=== PATIENT | female | born 1945 | race Two or more races ===

== ENCOUNTER 2024-12-02 09:50 | Emergency (ER) | payer MEDICARE, SELFPAY ==
--- NOTE | ~2024-12-02 | XR_ITS ---
EXAMINATION: XR HAND/WRIST, LEFT CLINICAL INFORMATION: pain. No further clinical information provided. COMPARISON: None available. TECHNIQUE: PA, lateral, oblique, and scaphoid views of the left hand and wrist. FINDINGS: Normal bone mineralization. No fracture, dislocation, or suspicious focal bony abnormality. There has been fusion of the first MCP joint with a lateral plate and screw construct, which appears intact without hardware abnormality or loosening. 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 Moderate narrowing of the second and mild narrowing of the third MCP joints. The DIP joints demonstrate significant arthritic changes with central erosions and productive bony changes, findings suspicious for primary erosive osteoarthritis. This also involves the interphalangeal joint of the thumb. There is soft tissue swelling about the wrist and proximal forearm. XR/XR hand wrist LT IMPRESSION: 1. No acute fracture or dislocation. Arthrodesis of the first MCP joint with plate and screw fixation, without complication. 2. Chondrocalcinosis within the wrist, suggestive of CPPD. 3. Arthritic changes as detailed, likely representing a mix of degenerative and inflammatory arthropathy. 4. Soft tissue swelling about the proximal forearm and wrist. Electronically signed by: Jarvis Slater MD 12/02/2024 10:45 AM [facility]
[2024-12-02 09:52] VITALS: BP 189/59; PULSE 68; RESP 18; TEMP 36.1; O2SAT 94; BMI 34.7
--- NOTE | 2024-12-02 12:16 | ED.EXTPRO ---
HPI - Extremity Problem General Chief complaint: Extremity Injury, Upper Stated complaint: Pain L arm/hand Time Seen by Provider: 12/02/24 12:02 Source: patient Mode of arrival: ambulatory Limitations: no limitations History of Present Illness ED Provider: Dr. Azra Espino HPI Narrative: Patient comes to the emergency room complaining of left wrist pain and in the dorsum of the hand and fingers. Patient states it has been going on for about 3-4 days. Patient denies any trauma. Patient denies any upper arm pain Related Data Previous Rx's ?Medication ?Instructions ?Recorded naproxen 375 mg tablet 375 mg PO BID PRN pain #14 tabs 12/02/24 Allergies Allergy/AdvReac Type Severity Reaction Status Date / Time No Known Allergies Allergy Verified 12/02/24 09:56 Review of Systems Review of Systems: Constitutional : No Weight loss, No Fever, No Chills, No Night Sweats, No Fatigue, No Malaise ENT/Mouth : No Hearing loss, No Ear Pain, No Nasal Congestion, No Sinus Pain, No Hoarseness, No sore throat, No Rhinorrhea, No Swallowing Difficulty Eyes: No Eye Pain, No Swelling, No Redness, No Foreign Body, No Discharge, No Vision Changes Cardiovascular : No Chest Pain, No SOB, No Dyspnea on Exertion, No Orthopnea, No Edema, No Palpitations Respiratory : No Cough, No Sputum, No Wheezing, No Smoke Exposure, No Dyspnea Gastrointestinal : No Nausea, No Vomiting, No Diarrhea, No Constipation, No abdominal Pain, No Hematochezia, No Melena Genitourinary : no irregular bleeding, No Dysuria, No Urinary Frequency, No Hematuria, No Urinary Incontinence, No Urgency, No Flank Pain, No Urinary Flow Changes, No Hesitancy Musculoskeletal : Complaining of pain and mild swelling in the dorsum of the left hand in wrist, No Myalgias, No Joint Swelling Skin : No Skin Lesions, No rash Neuro : No Weakness, No Numbness, No Paresthesias, No Loss of Consciousness, No Dizziness, No Headache Psych : No Anxiety/Panic, No Depression, No SI/HI/AH/VH, No Social Issues, Heme/Lymph: No Bruising, No Bleeding,No Lymphadenopathy Endocrine : No Polyuria, No Polydipsia, No Temperature Intolerance Physical Exam Vital Signs: Vital Signs: Last Vital Signs Temp 97 F 12/02/24 09:52 Pulse 68 12/02/24 09:52 Resp 18 12/02/24 09:52 BP 189/59 H 12/02/24 09:52 Pulse Ox 94 12/02/24 09:52 O2 Del Method Room Air 12/02/24 09:52 BMI result Body Mass Index 34.7 Const: Other: Appearance: Alert. Oriented X3. No acute distress. Eyes: Pupils equal, round and reactive to light. ENT: Pharynx normal. Neck: Normal inspection. Neck supple. No lymph nodes noted. No crepitus CVS: Normal heart rate and rhythm. Pulses normal. Normal S1 and S2 Respiratory: No respiratory distress. Breath sounds normal. No Wheezing. No rales Abdomen: Soft and nontender. No rigidity. No distention. Skin: Skin warm and dry. Normal skin color. Normal skin turgor. Extremities: No lower extremity edema. No Lacerations. No Rash. Patient's left hand is slightly swollen on the dorsum, patient able to flex and extend all fingers. Patient known to have Heberden's and Jessika nodes in most fingers bilaterally. Neuro: Oriented X 3. No motor deficit. No sensory deficit. Moving all extremities. No slurred speech. CN 2 through 12 grossly intact Psych: calm, cooperative, normal affect Medical Decision Making Medical Decision Making MDM Narrative: X-ray does not show any acute abnormality, chronic arthritic changes. Based on patient's physical exam and x-rays, patient likely having an arthritis flare. To patient's knowledge, patient has been diagnosed with arthritis but has not been seen by rheumatology. Patient is currently not taking any DMARDs. Gout or septic joint is not suspected Patient is currently visiting from [place]. Patient instructed to follow-up with PCP and possibly get a referral for Rheumatology. Patient was given naproxen in the ED. Discussed with the patient to have close follow-up with the primary care physician. 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 However, she had blood work done 2 weeks ago and she was told that her renal function was normal. Differential Diagnosis Differential Diagnoses: The differential diagnosis associated with the presentation includes (Arthritis, osteoarthritis, gout) Independent Interpretation I performed an independent interpretation of an: Plain X-Ray Radiology Impression Discussion of test interpretation with radiology: I have reviewed the radiologist's reading. Radiologist Impression: Normal bone mineralization. No fracture, dislocation, or suspicious focal bony abnormality. There has been fusion of the first MCP joint with a lateral plate and screw construct, which appears intact without hardware abnormality or loosening. 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 Moderate narrowing of the second and mild narrowing of the third MCP joints. The DIP joints demonstrate significant arthritic changes with central erosions and productive bony changes, findings suspicious for primary erosive osteoarthritis. This also involves the interphalangeal joint of the thumb. There is soft tissue swelling about the wrist and proximal forearm. XR/XR hand wrist LT IMPRESSION: 1. No acute fracture or dislocation. Arthrodesis of the first MCP joint with plate and screw fixation, without complication. 2. Chondrocalcinosis within the wrist, suggestive of CPPD. 3. Arthritic changes as detailed, likely representing a mix of degenerative and inflammatory arthropathy. 4. Soft tissue swelling about the proximal forearm and wrist. Discharge Plan Discharge Clinical Impression: Flare of rheumatoid arthritis Patient Disposition: Home, Self-Care Instructions: Arthritis (ED) Additional Instructions: Please follow-up with your primary care physician tomorrow. When you get back home in [place], please discuss with your primary physician a possible referral to Rheumatology. If you have any worsening or new symptoms, please return to the emergency room or call 911 Prescriptions: New naproxen 375 mg tablet 375 mg PO BID PRN (Reason: pain) Qty: 14 0RF Print Language: Kittitian
[2024-12-02] MEDS: NaPROXEN 500 MG TABLET PO (12:45)
[2024-12-02 12:47] VITALS: BP 144/54; PULSE 60; RESP 18; TEMP 36.6; O2SAT 92
[2024-12-02 12:59] VITALS: BP 144/54; PULSE 60; RESP 18; TEMP 36.6; O2SAT 92
--- OUTSIDE RECORDS SUMMARY | 2024-12-02 13:13 | XMS_ITS | Patient Health Record ---
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 Name Role Phone JAMES ALVES Unavailable [phone] Jericho Banks MD, Emilia Unavailable Unavailable Allergies Allergen (clinical drug ingredient) Drug/Non Drug Allergy documented on EMR Reaction Allergy Type Onset Date Status Pollen pollen (uncoded) Unknown Allergy Act melody Reason For Referral No Information Medications Medication SIG (Take, Route, Frequency, Duration) Notes Start Date End Date Status Losartan Potassium-HCTZ 100- 25 MG 1 tablet Orally Once a day for 30 day(s) Active Levothyroxine Sodium 125 MCG 1 tablet on an empty stomach in the morning Orally Once a day for 30 day(s) Active Omeprazole 40 MG 1 capsule Orally Onc e a day for 30 day(s) Active Atorvastatin Calcium 40 MG 1 tablet Oral ly Once a day for 30 day(s) Active traMADol HCl 50 MG 1 tablet as needed Orally three times a day Active amLODIPine Besylate 10 MG 1 tablet Orall y Once a day for 30 day(s) Active Hydroxychloroquine Sulfate 2 00 MG as directed Orally Active Dicyclomine HCl 20 MG 1 tablet Orally Th ree times a day for 30 day(s) Active traZODone HCl 150 MG 1 tablet at bedtime Orally Once a day for 30 day(s) Active Sucralfate 1 GM 1 tablet on an empty stomach Orally Twice a day for 30 day(s) Active Gabapentin 300 MG 1 capsule Orally twi ce a day Active Premarin 0.625 MG/GM as directed Vaginal Active Baclofen 5 MG as directed Orally Active Immunizations Vaccine Route Administration Date Status Comme nts Influenza, seasonal, injecta ble, preservative free, 3 yrs and above Unknown 11/05/2018 Administered Social History Tobacco Use: Social History Observation Description Date Details (start date - stop date) Never Smoker NA - NA Tobacco Use/Smoking Question Answer Notes Are you a nonsmoker Alcohol Screen (Audit-C) Question Answer Notes Did you have a drink containing alcohol in the p ast year? No Points 0 Interpretation Negative Problems Problem Type SNOMED Code ICD Code Onset Dates Problem Status W/U Status Risk Notes Problem Carpal tunnel syndrome of right wrist (887131666546715) Carpal tunnel syndrome of right wrist (G56.01) Active confirmed Problem [id number] Carpal tunnel syndrome on both sides (G56.03) Active confirmed Problem Lesion of ulnar nerv e (055683168) Cubital tunnel syndrome on left (G56.22) Active confirmed Plan Of Treatment No Information Insurance Providers Payer Name Payer Address Payer Phone Subscriber Number Group Number Insured Name Patient Relationship to Insured Coverage Start Date Coverage End Date [facility] [address] [place], [place] [id number] Nusrat Mcdonough Self - patient is the insured Medical (General) History Medical History History ICD Code High Blood Pressure Arthritis Anemia Thyroid Trouble Surgical History Surgery Date(Month/Year) Bilateral Knee Replacement Eye Surgery Left Shoulder Hemorrhoids
--- OUTSIDE RECORDS SUMMARY | 2024-12-02 13:13 | XMS_ITS | Data Portability ---
Author Organization [place] [facility] Address [address] [place] [address] Assessment Encounter Date Assessment Date Assessment LastModified by Organization Details LastModified Time 01/22/2017 01/22/2017 Patient has bilat l3...s1 facet tenderness also bilat si tenderness had Pt with increased pain has claudication order MRI LS caudal yogi hmerheb Not available 01/22/2017 09:59:14 02/14/2017 02/14/2017 patient has tenderness over bilat facet lumbar increased with tilt and rotation had caudal yogi with 50% relief of her pain recommend facet inj l3...s1 bilat hmerheb Not available 02/14/2017 09:59:13 Plan of Treatment Reminders Order Date Submit Date Provider Last Modified By Organization Details Last Modified Time Details Appointments None recorded. Lab None recorded. Referral None recorded. Procedures epidural steroid injection, lumbar-cau akhil (PROC) 2016 017 MICHELLE Not available 7 05:01:13 facet joint injection, lumbar (PROC) 2016 017 MICHELLE Not available 7 05:01:13 facet joint injection, lumbar (PROC) 2016 017 [email or web address] Not available 7 13:33:35 Surgeries None recorded. Imaging None recorded. Medication Orders None recorded. Patient TargetsNo targets recorded. Patient Instructions Encounter Date Encounter Id Patient Instructions Last Modified By Organization Details Last Modified Time 02/05/2017 [id number] Patient had shor t term improvement with initial injection, will order proceed with facet injections to see if patient has additional improvement. Will follow up post procedure to assess response to treatment. [email or web address] Not available 02/05/2017 10:45:16 02/14/2017 [id number] sacroiliac pain: exercises MICHELLE Not available 02/16/2017 14:52:49 Reason for Referral None Reported. Results Created Date Observation Date Name Description Value Unit Range Abnormal Flag Note LastModifiedBy Organization Detail LastModifiedTime 01/30/20 17 01/27/2017 MRI, lumba r spine , w/o contr ast No observ ation record ed. [address] [facility] [address] [facility] [address], [place], [address], 01/29/2017 09:45:09 Result Notes None recorded. Procedures Surgical History Date Name Laterality Status Provider Name and Address Organization Details Recorded Time 7 Lumbar Facet Joint Injection Under Fluoroscopy completed Sofia Raman MD [address] [facility],[address], [place], [address], [facility] 03/07/2017 15:28:22 7 Back/Neck/Spine Surgery completed Kerrie Chang [place] - [facility] 03/02/2017 08:15:42 7 HM Caudal ESIN completed Sofia Raman MD [address] [facility],[address], [place], [address], [facility] - [facility] 01/25/2017 11:42:59 7 Back/Neck/Spine Surgery completed Nighat Nj [place] - [facility] 01/23/2017 08:05:02 Imaging Results Imaging Date Name Status LastModified by Organiz ation Details LastModified Time 01/27/2017 MRI, lumbar spine, w/o contrast completed [address] [facility] [address] [facility] [address], [place], [address], 01/29/2017 09:45:09 Procedure Notes None recorded. Medical Equipment None Reported. Allergies No known drug allergies Medications Name Sig Start Date Stop Date Status Note LastModified by Organization Details LastModified Time levocetirizi ne dihydrochlor rachael 5 mg tabs active Not Available Not Available Not Available hydroco/apap tab 5-325mg active Not Available Not Available Not Available latanoprost 0.005 % eye drops INSTILL 1 DROP INTO AFFECTED EYE(S) BY OPHTHALMIC ROUTE ONCE DAILY INTHE EVENING active Not Available Not Available No t Available atorvastatin 40 mg tablet Take 1 tablet every day by oral route. active Not Available Not Available No t Available citalopram 40 mg tablet Take 1 tablet every day by oral route. active Not Available Not Available No t Available hydrocodone 5 mg-acetamino phen 325 mg tablet Take 1 tablet every 6 hours by oral route as needed for 30 days. 2016 active Not Available Not Available Not Avai lable omeprazole 40 mg capsule,corrina yed release Take 1 capsule every day by oral route. active Not Available Not Available No t Available dicyclomine 20 mg tablet Take 1 tablet 4 times a day by oral route. active Not Available Not Available No t Available amlodipine 10 mg tablet Take 1 tablet every day by oral route. active Not Available Not Available No t Available gabapentin 300 mg capsule Take 1 capsule 3 times a day by oral route. active Not Available Not Available No t Available levothyroxin e active Not Available Not Available Not Available ProAir HFA 90 mcg/actuatio n aerosol inhaler Inhale 2 puffs every 4 hours by inhalation route. active Not Available Not Available No t Available tramadol ER 150 mg capsule 24h,extended release(25-7 5) Take 1 capsule every day by oral route. active Not Available Not Available No t Available Vitals Date Recorded Body height Body weight Body mass index (BMI) Heart rate Systolic blood pressure Diastolic blood pressure Provider Name and Address Organization Details Last Updated DateTime 7 180.34 cm 27499.3 g 23.8 kg/m2 59 /min 108 mm[Hg] 62 mm[Hg] Sofia Raman MD [address] [facility], [address] , [place] [facility] 7 09:46:20 Date Recorded Body height Body weight Body mass index (BMI) Oxygen saturation Oxygen saturation in Arterial blood by Pulse oximetry Heart rate Body temperature Systolic blood pressure Diastolic blood pressure Provider Name and Address Organization Details Last Updated DateTime 7 180.34 cm 05509.3 g 23.8 kg/m2 98 % 98 % 61 /min 98.1 [degF] 152 mm[Hg] 65 mm[Hg] Nighat Nj [place] - [facility] 08:04:09 Date Recorded Body height Body weight Body mass index (BMI) Systolic blood pressure Diastolic blood pressure Provider Name and Address Organization Details Last Updated DateTime 02/05/2017 180.34 cm 20369.3 g 23.8 kg/m2 153 mm[Hg] 48 mm[Hg] Tash Smith PA-C [address] [facility],[address], [place], [address] [place] [id number] [facility] 7 10:20:14 Date Recorded Body height Heart rate Body weight Body mass index (BMI) Systolic blood pressure Diastolic blood pressure Provider Name and Address Organization Details Last Updated DateTime 180.34 cm 65 /min 15579.3 g 23.8 kg/m2 126 mm[Hg] 56 mm[Hg] Sofia Raman MD [facility] [facility], [place], [address] [place] [address] [facility] 09:52:17 Date Recorded Body height Body weight Body mass index (BMI) Oxygen saturation Oxygen saturation in Arterial blood by Pulse oximetry Heart rate Body temperature Respiratory rate Systolic blood pressure Diastolic blood pressure Provider Name and Address Organization Details Last Updated DateTime 180.34 cm 21987.3 g 23.8 kg/m2 96 % 96 % 51 /min 97.7 [degF] 17 /min 153 mm[Hg] 57 mm[Hg] Kerrie Chang [facility] 08:13:46 Social History None recorded. Functional Status None recorded. Mental Status None recorded. Family History Relationship Description Onset Age of this Age Resolved Age Notes LastModified by Organization Details LastModified Time Daughter Anxiety disorder [email or web address] Not available 2016 09:10:04 Daughter History of depression [email or web address] Not available 01/26 09:10:18 Sister Anxiety disorder [email or web address] Not available 2016 09:10:04 Sister History of depression [email or web address] Not available 01/26 09:10:18 Medical History Condition Response Coronary Artery Disease N Gout N Blood Transfusion N Emphysema N Head Trauma/Injury N COPD N Depression Y Oxygen Use N Headaches/Migraines N Do you have a pacemaker? N Anxiety Disorder Y Do you have Sleep Apnea? Y Blood Clot(s) or DVT(s) N Acid Reflux (GERD) N Have you ever had a cardiac catherizatio n? N Cancer N Stroke N Crohn's Disease N Have you ever had open heart surgery? N Alcohol Overuse/Alcohol Abuse N Back Injury N Rheumatoid Arthritis Y Arrhythmia N Hypertension/High Blood Pressure N Fibromyalgia N Autoimmune disorders N Have you ever had a echocardiogram? N Heart Disease/Heart Problems N Thyroid Problems Y Brain Tumors N ADD/ADHD N Neck Pain N Anemia N Back Pain N Brain Injury N Do you use a C-pap machine? N Heart Attack (ND) N Have you ever had a stress test? N Difficulty swallowing N Bleeding Disorder N Seizures/Epilepsy N Cerebral Palsy N AIDS/HIV N Congestive Heart Failure (CHF) N Do you have cardiac stents? N Dementia N Asthma N Amputation N Lupus N Diabetes Type II N Peripheral Vascular Disease N Hepatitis N Diabetes Type I N Aneurysm N Pulmonary Embolism N Gynecological HistoryNo gynecological history recorded. Obstetrics History GPAL:G 0 P 0 0 0 0 Past Encounters Encounter ID Performer Location Encounter Start Date Encounter Closed Date Diagnosis/Indication Diagnosis SNOMED-CT Code Diagnosis ICD10 Code Diagnosis Note [id number] Sofia Raman MD [address] 1 01/22/2017 09:07:21 01/22/2017 17:33:29 Arthropathy of lumbar facet joint 539454391 M46.96 Spinal jose miguel nosis of lumbar region 78992417 M48.06 [id number] Sofia Raman MD [facility] Procedure Room [address] [place] [address] [address] [place] [address] 01/23/2017 08:03:30 01/23/2017 14:09:38 [id number] Tash Smith PA-C [address] [address] 02/05/2017 10:00:27 02/05/2017 13:02:36 Low back pain 267177476 M54.5 Sacroiliac joint pain 20 5264948 M53.3 [id number] Sofia Raman MD [place] [address] [facility] [place] [address] 02/14/2017 09:17:45 02/14/2017 11:30:36 Arthropathy of lumbar facet joint 247754018 M46.96 Inflammati on of sacroiliac joint 12183326 M46.1 [id number] Sofia Raman MD [facility] Procedure Room [address] [facility] [address] [facility] [address] [place] [address] 03/02/2017 07:56:00 03/04/2017 18:02:14 Health Concerns Section Related Observation LastModified by Organization Detai ls LastModified Time None Recorded Concern Status LastModified by Organization Details LastModified Time None Recorded Advance Directives Directive None Recorded Payers Encounter Date Sequence Insurance Name Policy Number Policy Mayorga Covered Member ID Mayorga Member ID Guarantor Name 01/22/2017 1 [place] [id number] A Nusrat L Zepeda [id number] Nusrat L Zepeda 01/22/2017 1 [facility] (MEDICAID REPLACEMENT - HMO) [id number] Nusrat L Zepeda [id number] Nusrat L Zepeda 01/23/2017 1 [place] [id number] A Nusrat L Zepeda [id number] Nusrat L Zepeda 01/23/2017 1 [facility] (MEDICAID REPLACEMENT - HMO) [id number] Nusrat L Zepeda [id number] Nusrat L Zepeda 02/05/2017 1 [place] [id number] A Nusrat L Zepeda [id number] Nusrat L Zepeda 02/05/2017 1 [facility] (MEDICAID REPLACEMENT - HMO) [id number] Nusrat L Zepeda [id number] Nusrat L Zepeda 02/14/2017 1 [facility] [id number] Nusrat L Zepeda [id number] Nusrat L Zepeda 03/02/2017 1 [facility] (MEDICARE REPLACEMENT/AD VANTAGE - PPO) [id number] Nusrat L Zepeda [id number] Nusrat L Zepeda Notes Date Note Type Note Provider Name and Address Organization Details Recorded Time 01/22/2017 text/html Pain Management L-spineReported bypatient.Location: pain is not radiating Quality:burning Severity:current pain level 6/10; worst pain 8/10;worsening Duration:constant Onset/Timing:chroni c Context:cannot identify Alleviating Factors:medication Aggravating Factors:extension; flexion; carrying; twisting; lifting; getting out of bed; going from sit to stand; sitting; standing; walking; lying down Associated Symptoms:no bladder compromise; no bowel compromise;weakness Radiation:none Work Related:no MVAno ADL (Activities of Daily Living):walking; sweeping; mopping; improve with medication Pain Relief With Current Medications:25%; 12 hrs. Prior Imaging:MRI Previous Surgerynone Previous Injections:YOGI; helped a little; helped temporarily Previous PT:none Previous home health care respiratory therapist:did not help Sofia Raman MD [address] [place] [address],[address], [place], [address], [facility] 01/22/2017 10:04:48 02/05/2017 text/html L-spine OrthoReported bypatient.Location: bilateral Quality:aching; dull; constant Severity:moderate; pain level 5/10 Duration:continuous since onset Timing:cannot identify Context:cannot identify Alleviating Factors:narcotics Aggravating Factors:sitting; standing; walking; bending/squatting; exercise Associated Symptoms:no weakness; no numbness; no tingling; no radiation down leg Previous Surgery:none Prior Imaging:no recent studies Previous Injections:helped significantly Previous PT:none Patient presents for injection follow up. Tash Smith PA-C [address] [place] [address],[address], [place], [address], [facility] 02/05/2017 10:46:44 02/14/2017 text/html Pain Management L-spineReported bypatient.Location: pain is not radiating Quality:burning Severity:current pain level 6/10; worst pain 8/10; same Duration:constant Onset/Timing:chroni c Context:cannot identify Alleviating Factors:medication Aggravating Factors:extension; flexion; carrying; twisting; lifting; getting out of bed; going from sit to stand; sitting; standing; walking; lying down Associated Symptoms:no bladder compromise; no bowel compromise;weakness Radiation:none Work Related:no MVAno ADL (Activities of Daily Living):walking; sweeping; mopping; improve with medication Pain Relief With Current Medications:25%; 12 hrs. Prior Imaging:MRI Previous Surgerynone Previous Injections:YOGI; helped a little; helped temporarily Previous PT:none Previous home health care respiratory therapist:did not help Sofia Raman MD [address] [facility],[address], [place], [address], [facility] 02/14/2017 10:03:31 OBGyn Episode No OBEpisode recorded.
--- OUTSIDE RECORDS SUMMARY | 2024-12-02 13:14 | XMS_ITS | Encounter Summary ---
Author Organization [facility] Address [address] [place] [address] Care Team Providers Care Comic Writer Name Role Phone Unavailable Primary Care Provider Unavailabl e Prior Encounters Date Type Department Care Team Description 05/02/2024 9:15 AM CDT Office Visit [facility] [address] [place] [phone] Dwayne Villavicencio, DDS 03/18/2024 1:00 PM CDT Office Visit [facility] [address] [place] [phone] Dwayne Villavicencio DDS 03/11/2024 11:00 AM CDT Office Visit [facility] [address] [place] [phone] Luis Alberto Harvey, [facility] 03/11/2024 9:30 AM CDT Office Visit [facility] [address] [place] [phone] Kenna Ybarra, [facility] 02/28/2024 2:00 PM CDT Office Visit [facility] [address] [place] [phone] Dwayne Villavicencio DDS 02/06/2024 9:30 AM CDT Office Visit [facility] [address] [place] [phone] Dwayne Villavicencio DDS 01/15/2024 8:30 AM CDT Office Visit [facility] [address] [place] [phone] Dwayne Villavicencio, DDS 01/01/2024 8:30 AM SCREEN MACHINE OPERATOR Office Visit [facility] [address] [place] [phone] Dwayne Villavicencio, DDS 12/19/2023 8:30 AM SCREEN MACHINE OPERATOR Office Visit [facility] [address] [place] [phone] Dwayne Villavicencio, DDS 11/29/2023 8:30 AM SCREEN MACHINE OPERATOR Office Visit [facility] [address] [place] [phone] Dwayne Villavicencio, DDS 11/01/2023 11:00 AM SCREEN MACHINE OPERATOR Office Visit [facility] [address] [place] [phone] Dwayne Villavicencio, DDS 11/01/2023 10:30 AM SCREEN MACHINE OPERATOR Office Visit [facility] [address] [place] [phone] Kenna Ybarra, [facility] 10/04/2023 9:30 AM SCREEN MACHINE OPERATOR Office Visit [facility] [address] [place] [phone] Dwayne Villavicencio, DDS 07/13/2023 9:00 AM CDT Office Visit [facility] [address] [place] [phone] Kenna Ybarra [facility] 07/12/2023 Travel 07/12/2023 2:00 PM CDT Consult [facility] [address] [place] [phone] Shashank Lowe DDS [place] 06/06/2023 Travel 06/06/2023 10:00 AM CDT Office Visit [facility] [address] [place] [address] [address] [place] [phone] Dwayne Villavicencio DDS Last Filed Vital Signs Vital Sign Reading Time Taken Comments Blood Pressure 160/69 03/11/2024 9:29 AM CDT Pulse 62 03/11/2024 9:29 AM CDT Temperature - - Respiratory Rate - - Oxygen Saturation - - Inhaled Oxygen Concentration - - Weight - - Height - - Body Mass Index - - Plan of Treatment Not on file Procedures Procedure Name Priority Date/Time Associated Diagnosis Comments RE-EVALUATION ? POST-OPERATIVE OFFICE VISIT Routine 05/02/2024 9:15 AM CDT ADJUST COMPLETE DENTURE - MANDIBULAR Routine 03/18/2024 1:00 PM CDT ADJUST PARTIAL DENTURE - MAXILLARY Routine 03/11/2024 11:00 AM CDT ADJUST COMPLETE DENTURE - MANDIBULAR Routine 03/11/2024 11:00 AM CDT ORAL HYGIENE INSTRUCTIONS Routine 2023 9:30 AM CDT PERIO MAINTENANCE Routine 03/11/2024 9:3 0 AM CDT DELIVER DENTURE Routine 02/28/2024 2:00 PM CDT DELIVER DENTURE Routine 02/28/2024 2:00 PM CDT WAX BITE RELATION Routine 02/06/2024 9:3 0 AM CDT WAX BITE RELATION Routine 01/15/2024 8:3 0 AM CDT RE-EVALUATION ? POST-OPERATIVE OFFICE VISIT Routine 01/01/2024 8:30 AM SCREEN MACHINE OPERATOR 27 SEMI-PRECISION ATTACHMENT- PLACEMENT Routine 12/19/2023 8:30 AM SCREEN MACHINE OPERATOR 26 SEMI-PRECISION ATTACHMENT- PLACEMENT Routine 12/19/2023 8:30 AM SCREEN MACHINE OPERATOR 24 SEMI-PRECISION ATTACHMENT- PLACEMENT Routine 12/19/2023 8:30 AM SCREEN MACHINE OPERATOR 25 SEMI-PRECISION ATTACHMENT- PLACEMENT Routine 12/19/2023 8:30 AM SCREEN MACHINE OPERATOR 23 SEMI-PRECISION ATTACHMENT- PLACEMENT Routine 12/19/2023 8:30 AM SCREEN MACHINE OPERATOR 22 SEMI-PRECISION ATTACHMENT- PLACEMENT Routine 12/19/2023 8:30 AM SCREEN MACHINE OPERATOR 25 SEMI-PRECISION ABUTMENT- PLACEMENT Routine 12/19/2023 8:30 AM SCREEN MACHINE OPERATOR 26 SEMI-PRECISION ABUTMENT- PLACEMENT Routine 12/19/2023 8:30 AM SCREEN MACHINE OPERATOR 27 SEMI-PRECISION ABUTMENT- PLACEMENT Routine 12/19/2023 8:30 AM SCREEN MACHINE OPERATOR 24 SEMI-PRECISION ABUTMENT- PLACEMENT Routine 12/19/2023 8:30 AM SCREEN MACHINE OPERATOR 23 SEMI-PRECISION ABUTMENT- PLACEMENT Routine 12/19/2023 8:30 AM SCREEN MACHINE OPERATOR Max FULL UPPER DENTURE Routine 8:30 AM SCREEN MACHINE OPERATOR Kvng IMPLANT /ABUTMENT SUPPORTED REMOVABLE DENTURE FOR EDENTULOUS ARCH ? MANDIBULAR Routine 12/19/2023 8:30 AM SCREEN MACHINE OPERATOR 22 SEMI-PRECISION ABUTMENT- PLACEMENT Routine 12/19/2023 8:30 AM SCREEN MACHINE OPERATOR RE-EVALUATION ? POST-OPERATIVE OFFICE VISIT Routine 11/29/2023 8:30 AM SCREEN MACHINE OPERATOR RE-EVALUATION ? POST-OPERATIVE OFFICE VISIT Routine 11/01/2023 11:00 AM SCREEN MACHINE OPERATOR ORAL HYGIENE INSTRUCTIONS Routine 2022 10:30 AM SCREEN MACHINE OPERATOR PERIO MAINTENANCE Routine 11/01/2023 10: 30 AM SCREEN MACHINE OPERATOR RE-EVALUATION ? POST-OPERATIVE OFFICE VISIT Routine 10/04/2023 9:30 AM SCREEN MACHINE OPERATOR ORAL HYGIENE INSTRUCTIONS Routine 2022 9:00 AM CDT PERIO MAINTENANCE Routine 07/13/2023 9:0 0 AM CDT PERIO CONSULT Routine 07/12/2023 2:00 PM CDT KNITTING TEACHER CBCT Routine 06/06/2023 10:00 AM CDT NEW PATIENT SPECIAL EXAM - ADULT Routine 06/06/2023 10:00 AM CDT Kvng COMPLETE DENTURE Routine 06/06/2023 12:00 AM CDT Max COMPLETE DENTURE Routine 06/06/2023 12:00 AM CDT 22 DENTAL IMPLANT Routine 06/06/2023 12: 00 AM CDT 23 DENTAL IMPLANT Routine 06/06/2023 12: 00 AM CDT 24 DENTAL IMPLANT Routine 06/06/2023 12: 00 AM CDT 25 DENTAL IMPLANT Routine 06/06/2023 12: 00 AM CDT 26 DENTAL IMPLANT Routine 06/06/2023 12: 00 AM CDT 27 DENTAL IMPLANT Routine 06/06/2023 12: 00 AM CDT Visit Diagnoses Not on file Insurance [id number] [place], [place] [id number] [place] [address] DUAL COMPLETE PPO
--- OUTSIDE RECORDS SUMMARY | 2024-12-02 13:14 | XMS_ITS | Clinical Summary ---
Author Organization [facility] Address [address] [place] [address] [place] [address] Care Team Providers Care Structural Steel Equipment Erector Name Role Phone Cassandra Cabrera PA-C Primary Care Provider Allergies No known active allergies Medications Medication Sig Dispensed Refills Start Date End Date Status ALPRAZolam 0.5 mg tablet (XANAX) TAKE 1 TABLET BY MOUTH IN THE EVENING NEEDED 06/21/2022 Active atorvastatin 40 mg tablet (LIPITOR) Take 1 tablet (40 mg total) by mouth daily. 06/02/2022 Active diclofenac 1 % topical gel APPLY 2 GM FOUR TIMES DAILY TO AFFECTED AREA 05/07/2022 Active diclofenac sodium 50 mg tablet,delayed release (VOLTAREN) TAKE 1 TABLET BY MOUTH TWICE DAILY AFTER A MEAL 04/22/2022 Active fluticasone propionate 50 mcg/actuation nasal spray,suspension (FLONASE) Administer 2 sprays into each nostril daily. shake before use 05/01/2022 Active HYDROcodone 5 mg-acetaminophen 325 mg tablet (NORCO) Take 1 tablet by mouth 3 times a day as needed. 06/24/2022 Active levothyroxine 112 mcg tablet (SYNTHROID, LEVOTHROID) TAKE 1 TABLET BY MOUTH EVERY DAY BEFORE A MEAL 06/21/2022 Active liothyronine 5 mcg tablet (CYTOMEL) Take 1 tablet (5 mcg total) by mouth daily. 06/02/2022 Active losartan 100 mg-hydrochlorothi azide 12.5 mg tablet (HYZAAR) Take 1 tablet by mouth daily. 04/21/2022 Active metoprolol succinate ER 25 mg tablet,extended release 24 hr (TOPROL XL) Take 1 tablet (25 mg total) by mouth daily. 04/14/2022 Active naloxone 4 mg/actuation nasal spray (NARCAN) CALL 911. SPR CONTENTS OF ONE SPRAYER (0.1ML) INTO ONE NOSTRIL. REPEAT IN 2-3 MIN IF SYMPTOMS OF OPIOID EMERGENCY PERSIST, ALTERNATE NOSTRILS 06/12/2022 Active omeprazole 40 mg capsule,delayed release (PriLOSEC) Take 1 capsule (40 mg total) by mouth daily. 04/14/2022 Active traMADoL ER 100 mg tablet,extended release 24 hr (ULTRAM-ER) 06/24/2022 Active traZODone 150 mg tablet (DESYREL) Take 1 tablet (150 mg total) by mouth at bedtime. 04/14/2022 Active 24 Hour Nasal Allergy 55 mcg spray aerosol Administer 2 sprays (110 mcg total) into each nostril daily. 07/21/2022 Active dicyclomine 20 mg tablet (BENTYL) TAKE 1 TO 2 TABLETS BY MOUTH 15 TO 30 MINUTES PRIOR TO MAIN MEAL NEEDED 07/11/2022 Active diazePAM 5 mg tablet (VALIUM) TAKE 1 TO 2 TABLETS BY MOUTH 45 MINUTES BEFORE PROCEDURE FOR 1 DAY NEEDED 08/18/2022 Active albuterol sulfate HFA 90 mcg/actuation aerosol inhaler Inhale 1 puff 2 times a day. 07/18/2023 Active gabapentin 400 mg capsule (NEURONTIN) Take 1 capsule (400 mg total) by mouth every 6 hours and as desired. 08/31/2023 Active pantoprazole 40 mg tablet,delayed release (PROTONIX) Take 1 tablet (40 mg total) by mouth daily. 06/04/2023 Active oxyBUTYnin chloride 5 mg tablet (DITROPAN) TAKE 1 TABLET(5 MG) BY MOUTH TWICE DAILY 180 tablet 3 08/04/2024 Active Additional Information Patient not taking.Reported on 09/15/2024 halobetasol propionate 0.05 % topical ointment (ULTRAVATE) Apply to affected area qhs twice a week 60 g 11 09/15/2024 09/16/2025 Active estradioL 0.01% (0.1 mg/gram) vaginal cream (ESTRACE) INSERT 0.5GM VAGINALLY EVERY NIGHT AT BEDTIME FOR 3 WEEKS, THEN DECREASE TO TWICE A WEEK 42.5 g 6 09/15/2024 Active Active Problems Problem Noted Date Diagnosed Date Lichen sclerosus et atrophicus of the vulva 09/05 Hypothyroidism 09/12/2023 09/12/2023 Hypertension 09/12/2023 09/12/2023 Hyperlipidemia 09/12/2023 09/12/2023 Gastroesophageal reflux disease 09/12/2023 09/12/2023 Asthma 09/12/2023 09/12/2023 Encounters Date Type Department Care Team Description 09/15/2024 9:50 AM SANITARY ENGINEER Office Visit [facility] [place] [address] [place] [address] Kathi Tijerina MD Encounter for gynecological examination without abnormal finding (Primary Dx); Breast cancer screening by mammogram; Osteoporosis screening; Lichen sclerosus et atrophicus of the vulva 09/15/2024 Travel from Last 3 Months Immunizations Name Administration Dates Next Due Influenza Split Preservative Free ID 08/11/2024 Influenza Vaccine Quadrivalent High Dose PF 06/2022 Influenza vaccine 65y+ quadr ivalent adjuvanted 08/23/2023 Influenza vaccine high dose 65yo & up 06/14/2021 SARS-COV-2 (COVID-19) RED CA P +BLUE LABEL Mononvalent VACCINE, MODERNA 12+YO 08/25/2021,02/14/2021,01/14/2021 Social History Tobacco Use Types Packs/Day Years Used Date Smoking Tobacco: Former Cigarettes 0.5 35.9 0 1958 - 02/22/1994 Smokeless Tobacco: Former Tobacco Cessation:Counseling Given: Not Answered Comments:I quick in 1993 Alcohol Use Standard Drinks/Week Comments Not Currently 0 (1 standard drink = 0.6 oz pur e alcohol) None PHQ-2 Answer Date Recorded PHQ-9 Score 0 09/12/2023 [facility] Historical Interpersonal Safety Answer Date Recorded Does anyone neglect, hurt, or threaten the patie nt? No 09/15/2024 Sex and Gender Information Value Date Recorded Sex Assigned at Not on file Gender Identity Female 09/11/2023 12:47 PM SANITARY ENGINEER Sexual Orientation Not on file Last Filed Vital Signs Vital Sign Reading Time Taken Comments Blood Pressure 176/56 09/15/2024 10:27 AM SANITARY ENGINEER Pulse 60 09/15/2024 9:37 AM SANITARY ENGINEER Temperature - - Respiratory Rate - - Oxygen Saturation 7% 09/15/2024 9:37 AM SANITARY ENGINEER Inhaled Oxygen Concentration - - Weight 80.2 kg (176 lb 14.4 oz) 09/15/2024 9:37 AM SANITARY ENGINEER Height 152.4 cm (5') 09/15/2024 9:37 AM SANITARY ENGINEER Body Mass Index 34.55 09/15/2024 9:37 AM SANITARY ENGINEER Plan of Treatment Upcoming Encounters Date Type Department Care Team (Late st Contact Info) Description 02/03/2025 10:45 AM CDT Office Visit [facility] [address] [facility] [address] [place] [id number] Alexis Schuster MD [address] [facility] [address] [place], [place] [id number] 09/21/2025 10:00 AM SANITARY ENGINEER Office Visit [facility] [place] [address] [place], [place] [address]A [place], [place] [phone] Kathi Tijerina MD [address] [facility] [address] [place] [address] Health Maintenance Due Date Last Done Comments Adult Diabetic Eye Exam 1944 Adult Diabetic Foot Exam 1944 Creatinine Level 1944 Estimated Glomerular Filtration Rate (eGFR) 1944 Hemoglobin A1C Test Frequency 1944 Lipid Panel 1944 Potassium Level 1944 eGFR/Creatinine Level 1944 Hematocrit Level 1945 Urine Microalbumin 1954 Obesity Intervention 1962 Pneumococcal Vaccine: 50+ Years (New 2023 Guideline) (1 of 2 - PCV) 1963 DTaP,Tdap,and Td Vaccines (1 - Tdap) 1969 CT Colonography 1989 Cologuard (FIT-DNA) 1989 FIT 1989 Sigmoidoscopy 1989 Zoster Vaccine (1 of 2) 1994 Osteoporosis Screening 2009 COVID-19 Vaccine ( season) 2024 08/23/2023, 07/14/2022, 08/25/2021, Additional history exists Annual Preventive Visit 09/12/2024 09/12/2023 Colonoscopy 12/06/2030 12/06/2020 (Shelby ent Reported) Colorectal Cancer Screening 12/06/2030 RSV Vaccines Completed 07/08/2024 Influenza Vaccine Completed 08/11/2024, , 08/23/2023, Additional history exists HIB Vaccines Aged Out No longer eligi ble based on patient's age to complete this topic Hepatitis B Vaccines Aged Out No long er eligible based on patient's age to complete this topic Meningococcal ACWY Vaccine Aged Out N o longer eligible based on patient's age to complete this topic Care Teams Structural Steel Equipment Erector Relationship Specialty Start Date End Date Cassandra Cabrera PA-C [address] [place] [id number] PCP - General Physician Cytogenetic Technician 05/26/22
--- OUTSIDE RECORDS SUMMARY | 2024-12-02 13:14 | XMS_ITS | Data Portability ---
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 Cardiac telemetry, 02/22, no tachyarrhythmia noted over 2 weeks of monitoring but she does have episodes of junctional rhythm with heart rate in the 30s. Clearly she does have conduction system disease with evidence of bifascicular block and resting bradycardia. Lowest heart rate was 33 bpm. She is now status post dual-chamber pacemaker placement with residual episodes of shortness of breath and dizziness. Echocardiogram 07/24, technically difficult study but ejection fraction appears to be preserved. Dobutamine stress echocardiogram, 02/22, images reviewed, no evidence of ischemia or scar. She is appropriately on high intensity statin therapy that should be continued. Device interrogation 11/25, episodes of PMT as well as PVCs in bigeminal pattern for which she was started on metoprolol recently. She will maintain follow-up with electrophysiology for the same I have asked the patient to return in follow up in [address] Hernandez for allowing me to participate in the care of this pleasant patient. If I can be of any further assistance, please feel free to call me at [phone]. Josefina Auguste MD, FACC, RPVI [facility] elisha Not available 11/29/2020 08:43:43 04/15/2021 04/15/2021 Instructions, orders, and treatment plan, were discussed and reviewed with the patient during the visit. Follow up appointment arranged 12 minutes visit time. Over 50% of this time was spent in direct patient telephonic communication counseling and coordinating care. Colton 76 year-old white female here for follow-up. needs to increase water and fiber. she will try probiotic again Still complaining of bloating. She has previously felt better with trial of antibiotics however the relief is not long lasting. now again with diarrhea, urgency, bloating, we will re-try rifaximin also almost due for colonoscopy, she is concerned due to bowel changes, we will schedule EGD at the same time due to constant epigastric discomfort and h/o gastritis explained symptoms are in some part functional and endoscopy may not completely answer questions however we will assess for gastritis/microscop ic colitis [facility] Not available 04/15/2021 16:21:44 07/04/2021 07/04/2021 Instructions, orders, and treatment plan, were discussed and reviewed with the patient during the visit. Follow up appointment arranged 11 minutes visit time. Over 50% of this time was spent in direct patient telephonic communication counseling and coordinating care. Colton 76 year-old white female here for follow-up. needs to increase water and fiber. she will try probiotic again Still complaining of bloating. She has previously felt better with trial of antibiotics however the relief is not long lasting. she will call prn, she is moving to [place] adeiafloresita Not available 07/09/2021 16:09:05 Plan of Treatment Reminders Order Date Submit Date Provider Last Modified By Organization Details Last Modified Time Details Appointments None recorded. Lab None recorded. Referral None recorded. Procedures colonoscop y procedure (PROC) 2020 021 dave [facility] ([facility]) *Scheduling, [address] [place], [address], 16:26:06 upper endoscopy procedure (EGD) (PROC) 2020 021 dave [facility] ([facility]) *Scheduling, [address], [place], [address], 16:25:09 Surgeries None recorded. Imaging electrocar diogram 2020 021 MICHELLE [facility], [address], [place], [address], 09:42:59 electrocar diogram 2020 021 thengerer [facility], [address], [place], [address], 10:55:18 Medication Orders Xifaxan 550 mg tablet 2020 021 aenos2 [id number], [address], [place], [place], [id number], 09:46:59 Miralax 17 gram/dose oral powder 2020 021 [facility] #[id number], [address], [place], [place], [phone], 16:16:52 Patient TargetsNo targets recorded. Patient Instructions Encounter Date Encounter Id Patient Instructions Last Modified By Organization Details Last Modified Time 11/29/2020 [id number] eating healthy foods: care instructions [email or web address] Not available 11/29/2020 08:43:58 12/09/2020 [id number] general patient instructions Not available 12/09/2020 09:34:04 A healthy heart: care instructions Not available 12/09/2020 09:34:04 08/19/2021 [id number] general patient instructions Not available 08/19/2021 10:03:26 A healthy heart: care instructions Not available 08/19/2021 10:03:26 Reason for Referral None Reported. Results Created Date Observation Date Name Description Value Unit Range Abnormal Flag Note LastModifiedBy Organization Detail LastModifiedTime 12/09/19 21 12/09/2020 elect rocar diogr am Rate & Rhythm Not Available [facility] [address], [place], [address], 12/09/2020 09:20:24 12/09/19 21 12/09/2020 elect rocar diogr am QRS Not Available [facility] [address], [place], [address], 12/09/2020 09:20:24 12/09/19 21 12/09/2020 elect rocar diogr am [place] Interval Not Available [facility] [address], [place], [address], 12/09/2020 09:20:24 12/09/19 21 12/09/2020 elect rocar diogr am QRS Duration Not Available [facility] [address], [place], [address], 12/09/2020 09:20:24 12/09/19 21 12/09/2020 elect rocar diogr am QT Interval Not Available [facility] [address] [place], [address], 12/09/2020 09:20:24 06/15/20 21 06/16/2021 MRSA SCREE N MRSA screen Methi cilli n resis tant Staph aureu s, conta ct isola tion indic ated. Criti kyrie value segundo d to and read back by KARSTEN Ivan MA at: 06/16 at 1432 By Louisa Obregon Not Available [facility] ? Lab [address], [place], [address] 06/16/2021 14:35:52 06/15/20 21 06/15/2021 [facility] results Submi shaw MD: Estela gil MD Final Diagn osis A. Duode nal biops y: -Frag ments of duode nal-t ype mucos a with submu cosal fat sugge stive of a submu cosal lipom a and no other signi fican t histo patho logic jonathan es seen B. Gastr ic biops y: -Frag ments of gastr ic-ty pe mucos a with minim al chron ic infla mmati on -H. pylor i IHC is negat melody -No activ e infla mmati on, intes tinal metap lasia , dyspl carmen or malig cristian seen C. Dista l esoph michelle biops y: -Frag ments of squam ous mucos a with spong iosis and intra epith elial lymph ocyte s sugge stive of possi ble reflu x -No intes tinal metap lasia seen on speci al Alcia n blue stain -No infec tious etiol ogy, eosin ophil s, dyspl carmen or malig cristian seen D. Cecal polyp : -Tubu lar adeno ma E. Right colon biops y: -Frag ments of colon ic-ty pe mucos a with very focal submu cosal fat sugge stive of a submu cosal lipom a, focal insuf flati on artif act and no other signi fican t histo patho logic jonathan es seen F. Ascen ding colon polyp s: -Frag ments of tubul ar adeno ma G. Trans verse colon polyp s: -Frag ments of tubul ar adeno ma H. Left sided colon biops y: -Frag ments of colon ic-ty pe mucos a with no signi fican t histo patho logic jonathan es seen I have perso yazmin perfo rmed a micro scopi c exami natio n of tissu e liste d in the speci men(s ) recei arabella secti on at [facility], [address] [facility], [place] [address] Aubrey delaney Laxmi d Out By Lexi Head MD Clini kyrie Histo ry Gastr itis. Histo ry of polyp s. Speci men(s ) Recei arabella A: Duode nal biops y B: Gastr ic biops y C: Dista l esoph michelle biops y D: Cecal polyp E: Right colon biops y F: Ascen ding colon polyp s G: Trans verse colon polyp s H: Left sided colon biops y Gross Descr iptio n A. Speci men A is recei arabella in forma carlo and label ed Angie n [facility] nad, duode nal biops y . the speci men consi sts of multi ple tanpi nk, irreg ular fragm ents of soft tissu e rangi ng from 0.1-0 .3 cm in great est dimen luisana. The speci men is there are biops y bag entir aquilino in casse tte A. B. Speci men B is recei arabella in forma carlo and label ed [facility], gastr ic biops y . The speci men consi sts of multi ple tanpi nk, irreg ular fragm ents of soft tissu e rangi ng from 2.1 up to 0.4 cm in great est dimen luisana. The speci men is filte red throu gh a biops y bag and submi tted entir aquilino in casse tte B. C. Speci men C is recei arabella in forma carlo label ed [facility], dista l esoph michelle biops y . The speci men consi sts of 2 tanpi nk, irreg ular fragm ents of soft tissu e rangi ng from 0.4 up to 0.5 cm in great est dimen luisana. The speci men is filte red throu gh a biops y bag and submi tted entir aquilino in casse tte C. D. Speci men D is recei arabella in forma carlo and label ed [facility], cecal polyp . The speci men consi sts of a 0.4 x 0.3 x 0.2 cm tanpi nk, irreg ular fragm ent of soft tissu e which is filte red throu gh a biops y bag and submi tted entir aquilino in casse tte D. E. Speci men E is recei arabella in forma carlo and label ed [facility], right colon biops y . The speci men consi sts of a 0.3 x 0.3 x 0.2 cm tanpi nk, irreg ular fragm ent of soft tissu e which is filte red throu gh a biops y bag and submi tted entir aquilino in casse tte E. F. Speci men F is recei arabella in forma carlo and label ed [facility], ascen ding colon polyp . The speci men consi sts of 2 tanni sh pink, irreg ular fragm ents of soft tissu e each avera ging 0.3 cm in great est dimen luisana. The speci men is filte red throu gh a biops y bag and submi tted entir aquilino in casse tte F. G. Speci men G is recei arabella in forma carlo and label ed [facility], trans verse colon polyp . The speci men consi sts of multi ple tanpi nk, irreg ular fragm ents of soft tissu e rangi ng from 0.1 cm up to 0.3 cm admix ed with fecal debri s. The speci men is filte red throu gh biops y bag and submi tted entir aquilino in casse tte G. H. Speci men H is recei arabella in forma carlo label ed [facility], left- sided colon biops y . The speci men consi sts of a 0.7 x 0.4 x 0.3 cm tanpi nk, irreg ular fragm ent of soft tissu e which is filte red throu gh a biops y bag and submi tted entir aquilino in casse tte H. Gross exami natio n compl ete on 2020 at 11:31 am. Revie wed by Dr. Head 06/17 at 8:30a m. adelaida/10/24 21 Isaiah Salcedo Not Available [facility] ? Lab [address] [facility] [address], [place], [address] 06/17/2021 14:57:22 11/09/19 21 11/09/2020 remot e devic e inter rogat ion (PROC ) No observ ation record ed. Not Available 2020 16:35:28 11/15/19 21 11/15/2020 remot e devic e inter rogat ion (PROC ) No observ ation record ed. [email or web address] Not Available 11:36:17 12/09/19 21 12/09/2020 pacem frandy progr ammin g, dual lead (PROC ) No observ ation record ed. [email or web address] Not Available 02/2021 09:07:12 12/09/19 21 12/09/2020 elect rocar diogr am No observ ation record ed. thengerer Not Available 2020 09:50:35 12/22/19 21 12/09/2020 pacem frandy progr ammin g, dual lead (PROC ) No observ ation record ed. [email or web address] Not Available 13:48:32 03/30/20 21 03/30/2021 remot e devic e inter rogat ion (PROC ) No observ ation record ed. Not Available 2020 10:37:59 07/01/20 21 06/29/2021 remot e devic e inter rogat ion (PROC ) No observ ation record ed. Not Available 2020 07:45:52 08/19/20 21 08/19/2021 elect rocar diogr am No observ ation record ed. [facility] [address] [place] [address], [address], 08/19/2021 10:57:24 08/19/20 21 08/19/2021 pacem frandy progr ammin g, dual lead (PROC ) No observ ation record ed. [email or web address] Not Available 2020 10:52:54 Result Notes None recorded. Problems Name Problem SNOMED Code Status Onset Date Resolution Date Notes Provider Name and Address Organization Details Recorded Time Cough 62086164 Active 2017 Vivi Parekh MD [address] [facility], [place], [address] , [facility] 8 13:34:41 Bifascic ular block on electroc ardiogra m 540356898 Active 2016 Dorys Emerson CMA null, [place] - [facility] 7 08:30:19 Body mass index 30+ - obesity 892752027 Active 2016 Dorys Emerson CMA null, [place] - [facility] 7 08:30:19 Osteoart hrosis involvin g multiple sites but not designat ed as generali zed 70187534 Active 2016 Dorys Emerson CMA null, [place] - [facility] 7 08:30:19 Primary fibromya lgia syndrome 51374543 Active 2016 Dorys Emerson CMA null, [place] - [facility] 7 08:30:19 Hypothyr oidism 63533952 Active 2016 Dorys Emerson CMA null, [place] - [facility] 7 08:30:20 Recurren t sinusiti s 422294867 Active 2017 NABILA PRATHER, DO [address] [place], [address] , [place] - [facility] 8 08:19:23 Burping 807010602 Active 2018 ELICIA Lu, PA - [facility] 9 09:28:07 Abdomina l bloating 251305636 Active 2016 Last document ed by VIVI PAREKH, Family [facility] 01-30-20 17 Dorys Emerson CMA null, [place] - [facility] 7 08:30:19 Acute sinusiti s 24493762 Active 11-27-19 17 visit resolved Last document ed by VIVI PAREKH [facility] 11-27-19 17 Dorys Emerson CMA null, [place] - [facility] 7 08:30:20 Backache 228308196 Active 2016 Last document ed by VIVI PAREKH, [facility] 01-13-20 17 Dorys Emerson CMA null, [place] - [facility] 7 08:30:19 Prolapse d lumbar interver tebral disc 293556852 Active 201601-09-20 17 visit continue hydrocod one prnLast document ed by VIVI [facility] 01-09-20 17 Dorys Emerson CMA null, [facility] 7 08:30:19 Fibromya lgia 316898548 Active Last document ed by VIVI [facility] 01-09-20 17 Dorys Emerson CMA null, [facility] - [facility] 7 08:30:20 Mixed hyperlip idemia 863249082 Active Last document ed by VIVI [facility] 01-09-20 17 Dorys Emerson CMA null, [facility] - [facility] 7 08:30:20 Anemia 413582643 Active 10-16-20 16 visit iron indices wnl, increase iron suppleme nt to tid,Last document ed by [facility] 10-16-20 1 Dorys Emerson CMA null, [facility] - [facility] 7 08:30:20 Knee pain Active 02-10-20 17 visit oa, vicodin bid prn, will see ortho next weekLast document ed by VIVI [facility] 02-10-20 17 Dorys Emerson CMA null, [facility] 7 08:30:19 Atrophic vaginiti s 28270652 Active 201602-10-20 17 visit get prev recordsL ast document ed by VIVI [facility] 02-10-20 17 Dorys Emerson CMA null, [facility] 7 08:30:19 Essentia l hyperten luisana 52110370 Active 02-10-20 17 visit controll ed, continue current medsLast document ed by VIVI [facility] 02-10-20 17 Dorys Emerson CMA null, [facility] 7 08:30:19 Allergic rhinitis 10180250 Active Last document ed by VIVI [facility] 02-10-20 17 Dorys Emerson CMA null, [facility] - [facility] 7 08:30:19 Diarrhea 96526818 Active Last document ed by VIVI [facility] 11-27-19 17 Dorys Emerson CMA null, [facility] 7 08:30:20 Urinary tract infectio us disease 93550940 Active 201601-09-20 17 visit send urine cxLast document ed by [facility] 01-09-20 17 ELICIA Lucas, [facility] 7 08:30:19 Chronic kidney disease 769534294 Active 01-30-20 17 visit labs reviewed , creatini ne level higher than previous labsLast document ed by [facility] 01-30-20 17 ELICIA Lucas, [facility] - [facility] 7 08:30:20 Pre-surg mirella evaluati on Active 2016 ELICIA Lucas, [facility] 7 08:30:19 Chronic kidney disease stage 3 866629650 Active 2016 ELICIA Lucas, [facility] 7 08:30:19 Anemia of chronic disease 340570582 Active 2016 Dorys Emerson CMA null, [facility] 7 08:30:19 Chronic sinusiti s 67543469 Active 2019 María OLSEN null, [facility] 0 11:51:20 Bradycar [place] 45888268 Active Ronda Marroquin null, [facility] - [facility] 0 08:08:49 Pain in elbow 55376878 Active 2016 Dorys Emerson CMA null, [facility] 7 08:30:19 Gastroes ophageal reflux disease 728560447 Active 2016 Dorys Emerson CMA null, [facility] - [facility] 7 08:30:19 History of bradycar [place] 10656133113 9106 Active 2019 Betty Paz null, [facility] 0 09:30:59 Cardiac pacemake r in situ 419091682 Active 2019 [employer] dual chamber pacemake r implante d by Dr. Ramos at [facility]. MRI safe Cynthiann Cascilla-John callahan null, [facility] - [facility] 0 12:25:22 Insomnia 118500605 Active 2016 Dorys Emerson CMA null, [place] - [facility] - [facility] 7 08:30:19 Osteoart hritis 046153852 Active 2016 Dorys Emerson CMA null, [facility] - [facility] 7 08:30:19 Depressi ve disorder 88002947 Active 2016 Dorys Emerson CMA null, [facility] 7 08:30:19 Sleep apnea 55067723 Active 2016 Dorys Emerson CMA null, [facility] - [facility] 7 08:30:19 Colonosc opy declined 86919218473 9100 Completed 201608/01/2017 Vivi Parekh MD [address] [place] [address], [address] , [facility] 7 16:37:37 Screenin g for malignan t neoplasm of colon Active 2016 Dorys Emerson CMA null, [facility] 7 08:30:19 Loss of hair 084086591 Active 2016 Vivi Parekh MD [address] [place] [address], , [facility] 7 09:02:51 Anxiety 19614912 Active 2016 Vivi Parekh MD [address] [place] [address], , [facility] 7 10:26:42 Impaired fasting glycemia 412964478 Active 2016 Vivi Parekh MD [address] [place] [address], , [facility] 7 09:33:59 Screenin g mammogra phy Active 2017 Vivi Parekh MD [address] [place] [address], , [facility] [employer] [facility] 8 10:06:03 Increase d body mass index 68930712 Active 2017 Vivi Parekh MD [address] [place] [address], , [facility] 8 08:43:14 Vaginiti s 29083350 Active 2017 Vivi Parekh MD [address] [place], [address] , [facility] 8 08:23:42 Diabetes mellitus 10703281 Active 2017 Vivi Parekh MD [address] [place], [address] , [facility] 8 08:25:18 Problem Notes None recorded. Procedures Surgical History Date Name Laterality Status Provider Name and Address Organization Details Recorded Time 09/01/20 cardiac pacemaker procedure completed Nancy Ortega [facility] 09/06/2020 12:25:46 08/24/20 20 Exercise Stress Test BCG completed Josefina Auguste MD [address] [place], [address], [facility] 08/27/2020 10:18:53 12/23/19 20 [facility] 08:19:29 04/19/20 17 Cataract Surgery completed Marissa Rodgers [facility] 04/24/2017 10:54:11 11/05/19 12 Orthopaedic Surgery completed Ximena Ortiz [facility] 04/13/2017 08:10:56 11/05/18 88 Gall Bladder Surgery completed Ximena Ortiz [facility] 04/13/2017 08:11:11 11/05/18 75 Thyroid Surgery completed MANDIE Diamond [facility] 07/04/2017 10:24:53 11/05/18 69 Vascular Surgery completed MANDIE Diamond [facility] 07/04/2017 10:25:13 Imaging Results Imaging Date Name Status LastModified by Organization Details LastModified Time 11/09/2020 remote device interrogation (PROC) completed Information not available 11/09/2020 16:35:28 11/15/2020 remote device interrogation (PROC) completed [email or web address] Information not available 12/30/2020 11:36:17 12/09/2020 pacemaker programming, dual lead (PROC) completed Information not available 12/09/2020 09:07:12 12/09/2020 electrocardiogram completed thengerer Informa tion not available 12/10/2020 09:50:35 12/09/2020 pacemaker programming, dual lead (PROC) completed Information not available 12/22/2020 13:48:32 03/30/2021 remote device interrogation (PROC) completed Information not available 04/08/2021 10:37:59 06/29/2021 remote device interrogation (PROC) completed Information not available 07/05/2021 07:45:52 08/19/2021 electrocardiogram completed thengerer [facility] [address] [place] [address], [address], 08/19/2021 10:57:24 08/19/2021 pacemaker programming, dual lead (PROC) completed [email or web address] Information not available 08/19/2021 10:52:54 Procedure Notes None recorded. Medical Equipment None Reported. Allergies Allergen ID Allergen Name Allergen Category Reaction Reaction Severity Criticality Documentation Date Start Date Code Code System Note Provider Name and Address Organization Details Recorded Time 34450 Dilaudid medicatio n anaphylax is severe Not available 05/28/2017 83069 3 RxNorm Vivi Parekh MD [address] [place] [address], [address] [place] [address] 7 09:25:53 Medications Name Sig Start Date Stop Date Status Note LastModified by Organization Details LastModified Time levocetir izine dihydroch loride 5 mg tabs TK 1 T PO QD 04/13 completed Not Available Not Available Not Available amoxicill in 500 mg caps 02/25 completed Not Available Not Available Not Available cefdinir 300 mg caps 01/28 completed Not Available Not Available Not Available onetouch mis lancets 04/29 completed Not Available Not Available Not Available oxycod/ap ap tab 7.5-325 11/26 completed Not Available Not Available Not Available atorvasta tin calcium 40 mg tabs 07/30 completed Not Available Not Available Not Available meloxicam 15 mg tabs 04/29 completed Not Available Not Available Not Available levothyro xine sodium 112 mcg tabs 04/29 completed Not Available Not Available Not Available tobra/dex zuleika messi 0.3-0.1% 04/29 completed Not Available Not Available Not Available peg-3350/ kcl kam /sodium 05/06 completed Not Available Not Available Not Available accu-chek [address] 01/28 completed Not Available Not Available Not Available omeprazol e 40 mg cpdr TK 1 C PO ONCE DAILY BEFORE A MEAL 01/28 completed Not Available Not Available Not Available citalopra m hydrobrom rachael 40 mg tabs 1 tab daily 04/29 completed Not Available Not Available Not Available trazodone hydrochlo ride 100 mg tabs 07/30 completed Not Available Not Available Not Available alprazola m 0.5 mg tabs 01/28 completed Not Available Not Available Not Available prednisol one acetate 1 % susp 12/09 completed Not Available Not Available Not Available levothyro xine sodium 125 mcg tabs 07/30 completed Not Available Not Available Not Available onetouch kit ultra 2 11/26 completed Not Available Not Available Not Available prevnar 13 inj 11/26 completed Not Available Not Available Not Available amox/k clav tab 875-125 04/29 completed Not Available Not Available Not Available Prescript ion - Change 11/26 completed Lancets Not Available Not Available Not Available amlodipin e besylate 10 mg tabs 01/28 completed Not Available Not Available Not Available hydroco/a pap tab 5-325mg Take 1 tab pO BID PRN 07/30 completed Not Available Not Available Not Available accu-chek kit lesley pl 01/25 completed Not Available Not Available Not Available onetouch josé ultra bl 04/29 completed Not Available Not Available Not Available cephalexi n 500 mg caps 07/30 completed Not Available Not Available Not Available prednison e 20 mg tabs 04/29 completed Not Available Not Available Not Available Prescript ion - Prior Authoriza tion Request 04/29 completed Not Available Not Available Not Available trazodone hcl 100 mg tabs 05/06 completed Not Available Not Available Not Available spironola ctone 25 mg tabs 04/29 completed Not Available Not Available Not Available fluzone hd inj pf 17-18 11/26 completed Not Available Not Available Not Available diclofena c sodium 0.1 % soln 04/29 completed Not Available Not Available Not Available fluocinon rachael 0.05 % soln 11/26 completed Not Available Not Available Not Available dicyclomi ne hcl 20 mg tabs 01/28 completed Not Available Not Available Not Available proair hfa 108 mcg/act aers 01/28 completed Not Available Not Available Not Available latanopro st 0.005 % soln Instill 1 drop every day by ophthalm ic route at bedtime. 10/15 completed Not Available Not Available Not Available gabapenti n 300 mg caps 07/30 completed Not Available Not Available Not Available premarin 0.625 mg/gm crea 01/25 completed Not Available Not Available Not Available clobetaso l propionat e 0.05 % oint 01/28 completed Not Available Not Available Not Available ketorolac trometham ine 0.5 % soln 04/29 completed Not Available Not Available Not Available tramadol hcl 50 mg tabs Take two tablets daily 01/28 completed Not Available Not Available Not Available trazodone hcl 50 mg tabs 04/29 completed Not Available Not Available Not Available xiidra 5 % soln 01/26 completed Not Available Not Available Not Available valsart/h ctz tab 320-25mg 07/30 completed Not Available Not Available Not Available fluticaso ne propionat e 50 mcg/act susp 01/28 completed Not Available Not Available Not Available losartan/ hct tab 100-25 01/28 completed Not Available Not Available Not Available telmisart an 40 mg-hydroc hlorothia zide 12.5 mg tablet TAKE 1 TABLET BY MOUTH DAILY active Not Available Not Available No t Available cyclobenz aprine 10 mg tablet 01/26 completed Not Available Not Available Not Available amoxicill in 500 mg capsule 01/28 completed Not Available Not Available Not Available furosemid e 40 mg tablet TAKE 1 TABLET BY MOUTH EVERY DAY 08/19 completed Not Available Not Available Not Available Miralax 17 gram/dose oral powder take as directed prior to procedur e 2020 active Not Available Not Available Not Avai lable atorvasta tin 40 mg tablet TAKE 1 TABLET BY MOUTH EVERY NIGHT AT BEDTIME active Not Available Not Available No t Available nystatin 100,000 unit/mL oral suspensio n 01/26 completed Not Available Not Available Not Available tizanidin e 2 mg tablet TAKE 1 TABLET BY MOUTH TWICE DAILY NEEDED 08/23 completed Not Available Not Available Not Available citalopra m 40 mg tablet TAKE 1 TABLET BY MOUTH ONCE A DAY 10/15 completed Not Available Not Available Not Available trazodone 50 mg tablet take one tablet by mouth every day 08/16 completed Not Available Not Available Not Available azithromy maia 250 mg tablet TAKE 2 TABLETS BY MOUTH FOR 1 DAY THEN TAKE 1 TABLET BY MOUTH DAILY FOR 4 DAYS active Not Available Not Available No t Available alprazola m 1 mg tablet Take 0.5 tablets every day by oral route as needed. 11/29 completed Not Available Not Available Not Available hydrocodo ne 5 mg-acetam inophen 325 mg tablet TAKE 1 TABLET BY MOUTH THREE TIMES DAILY NEEDED FOR NON ACUTE PAIN active Not Available Not Available No t Available meloxicam 15 mg tablet TAKE 1 TABLET BY MOUTH EVERY DAY 08/22 completed Not Available Not Available Not Available sucralfat e 1 gram tablet Take 1 tablet 4 times a day by oral route as needed for 30 days. 04/21 completed Not Available Not Available Not Available Accu-Chek Softclix Lancets USE TO TEST BLOOD SUGAR ONCE DAILY active Not Available Not Available No t Available sulfameth oxazole 800 mg-trimet hoprim 160 mg tablet TAKE 1 TABLET BY MOUTH TWICE DAILY 08/22 completed Not Available Not Available Not Available hydrocodo ne 10 mg-acetam inophen 325 mg tablet TAKE 1/2 TABLET BY MOUTH THREE TIMES DAILY NEEDED FOR NON ACUTE PAIN active Not Available Not Available No t Available omeprazol e 40 mg capsule,d elayed release TAKE 1 CAPSULE BY MOUTH DAILY active Not Available Not Available No t Available liothyron ine 5 mcg tablet TAKE 1 TABLET BY MOUTH EVERY MORNING BEFORE BREAKFAS T WITH WATER active Not Available Not Available No t Available tramadol 50 mg tablet TAKE 1 TABLET BY MOUTH THREE TIMES DAILY NEEDED FOR NON ACUTE PAIN active Not Available Not Available No t Available spironola ctone 25 mg tablet Take 1 tablet every day by oral route. 04/13 completed Not Available Not Available Not Available lidocaine -prilocai ne 2.5 %-2.5 % topical cream 11/29 completed Not Available Not Available Not Available prednison e 10 mg tablets in a dose pack USE DIRECTED 08/19 completed Not Available Not Available Not Available levothyro xine 100 mcg tablet TAKE 1 TABLET BY MOUTH DAILY 08/19 completed Not Available Not Available Not Available losartan 100 mg-hydroc hlorothia zide 25 mg tablet Take 1 tablet every day by oral route for 30 days. 04/21 completed Not Available Not Available Not Available oxycodone -acetamin ophen 5 mg-325 mg tablet 11/29 completed Not Available Not Available Not Available alprazola m 0.5 mg tablet TAKE 1 TABLET BY MOUTH EVERY DAY NEEDED FOR ANXIETY ATTACK active Not Available Not Available No t Available gabapenti n 800 mg tablet TAKE 1 TABLET BY MOUTH EVERY DAY 08/19 completed Not Available Not Available Not Available trazodone 100 mg tablet TAKE 1.5 TABLET BY MOUTH once DAILY 12/09 completed Not Available Not Available Not Available dicyclomi ne 20 mg tablet TAKE 1 TO 2 TABLETS BY MOUTH 15 TO 30 MINUTES PRIOR TO MAIN MEALS OF THE DAY NEEDED active Not Available Not Available No t Available amlodipin e 10 mg tablet TAKE 1 TABLET BY MOUTH DAILY active Not Available Not Available No t Available benzonata te 100 mg capsule TAKE 1 CAPSULE BY MOUTH THREE TIMES DAILY FOR 10 DAYS NEEDED active Not Available Not Available No t Available hydrocodo ne 7.5 mg-acetam inophen 325 mg tablet TAKE 1 TABLET BY MOUTH EVERY 6 HOURS NEEDED FOR PAIN 08/19 completed Not Available Not Available Not Available cephalexi n 500 mg capsule 11/29 completed Not Available Not Available Not Available pantopraz ole 40 mg tablet,de layed release TAKE 1 TABLET BY MOUTH TWICE DAILY 12/09 completed Not Available Not Available Not Available erythromy maia 5 mg/gram (0.5 %) eye ointment 01/26 completed Not Available Not Available Not Available trazodone 150 mg tablet TAKE 1 TABLET BY MOUTH EVERY NIGHT AT BEDTIME active Not Available Not Available No t Available levothyro xine 125 mcg tablet TAKE 1 TABLET BY MOUTH IN THE MORNING 08/19 completed Not Available Not Available Not Available calcipotr iene 0.005 % topical cream 01/26 completed Not Available Not Available Not Available gabapenti n 300 mg capsule TAKE 2 CAPSULES BY MOUTH TWICE DAILY active Not Available Not Available No t Available zolpidem 5 mg tablet Take 1 tablet every day by oral route at bedtime. 04/13 completed maximum of 3 tabs per week Not Available Not Available Not Available metoprolo l succinate ER 25 mg tablet,ex tended release 24 hr TAKE 1 TABLET BY MOUTH DAILY active Not Available Not Available No t Available clobetaso l 0.05 % topical ointment APPLY A THIN LAYER TO THE outer vagina BY TOPICAL ROUTE 2 TIMES PER DAY for 2 weeks tehn at bedtime every night 01/26 completed Not Available Not Available Not Available hydroxych loroquine 200 mg tablet Take 1 mg twice a day by oral route. 12/09 completed Not Available Not Available Not Available fluocinon rachael 0.05 % topical solution APPLY TO THE AFFECTED AREA(S) BY TOPICAL ROUTE one TIMES PER DAY 04/29 completed Not Available Not Available Not Available estradiol 0.01% (0.1 mg/gram) vaginal cream USE 1 GRAM VAGINALL Y 1 TIME A WEEK 08/23 completed Not Available Not Available Not Available methylpre dnisolone 4 mg tablets in a dose pack 11/29 completed Not Available Not Available Not Available albuterol sulfate HFA 90 mcg/actua tion aerosol inhaler INHALE 1 TO 2 PUFFS BY MOUTH EVERY 4 TO 6 HOURS FOR 7 DAYS NEEDED active Not Available Not Available No t Available betametha sone dipropion ate 0.05 % topical ointment APPLY THIN LAYER TOPICALL Y TO THE AFFECTED AREA ONCE DAILY NEEDED 08/22 completed Not Available Not Available Not Available cefdinir 300 mg capsule Take 1 capsule every 12 hours by oral route for 10 days. 12/09 completed Not Available Not Available Not Available fluticaso ne propionat e 50 mcg/actua tion nasal spray,messi pension SHAKE LIQUID AND USE 1 SPRAY IN EACH NOSTRIL TWICE DAILY active Not Available Not Available No t Available loratadin e 10 mg tablet TAKE 1 TABLET BY MOUTH EVERY DAY FOR 14 DAYS active Not Available Not Available No t Available levothyro xine 112 mcg tablet TAKE 1 TABLET BY MOUTH EVERY MORNING BEFORE FOOD WITH WATER active Not Available Not Available No t Available amoxicill in 875 mg-potass ium clavulana te 125 mg tablet TAKE 1 TABLET BY MOUTH TWICE DAILY FOR 10 DAYS active Not Available Not Available No t Available oxycodone 5 mg tablet Take 1 tablet twice a day by oral route as needed. 11/26 completed Not Available Not Available Not Available Gas Relief (simethic one) 125 mg chewable tablet Take 1 tablet twice a day by oral route as needed. 04/13 completed Not Available Not Available Not Available Premarin 0.625 mg/gram vaginal cream massaage 1 gram in vagina every night for 2 weeks then 2 x week at bedtime 2017 active Not Available Not Available Not Avai lable metoprolo l tartrate 25 mg tablet TAKE 1 TABLET BY MOUTH EVERY DAY active Not Available Not Available No t Available solifenac in 5 mg tablet TAKE 1 TABLET BY MOUTH EVERY DAY active Not Available Not Available No t Available chlorhexi dine gluconate 0.12 % mouthwash 08/22 completed Not Available Not Available Not Available Eye Allergy Relief 04/13 completed Not Available Not Available Not Available valsartan 320 mg-hydroc hlorothia zide 25 mg tablet TAKE 1 TABLET BY MOUTH EVERY DAY 07/30 completed recall on this medicati on. Not Available Not Available Not Available fluocinol one acetonide oil 0.01 % ear drops 12/09 completed Not Available Not Available Not Available Golytely 236 gram-22.7 4 gram-6.74 gram-5.86 gram oral solution as directed prior to colonosc opy 08/06 completed Not Available Not Available Not Available diclofena c 1 % topical gel 01/26 completed Not Available Not Available Not Available Xifaxan 550 mg tablet Take 1 tablet 3 times a day by oral route for 14 days. 08/19 completed Not Available Not Available Not Available Accu-Chek Lesley Plus test strips USE TO TEST BLOOD SUGAR ONCE DAILY active Not Available Not Available No t Available Accu-Chek Lesley Plus Meter use as directed 01/25 completed Not Available Not Available Not Available Suprax 400 mg capsule Take 1 capsule every day by oral route. 04/13 completed Not Available Not Available Not Available Narcan 4 mg/actuat ion nasal spray 12/09 completed Not Available Not Available Not Available Shingrix (PF) 50 mcg/0.5 mL intramusc ular suspensio n, kit 12/09 completed Not Available Not Available Not Available baclofen 5 mg tablet Take 1 tablet 3 times a day by oral route for 30 days. 04/21 completed Not Available Not Available Not Available Fluad 2018- 65yr up(PF)45 mcg(15 mcgx3)/0. 5 mL intramusc ular syringe 12/09 completed Not Available Not Available Not Available Fluzone High-Dose Quad (PF) 240 mcg/0.7 mL IM syringe 11/29 completed Not Available Not Available Not Available Vitals Date Recorded Body height Provider Name an d Address Organization Details Last Updated DateTime 11/29/2020 149.86 cm María Moncadaith RMA [facility] 11/29/2020 08:18:46 Date Recorded Body mass index (BMI) Body weight Provider Name and Address Organization Details Last Updated DateTime 11/29/2020 34.7 kg/m2 38611.89 g María Barker RMA [facility] 11/29/2020 08:21:56 Date Recorded Heart rate Provider Name an d Address Organization Details Last Updated DateTime 11/29/2020 60 /min María Barker RMA [facility] 11/29/2020 08:24:49 Date Recorded Body height Provider Name an d Address Organization Details Last Updated DateTime 12/09/2020 149.86 cm [place] Wilfrid [facility] 2020 09:18:45 Date Recorded Body mass index (BMI) Body weight Provider Name and Address Organization Details Last Updated DateTime 12/09/2020 35.9 kg/m2 64271.65 g [place] [facility] 12/09/2020 09:18:57 Date Recorded Heart rate Provider Name an d Address Organization Details Last Updated DateTime 12/09/2020 60 /min [place] Wilfrid [facility] 2020 09:19:14 Date Recorded Body height Provider Name an d Address Organization Details Last Updated DateTime 08/19/2021 149.86 cm [place] Wilfrid [facility] 2020 09:45:49 Date Recorded Body mass index (BMI) Body weight Provider Name and Address Organization Details Last Updated DateTime 08/19/2021 33.7 kg/m2 85187.21 g [place] Wilfrid [facility] 08/[facility]/2021 09:45:54 Date Recorded Heart rate Provider Name an d Address Organization Details Last Updated DateTime 08/19/2021 60 /min [place] Wilfrid [facility] 2020 09:46:11 Date Recorded Systolic blood pressure Diastolic blood pressure Provider Name and Address Organization Details Last Updated DateTime 11/29/2020 136 mm[Hg] 68 mm[Hg] María Barker [facility] 11/29/2020 08:24:47 Date Recorded Systolic blood pressure Diastolic blood pressure Provider Name and Address Organization Details Last Updated DateTime 12/09/2020 140 mm[Hg] 60 mm[Hg] [place] Wilfrid [facility] 12/09/2020 09:19:06 Date Recorded Systolic blood pressure Diastolic blood pressure Provider Name and Address Organization Details Last Updated DateTime 08/19/2021 130 mm[Hg] 60 mm[Hg] [place] Wilfrid [facility] 08/19/2021 09:46:00 Social History Question Answer Notes LastModified by Organizat ion Details LastModified Time Tobacco Smoking Status Former Smoker quit 1993 ELICIA Mccray, [facility] 04/13/2017 08:10:21 Do You Have An Advance Directive? No [email or web address] Information not available 04/24/2017 What Is Your Level Of Alcohol Consumption? Occasional Rare [email or web address] Information not available 04/24/2017 What Is Your Level Of Caffeine Consumption? Moderate [email or web address] Information not available 01/27/2020 How Much Tobacco Do You Chew? None Information not available 07/04/2017 What Type Of Diet Are You Following? REGULAR Information not available 07/04/2017 Which Illicit Or Recreational Drugs Have You Used? 0 Information not available 07/04/2017 What Is Your Occupation? Retired [email or web address] Information not available 04/24/2017 Live Alone Or With Others? With Others Information not available 07/04/2017 Do You Currently Or Have You Served In The [employer]? No Information not available 07/04/2017 Presence Of Domestic Violence No Information not available 07/04/2017 Exotic Pets No [facility] [email or web address] Information n ot available 07/04/2017 Advanced Directive No [email or web address] Information not available 07/04/2017 Marital Status Single [email or web address] Informatio n not available 04/24/2017 What Was The Date Of Your Most Recent Tobacco Screening? 03/03/2019 Information not available 05/28/2019 How Many Children Do You Have? 3 Information not available 07/04/2017 Seat Belts Used Routinely Yes Information not available 04/24/2017 Smoke Alarm In Home Yes [email or web address] Information not available 04/24/2017 At What Age Did You Start Smoking Tobacco? 12 Information not available 07/04/2017 General Stress Level High [email or web address] Information not available 04/24/2017 Do You Use Sunscreen Routinely? Yes Information not available 04/24/2017 Sex: Unknown Functional Status Question Answer Note LastModified by Organization D etails LastModified Time What is your exercise level? None [email or web address] Information not available 04/24/2017 Mental Status None recorded. Family History Relationship Description Onset Age of this Age Resolved Age Notes LastModified by Organization Details LastModified Time Mother Cerebrovascu lar accident [email or web address] Not available 08:09:21 Mother Heart disease 81 [email or web address] Not available 2019 14:54:19 Father Heart disease 79 [email or web address] Not available 2019 14:54:44 Medical History Condition Response Other Y Colonoscopy Y Hypothyroidism Y Diabetes Mellitus Y Arthritis Y GERD/Refl Y Hyperlipidemia Y Hypertension Y Gynecological History Statement/Question Response Do you have a discharge? Y Cramps N Date of Last Mammogram Date of last pap smear Menses Monthly N Current Control Method None History of Abnormal Pap Smear N Obstetrics History GPAL:G 3 P 0 0 1 2 Type Value Spontaneous 1 Living 2 Total 3 Immunizations Vaccine Type Date Status Note Provider Nam e and Address Organization Details Recorded Time Influenza, high-dose, trivalent, PF 7 completed Not Available [facility] 06/15/2021 17:11:44 Pneumococcal conjugate PCV 13 7 completed Not Available [facility] 06/15/2021 17:11:44 Past Encounters Encounter ID Performer Location Encounter Start Date Encounter Closed Date Diagnosis/Indication Diagnosis SNOMED-CT Code Diagnosis ICD10 Code Diagnosis Note [id number] MD LYNN Turner PHYSICIAN S [address] [address] 03/28/2017 08:03:29 03/28/2017 16:56:14 Pre-surgery evaluation 229544973 Z01.818 We are going to see the patient with the results, to complete the preop evaluation . Hypothyroidism 26591949 E03.9 Currently under control, continue with same medication s, no changes in his current regimen. Primary fi bromyalgia syndrome 78888996 M79.7 Currently under control, continue with same medication s, no changes in his current regimen. Osteoarthr osis involving multiple sites but not designated as generalized 90580998 M15.8 Osteoarthr itis of knee 535419727 M17.0 Currently under control, continue with same medication s, no changes in his current regimen. Body mass index 30+ - obesity 030979111 Z68.39 Bifascicul ar block on electrocardiogram 806431906 I45.2 Currently asymptomat ic, at the EKG we did not see any ST elevation, her T abnormalit ies. [id number] MD LYNN Turner PHYSICIAN S [address] [address] 04/13/2017 09:41:52 04/13/2017 10:33:47 Pre-surgery evaluation 433471036 Z01.818 Moderate to high risk patient for a Moderate risk procedure cleared for surgery after explained patient all her risk classifica tion as her chronic conditions and health status. GOOD Score: 0.71% (estimated risk for perioperat melody ME or cardiac arrest).Af ter reviewing the labs, patient comes with new diagnosis of chronic kidney disease stage 3 with a GFR of 36, and hemoglobin of 10.9, for an anemia most likely due to the chronic kidney disease stage 3.Patient was educated about the risk, and patient accepted risks for the surgery.Mo derate to high risk patient for a Moderate risk procedure cleared for surgery after explained patient all her risk classifica tion as her chronic conditions and health status. Hypothyroidism 41567226 E03.9 Currently under control, continue with same medication s, no changes in his current regimen. Primary fi bromyalgia syndrome 26208996 M79.7 Osteoarthr osis involving multiple sites but not designated as generalized 94014005 M15.8 Osteoarthr itis of knee 020306365 M17.0 Body mass index 30+ - obesity 792176894 Z68.39 Bifascicul ar block on electrocardiogram 867483909 I45.2 Currently asymptomat ic, at the EKG we did not see any ST elevation, her T abnormalit ies. Chronic ki dney disease stage 3 650634790 N18.3 Patient is referred for a nephrology , for further evaluation and management of the chronic kidney disease, and anemia of the chronic disease secondary to the CKD. Anemia of chronic disease 983081352 D63.8 Currentlu asymtpmati c [id number] MD LYNN Shah PHYSICIAN S [facility] [address] [address] 04/24/2017 09:44:34 04/24/2017 11:25:07 Knee pain 91772392 M25.561 Hypothyroidism 77513247 E03.9 Chronic ki dney disease stage 3 761444348 N18.3 Essential hypertension 36871387 I10 Gastroesop hageal reflux disease 483806824 K21.9 [id number] MD LYNN Shah PHYSICIAN [facility] [address] [place] [address] 05/28/2017 08:59:39 05/28/2017 10:02:42 Osteoarthritis 751324611 M19.90 Hypothyroidism 85710317 E03.9 tsh in 11.13, continue current meds Essential hypertension 81996246 I10 continue current meds [id number] MD LYNN Shah PHYSICIAN [facility] [address] [address] 06/11/2017 12:55:59 06/11/2017 13:54:33 Mixed hyperlipidemia 799206588 E78.2 continue current meds,stop fishoil re. gums bleeding, Anemia 429187039 D64.9 Hypothyroidism 29200391 E03.9 tsh in 11.13, continue current meds, repeat labs, re c/o coldness Osteoarthritis 468310746 M19.90 continue PT and prn pain control Essential hypertension 48638156 I10 continue current meds, controlled [id number] Vivi Parekh MD [facility] [address] [place] [address] 06/25/2017 09:23:24 06/25/2017 09:58:45 Anemia 250361739 D64.9 increase iron supplement to tid, take it with orange juice or vit c, Essential hypertension 72236829 I10 continue current meds, controlled Hypothyroidism 22486359 E03.9 tsh in 11.13, continue current meds, repeat labs, re c/o coldness Mixed hyperlipidemia 267 411108 E78.2 continue current meds,stop fishoil re. gums bleeding, Osteoarthritis 769433439 M19.90 continue PT and prn pain control Gastroesop hageal reflux disease 020240440 K21.9 Knee pain 94647863 M25.5 61 [id number] Angelito Deleon MD [facility] [address] [place] [address] [address] [place] [address] 07/04/2017 10:16:34 07/04/2017 11:18:41 Anemia 722336257 D64.9 Normocytic normochrom ic anemia with recent acute on chronic drop. Denies bleeding, could be related to chronic medical conditions , kidney disease, but need to rule out deficienci es. Need to exclude GI pathology such as gastritis, ulcer disease, esophagiti s, colon polyps -update labs -schedule EGD and colonoscop y for further assessment . History of polyp of colon 986219246 Z86.010 due for colonoscop y, last 10 years or more with polyps per her Gastroesop hageal reflux disease 355924814 K21.9 Bloating, dyspepsia, plan EGD given age and long standing GERD on omeprazole for >5 years Diet and lifestyle counseling given in written Check vitamin B12 since she has been on PPI and anemic, normocytic normochrom ic, does have evidence of CKD Instructed to watch calories to help lose weight [id number] MD LYNN Shah PHYSICIAN S [facility] [address] [address] 07/12/2017 08:22:35 07/12/2017 09:41:02 Osteoarthritis 124519925 M19.90 continue PT and prn pain control Insomnia 658980541 G47.0 0 improved on trazodone 150 mg, sometimes takes half the pill, due to feeling too sleepy on 150 mg Backache 447799602 M54.9 controlled Anemia 727931021 D64.9 improved indices, f/u with heme Depressive disorder 3548 9007 F32.9 Screening for malignant neoplasm of colon 629998496 Z12.11 [id number] MD LYNN Shah PHYSICIAN [facility] [address] [address] 08/06/2017 08:14:19 08/06/2017 08:58:26 Osteoarthritis 533507258 M19.90 xr left hip Gastroesop hageal reflux disease 057470328 K21.9 Sleep apnea 90284481 G47 .30 Screening for malignant neoplasm of colon 416167877 Z12.11 [id number] MD LYNN Shah PHYSICIAN S [facility] [address] [address] 08/13/2017 13:16:53 08/13/2017 14:09:19 Osteoarthritis 192012330 M19.90 xr left hip Essential hypertension 30364431 I10 continue current meds, controlled Chronic ki dney disease 049918453 N18.9 stable Backache 344189171 M54.9 controlled ,will send for pain management after knee surgery [id number] MD LYNN Shah PHYSICIAN S [facility] [address] [address] 10/15/2017 08:12:34 10/15/2017 09:09:43 Knee pain 25341585 M25.561 Depressive disorder 3548 9007 F32.9 no active sx, pt stopped citalopram Osteoarthritis 716987314 M19.90 xr left hip Anemia of chronic disease 652379626 D63.8 Mixed hyperlipidemia 267 118225 E78.2 continue current meds,stop fishoil re. gums bleeding, Essential hypertension 10513350 I10 continue current meds, controlled Loss of hair 465038575 L 65.9 Insomnia 137962677 G47.0 0 improved on trazodone 150 mg, sometimes takes half the pill, due to feeling too sleepy on 150 mg [id number] MD LYNN Shah PHYSICIAN [facility] [address] [place] [address] [place] [address] 10/23/2017 09:52:02 10/23/2017 10:32:02 Depressive disorder 16527343 F32.9 no active sx, pt stopped citalopram Anxiety 90205118 F41.9 [id number] MD LYNN Shah PHYSICIAN S [facility] [address] [address] 11/26/2017 08:11:41 11/26/2017 09:02:06 Knee pain 31402206 M25.561 Fibromyalgia 994169122 M 79.7 continue current meds Mixed hyperlipidemia 267 268895 E78.2 controlled Essential hypertension 21307197 I10 continue current meds, controlled Hypothyroidism 11687574 E03.9 tsh wnl, continue synthroid [id number] MD LYNN Shah PHYSICIAN [facility] [address] [place] [address] [place] [address] 02/25/2018 08:15:37 02/25/2018 08:47:46 Anxiety 50340907 F41.9 Acute sinusitis 75585027 J01.90 Insomnia 582752563 G47.0 0 improved on trazodone 150 mg, sometimes takes half the pill, due to feeling too sleepy on 150 mg Increased body mass index 05208207 E66.9 Knee pain 08216295 M25.5 61 [id number] MD CORNELIUS ShahEST NATALI PHYSICIAN S [facility] [address] [facility] [address] [place] [address] 03/28/2018 07:47:36 03/28/2018 08:28:50 Vaginitis 64192778 N76.0 Anxiety 83092390 F41.9 Mixed hyperlipidemia 267 585588 E78.2 controlled Anemia 769760476 D64.9 improved indices, f/u with heme Hypothyroidism 84859673 E03.9 tsh wnl, continue synthroid Diabetes mellitus 492581 09 E11.9 [id number] Angelito Deleon MD [facility] [address] [place] [address] 04/08/2018 08:12:11 04/08/2018 09:22:33 Abdominal bloating 027559569 R14.0 using tramadol and NSAIDs, assess with upper endoscopy to rule out gastritis, esophagiti s, ulcer disease. Dysphagia 56732051 R13.1 0 assess with EGD, small frequent meals, chew food well. We will assess for presence of hiatal hernia Anemia of chronic disease 698523345 D63.8 not nutritiona lly deficient but takes iron every day at the recommenda tion of hematologi st. likely related to underlying CKD. Labs reviewed. Non-steroi akhil anti-inflammatory drug adverse reaction 823396810 T39.395A minimize, has pain despite knee replacemen t Obesity 330321550 E66.9 needs to lose weight, diet and lifestyle changes discussed [id number] MD LYNN Shah PHYSICIAN S [facility] [address] [address] 04/29/2018 08:24:10 04/29/2018 08:56:03 Anxiety 07105137 F41.9 stable, continue meds Insomnia 515276435 G47.0 0 improved on trazodone 150 mg, sometimes takes half the pill, due to feeling too sleepy on 150 mg Essential hypertension 64023875 I10 continue current meds, controlled Hypothyroidism 41863913 E03.9 tsh wnl, continue synthroid Knee pain 63026273 M25.5 61 Gastroesop hageal reflux disease 030136331 K21.9 [id number] Angleito Deleon MD [facility] [place] [facility] [address] [place] [address] 05/06/2018 07:58:30 05/06/2018 08:43:03 Abdominal bloating 332578783 R14.0 likely related to diet, some air swallowing noted. no concerning findings on EGD. Trial of probiotics . Okay to add H2 kobe as needed. Needs to work on weight loss and diet measures. These were discussed in detail. H pylori results awaited from the recent EGD. Dysphagia 57880526 R13.1 0 small hiatal hernia. Sit upright for meals and 2 hours post. Chew food well. No warning signs or symptoms or concerns noted. Await pathology results. Obesity 675413080 E66.9 needs to lose weight, diet and lifestyle changes discussed [id number] Sandra Ramires MD [facility] [address] [place] [address] 05/20/2018 10:09:25 05/20/2018 10:58:30 Atrophic vaginitis 15917628 N95.2 Genital li sellers sclerosus 743394965 L90.0 [id number] MD SUKHI Shah_[facility] PHYSICIAN S [facility] [address] [place] [address] [place] [address] 05/21/2018 11:17:18 05/21/2018 11:58:00 Wheezing 47752818 R06.2 Essential hypertension 64262644 I10 continue current meds, controlled [id number] DO SUKHI BUTCHER_[facility] PHYSICIAN [facility] [address] [place] [address] [place] [address] 07/30/2018 08:31:10 07/30/2018 09:45:58 Hypothyroidism 76060152 E03.9 continue levothyrox ine 125 mcg for now. Will recheck Thyroid labs to eval efficacy of tx Anemia 160498987 D64.9 Will need to obtain lab work from [facility] for recent labs drawn for this. She had this done at [facility]. Essential hypertension 47238844 I10 uncontroll ed today but pt is asymptomat ic. Will change Valsartan to Losartan and monitor for efficacy Anxiety 84210538 F41.9 offered alf medication and vistaril for short acting medication s and she has refused. I offered psychiatry and psychology visits but she also refuses. She denies ever having SI or HI and denies trying to hurt herself in the past. Discussed that xanax was a poor alf medication for anxiety as it can cause falls, fatal respirator y depression , and it is very addicting. I advised her to call our office if she feels like ker anxiety is uncontroll ed or if she changes her mind about these treatment options. No xanax Rx today. Cough 17880204 R05 she is on antibiotic s, keflex, for UTi currently. 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 Will have antibiotic s for 10 days and monitor for symptom progressio n. ENT ref per pt req. If worse on follow up may consider addt'l abx and CT scan at that time. Flonase daily use also. Close follow up. Essential hypertension 17394531 I10 uncontroll ed today but pt is asymptomat ic. Likely due to sinus headaches per pt. Continue Losartan 100mg/hctz 25mg daily and monitor for efficacy. Continue norvasc 10 mg daily. Discussed dash diet and healthy eating to aid with this. Keep and bring BP log to each visit. [id number] Angelito Deleon MD [facility] [place] [facility] [address] [place] [address] 12/09/2018 07:54:37 12/09/2018 09:09:59 Abdominal bloating 586319878 R14.0 likely related to diet, some air swallowing noted. no concerning findings on EGD. Did probiotics for a week which did not help.. Okay to add H2 kobe as needed. Needs to work on weight loss and diet measures. These were discussed in detail. Obesity 786505479 E66.9 needs to lose weight, diet and lifestyle changes discussed. she is gaining instead Anemia 535889647 D64.9 Normocytic normochrom ic anemia with recent acute on chronic drop. Denies bleeding, could be related to chronic medical conditions , kidney disease, Polyp of colon 65089442 K63.5 Repeat would be due in 2021 Diverticul ar disease of colon 304977956 K57.30 assess with Xray if concerns for constipati on Angelito Deleon MD [facility] [address] [place] [address] 01/28/2019 08:56:21 01/28/2019 10:04:58 Abdominal bloating 467735319 R14.0 likely related to diet, some air swallowing noted. no concerning findings on EGD. Did probiotics for a week which did not help. says gas relieving medication s are not working. we will try antibiotic s empiricall y for small intestinal bacterial overgrowth . she prefers to get treated empiricall y rather than have breath testing, latter was offered. Given her age and persistent symptoms, although there are no warning signs or symptoms, we will proceed with a CT scan to rule out pathology. sees gynecology regularly, says no concerns per her. We will get clearance from her nephrologi st since she has some underlying CKD and recheck her renal function prior to CT scan. Obesity 324279088 E66.9 needs to lose weight, diet and lifestyle changes discussed. she is gaining instead Anemia 564758186 D64.9 Normocytic normochrom ic anemia with recent acute on chronic drop. Denies bleeding, could be related to chronic medical conditions , kidney disease, Polyp of colon 85275778 K63.5 Repeat would be due in 2021 Diverticul ar disease of colon 103472818 K57.30 no constipato n but continues to have bloating [id number] Sandra Ramires MD [facility] [address] [address] [place] [address] 02/10/2019 08:28:54 02/10/2019 09:05:08 Screening mammography 88165609 Z12.31 Screening for malignant neoplasm of cervix 249306570 Z12.4 At high ri sk of sexually transmitted infection 223606366 Z91.89 [id number] Angelito Deleon MD [facility] OF [address] [place] [address] 03/03/2019 08:15:32 03/03/2019 09:30:32 Abdominal bloating 304785847 R14.0 some air swallowing noted. no concerning findings on EGD. Did probiotics for a week which did not help. says gas relieving medication s are not working. we will try antibiotic s empiricall y for small intestinal bacterial overgrowth . she prefers to get treated empiricall y rather than have breath testing, latter was offered. CT was reviewed, results discussed, no obvious abdominal pathology Obesity 000441366 E66.9 needs to lose weight, diet and lifestyle changes discussed. she is gaining instead Anemia 646634653 D64.9 Normocytic normochrom ic anemia likely related to chronic medical conditions , kidney disease, follows with Dr. Carty Polyp of colon 64117146 K63.5 Repeat would be due in 2021 Diverticul ar disease of colon 031524534 K57.30 no constipato n but continues to have bloating Cardiomegaly 7847429 I51 .7 defer to PCP Irritable bowel syndrome with diarrhea 385952585 K58.0 will try rifaximin. Patient has tried antidiarrh eals, we tried Bentyl, she is on SSRI already. [id number] Angelito Deleon MD [facility] [address] [facility] [address] [place] [address] 07/24/2019 07:55:45 07/24/2019 08:24:51 Body mass index 30+ - obesity 428826391 Z68.33 Irritable bowel syndrome with diarrhea 566528028 K58.0 will try rifaximin. Patient has tried antidiarrh eals, we tried Bentyl, she is on SSRI already. Abdominal bloating 66786 9008 R14.0 some air swallowing noted. no concerning findings on EGD. Did probiotics for a week which did not help. says gas relieving medication s are not working. we will try antibiotic s empiricall y for small intestinal bacterial overgrowth . she prefers to get treated empiricall y rather than have breath testing, latter was offered. CT was reviewed, results discussed, no obvious abdominal pathology refuses to do tetsing, understand s we need this, wants to try emperic antibiotic again since the first round helped herlow FODMAPs list given Obesity 339569133 E66.9 needs to lose weight, diet and lifestyle changes discussed. she is gaining instead Anemia 692824679 D64.9 Normocytic normochrom ic anemia likely related to chronic medical conditions , kidney disease, follows with Dr. Carty Polyp of colon 29280397 K63.5 Repeat would be due in 2021 Diverticul ar disease of colon 070345292 K57.30 no constipati on but continues to have bloating Cardiomegaly 2637195 I51 .7 defer to PCP Gastroesop hageal reflux disease without esophagitis 802535319 K21.9 Feels omeprazole is not working. We will switch to pantoprazo le but I discussed with her that she cannot be consuming foods that aggravate acid reflux, this will further precipitat e her symptoms since she has an underlying hiatal hernia. Weight loss strongly encouraged . We briefly discussed interventi ons, mostly dietary since she has been exercising [id number] Angelito Deleon MD [facility] [address] [place] [address] [address] [place] [address] 12/09/2019 08:07:12 12/09/2019 08:45:30 Irritable bowel syndrome with diarrhea 660416889 K58.0 will try rifaximin. Patient has tried antidiarrh eals, we tried Bentyl, she is on SSRI already. add yogurt with probiotics Obesity 297135860 E66.9 needs to lose weight, diet and lifestyle changes discussed. she is gaining instead Anemia 566578692 D64.9 Normocytic normochrom ic anemia likely related to chronic medical conditions , kidney disease, follows with Dr. Carty Polyp of colon 48980358 K63.5 Repeat would be due in 2021 Diverticul ar disease of colon 594998959 K57.30 no constipati on but continues to have bloating Gastroesop hageal reflux disease without esophagitis 228673141 K21.9 Feels omeprazole is not working. We will switch to pantoprazo le but I discussed with her that she cannot be consuming foods that aggravate acid reflux, this will further precipitat e her symptoms since she has an underlying hiatal hernia. Weight loss strongly encouraged . We briefly discussed interventi ons, mostly dietary since she has been exercising Gastritis 1155579 K29.70 We will try Carafate as needed, asked not to administer any medication s 2 hours before or after. [address] reviewed does not show any major concern [id number] Angelito Deleon MD [facility] [address] [place] [address] 01/13/2020 08:10:42 01/13/2020 08:59:41 Gastritis 7622301 K29.70 Carafate does not help, CT reviewed does not show any major concern Irritable bowel syndrome with diarrhea 274471836 K58.0 will try rifaximin. Patient has tried antidiarrh eals, we tried Bentyl, she is on SSRI already. add yogurt with probiotics Obesity 990973441 E66.9 needs to lose weight, diet and lifestyle changes discussed. she is gaining instead Anemia 958041714 D64.9 Normocytic normochrom ic anemia likely related to chronic medical conditions , kidney disease, follows with Dr. Carty Polyp of colon 74511210 K63.5 Repeat would be due in 2021 Diverticul ar disease of colon 563892038 K57.30 no constipati on but continues to have bloating Gastroesop hageal reflux disease without esophagitis 029319400 K21.9 Weight loss strongly encouraged . We briefly discussed interventi ons, mostly dietary since she has been exercising . PPI not helping, Abdominal bloating 34598 9008 R14.0 some air swallowing noted. no concerning findings on EGD. Did probiotics for a week which did not help. says gas relieving medication s are not working. Shoulder pain 57827297 M 25.519 has arthritis, needs surgical debridemen t, anesthesia is asked her for a cardiac clearance, I told her to ask her primary care physician, she is requesting if I could refer her over to cardiology . We will send to [place] [facility] . she asked me if she can be referred to Dr. Auguste, will refer. I will CC her primary care physician [id number] MD SUKHI Ac_[facility] [address] [place] [address] 01/27/2020 14:32:21 01/28/2020 08:14:16 Mixed hyperlipidemia 804601310 E78.2 Essential hypertension 40132969 I10 Electrocar diogram abnormal 734007949 R94.31 Palpitations 70014877 R0 0.2 [id number] MD ALINE Ac RD [facility] [address] [place] [address] 04/06/2020 11:21:09 04/07/2020 10:07:40 Mixed hyperlipidemia 060868338 E78.2 Essential hypertension 85273861 I10 Electrocar diogram abnormal 544054055 R94.31 Palpitations 31509827 R0 0.2 Bradycardia 61125001 R00 .1 [id number] Angelito Deleon MD [facility] [address] [facility] [address] [place] [address] 04/19/2020 07:53:06 04/19/2020 08:20:55 Gastroesophageal reflux disease without esophagitis 928652742 K21.9 Weight loss strongly encouraged . We briefly discussed interventi ons, Normal esophagram Gastritis 5361752 K29.70 CT reviewed does not show any major concern Irritable bowel syndrome with diarrhea 601848517 K58.0 Patient has tried antidiarrh eals, we tried Bentyl, she is on SSRI already. add yogurt with probiotics . trial of xifaxan helps for short periods. Anemia 164555980 D64.9 Normocytic normochrom ic anemia likely related to chronic medical conditions , kidney disease, follows with Dr. Carty Polyp of colon 60077893 K63.5 Repeat would be due in 2021 [id number] Denton Ramos MD [facility] [address] [place] [address] 04/21/2020 07:39:22 04/21/2020 08:50:21 Bradycardia 09519954 R00.1 Risks and benefits of pacemakers were reviewed. Body mass index 30+ - obesity 027682051 Z68.34 Palpitations 76429479 R0 0.2 Monitoring was discussed. Rule out high risk structural heart disease was reviewed. Left anter ior fascicular block 67448900 I44.4 [id number] MD ALINE Ac RD [facility] [address] [place] [address] 05/31/2020 13:36:25 06/01/2020 08:50:31 Mixed hyperlipidemia 181893923 E78.2 Bradycardia 52105657 R00 .1 Essential hypertension 75999562 I10 Electrocar diogram abnormal 839556069 R94.31 Palpitations 62664811 R0 0.2 [id number] Caleb Summers NP [facility] [address] [place] [address] 08/16/2020 08:08:10 08/16/2020 09:03:58 Body mass index 30+ - obesity 181254033 Z68.34 The patient has elevated BMI. Recommend aggressive diet and exercise interventi on to improve overall risk. Bifascicular block 32946 003 I45.2 She has bifascicul ar block with class I pacemaker indication . Will move forward with dual-chamb er pacemaker. Bradycardia 45374402 R00 .1 The patient has symptoms related to her bradycardi a including some chronotrop ic incompeten ce, lightheade dness and dizziness. We discussed moving forward with dual-chamb er pacemaker at her [facility]. Prior noninvasiv e work-up by Dr. Auguste was benign. EF stable. We discussed the risks, benefits and alternativ es of pacemaker placement and she desires to proceed. Follow-up post procedure. 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 In combinatio n with bifascicul ar block, definitely recommend pacemaker. [id number] MD ALINE Ac RD [facility] [address] [place] [address] 08/24/2020 08:39:23 08/27/2020 14:19:08 Bradycardia 48480806 R00.1 [id number] Angelito Deleon MD [facility] [address] [place] [address] 10/07/2020 08:01:01 10/07/2020 08:34:10 Gastroesophageal reflux disease without esophagitis 955185306 K21.9 Weight loss strongly encouraged . We briefly discussed interventi ons, Normal esophagram on PPI Gastritis 7395663 K29.70 CT reviewed does not show any major concern Irritable bowel syndrome with diarrhea 020803362 K58.0 Patient has tried antidiarrh eals, we tried Bentyl, she is on SSRI already. add yogurt with probiotics . trial of xifaxan helps for short periods.pr n peptobisma l helpstakin g fiber Anemia 804230719 D64.9 Normocytic normochrom ic anemia likely related to chronic medical conditions , kidney disease, follows with Dr. Carty Polyp of colon 25508159 K63.5 Repeat would be due in 2021 [id number] Nickolasrotcharlene Auguste MD [facility] [address] [place] [address] 11/29/2020 08:11:17 11/29/2020 10:42:34 Mixed hyperlipidemia 783051002 E78.2 Cardiac pa cemaker in situ 969770900 Z95.0 Bradycardia 44042259 R00 .1 Essential hypertension 58236451 I10 History of bradycardia 0262870163 71972 Z86.79 Electrocar diogram abnormal 910678726 R94.31 Palpitations 09031660 R0 0.2 [id number] Caleb Summers NP [facility] [address] [place] [address] 12/09/2020 08:47:54 12/09/2020 09:35:50 Body mass index 30+ - obesity 128787730 Z68.34 The patient has elevated BMI. Recommend aggressive diet and exercise interventi on to improve overall risk. Bradycardia 99464707 R00 .1 She had symptomati c bradycardi a with chronotrop ic incompeten ce. She underwent placement of dual-chamb er pacemaker late August 2020. Currently 82% atrial paced. We did increase her slope which should help her exertional symptoms. Recommend routine device follow-up. Bifascicular block 79100 003 I45.2 EKG still shows bifascicul ar block with QRS of 142 ms. She does have backup ventricula r pacing available if her bifascicul ar block progresses . Currently only 2% ventricula r paced. We did discuss in the future if she does require a lot of RV pacing we may consider adding LV lead. Essential hypertension 16132702 I10 Recommend aggressive risk factor reduction. [id number] Angelito Deleon MD [facility] [address] [place] [address] 04/15/2021 08:00:04 04/18/2021 08:16:42 Gastroesophageal reflux disease without esophagitis 666269773 K21.9 Weight loss strongly encouraged . We briefly discussed interventi ons, Normal esophagram on PPI Gastritis 9821160 K29.70 CT reviewed does not show any major concern Irritable bowel syndrome with diarrhea 205114951 K58.0 Patient has tried antidiarrh eals, we tried Bentyl, she is on SSRI already. add yogurt with probiotics . trial of xifaxan helps for short periods. prn peptobisma l helps taking fiber Anemia 066714152 D64.9 Normocytic normochrom ic anemia likely related to chronic medical conditions , kidney disease, follows with Dr. Carty Polyp of colon 18607265 K63.5 Repeat would be due in 2021, wants to schedule now due to urgency [id number] Angelito Deleon MD [facility] [address] [place] [address] 07/04/2021 12:12:15 07/12/2021 08:40:09 Gastroesophageal reflux disease without esophagitis 487370110 K21.9 Weight loss strongly encouraged . We briefly discussed interventi ons, Normal esophagram on PPI Gastritis 7422328 K29.70 CT reviewed does not show any major concern Irritable bowel syndrome with diarrhea 604332602 K58.0 Patient has tried antidiarrh eals, we tried Bentyl, she is on SSRI already. add yogurt with probiotics . trial of xifaxan helps for short periods. prn peptobisma l helps taking fiber, which has helped Anemia 114611572 D64.9 Normocytic normochrom ic anemia likely related to chronic medical conditions , kidney disease, follows with Dr. Carty Polyp of colon 19153301 K63.5 discussed [id number] Caleb Summers NP [facility] [address] [place] [address] 08/19/2021 09:08:18 08/19/2021 10:07:11 Body mass index 30+ - obesity 726542862 Z68.34 The patient has elevated BMI. Recommend aggressive diet and exercise interventi on to improve overall risk. Bradycardia 61440936 R00 .1 She had symptomati c bradycardi a with chronotrop ic incompeten ce. She underwent placement of dual-chamb er pacemaker late August 2020. Symptoms have resolved. Bifascicular block 66115 003 I45.2 EKG still shows bifascicul ar block with QRS of 142 ms. She does have backup ventricula r pacing available if her bifascicul ar block progresses . Currently only 1% ventricula r paced. We did discuss in the future if she does require a lot of RV pacing we may consider adding LV lead. Essential hypertension [id number] I10 Recommend aggressive risk factor reduction. Sick sinus syndrome 3608 [address] I49.[address] Dual-chamb er [employer] pacemaker in place with appropriat e function. 87% atrial paced, less than 1% RV paced. Recommend routine device follow-up. Health Concerns Section Related Observation LastModified by Organization Detai ls LastModified Time None Recorded Concern Status LastModified by Organization Details LastModified Time None Recorded Advance Directives Directive N: Payers Encounter Date Sequence Insurance Name Policy Number Policy Mayorga Covered Member ID Mayorga Member ID Guarantor Name 11/29/2020 1 [facility] - [employer] - DUAL COMPLETE - [place] PLAN (MEDICARE REPLACEMENT PPO) YESSENIA Zepeda [id number] Nusrat Zepeda 12/09/2020 1 [facility] - [employer] - DUAL COMPLETE - SNP PLAN (MEDICARE REPLACEMENT PPO) YESSENIA Zepeda [id number] Nusrat Zepeda 04/15/2021 1 [facility] - [employer] - DUAL COMPLETE - [place] PLAN (MEDICARE REPLACEMENT PPO) FLBOBO Zepeda [id number] Nusrat Zepeda 07/04/2021 1 [facility] - [employer] - DUAL COMPLETE - [place] PLAN (MEDICARE REPLACEMENT PPO) FLBOBO Zepeda [id number] Nusrat Zepeda 08/19/2021 1 [facility] - [employer] - DUAL COMPLETE - SNP PLAN (MEDICARE REPLACEMENT PPO) YESSENIA Zepeda [id number] Nusrat Zepeda Notes Date Note Type Note Provider Name and Address Organization Details Recorded Time 11/29/19 21 text/htm ada This is a 74-year-old female who has a known history of hyperlipidemia, hypertension, abnormal EKG, former tobacco use 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 Patient denies any chest pain, resting shortness of breath, lightheadedness or syncope. Patient denies any orthopnea, PND, abdominal fullness or ankle swelling. Patient denies lower extremity claudication, ulcer or gangrene. Patient denies any prior blood clots or current varicose veins, skin discoloration or aching discomfort in legs. She continues to have some episodes of shortness of breath and dizziness Josefina Auguste MD [address] [place] [address], [phone], [facility] 11/29/2020 08:44:03 12/09/19 21 text/htm ada Zepeda is a 75 year old female referred for evaluation of bradycardia. She has a past medical history of hypothyroidism, DM, hyperlipidemia, anemia, anxiety, hypertension, insomnia, sleep apnea, bifascicular block, GERD, CKD III, and fibromyalgia. She underwent placement of a dual-chamber [employer] pacemaker 09/01/2020. She follows Dr. Auguste for general cardiology. Since her consult visit in May 2020, she has had more shortness of breath, tiredness and weakness when she is trying to be active. This is a limited her. 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 Since placement of her pacemaker, she reports that her symptoms have improved as far as energy. She is having some shortness of breath when she is trying to be active. From a symptom standpoint, she denies chest pain or anginal symptoms. She does report shortness of breath and fatigue with activities. EKG 2/paced with underlying bifascicular block at 60 bpm. QRS 142 ms Device check 12/09/2020: 82% atrial paced, 1.8% RV paced. Battery life 9.7 years, no atrial or ventricular high rate events. [place] was increased. EKG 08/16/2020: Sinus rhythm with bifascicular block at 62 bpm, QRS 142 ms, QT 476 ms EKG 04/21/20: Sinus bradycardia, Bifascicular block @ 55 bpm. QRS 148 ms, QT 480 ms, WI 178 ms. Labs 04/08/20: Na+ 142, K+ 4.2, BUN 20, Creatinine 1 Dobutamine Stress 02/19/20: EF 75%. No evidence of ischemia. Labs 07/24/19: Na+ 138, K+ 3.8, BUN 30, Creatinine 1.2, AST 17, ALT 10, hgb 11.5, hct 36.5 Echo 07/17/19: EF 60%. Diastolic dysfunction with trace mitral insufficiency. --Requested SINTIA Summers NP [address] [place], [phone], [facility] 12/09/2020 09:40:40 04/15/20 21 text/htm l The patient acknowledges that they can see a clinician in-person in the event of an emergency or as otherwise needed {{yes* no}} Patient consents to having a Telehealth appointment today {{yes* no}} Patients host site is: {{home* work school other}}. Persons present {{patient alone* patient and family member patient and friend}} My site: {{my office* Home Department Name}}. Person present {{myself alone* myself and staff}} This appointment/visit has been conducted using two-way, real-time telehealth video conferencing in which {{video and audio was used audio alone was used due to technical complications despite multiple tries, proceeded with patient consent audio alone on host/patient site*}} Pleasant 76 yo WF with abdominal bloating here for follow up having fecal urgency, bloating, gasinessoccasional diarrheaexcessive belching and burping, feels remarkably better since treatment with xifaxan for few months and then symptoms returned She reports that the bloating causes her significant discomfort. She is uncomfortable during the day with 7 out of 10 pain.complaining of semi formed BM occurs every 2-3 days Angelito Deleon MD [address] [facility], [place], [phone], [facility] 04/15/2021 16:21:50 07/04/20 21 text/htm l The patient acknowledges that they can see a clinician in-person in the event of an emergency or as otherwise needed{{yes* no}}Patient consents to having a Telehealth appointment today {{yes* no}}Patients host site is: {{home* work school other}}. Persons present {{patient alone* patient and family member patient and friend}}My site: {{my office* Home Department Name}}. Person present {{myself alone* myself and staff}}This appointment/visit has been conducted using two-way, real-time telehealth video conferencing in which {{video and audio was used audio alone was used due to technical complications despite multiple tries, proceeded with patient consent audio alone on host/patient site*}} Pleasant 76 yo WF with abdominal bloating here for follow up Impression: - 2 cm hiatal hernia.- Normal esophagus.- Normal stomach. Biopsied.- Duodenal lipoma. Biopsied.Recommendation: - Await pathology results. it was difficult to maintainair insufflation in the fundus due to a lax LES withpresence of a small hiatal hernia Impression: - Preparation of the colon was fair.- One 3 mm polyp in the cecum, removed with a coldsnare. Resected and retrieved.- Two 3 to 4 mm polyps in the ascending colon, removedwith a cold snare. Resected and retrieved.- Two 3 to 4 mm polyps in the transverse colon, removedwith a cold snare. Resected and retrieved.- Internal hemorrhoids.- The entire examined colon is normal. Biopsied.Recommendation: - Await pathology results.- Repeat colonoscopy in 3 years for surveillance. giventhe preparation was fair despite compliance, suspectdiarrhea to be spurious. recommend increasing fiber,water. Await biopsies. Weight loss strongly recommendedfor success of subsequent procedures, significantlooping requiring external pressure to complete exam.Extended preparation for next procedure Final DiagnosisA. Duodenal biopsy:-Fragments of duodenal-type mucosa with submucosal fat suggestiveof a submucosal lipoma and no other significant histopathologicchanges seenB. Gastric biopsy:-Fragments of gastric-type mucosa with minimal chronicinflammation-H. pylori IHC is negative-No active inflammation, intestinal metaplasia, dysplasia ormalignancy seenC. Distal esophagus biopsy:-Fragments of squamous mucosa with spongiosis and intraepitheliallymphocytes suggestive of possible reflux-No intestinal metaplasia seen on special Alcian blue stain-No infectious etiology, eosinophils, dysplasia or malignancyseenD. Cecal polyp:-Tubular adenomaE. Right colon biopsy:-Fragments of colonic-type mucosa with very focal submucosal fatsuggestive of a submucosal lipoma, focal insufflation artifactand no other significant histopathologic changes seenF. Ascending colon polyps:-Fragments of tubular adenomaG. Transverse colon polyps:-Fragments of tubular adenomaH. Left sided colon biopsy:-Fragments of colonic-type mucosa with no significanthistopathologic changes seen having fecal urgency, bloating, gasinessoccasional diarrheaexcessive belching and burping, feels remarkably better since treatment with xifaxan for few months and then symptoms returned She reports that the bloating causes her significant discomfort. She is uncomfortable during the day with 7 out of 10 pain.complaining of semi formed BM occurs every 2-3 days Angelito Deleon MD [address] [place] [address], [phone], [facility] 07/09/2021 16:10:18 08/19/20 21 text/htm ada Zepeda is a 76 year old female referred for evaluation of bradycardia. She has a past medical history of hypothyroidism, DM, hyperlipidemia, anemia, anxiety, hypertension, insomnia, sleep apnea, bifascicular block, GERD, CKD III, and fibromyalgia. She underwent placement of a dual-chamber [employer] pacemaker 09/01/2020. She follows Dr. Auguste for general cardiology. Since her consult visit in May 2020, she has had more shortness of breath, tiredness and weakness when she is trying to be active. This is a limited her. 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 Since placement of her pacemaker, she reports that her symptoms have improved as far as energy. She is having some shortness of breath when she is trying to be active. Over summer/fall 2020 she has done well and reports good energy level. As of August 2020 when she plans to move to [place] with her daughter. From a symptom standpoint, she denies chest pain or anginal symptoms. She does report shortness of breath and fatigue with activities. Device interrogation 08/19/2021: 87% atrial paced, less than 1% RV paced. Battery life 9.4 years, no atrial or ventricular high rate events EKG 12/09/20 paced with underlying bifascicular block at 60 bpm. QRS 142 ms Device check 12/09/2020: 82% atrial paced, 1.8% RV paced. Battery life 9.7 years, no atrial or ventricular high rate events. [place] was increased. EKG 08/16/2020: Sinus rhythm with bifascicular block at 62 bpm, QRS 142 ms, QT 476 ms EKG 04/21/20: Sinus bradycardia, Bifascicular block @ 55 bpm. QRS 148 ms, QT 480 ms, WI 178 ms. Labs 04/08/20: Na+ 142, K+ 4.2, BUN 20, Creatinine 1 Dobutamine Stress 02/19/20: EF 75%. No evidence of ischemia. Labs 07/24/19: Na+ 138, K+ 3.8, BUN 30, Creatinine 1.2, AST 17, ALT 10, hgb 11.5, hct 36.5 Echo 07/17/19: EF 60%. Diastolic dysfunction with trace mitral insufficiency. --Requested SINTIA Summers NP [address] [facility], [place], [phone], [facility] 08/19/2021 10:06:29 OBGyn Episode No OBEpisode recorded.
--- OUTSIDE RECORDS SUMMARY | 2024-12-02 13:14 | XMS_ITS | Referral Summary ---
Author Organization [facility] [place] [address] [place] [address] Care Team Providers Care Interventional Neuroradiologist Name Role Phone Unavailable Primary Care Provider Unavailabl e Allergies Active Allergy Reactions Criticality Noted Date Comments Hydromorphone Anaphylaxis,Other High 12/19/2023 Medications ALPRAZolam (XANAX) 0.5 mg tablet TAKE 1 TABLET BY MOUTH IN THE EVENING NEEDED 3 Active atorvastatin (LIPITOR) 40 mg tablet Take 40 mg by mouth 1 (one) time each day. 3 Active clobetasoL (TEMOVATE) 0.05 % ointment 3 Active erythromycin (ROMYCIN) 5 mg/gram (0.5 %) ophthalmic ointment 3 Active estradioL (ESTRACE) 0.01 % (0.1 mg/gram) vaginal cream 3 Active gabapentin (NEURONTIN) 300 mg capsule TAKE 2 CAPSULES BY MOUTH EVERY MORNING AND EVERY EVENING 3 Active gabapentin (NEURONTIN) 400 mg capsule Take 400 mg by mouth in the morning and 400 mg at noon and 400 mg in the evening and 400 mg before bedtime. 3 Active HYDROcodone-acet aminophen (NORCO) 5-325 mg tablet Take 1 tablet by mouth 3 (three) times a day if needed. 3 Active levothyroxine (SYNTHROID, UNITHROID) 112 mcg tablet TAKE 1 TABLET BY MOUTH EVERY DAY BEFORE A MEAL 3 Active liothyronine (CYTOMEL) 5 mcg tablet Take 5 mcg by mouth 1 (one) time each day. 3 Active losartan-hydroch lorothiazide (HYZAAR) 100-12.5 mg tablet Take 1 tablet by mouth 1 (one) time each day. 3 Active metoprolol succinate (TOPROL-XL) 25 mg 24 hr tablet Take 25 mg by mouth 1 (one) time each day. 3 Active omeprazole (PriLOSEC) [address] capsule Take by mouth 1 (one) time each day. 3 Active pantoprazole (PROTONIX) 40 mg EC tablet 3 Active rosuvastatin (CRESTOR) 40 mg tablet Take 40 mg by mouth 1 (one) time each day. 3 Active traMADoL (ULTRAM) 50 mg tablet TAKE 1 TO 2 TABLETS BY MOUTH THREE TIMES DAILY NEEDED 3 Active traZODone (DESYREL) 150 mg tablet Take 150 mg by mouth every night. 3 Active amoxicillin (AMOXIL) 500 mg capsule TAKE 1 CAPSULE BY MOUTH THREE TIMES DAILY AFTER MEALS 2 Active diazePAM (VALIUM) 5 mg tablet TAKE 1 TO 2 TABLETS BY MOUTH 45 MINUTES BEFORE PROCEDURE FOR 1 DAY NEEDED 2 Active dicyclomine (BENTYL) 20 mg tablet TAKE 1 TO 2 TABLETS BY MOUTH 15 TO 30 MINUTES PRIOR TO MAIN MEAL NEEDED 2 Active naloxone (NARCAN) 4 mg/0.1 mL nasal spray CALL 911. SPR CONTENTS OF ONE SPRAYER (0.1ML) INTO ONE NOSTRIL. REPEAT IN 2-3 MIN IF SYMPTOMS OF OPIOID EMERGENCY PERSIST, ALTERNATE NOSTRILS 2 Active oxyCODONE-acetam inophen (PERCOCET) 5-325 mg tablet TAKE 1 TABLET BY MOUTH EVERY 6 HOURS FOR 3 DAYS NEEDED FOR PAIN 2 Active triamcinolone (NASACORT) 55 mcg nasal inhaler Administer 110 mcg into affected nostril(s) 1 (one) time each day. 2 Active traMADol ER (ULTRAM-ER) 100 mg 24 hr tablet 2 Active albuterol HFA (PROVENTIL HFA;VENTOLIN HFA) 90 mcg/actuation inhaler albuterol sulfate Take 1 Application (inhalation) 2 times per day PRN for 30 days [id number] HFA aerosol inhaler 2 times per day inhalation 30 days active 90 mcg/actuation 3 Active azithromycin (ZITHROMAX) 250 mg tablet 3 Active methylPREDNISolo ne sod suc,PF, (SOLU-Medrol, PF,) 125 mg/2 mL recon soln by Not Applicable route. Active cefuroxime (CEFTIN) 500 mg tablet 3 Active cyclobenzaprine (FLEXERIL) 5 mg tablet Take 5 mg by mouth 3 (three) times a day if needed. 3 Active diclofenac (VOLTAREN) 1 % topical gel 3 Active sulfamethoxazole -trimethoprim (BACTRIM DS,SEPTRA DS) 800-160 mg tablet TAKE 1 TABLET BY MOUTH TWICE DAILY AFTER MEALS 3 Active amoxicillin-pot clavulanate (AUGMENTIN) 875-125 mg tablet Take 1 tablet by mouth in the morning and at bedtime. 4 Active atorvastatin 20 mg/5 mL (4 mg/mL) suspension Active gabapentin 10 % cream, metered-dose applicator Active HYDROcodone-acet aminophen (LORCET PLUS) 10-325 mg tablet TAKE 1/2 TABLET BY MOUTH THREE TIMES DAILY NEEDED FOR NON ACUTE PAIN Active amLODIPine (NORVASC) 10 mg tablet Take 1 tablet every day by oral route. Active benzonatate (TESSALON) 100 mg capsule TAKE 1 CAPSULE BY MOUTH THREE TIMES DAILY FOR 10 DAYS NEEDED Active cefTRIAXone (ROCEPHIN) 500 mg 500 mg IM now 4 Active citalopram (CeleXA) 20 mg tablet Take 1 tablet by mouth 1 (one) time each day. Active metoprolol tartrate (LOPRESSOR) 25 mg tablet Take 1 tablet by mouth 1 (one) time each day. Active simethicone (MYLICON,GAS-X) 125 mg capsule Take 1 capsule twice a day by oral route with meals. 3 Active solifenacin (VESICARE) 5 mg tablet Take 1 tablet by mouth 1 (one) time each day. Active spironolactone (ALDACTONE) 25 mg tablet Take 1 tablet by mouth 1 (one) time each day. Active telmisartan-hydr ochlorothiazid (MICARDIS HCT) 40-12.5 mg tablet Take 1 tablet by mouth 1 (one) time each day. Active valsartan-hydroc hlorothiazide (DIOVAN-HCT) 320-25 mg tablet Take 1 tablet by mouth 1 (one) time each day. Active levofloxacin in dextrose 5 % (LEVAQUIN IN 5 % DEXTROSE IV) Active metoprolol succinate (TOPROL-XL) 50 mg 24 hr tablet Take 50 mg by mouth 1 (one) time each day. 4 Active cetirizine (ZyrTEC) 10 mg tablet Take 1 tablet by mouth 1 (one) time each day. Active desloratadine (CLARINEX) 5 mg tablet Take 5 mg by mouth 1 (one) time each day. 4 Active Active Problems Problem Noted Date Diagnosed Date Bradycardia 12/19/2023 Sick sinus syndrome (CMS/HCC) ([facility]) 12/19/2023 Gastroesophageal reflux disease 09/12/2023 Hyperlipidemia 09/12/2023 Hypertension 09/12/2023 Hypothyroidism 09/12/2023 Bronchitis 07/18/2023 Irritable bowel syndrome 12/08/2021 Iron deficiency anemia 11/01/2021 Cardiac pacemaker in situ 08/31/2020 Overview (12/19/2023): [employer] dual chamber pacemaker implanted by Dr. Ramos at [facility]. MRI safe Diabetes mellitus 03/27/2018 Anxiety 10/22/2017 Obstructive sleep apnea syndrome 07/22/2017 Depressive disorder 07/11/2017 Osteoarthritis 05/27/2017 Stage 3 chronic kidney disease (CMS/HCC) ([facility]) 0 04/12/2017 Overview (12/19/2023): 01-29-2017 visit labs reviewed, creatinine level higher than previous labsLast documented by ANDERSON HARTMAN Family Medicine 01-29-2017 Osteoarthrosis involving mul tiple sites but not designated as generalized 03/27/2017 Anemia 04/16/2013 Anemia 04/16/2013 Overview (12/19/2023): 10-16-2016 visit iron indices wnl, increase iron supplement to tid,Last documented by ANDERSON HARTMAN [facility] Benign essential hypertension 04/16/2013 Overview (12/19/2023): 02-09-2017 visit controlled, continue current medsLast documented by ANDERSON HARTMAN [facility] 02-09-2017 Rheumatoid arthritis 04/16/2013 Primary fibromyalgia syndrome 04/16/2013 Overview (12/19/2023): 11-27-2016 visit resolvedLast documented by ANDERSON HARTMAN [facility] Medicine 11-27-2016 Last documented by ANDERSON HARTMAN [facility] Medicine 01-08-2017 Type 2 diabetes mellitus wit hout complication ([facility]) ([facility]) 04/16/2013 Resolved Problems Problem Noted Date Diagnosed Date Resolved Date Asthma 09/12/2023 12/19/2023 Social History Tobacco Use Types Packs/Day Years Used Date Smoking Tobacco: Never Assessed Alcohol Use Standard Drinks/Week Comments Never 0 (1 standard drink = 0.6 oz pur e alcohol) Comments Unknown Sex and Gender Information Value Date Recorded Sex Assigned at Not on file Legal Sex Female 2:20 PM PDT Gender Identity Not on file Sexual Orientation Not on file Last Filed [...] Procedure Name Priority Date/Time Associated Diagnosis Comments PERIO MAINTENANCE Routine 03/11/2024 9:30 AM CDT HAND CELL TUBER CBCT Routine 06/06/2023 10:00 AM CDT NEW PATIENT SPECIAL EXAM - ADULT Routine 06/06/2023 10:00 AM CDT from Last 3 Months or Most Recently Relevant to Health Maintenance Insurance [facility] DUAL COMPLETE PPO
--- OUTSIDE RECORDS SUMMARY | 2024-12-02 13:14 | XMS_ITS ---
Author Organization [facility] Address [address] [place] [address] Care Team Providers Care Marzipan Molder Name Role Phone Unavailable Unavailable Unavailable Surgery Details Not on file Complications Check Surgery Details section. Procedure Estimated Blood Loss Check Surgery Details section. Procedure Findings Check Surgery Details section. Procedure Specimens Taken Check Surgery Details section.
--- OUTSIDE RECORDS SUMMARY | 2024-12-02 13:14 | XMS_ITS | Continuity of Care Document ---
Author Organization [facility] Address [address] [place] [address] Phone Care Team Providers Care Skidder Loader Name Role Phone Grupo Simpson MD Unavailable Unavailable Allergies, Adverse Reactions, Alerts Substance Reaction Status Criticality No Known Allergies Active No Inform ation Medications Medication Instructions Dosage Effective Dates (start - stop) Status Comments gabapentin 300 mg capsule take 1 capsule by oral route 3 times every day 300 MG - Active liothyronine 5 mcg tablet take 1 tablet by oral route every day 5 MCG - Active Procedures Procedure Date NEW PATNT OV MOD COMP EST PATIENT VISITOV X-RAY OF HAND 3 VIEW MIN. EST PATIENT VISITOV INJCTS TEND SHEATH, LIG Kenalog 10 INJECTION,TRIAMCINOLONE ACETO NIDE,CYM84WD X-RAY OF KNEE 3 VIEWS EST PATIENT VISITOV Arthroce Intermediate Joint With Ultraso und Guidance DepoMedrol INJECTION,METHYLPREDNISOLONE ACETATE,80MG X-RAY OF FOOT 3 VIEW MIN. EST PATNT OV DTL EXAM EST PATIENT VISITOV THERAPEUTIC EXERCISES THERAPEUTIC EXERCISES THERAPEUTIC EXERCISES THERAPEUTIC EXERCISES THERAPEUTIC EXERCISES THERAPEUTIC EXERCISES PT EVAL LOW COMPLEX 20 MIN THERAPEUTIC EXERCISES Falls - Plan Of Care Documented Esvin Medications - Current Meds Documented Ju EST PATNT OV DTL EXAM X-RAY OF KNEE 3 VIEWS X-RAY OF KNEE 3 VIEWS NEW PATNT OV DTL EXAM Advance Directives Directive Yes / No Effective Date File Name No Information Encounters Encounter Description Practice Location Reason(s) For Visit Diagnoses Date Provider Providers Copied on Encounter NEW PATNT OV MOD COMP [facility] , [address] [place], [place], [id number] , [place] tel:[phone] [facility] EMA HAND (chief complaint) Bilateral hand pain 4 Calvin Lombardo. [address], [id number], [place]. tel:[phone] Referring Provider: Ricardo Lees, [address] [place], [address] . tel:[phone] [address] [facility] , [address], [place], [address] , [place] tel:[phone] [facility] EMA hand (chief complaint) No Information 4 Collette Silva. [address] [place], [place], [id number], [place]. tel:[phone] Referring Provider: Grupo Simpson, [address], [address] . tel:[phone] [address] [facility] , [address], [place], [address] , [place] tel:[phone] [facility] Bilateral Hand (chief complaint) Pain in left handBilateral hand pain 4 Collette Silva. [address], [place], [address], [place]. tel:[phone] Referring Provider: Grupo Simpson, [address], [address] . tel:[phone] [address] [facility] , [address] [facility], [place], [place], [address] , [place] tel:[phone] [facility] Follow Up of bilateral knee (chief complaint) Pain in right kneeHistory of total bilateral knee replacement 4 Roc Phipps. 8 [facility] [place] [place] [address], [place], [place], [address], [place]. tel:[phone] Referring Provider: Moise Anthony, 8 [facility] [address], [place], [address] . tel:[phone] [facility] , [address] [facility], [place], [place], [address] , [place] tel:[phone] [facility] ema foot (chief complaint) Primary osteoarthritis , left ankle and footPain in left foot 0 3 Ree Bright. [address], [place], [address], [place]. tel:[phone] Referring Provider: Brice Clemente, [address] [facility], [place], [address] . tel:[phone] EST PATNT OV DTL EXAM [facility] , [address] [facility], [place], [place], [address] , [place] tel:[phone] [facility] Pain in left footPrimary osteoarthritis , left ankle and footHallux valgus (acquired), left footContractur e of muscle, left lower leg 3 Radha Gamez. [address] [facility], [place], [address], [place]. tel:[phone] Referring Provider: Brice Clemente, [address], [place], [address] . tel:[phone] EST [address] VIS[address]OV [facility] , [address] [facility], [place], [place], [address] , [place] tel:[phone] [facility] Follow Up of bilateral knee (chief complaint) History of total bilateral knee replacement 3 Roc Phipps. [address] [place] [address], [id number], [place]. tel:[phone] Referring Provider: Brice Clemente, [address] [place], [address] . tel:[phone] [facility] , [address] [place] [address], [id number] , [place] tel: [phone] [facility] Pain in right kneePain in left kneeUnspecifie d abnormalities of gait and mobility 3 Jayro Martin. [address], [place], [place], [address], [place]. tel:[phone] Referring Provider: Moise Anthony, [address] [place] [address], [address] . tel:[phone] [facility] , [address], [place], [address] , [place] tel: [phone] [facility] Pain in right kneePain in left kneeUnspecifie d abnormalities of gait and mobility 3 Jayro Martin. [address], [place], [place], [address], [place]. tel:[phone] Referring Provider: Moise Anthony, [address] [place] [address], [place], [address] . tel:[phone] [facility] , [address] [place], [address] , [place] tel: [phone] [facility] Pain in right kneePain in left kneeUnspecifie d abnormalities of gait and mobility 3 Long Jenn. [address], [place], [address], [place]. tel:[phone] Referring Provider: Moise Anthony, [address] [place] [address], [place], [address] . tel:[phone] [facility] , [address], [place], [place], [address] , [place] tel:[phone] [facility] Pain in right kneePain in left kneeUnspecifie d abnormalities of gait and mobility 3 Jayro Mario. [address], [place], [place], [address], [place]. tel:[phone] Referring Provider: Moise Anthony, [address] [place] [address], [place], [address] . tel:[phone] [facility] , [address], [place], [place], [address] , [place] tel:[phone] [facility] Pain in right kneePain in left kneeUnspecifie d abnormalities of gait and mobility 3 Jayro Mario. [address], [place], [place], [address], [place]. tel:[phone] Referring Provider: Brice Clemente, [address] [place], [address] . tel:[phone] [facility] , [address], [place], [place], [address] , [place] tel:[phone] [facility] Pain in right kneePain in left kneeUnspecifie d abnormalities of gait and mobility 3 Long Jenn. [address] [facility], [place], [place], [address], [place]. tel:[phone] Referring Provider: Moise Anthony, [address] [place] [address] [address], [place], [address] . tel:[phone] [facility] , [address], [place], [place], [address] , [place] tel:[phone] [facility] Right knee pain, unspecified chronicityLeft knee pain, unspecified chronicityGait difficulty 3 Jayro Mario. [address], [place], [place], [address], [place]. tel:[phone] Referring Provider: Moise Anthony, 8 [facility] [address], [place], [address] . tel:[phone] EST [facility] , [address], [place], [address] , [place] tel:[phone] [facility] Follow Up of bilateral knee (chief complaint) Pain in left kneeRight knee pain, unspecified chronicity Reggie- 3 Roc Phipps. 8 [facility] [address], [place], [place], [address], [place]. tel:[phone] Referring Provider: Brice Clemente, [address] [facility] [place], [place], [address] . tel:[phone] NEW PATNT OV DTL [facility] , [address] [facility], [place], [place], [address] , [place] tel:[phone] [facility] OLD bilateral knees (chief complaint) Pain in left kneeHistory of total bilateral knee replacement 3 Vamsi Narvaez. [address], [place], [address], [place]. tel:[phone] Family History Family Member Type Diagnosis Age At Onset Problem Family history of Stroke Problem Family history of Cancer, un known type Problem Family history of Arthritis Problem Family history of Cardiovasc ular disease Problem Family history of Diabetes m ellitus Problem Family history of Anemia Payers Payer name Insurance type Covered libertarian ID Authoriza tion(s) [facility] Dual Complete [id number] [facility] [id number] Social History Type Description Quantity Date Captured Comments Alcohol Use Details No Caffeine Use Details Unknown Tobacco Use Status Current non-smoker Smoking Status Never smoker Sex Female Chief Complaint And Reason For Visit From encounter dated '06/09/2024 09:00'. EMA HAND (chief complaint) Reason For Referral Reason For Referral No Information Plan Of Treatment Date Type Action Status Referral Ordered: Deangelo Keenan DO -Allopathic & Osteopathic Physicians : Physical Medicine & Rehabilitation (related to Primary osteoarthritis, left ankle and foot) ordered Referral Referred To: Deangelo Keenan DO [address] [place], [phone] Ordered: Referrals: Allopathic & Osteopathic Physicians : Physical Medicine & Rehabilitation. Deangelo Keenan DO. Consult ordered Referral Ordered: Refer to Physical Therapist ordered Future Order: Radiology Order Gu ided Ultrasound (GULS), Appointment on: , Sent on: Sent Future Order: Lab Order CBC With Differential/Platelet ([id number]), Sent on: Sent Future Order: Lab Order Comp. Me tabolic Panel (14) ([id number]), Sent on: Sent Future Order: Lab Order C-Reacti ve Protein, Quant ([id number]), Sent on: Sent Future Order: Lab Order CCP Anti bodies IgG/IgA ([id number]), Sent on: Sent History Of Present Illness Encounter Date Complaint History Of Prese nt Illness EMA HAND EMA hand Bilateral Hand Follow Up of bilateral knee ema foot Follow Up of bilateral knee Follow Up of bilateral knee bilateral knees Functional Status Date Functional Assessmen t No Information Instructions Date Instruction Camille licona - Patient education available at www.[employer] on the Education tab Related to Bilateral hand pain - Medication refills must be requested before 4pm Junaid through Sunday Related to Bilateral hand pain - Patient education available at www.[employer] on the Education tab Related to Primary osteoarthritis, left ankle and foot - Medication refills must be requested before 4pm Sunday through Sunday Related to Primary osteoarthritis, left ankle and foot Assessments Type Assessment Date assessment Bilateral hand pain Patient Care Teams Name Effective Dates (start - stop) Status Members No Information
--- OUTSIDE RECORDS SUMMARY | 2024-12-02 13:14 | XMS_ITS | CCD ---
Author Organization [facility] Address [address] [facility] [place] [address] Care Team Providers Care Designated Broker Name Role Phone Unavailable Primary Care Provider [...] times per day PRN for 30 days [id number] HFA aerosol inhaler 2 times per day [...] mouth 1 (one) time each day. Active Active Problems Problem Noted Date Diagnosed Date Bradycardia 12/19/2023 Sick sinus syndrome (CMS/HCC) (HCC) 12/19/2023 Gastroesophageal reflux disease 09/12/2023 Hyperlipidemia 09/12/2023 Hypertension 09/12/2023 Hypothyroidism 09/12/2023 Bronchitis 07/18/2023 Irritable bowel syndrome 12/08/2021 Iron deficiency anemia 11/01/2021 Cardiac pacemaker in situ 08/31/2020 Overview (12/19/2023): SJM Assurity dual chamber pacemaker implanted by Dr. Ramos at [facility]. MRI safe Diabetes mellitus 03/27/2018 Anxiety 10/22/2017 Obstructive sleep apnea syndrome 07/22/2017 Depressive disorder 07/11/2017 Osteoarthritis 05/27/2017 Stage 3 chronic kidney disease (CMS/HCC) (HCC) 0 04/12/2017 Overview (12/19/2023): 01-29-2017 visit labs reviewed, creatinine level higher than previous labsLast documented by ANDERSON HARTMAN [facility] 01-29-2017 Osteoarthrosis involving mul tiple sites but not designated as generalized 03/27/2017 Anemia 04/16/2013 Anemia 04/16/2013 Overview (12/19/2023): 10-16-2016 visit iron indices wnl, increase iron supplement to tid,Last documented by ANDERSON HARTMAN [facility] Benign essential hypertension 04/16/2013 Overview (12/19/2023): 02-09-2017 visit controlled, continue current medsLast documented by ANDERSON HARTMAN [facility] 02-09-2017 Rheumatoid arthritis 04/16/2013 Primary fibromyalgia syndrome 04/16/2013 Overview (12/19/2023): 11-27-2016 visit resolvedLast documented by ANDERSON HARTMAN Family [facility] 11-27-2016 Last documented by ANDERSON HARTMAN [facility] 01-08-2017 Type 2 diabetes mellitus wit hout complication ([facility] ([facility]) 04/16/2013 Resolved Problems Problem Noted Date Diagnosed Date Resolved Date Asthma 09/12/2023 12/19/2023 Social History Tobacco Use Types Packs/Day Years Used Date Smoking Tobacco: Never Assessed Alcohol Use Standard Drinks/Week Never 0 (1 standard drink = 0.6 oz pure alcohol) Comments Unknown Sex and Gender Information [...] PERIO MAINTENANCE Routine 03/11/2024 9:30 AM CDT CARE MGR CBCT Routine 06/06/2023 10:00 AM CDT NEW PATIENT SPECIAL EXAM - ADULT Routine 06/06/2023 10:00 AM CDT from Last 3 Months or Most Recently Relevant to Health Maintenance
--- OUTSIDE RECORDS SUMMARY | 2024-12-02 13:14 | XMS_ITS ---
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 Name Role Phone Avinash Marroquin MD Primary Care Provider Unavaila Declan Madrigal Unavailable [phone] Avinash Marroquin MD Unavailable Unavailable REASON FOR VISIT Tramadol Medications Medication SIG (Take, Route, Fr equency, Duration) Notes Start Date End Date Status traMADol HCl 50 MG 1-2 tablet as needed Orally up to 3 doses per day for severe pain, exempt for 30 days exempt 10/01/2024 Active Encounters Encounter Location Date Provider Diagnosis [id number] [address] [place] [address] 10/01/2024 Declan Young Radiculopathy, lumbar region M54.16 Assessments Encounter Date Diagnosis (ICD Code) Assessment Notes Treatment Notes Treatment Clinical Notes 10/01/2024 Radiculopathy, lumbar region (ICD-10 - M54.16) Plan Of Treatment Medication Medication Name Sig Start Date Stop Date Notes traMADol HCl 50 MG 1-2 tablet as needed Orally up to 3 doses per day for severe pain, exempt for 30 days 10/01/2024 exempt Next Appt Details Provider Name:Declan scott, 01/13/2025 09:00:00 AM, [address], [place], [address], Progress Notes * Bism[place] HASTINGSB: [birth year] (79 yo F)Acc No.[id number]:10/01/2024 Patient:?Nusrat HASTINGS :1945???Age:79 Y???Sex:Female Address:[address] [place] [address] [address], [place] [address] * Refills? Refill traMADol HCl Tablet, 50 MG, Orally, 150 tablets, 1-2 tablet as needed, up to 3 doses per day for severe pain, exempt, 30 days, Refills=0 * true * Date:? 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
--- OUTSIDE RECORDS SUMMARY | 2024-12-02 13:14 | XMS_ITS | Data Portability ---
Author Organization [place] - .[facility], [facility] Address [address] [place] [address] Assessment Encounter Date Assessment Date Assessment LastModified by Organization Details LastModified Time 11/14/2022 11/14/2022 77 y/o female that presents for dysuria x2 days. Admits to chronic back pain, urinary frequency, suprapubic pressure while urination, cloudy urine and denies fever, chills, night sweats, neck/chest/abdom inal/pelvis pain, n/v/d, rash, LOC or any additional symptoms. Pt seen at bedside in NAD with VSS. Abdomen is soft,non-distend ed with normal bowel sounds. No abdominal or CVA tenderness. A/P: UTI - Urine dipstick reviewed - Urine cx - Cefdinir 300mg q12hr - Acetaminophen 1G q6h PRN - Education/precau tions given [email or web address] Not available 11/17/2022 00:06:49 Plan of Treatment Reminders Order Date Submit Date Provider Last Modified By Organization Details Last Modified Time Details Appointments None recorded. Lab urinalysis , dipstick 2022 023 [email or web address] [facility]_ [facility], [address], [place], [address], 3 20:21:19 culture, urine 2022 023 MICHELLE [facility], [facility], [place], [address], 3 09:46:44 urinalysis , dipstick 2022 023 [facility], [address] [place] [address], [id number], 3 10:03:13 culture, urine 2022 023 [facility], [address] [place] [address], [address], 3 09:41:56 rapid SARS CoV 2 Ag, QL IA, respirator y specimen 2022 023 [email or web address] [facility], [address] [place] [address], [id number], 3 10:00:39 SARS CoV 2 RNA (COVID-19) , QL, inspector machine parts-PCR, respirator y specimen 2022 023 [facility], [address] [place] [address], [id number], 3 05:25:33 Referral None recorded. Procedures None recorded. Surgeries None recorded. Imaging None recorded. Medication Orders cephalexin 500 mg capsule 2021 023 [id number], [address] [place] [address], [id number], 3 08:31:49 cefdinir 300 mg capsule 2022 023 [facility], [address] [place] [address], [id number], 3 09:35:54 acetaminop hen 500 mg tablet 2022 023 [facility], [address] [place] [address], [id number], 3 09:35:53 Macrobid 100 mg capsule 2022 023 [facility] #33807, [address] [place], [place], [id number], 3 10:00:58 cetirizine 10 mg tablet 2022 023 [facility] #75403, [address], [place], [id number], 3 10:00:55 fluticason e propionate 50 mcg/actuat ion nasal spray,susp ension 2022 023 [facility] #34747, [address], [place], [id number], 3 10:00:56 Patient TargetsNo targets recorded. Patient Instructions Encounter Date Encounter Id Patient Instructions Last Modified By Organization Details Last Modified Time 10/30/2022 [id number] A healthy lifestyle: care instructions [email or web address] Not available 11/01/2022 11:10:08 Thank you for visiting [facility].There are two ways to view your lab results: : ? 1. ? ? ? The [employer] [facility]aceli is available to all patients 18 and older in the Arac[employer] Store and [employer] Play. First-time araceli users will need to create an account; please note you? l l need to select a login and password for the araceli versus just using your patient portal login credentials. Your lab results will be posted to the [facility] araceli as soon as they? r e available. ? 2. ? ? ? Via email , as soon as lab results are available. If you don? t receive an email within the estimated time frame, give our Aftercare team a call at [phone]. Puncture Wound Your Care Instructions: A puncture wound can happen anywhere on your body. These wounds tend to be narrower and deeper than cuts. A puncture wound is usually left open instead of being closed. This is because a puncture wound can be easily infected, and closing it can make infection even more likely. You will probably have a bandage over the wound. The doctor has checked you carefully, but problems can develop later. If you notice any problems or new symptoms, get medical treatment right away. Follow-up care is a galo part of your treatment and safety. Be sure to make and go to all appointments, and call your doctor if you are having problems. It's also a good idea to know your test results and keep a list of the medicines you take. How can you care for yourself at home? Keep the wound dry for the first 24 to 48 hours. After this, you can shower if your doctor okays it. Pat the wound dry. Don't soak the wound, such as in a bathtub. Your doctor will tell you when it's safe to get the wound wet. If your doctor told you how to care for your wound, follow your doctor's instructions. If you did not get instructions, follow this general advice: After the first 24 to 48 hours, wash the wound with clean water 2 times a day. Don't use hydrogen peroxide or alcohol, which can slow healing. You may cover the wound with a thin layer of petroleum jelly, such as Vaseline, and a nonstick bandage. Apply more petroleum jelly and replace the bandage as needed. Prop up the sore area on pillows anytime you sit or lie down during the next 3 days. Try to keep it above the level of your heart. This helps reduce swelling. Avoid any activity that could cause your wound to get worse. Be safe with medicines. Read and follow all instructions on the label. If the doctor gave you a prescription medicine for pain, take it as prescribed. If you are not taking a prescription pain medicine, ask your doctor if you can take an pkso-eir-wyafkkr medicine. If your doctor prescribed antibiotics, take them as directed. Do not stop taking them just because you feel better. You need to take the full course of antibiotics. When should you call for help? Call your doctor now or seek immediate medical care if: You have new pain, or your pain gets worse. The wound starts to bleed, and blood soaks through the bandage. Oozing small amounts of blood is normal. The skin near the wound is cold or pale or changes color. You have tingling, weakness, or numbness near the wound. You have trouble moving the area near the wound. You have symptoms of infection, such as: Increased pain, swelling, warmth, or redness around the wound. Red streaks leading from the wound. Pus draining from the wound. A fever. Watch closely for changes in your health, and be sure to contact your doctor if: The wound is not closing (getting smaller). You do not get better as expected. [email or web address] Not available 10/30/2022 09:40:08 11/14/2022 [id number] A healthy lifestyle: care instructions [email or web address] Not available 11/14/2022 20:21:19 Thank you for visiting [facility].There are two ways to view your lab results: : ? 1. ? ? ? The [employer] araceli is available to all patients 18 and older in the Araceli Store and [employer]. First-time araceli users will need to create an account; please note you? l l need to select a login and password for the araceli versus just using your patient portal login credentials. Your lab results will be posted to the [facility] araceli as soon as they? r e available. ? 2. ? ? ? Via email , as soon as lab results are available. If you don? t receive an email within the estimated time frame, give our Aftercare team a call at [phone]. UTI in Women Your Care Instructions A urinary tract infection, or UTI, is a general term for an infection anywhere between the kidneys and the urethra (where urine comes out). Most UTIs are bladder infections. They often cause pain or burning when you urinate. UTIs are caused by bacteria and can be cured with antibiotics. Be sure to complete your treatment so that the infection goes away. Follow-up care is a galo part of your treatment and safety. Be sure to make and go to all appointments, and call your doctor if you are having problems. It's also a good idea to know your test results and keep a list of the medicines you take. How can you care for yourself at home? Take your antibiotics as directed. Do not stop taking them just because you feel better. You need to take the full course of antibiotics. Drink extra water and other fluids for the next day or two. This may help wash out the bacteria that are causing the infection. (If you have kidney, heart, or liver disease and have to limit fluids, talk with your doctor before you increase your fluid intake.) Avoid drinks that are carbonated or have caffeine. They can irritate the bladder. Urinate often. Try to empty your bladder each time. To relieve pain, take a hot bath or lay a heating pad set on low over your lower belly or genital area. Never go to sleep with a heating pad in place. To prevent UTIs Drink plenty of water each day. This helps you urinate often, which clears bacteria from your system. (If you have kidney, heart, or liver disease and have to limit fluids, talk with your doctor before you increase your fluid intake.) Urinate when you need to. Urinate right after you have sex. Change sanitary pads often. Avoid douches, bubble baths, feminine hygiene sprays, and other feminine hygiene products that have deodorants. After going to the bathroom, wipe from front to back. When should you call for help? Call your doctor now or seek immediate medical care if: Symptoms such as fever, chills, nausea, or vomiting get worse or appear for the first time. You have new pain in your back just below your rib cage. This is called flank pain. There is new blood or pus in your urine. You have any problems with your antibiotic medicine. Watch closely for changes in your health, and be sure to contact your doctor if: You are not getting better after taking an antibiotic for 2 days. Your symptoms go away but then come back. [email or web address] Not available 11/14/2022 08:53:04 12/11/2022 [id number] 9 things to do i f you've been exposed to covid-19 [email or web address] Not available 12/11/2022 10:00:38 Thank you for visiting [facility].There are two ways to view your lab results: : ? 1. ? ? ? The Tapestry araceli is available to all patients 18 and older in the Araceli Store and [employer] Play. First-time araceli users will need to create an account; please note you? l l need to select a login and password for the araceli versus just using your patient portal login credentials. Your lab results will be posted to the [facility] araceli as soon as they? r e available. ? 2. ? ? ? Via email , as soon as lab results are available. If you don? t receive an email within the estimated time frame, give our Aftercare team a call at [phone]. Test Name: SARS-CoV-2 rapid ag (COVID-19); Result: NEGATIVE Your test today for COVID-19 infection was NEGATIVE. The next steps in your care depend on your whether you are having symptoms or had an exposure to Covid-19: NOTE: an EXPOSURE is defined as spending more than 10 minutes (within a 24 period) within an enclosed space with an individual who tested positive for Covid-19 If NO EXPOSURE to COVID-19: If you are ASYMPTOMATIC and NO KNOWN EXPOSURE: You are cleared to go back to work or school since you have no symptoms suggestive of COVID-19, have not had a high risk exposure to a person known to have COVID-19, and your Rapid Covid Test result is negative. If you have SYMPTOMS with NO KNOWN EXPOSURE to COVID-19: Your medical provider may have sent a second test to an outside lab to confirm that today s test was truly negative. The results of this second test (PCR technique) will be published to your [facility] patient portal ([email or web address]) as soon as they are available (3-5 days on average). For now, we ask that you go home under strict QUARANTINE, monitor for any worsening symptoms and return for re-evaluation if your symptoms become severe. If HIGH-RISK EXPOSURE: FULLY VACCINATED: If you are fully vaccinated and boosted (with the booster at least 2 weeks before the first date of exposure) or you are not yet eligible for a booster, NO QUARANTINE IS REQUIRED. You should wear a well-fitting mask while aroundothers for 10 days after the last date of exposure. NOT FULLY VACCINATED (including vaccinated and eligible for a booster but not yet boosted): You should QUARANTINE for 5 DAYS, then wear a well-fitting mask while around others for an additional 5 days. It is recommended that you TEST at DAY 5 if possible (either PCR or Rapid Antigen) If you DEVELOP SYMPTOMS: QUARANTINE and SEEK TESTING. In this situation, quarantine would end when the test is negative. If testing is not done, isolate according to the guidance above (Vaccinated vs NOT-Vaccinated). Be Safe MONITOR YOUR SYMPTOMS : If at any point your symptoms become worse or severe such as fever that will not improve with medicine, shortness of breath, chest pain or discomfort, abdominal pain, inability to tolerate eating and drinking, please return to [facility] or go to the closest Emergency Room. QUARANTINE INFO : If you were asked to quarantine yourself, please stay in your own part of the house away from everyone else, using your own bedroom and bathroom, if possible. If you need to be in a common area ensure that both you and anyone else around you is wearing a mask.You will be considered free of contagious COVID-19 10 days after your symptoms began ? if your symptoms have significantly improved and you have not had a fever for at least 24 hours (without using fever reducing medications like acetaminophen or ibuprofen). Please continue to follow all personal safety practices when outside the home, including (a) wearing a nose and mouth covering at all times when around people outside of your household, (b) social distancing, (c) hand hygiene, and (d) avoidance of contact with people with known or possible COVID-19. Dysuria Burning pain with urination (dysuria) is a common symptom of a urinary tract infection or other urinary problems. The bladder may become inflamed. This can cause pain when the bladder fills and empties. You may also feel pain if the tube that carries urine from the bladder to the outside of the body (urethra) gets irritated or infected. Sexually transmitted infections (STIs) also may cause pain when you urinate. Sometimes the pain can be caused by things other than an infection. The urethra can be irritated by soaps, perfumes, or foreign objects in the urethra. Kidney stones can cause pain when they pass through the urethra. The cause may be hard to find. You may need tests. Treatment for painful urination depends on the cause. Follow-up care is a galo part of your treatment and safety. Be sure to make and go to all appointments, and call your doctor if you are having problems. It's also a good idea to know your test results and keep a list of the medicines you take. How can you care for yourself at home? Drink extra water for the next day or two. This will help make the urine less concentrated. (If you have kidney, heart, or liver disease and have to limit fluids, talk with your doctor before you increase the amount of fluids you drink.) Avoid drinks that are carbonated or have caffeine. They can irritate the bladder. Urinate often. Try to empty your bladder each time. For women: Urinate right after you have sex. After going to the bathroom, wipe from front to back. Avoid douches, bubble baths, and feminine hygiene sprays. And avoid other feminine hygiene products that have deodorants. When should you call for help? Call your doctor now or seek immediate medical care if: You have new symptoms, such as fever, nausea, or vomiting. You have new or worse symptoms of a urinary problem. For example: You have blood or pus in your urine. You have chills or body aches. It hurts worse to urinate. You have groin or belly pain. You have pain in your back just below your rib cage (the flank area). Watch closely for changes in your health, and be sure to contact your doctor if you have any problems. Viral Syndrome Your Care Instructions You don't feel well, but it's not clear what's causing it. You may have a viral infection. Viruses cause many illnesses, such as the common cold, influenza, fever, rashes, and the diarrhea, nausea, and vomiting that are often called stomach flu. You may wonder if antibiotic medicines could make you feel better. But antibiotics only treat infections caused by bacteria. They don't work on viruses. The good news is that viral infections usually aren't serious. Most will go away in a few days without medical treatment. In the meantime, there are a few things you can do to make yourself more comfortable. Follow-up care is a galo part of your treatment and safety. Be sure to make and go to all appointments, and call your doctor if you are having problems. It's also a good idea to know your test results and keep a list of the medicines you take. How can you care for yourself at home? Get plenty of rest if you feel tired. Take an jdqx-ntk-othjvph pain medicine if needed, such as acetaminophen (Tylenol), ibuprofen (Advil, Motrin), or naproxen (Aleve). Read and follow all instructions on the label. Be careful when taking xbml-xkd-wnoroav cold or flu medicines and Tylenol at the same time. Many of these medicines have acetaminophen, which is Tylenol. Read the labels to make sure that you are not taking more than the recommended dose. Too much acetaminophen (Tylenol) can be harmful. Drink plenty of fluids, enough so that your urine is light yellow or clear like water. If you have kidney, heart, or liver disease and have to limit fluids, talk with your doctor before you increase the amount of fluids you drink. Stay home from work, school, and other public places while you have a fever. When should you call for help? Call 911 anytime you think you may need emergency care. For example, call if: You have severe trouble breathing. You passed out (lost consciousness). Call your doctor now or seek immediate medical care if: You seem to be getting much sicker. You have a new or higher fever. You have blood in your stools. Not available 12/11/2022 10:03:43 Reason for Referral None Reported. Results Created Date Observation Date Name Description Value Unit Range Abnormal Flag Note LastModifiedBy Organization Detail LastModifiedTime 11/14/19 23 11/14/2022 CULTU RE URINE results Attac hment Not Available d Lab [address], [place], [address], 11/17/2022 09:46:43 11/14/19 23 11/17/2022 CULTU RE URINE final MICROB IOLOGY RESULT S abnormal Cultu re Urine Final Sourc e: Repor t Date/ Time: 11/17 9:36A M Colle ction Date/ Time: 11/14 4:04P M 1630 Clini magi Infor matio n Type of Patie nt Non-P regna nt Femal e Sourc e of urine cultu re VOIDE D/VIJAYA AN CATCH Penic illin Aller gy? N Klebs iella pneum oniae Organ ism Estim ation Urine >100, 000 col/m L Susce ptibi lity Klebs iella pneum oniae ----- ----- ----- ----- ----- ----- ESBL Neg Neg Ampic illin >=32 R Piper acill in/Ta zobac galdamez <=4 S Cefaz jewel <=4 S Ertap enem <=0.1 2 S Genta micin <=1 S Tobra mycin <=1 S Cipro floxa maia <=0.2 5 S Levof loxac in <=0.1 2 S Nitro furan toin 64 I Trime thopr im / Sulfa metho xazol e <=20 S Not Available [facility] [address], [place], [address], 11/17/2022 09:46:43 11/14/19 23 11/14/2022 urina lysis , dipst ick Unknown Analyte 10 Not Available [address] [place], [address], 11/14/2022 08:34:42 11/14/19 23 11/14/2022 urina lysis , dipst ick Unknown Analyte Norm Not Available [facility] [address] [facility] [place], [address], 11/14/2022 08:34:42 11/14/19 23 11/14/2022 urina lysis , dipst ick Unknown Analyte Neg Not Available [facility] [address] [place], [address], 11/14/2022 08:34:42 11/14/19 23 11/14/2022 urina lysis , dipst ick Unknown Analyte Neg Not Available [facility] [address] [place], [address], 11/14/2022 08:34:42 11/14/19 23 11/14/2022 urina lysis , dipst ick Unknown Analyte negati ve Not Available [facility] [address] [place], [address], 11/14/2022 08:34:42 11/14/19 23 11/14/2022 urina lysis , dipst ick Unknown Analyte Neg Not Available [facility] [address] [place], [address], 11/14/2022 08:34:42 11/14/19 23 11/14/2022 urina lysis , dipst ick Unknown Analyte Neg Not Available [facility] [address] [place], [address], 11/14/2022 08:34:42 11/14/19 23 11/14/2022 urina lysis , dipst ick Unknown Analyte 6 Not Available [facility] [address] [place], [address], 11/14/2022 08:34:42 11/14/19 23 11/14/2022 urina lysis , dipst ick Unknown Analyte 1.005 Not Available [facility] [address] [place], [address], 11/14/2022 08:34:42 11/14/19 23 11/14/2022 urina lysis , dipst ick Unknown Analyte 500 Not Available [facility] [address] [place], [address], 11/14/2022 08:34:42 12/11/19 23 12/12/2022 SARS COV 2 RT-PC R sars-cov-2 RNA (covid19) by PCR NEGATI VE negati ve normal Posit melody resul ts are indic ative of the prese nce of SARS- CoV-2 RNA; clini magi corre latio n with patie nt histo ry and other diagn ostic infor matio n is neces maryam to deter mine patie nt infec tion statu s. Posit melody resul ts do not rule out bacte rial infec tion or co-in fecti on with other virus es. Posit melody and negat melody predi ctive value s of testi ng are highl y depen dent on preva lence . False posit melody test resul ts are more likel y when preva lence is moder ate to low. The expec john resul t is Negat melody (Not Detec john). The SARS CoV-2 test is inten ded for the quali tativ e detec tion of nucle ic acid from SARS- CoV-2 in nasop haryn geal and oroph aryng eal swab sampl es from patie nts who meet COVID -19 clini magi and/o r epide miolo gical crite khushbu. Testi ng metho dolog y is Real- Time PCR (RT-P CR) using high- throu ghput techn ology . Test resul ts must be corre lated with clini magi prese ntati on and evalu ated in the christiano xt of other labor atory and epide miolo gic data. This test has not been Food and Drug Admin istra tion (FDA) clear ed or appro arabella and has been autho rized by FDA under an Emerg ency Use Autho rizat ion (EUA) . Summi t Medic al NAKUL Parks. Labor atory is certi fied under the Clini magi Labor atory Impro vemen t Amend ments of 1988 (CLIA ), 42 U.S.C . secti on 263a, to perfo rm high compl exity tests . Not Available [facility] [address], [place], [address], 12/12/2022 05:25:33 12/11/19 23 12/11/2022 CULTU RE URINE results Attac hment Not Available [facility] [address], [place], [address], 12/14/2022 09:41:56 12/11/19 23 12/14/2022 CULTU RE URINE final MICROB IOLOGY RESULT S abnormal Cultu re Urine Final Sourc e: Repor t Date/ Time: 12/14 9:37A M Colle ction Date/ Time: 12/11 10:12 AM 1630 Clini magi Infor matio n Type of Patie nt Non-P regna nt Femal e Sourc e of urine cultu re VOIDE D/VIJAYA AN CATCH Penic illin Aller gy? N Klebs iella pneum oniae Organ ism Estim ation Urine >100, 000 col/m L Susce ptibi lity Klebs iella pneum oniae ----- ----- ----- ----- ----- ----- ESBL Neg Neg Ampic illin >=32 R Piper acill in/Ta zobac galdamez <=4 S Cefaz jewel <=4 S Ertap enem <=0.1 2 S Genta micin <=1 S Tobra mycin <=1 S Cipro floxa maia <=0.2 5 S Levof loxac in <=0.1 2 S Nitro furan toin 64 I Trime thopr im / Sulfa metho xazol e <=20 S Not Available [facility] [address], [place], [address], 12/14/2022 09:41:56 12/11/19 23 12/11/2022 urina lysis , dipst ick Unknown Analyte 50 Not Available [facility] [address] [place], [address], 12/11/2022 09:43:08 12/11/19 23 12/11/2022 urina lysis , dipst ick Unknown Analyte Norm Not Available [facility] [address] [place], [address], 12/11/2022 09:43:08 12/11/19 23 12/11/2022 urina lysis , dipst ick Unknown Analyte Neg Not Available [facility] [address] [place], [address], 12/11/2022 09:43:08 12/11/19 23 12/11/2022 urina lysis , dipst ick Unknown Analyte 30 Not Available [address] [address] [place], [address], 12/11/2022 09:43:08 12/11/19 23 12/11/2022 urina lysis , dipst ick Unknown Analyte negati ve Not Available [address] [address] [place], [address], 12/11/2022 09:43:08 12/11/19 23 12/11/2022 urina lysis , dipst ick Unknown Analyte Neg Not Available [address] [address] [place], [address], 12/11/2022 09:43:08 12/11/19 23 12/11/2022 urina lysis , dipst ick Unknown Analyte Neg Not Available [address] [address] [place], [address], 12/11/2022 09:43:08 12/11/19 23 12/11/2022 urina lysis , dipst ick Unknown Analyte 5 Not Available [address] [address] [place], [address], 12/11/2022 09:43:08 12/11/19 23 12/11/2022 urina lysis , dipst ick Unknown Analyte 1.015 Not Available [address] [address] [place], [address], 12/11/2022 09:43:08 12/11/19 23 12/11/2022 urina lysis , dipst ick Unknown Analyte 500 Not Available [address] [place], [address], 12/11/2022 09:43:08 12/11/19 23 12/11/2022 rapid SARS CoV 2 Ag, QL IA, respi rator y speci men Rapid COVID-19 Antigen (Internal Control Positive) Negati ve Not Available [address], [address], 12/11/2022 09:43:03 Result Notes None recorded. 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 Medical Equipment None Reported. Allergies No known drug allergies Medications Name Sig Start Date Stop Date Status Note LastModified by Organization Details LastModified Time cetirizine 10 mg tablet Take 1 tablet every day by oral route as needed for 10 days. 2022 active Not Available Not Available Not Avai lable Macrobid 100 mg capsule Take 1 capsule twice a day by oral route for 5 days. 2022 active Not Available Not Available Not Avai lable cephalexin 500 mg capsule Take 1 capsule twice a day by oral route for 7 days. 2022 active Not Available Not Available Not Avai lable cefdinir 300 mg capsule Take 1 capsule every 12 hours by oral route as directed for 10 days. 12/11 completed Not Available Not Available Not Available fluticasone propionate 50 mcg/actuati on nasal spray,suspe nsion [place] one spray into each nostril twice a day for 14 days 2022 active Not Available Not Available Not Avai lable atorvastati n active Not Available Not Available Not Available tramadol active Not Available Not Avai lable Not Available Synthroid active Not Available Not Stefany ilable Not Available gabapentin active Not Available Not Av ailable Not Available Vitals Date Recorded Body height Respiratory rate Body mass index (BMI) Body weight Body temperature Heart rate Systolic blood pressure Diastolic blood pressure Provider Name and Address Organization Details Last Updated DateTime 2 154.94 cm 16 /min 31.4 kg/m2 30799.3 3 g 97.8 [degF] 60 /min 171 mm[Hg] 71 mm[Hg] [facility] - .[facility] 2 09:19:22 Date Recorded Oxygen saturation Oxygen saturation in Arterial blood by Pulse oximetry Provider Name and Address Organization Details Last Updated DateTime 10/30/2022 97 % 97 % Princess Jeancarlos GREGG [address] [place] [address],[address] [place], [place], [address] [place] [address] - .[facility] 10/30/2022 13:54:14 Date Recorded Body height Body mass index (BMI) Body weight Respiratory rate Body temperature Heart rate Oxygen saturation Oxygen saturation in Arterial blood by Pulse oximetry Systolic blood pressure Diastolic blood pressure Provider Name and Address Organization Details Last Updated DateTime 3 154.94 cm 31.4 kg/m2 01139.3 3 g 16 /min 97.6 [degF] 65 /min 98 % 98 % 160 mm[Hg] 81 mm[Hg] [facility] - .[facility] 3 08:33:02 Date Recorded Body height Body mass index (BMI) Body weight Oxygen saturation Oxygen saturation in Arterial blood by Pulse oximetry Respiratory rate Heart rate Body temperature Systolic blood pressure Diastolic blood pressure Provider Name and Address Organization Details Last Updated DateTime 3 154.94 cm 31.4 kg/m2 14303.3 3 g 99 % 99 % 16 /min 63 /min 98.1 [degF] 136 mm[Hg] 71 mm[Hg] Alesia GANN - .[facility] 3 09:34:54 Social History Question Answer Notes LastModified by Organizat ion Details LastModified Time Tobacco Smoking Status Former Smoker SANJUANITA Caruso - .[facility] 12/11/2022 09:40:04 RISK LEVEL - Segmentation Level 4 - Complex Polychronic Dx [id number] Information not available 12/27/2022 What Was The Date Of Your Most Recent Tobacco Screening? 12/11/2022 Information not available 12/11/2022 Has Tobacco Cessation Counseling Been Provided? No Information not available 12/11/2022 Do You Or Have You Ever Used Any Other Forms Of Tobacco Or Nicotine? No Information not available 12/11/2022 Sex: Unknown Functional Status None recorded. Mental Status None recorded. Family History Nothing Reported. Medical History No medical history recorded. Gynecological HistoryNo gynecological history recorded. Obstetrics History GPAL:G 0 P 0 0 0 0 Immunizations Vaccine Type Date Status Note Provider Nam e and Address Organization Details Recorded Time Td (adult), 2 Lf tetanus toxoid, preservative free, adsorbed 2 completed Princess Jeancarlos GREGG [address] [place] [address],[address] [place] [address], [address] [place] [address] - .[facility] 10/30/2022 13:54:15 Past Encounters Encounter ID Performer Location Encounter Start Date Encounter Closed Date Diagnosis/Indication Diagnosis SNOMED-CT Code Diagnosis ICD10 Code Diagnosis Note [id number] Princess Jeancarlos [address] [address] 10/30/2022 08:59:21 10/30/2022 09:35:01 Puncture wound of foot 07582903 S91.331A Administra tion of tetanus vaccine 005613927 Z23 [id number] Zay PEREYRA[address] [place] [address] 11/14/2022 08:24:29 11/14/2022 08:53:27 Acute urinary tract infection 912822142 N39.0 [id number] Princess Jeancarlos GREGG [facility] [address] [place] [address] 12/11/2022 09:27:50 12/11/2022 09:48:40 Exposure to SARS-CoV-2 996894739 Z20.822 Dysuria 58403245 R30.0 Viral syndrome 684003184 B34.9 Health Concerns Section Related Observation LastModified by Organization Detai ls LastModified Time None Recorded Concern Status LastModified by Organization Details LastModified Time None Recorded Advance Directives Directive None Recorded Payers Encounter Date Sequence Insurance Name Policy Number Policy Mayorga Covered Member ID Mayorga Member ID Guarantor Name 10/30/2022 1 [facility] (MEDICARE REPLACEMENT/A DVANTAGE - HMO) [id number] Nusrat Zepeda [id number] Nusrat Zepeda 11/14/2022 1 [facility] (MEDICARE REPLACEMENT/A DVANTAGE - HMO) [id number] Nusrat Zepeda [id number] Nusrat Zepeda 12/11/2022 1 [facility] (MEDICARE REPLACEMENT/A DVANTAGE - HMO) [facility] Nusrat Zepeda [id number] Nusrat Zepeda Notes Date Note Type Note Provider Name and Address Organization Details Recorded Time 10/30/2022 text/html Puncture Wound - cmdReported bypatient.Patient presents with:Puncture wound which began a few hours ago Pertinent findings:no fever; No extremity numbness and weakness; No limited ROM;(+) redness;(+) pain with ROM Tetanus status:Tetanus status: not up to dateNotes:77 y/o F presents with a puncture wound to the heel of her right foot after stepping on a sharp metal object. The object was removed completely and the wound was cleaned with peroxide. Sxs include include pain with ROM and redness. Princess Jeancarlos GREGG [address] [place] [address],[address], [place], [address], [facility] [place] - .[facility] 10/30/2022 13:57:39 11/14/2022 text/html Dysuria - cmdReported bypatient.Patient presents with:Dysuria which began 2-3 days ago Pertinent findings:No history of recurrent UTI; No fever; No chills; No nausea; No vomiting; No abdominal pain; No back pain; No dizziness; No lightheadedness; No genital pain; No genital discharge; No recent potential STD exposure;(+) urinary frequency;(+) urinary urgency Menstrual history:not menstruatingNotes:77 y/o F presents with dysuria for 2x days. Sxs include left side back pain and urinary urgency. 77 y/o female that presents for dysuria x2 days. Admits to chronic back pain, urinary frequency, suprapubic pressure while urination, cloudy urine and denies fever, chills, night sweats, neck/chest/abdominal /pelvis pain, n/v/d, rash, LOC or any additional symptoms. Zay MOTA [address] [facility],[address], [address], [place] - .[facility] 11/17/2022 00:06:57 12/11/2022 text/html COVID-19 VISIT - cmdReported bypatient.Patient presents forCOVID-19 VISIT Pertinent findings:No fever; NO body aches; No CP; No leg swelling; No neurologic deficits; No SOB;(+) sore throat;(+) nasal discharge/congestion COVID vaccination status:(+) COVID Vaccination Moderna and HAS been > 2 weeks since the FINAL scheduled dose;Received BOOSTER Moderna(x 2) Employer / School informationNOT in school; NOT working; NOT volunteering Chronic conditions considered and addressed:HTN (hypertension); thyroid disorderNotes:pt reports sore throat, nasal discharge x 3 days Dysuria - cmdReported bypatient.Patient presents with:Dysuria which began 2-3 days ago Pertinent findings:No urinary urgency; No hematuria; No history of recurrent UTI; No fever; No chills; No nausea; No vomiting; No abdominal pain; No back pain; No dizziness; No lightheadedness; No genital pain; No genital discharge; No recent potential STD exposure;(+) urinary frequency Menstrual history:not menstruating Chronic conditions considered and addressed:HTN (hypertension); thyroid disorder Princess Jeancarlos GREGG [address] [place] [address],[address], [place], [address], [facility] [place] - .[facility] 12/11/2022 10:08:27 OBGyn Episode No OBEpisode recorded.
--- OUTSIDE RECORDS SUMMARY | 2024-12-02 13:15 | XMS_ITS | Data Portability ---
Author Organization [place] [facility], [facility] Address [address] [place] [address] Care Team Providers Care Over Hauler Helper Name Role Phone NABLIA GILLILAND Referring Provider [phone] Assessment No assessment recorded. Plan of Treatment Reminders Order Date Submit Date Provider Last Modified By Organization Details Last Modified Time Details Appointments *Follow-u p 15 2024 10:45A M Alexis Schuster MD Not available Not available Not available Lab None recorded. Referral None recorded. Procedures None recorded. Surgeries None recorded. Imaging None recorded. Medication Orders pantopraz ole 40 mg tablet,de layed release 2022 023 [id number], [address], [place], [id number], 08/07/2023 14:23:18 Patient TargetsNo targets recorded. Patient InstructionsNo instructions recorded. Reason for Referral None Reported. Results Created Date Observation Date Name Description Value Unit Range Abnormal Flag Note LastModifiedBy Organization Detail LastModifiedTime 06/04/2006/15/2021 colon oscop y scree marcos (PROC ) No observ ation record ed. BARCODE Not Available 2022 17:04:06 06/04/20 23 06/15/2021 esbrielle ramsay strod uoden oscop y with biops y (PROC ) No observ ation record ed. BARCODE Not Available 2022 17:04:06 06/04/20 23 05/01/2018 esoph sadaga strod uoden oscop y with biops y (PROC ) No observ ation record ed. BARCODE Not Available 2022 17:04:06 Result Notes None recorded. Procedures Surgical History Date Name Laterality Status Provider Name and Address Organization Details Recorded Time Cholecystectomy completed Ion Burton RN [facility] 06/04/2023 15:23:55 Hemorrhoidectomy completed Ion Burton RN [facility] 06/04/2023 15:24:04 Tonsillectomy completed Ion Burton RN [facility] 06/04/2023 15:25:04 Pacemaker completed Ion Burton RN [facility] 06/04/2023 15:25:27 Tubal Ligation completed [facility] 06/04/2023 15:25:35 Hysterectomy chadd Burton RN [facility] 06/04/2023 15:25:43 oophorectomy completed ODIN [facility] 06/04/2023 15:25:53 total knee replacement completed ODIN [facility] 06/04/2023 15:26:04 Shoulder Surgery completed Ion Burton RN [facility] 06/04/2023 15:26:19 Carpal Tunnel Release chadd Burton RN [facility] 06/04/2023 15:26:37 thumb surgery completed ODIN [facility] 06/04/2023 15:26:51 Ankle Surgery completed ODIN [facility] 06/04/2023 15:27:00 Varicose Veins Procedure completed Ion Burton RN [facility] 06/04/2023 15:27:10 Imaging Results Imaging Date Name Status LastModified by Organization Details LastModified Time colonoscopy screening (PROC) completed BARCODE Information not available 06/04/2023 17:04:06 esophagogastroduodenoscopy with biopsy (PROC) completed BARCODE Information not available 06/04/2023 17:04:06 8 esophagogastroduodenoscopy with biopsy (PROC) completed BARCODE Information not available 06/04/2023 17:04:06 Procedure Notes None recorded. Medical Equipment None Reported. Allergies No known drug allergies Medications Name Sig Start Date Stop Date Status Note LastModified by Organization Details LastModified Time amoxicillin 500 mg capsule TAKE 1 CAPSULE BY MOUTH THREE TIMES DAILY AFTER MEALS 06/04 completed Not Available Not Available Not Available atorvastati n 40 mg tablet TAKE 1 TABLET BY MOUTH EVERY DAY 06/04 completed Not Available Not Available Not Available tizanidine 2 mg tablet TAKE 1 TO 2 TABLETS BY MOUTH DAILY AT BEDTIME NEEDED active Not Available Not Available No t Available cetirizine 10 mg tablet TAKE 1 TABLET BY MOUTH DAILY active Not Available Not Available No t Available azithromyci n 250 mg tablet 10/26 completed Not Available Not Available Not Available ibuprofen 800 mg tablet TAKE 1 TABLET BY MOUTH EVERY 8 HOURS FOR 5 DAYS 06/04 completed Not Available Not Available Not Available benzonatate 200 mg capsule TAKE 1 CAPSULE BY MOUTH EVERY 8 HOURS NEEDED FOR COUGH 06/04 completed Not Available Not Available Not Available metoprolol succinate ER 50 mg tablet,exte nded release 24 hr TAKE 1 TABLET BY MOUTH EVERY DAY active Not Available Not Available No t Available hydrocodone 5 mg-acetamin ophen 325 mg tablet TAKE 1 TABLET BY MOUTH EVERY 6 HOURS NEEDED active Not Available Not Available No t Available phenazopyri dine 200 mg tablet TAKE 1 TABLET BY MOUTH THREE TIMES DAILY FOR 2 DAYS active Not Available Not Available No t Available gabapentin 400 mg capsule TAKE 1 CAPSULE BY MOUTH FOUR TIMES DAILY active Not Available Not Available No t Available sulfamethox azole 800 mg-trimetho prim 160 mg tablet TAKE 1 TABLET BY MOUTH TWICE DAILY AFTER MEALS active Not Available Not Available No t Available omeprazole 40 mg capsule,del ayed release TAKE 1 CAPSULE BY MOUTH EVERY DAY active Not Available Not Available No t Available liothyronin e 5 mcg tablet TAKE 1 TABLET BY MOUTH EVERY DAY active Not Available Not Available No t Available tramadol 50 mg tablet TAKE 1-2 TABLETS BY MOUTH NEEDED FOR UP TO 3 DOSES PER DAY FOR SEVERE PAIN active Not Available Not Available No t Available oxycodone-a cetaminophe n 5 mg-325 mg tablet TAKE 1 TABLET BY MOUTH EVERY 6 HOURS FOR 3 DAYS NEEDED FOR PAIN 06/04 completed Not Available Not Available Not Available alprazolam 0.5 mg tablet TAKE 1 TABLET BY MOUTH IN THE EVENING NEEDED active Not Available Not Available No t Available trazodone 100 mg tablet TAKE 2 TABLETS BY MOUTH AT BEDTIME active Not Available Not Available No t Available dicyclomine 20 mg tablet TAKE 1-2 TABLETS BY MOUTH 15-30 MINUTES PRIOR TO MAIN MEAL NEEDED active Not Available Not Available No t Available benzonatate 100 mg capsule TAKE 1 CAPSULE BY MOUTH THREE TIMES DAILY FOR 10 DAYS active Not Available Not Available No t Available desloratadi ne 5 mg tablet TAKE 1 TABLET BY MOUTH EVERY DAY active Not Available Not Available No t Available cephalexin 500 mg capsule TAKE 1 CAPSULE BY MOUTH TWICE DAILY FOR 7 DAYS 06/04 completed Not Available Not Available Not Available pantoprazol e 40 mg tablet,corrina yed release TAKE 1 TABLET BY MOUTH EVERY DAY 08/07 completed Not Available Not Available Not Available erythromyci n 5 mg/gram (0.5 %) eye ointment 06/04 completed Not Available Not Available Not Available trazodone 150 mg tablet TAKE 1 TABLET BY MOUTH EVERY DAY AT BEDTIME active Not Available Not Available No t Available halobetasol propionate 0.05 % topical ointment APPLY TOPICALLY TO THE AFFECTED AREA 2 TIMES A WEEK AT BEDTIME active Not Available Not Available No t Available gabapentin 300 mg capsule TAKE 2 CAPSULES BY MOUTH EVERY MORNING AND EVERY EVENING active Not Available Not Available No t Available diclofenac sodium 50 mg tablet,corrina yed release TAKE 1 TABLET BY MOUTH TWICE DAILY AFTER A MEAL 06/04 completed Not Available Not Available Not Available metoprolol succinate ER 25 mg tablet,exte nded release 24 hr TAKE 1 TABLET BY MOUTH EVERY DAY active Not Available Not Available No t Available clobetasol 0.05 % topical ointment APPLY TO AFFECTED AREA EVERY NIGHT AT BEDTIME FOR 3 MONTHS THEN DECREASE TO TWICE A WEEK active Not Available Not Available No t Available diazepam 10 mg tablet TAKE 1 TABLET BY MOUTH 45 MINUTES BEFORE PROCEDURE FOR 1 DAY NEEDED active Not Available Not Available No t Available cefuroxime axetil 500 mg tablet active Not Available Not Available No t Available estradiol 0.01% (0.1 mg/gram) vaginal cream active Not Available Not Available Not Available methylpredn isolone 4 mg tablets in a dose pack FOLLOW PACKAGE DIRECTION S 06/04 completed Not Available Not Available Not Available albuterol sulfate HFA 90 mcg/actuati on aerosol inhaler INHALE ONE PUFF BY MOUTH TWICE DAILY active Not Available Not Available No t Available oxybutynin chloride 5 mg tablet active Not Available Not Available No t Available cefdinir 300 mg capsule TAKE 1 CAPSULE BY MOUTH EVERY 12 HOURS FOR 10 DAYS DIRECTED 06/04 completed Not Available Not Available Not Available fluticasone propionate 50 mcg/actuati on nasal spray,suspe nsion SHAKE LIQUID AND USE 1 SPRAY IN EACH NOSTRIL TWICE DAILY FOR 14 DAYS 10/26 completed Not Available Not Available Not Available diazepam 5 mg tablet TAKE 1 TO 2 TABLETS BY MOUTH 45 MINUTES BEFORE PROCEDURE FOR 1 DAY NEEDED 06/04 completed Not Available Not Available Not Available levothyroxi ne 112 mcg tablet TAKE 1 TABLET BY MOUTH EVERY DAY BEFORE A MEAL active Not Available Not Available No t Available amoxicillin 875 mg-potassiu m clavulanate 125 mg tablet TAKE 1 TABLET BY MOUTH TWICE DAILY active Not Available Not Available No t Available cyclobenzap rine 5 mg tablet TAKE 1 TABLET BY MOUTH THREE TIMES DAILY NEEDED active Not Available Not Available No t Available rosuvastati n 40 mg tablet TAKE 1 TABLET BY MOUTH EVERY DAY active Not Available Not Available No t Available nitrofurant oin monohydrate /macrocryst als 100 mg capsule TAKE 1 CAPSULE BY MOUTH TWICE DAILY FOR 7 DAYS active Not Available Not Available No t Available chlorhexidi ne gluconate 0.12 % mouthwash SWISH 15 ML IN THE MOUTH OR THROAT IF NEEDED FOR WOUND CARE FOR UP TO 10 DAYS 10/26 completed Not Available Not Available Not Available losartan 100 mg-hydrochl orothiazide 12.5 mg tablet TAKE 1 TABLET BY MOUTH EVERY DAY active Not Available Not Available No t Available tramadol ER 100 mg tablet,exte nded release 24 hr TAKE 1 TABLET BY MOUTH EVERY DAY 06/04 completed Not Available Not Available Not Available diclofenac 1 % topical gel APPLY 2 GRAMS TO THE AFFECTED AREA BY TOPICAL ROUTE FOUR TIMES DAILY active Not Available Not Available No t Available naloxone 4 mg/actuatio n nasal spray CALL 911. SPR CONTENTS OF ONE SPRAYER (0.1ML) INTO ONE NOSTRIL. REPEAT IN 2-3 MIN IF SYMPTOMS OF OPIOID EMERGENCY PERSIST, ALTERNATE NOSTRILS 06/04 completed Not Available Not Available Not Available 24 Hour Nasal Allergy 55 mcg spray aerosol USE 2 SPRAYS IN EACH NOSTRIL EVERY DAY active Not Available Not Available No t Available Vitals Date Recorded Body height Provider Name an d Address Organization Details Last Updated DateTime 06/04/2023 144.78 cm Ion powell RN [facility] 06/04/2023 15:41:43 Date Recorded Heart rate Provider Name an d Address Organization Details Last Updated DateTime 06/04/2023 72 /min Ion powell RN [facility] 06/04/2023 15:41:47 Date Recorded Body mass index (BMI) Body weight Provider Name and Address Organization Details Last Updated DateTime 06/04/2023 35.3 kg/m2 15240.56 g Ion Burton RN [facility] 06/04/2023 15:41:51 Date Recorded Body temperature Provider Name a nd Address Organization Details Last Updated DateTime 06/04/2023 97.3 [degF] Ion Burton RN [facility] 06/04/2023 15:41:56 Date Recorded Body height Provider Name an d Address Organization Details Last Updated DateTime 08/07/2023 144.78 cm Ion powell RN [facility] 08/07/2023 14:22:45 Date Recorded Systolic blood pressure Diastolic blood pressure Provider Name and Address Organization Details Last Updated DateTime 06/04/2023 130 mm[Hg] 62 mm[Hg] Ion Burton RN [facility] 06/04/2023 15:41:24 Social History Question Answer Notes LastModified by Organizat ion Details LastModified Time Tobacco Smoking Status Former Smoker Ion Burton RN null, [facility] 06/04/2023 15:23:42 What Is Your Level Of Alcohol Consumption? None Information not available 06/04/2023 What Was The Date Of Your Most Recent Tobacco Screening? 10/31/2023 [email or web address] Information not available 10/26/2023 Do You Use Any Illicit Or Recreational Drugs? No Information not available 06/04/2023 Sex: Unknown Functional Status None recorded. Mental Status None recorded. Family History Relationship Description Onset Age of this Age Resolved Age Notes LastModified by Organization Details LastModified Time Father Heart failure [email or web address] Not available 2022 15:22:35 Mother Heart failure [email or web address] Not available 2022 15:22:35 Brother Alzheimer's disease bmanholla Not available 2022 15:23:01 Sister Asthma bmanholla Not available 06/04/2023 15:23:13 Sister Chronic obstructive pulmonary disease bmanholla Not available 2022 15:23:20 Medical History Condition Response Diabetes Y Hemorrhoids Y Other Y Peripheral Vascular Disease Y Arthritis Y Bladder or Kidney Problems Y Abnormal Heart Rhythm Y Colon Polyps Y Stomach/duodenal ulcer Y Hypertension Y Hiatal Hernia Y Gynecological HistoryNo gynecological history recorded. Obstetrics History GPAL:G 0 P 0 0 0 0 Past Encounters Encounter ID Performer Location Encounter Start Date Encounter Closed Date Diagnosis/Indication Diagnosis SNOMED-CT Code Diagnosis ICD10 Code Diagnosis Note [id number] Alexis Schuster MD [facility] [address] [place] [address] 11/21/2021 13:56:55 11/21/2021 16:19:00 [id number] Alexis Schuster MD [facility] [address] [place] [address] 05/23/2022 12:16:03 05/23/2022 15:14:21 [id number] Alexis Schuster MD [facility] [address] [place] [address] 11/24/2022 09:48:01 11/24/2022 10:18:03 [id number] Alexis Schuster MD [facility] [address] [place] [address] 05/24/2023 13:57:55 05/25/2023 12:51:01 [id number] Paxton Rios MD [facility] [address] [place] [address] 06/04/2023 14:28:03 06/04/2023 18:52:38 Gastroesophageal reflux disease without esophagitis 680188940 K21.9 Chronic Problem, not at goal: The patient reports loud painful belching after meals. This has been present for some time. She has been on acid suppressio n for at least 10 years. She will switch to pantoprazo le once daily. Consider adding famotidine at bedtime. She was advised to avoid practices that would increase air trapping and air swallowing . History of polyp of colon 577810095 Z86.010 Chronic problem, stable: The patient had colon polyps removed in 2020 and was advised to repeat colonoscop y at the 4[place]year [place] in 2025. [id number] Paxton Rios MD [facility] [address] [place] [address] 08/07/2023 14:19:48 08/11/2023 12:24:33 Gastroesophageal reflux disease without esophagitis 159986582 K21.9 Chronic Problem, stable: The patient reports loud painful belching after meals. This has been present for some time. She has been on acid suppressio n for at least 10 years. She could not get pantoprazo le as it was not covered. She has continued omeprazole in the morning and famotidine at night and reports that she is improved. She reports less belching. She wishes to follow-up as needed. Patient consented to telehealth by telephone. Start time was 1642, end time was 1647, total time was 5 minutes. History of polyp of colon [id number] Z86.010 Chronic problem, stable: The patient had colon polyps removed in 2020 and was advised to repeat colonoscop y at the 4[place]year [place] in 2025. [id number] Alexis Schuster MD [facility] [address] [facility] [address] [place] [address] 11/23/2023 09:54:33 11/26/2023 06:45:50 [id number] Alexis Schuster MD [facility] [address] [facility] [address] [place] [address] 07/29/2024 12:27:36 07/29/2024 13:05:29 Health Concerns Section Related Observation LastModified by Organization Detai ls LastModified Time None Recorded Concern Status LastModified by Organization Details LastModified Time None Recorded Advance Directives Directive None Recorded Payers Encounter Date Sequence Insurance Name Policy Number Policy Mayorga Covered Member ID Mayorga Member ID Guarantor Name 06/04/2023 1 [facility] [place] (MEDICARE REPLACEMENT HMO) TNDSNP Nusrat Phelpsado [id number] Nusrat Gomezdonado 08/07/2023 1 [facility] [place] (MEDICARE REPLACEMENT HMO) TNDSNP Nusrat Gomezdonado [id number] Nusrat Phelpsado Notes Date Note Type Note Provider Name and Address Organization Details Recorded Time 06/04/2023 text/html Reflux/GERDRepor te d bypatient.Notes:Sh gabrielle denies heartburn but has been on omeprazole for more than 10 years. She denies dysphagia, wt loss. Main complaint is loud painful belching at end or immediately after a meal for 5-10 minutes. She doesn't note this after breakfast but sometimes after lunch and daily after dinner. She has a cup of coffee a day. Paxton Rios MD [address] [place], [address], [facility] 06/04/2023 16:14:54 08/07/2023 text/html Reflux/GERDRepor te d bypatient.Notes:Th e pantoprazole was not covered to the patient has continued omeprazole. She reports that it is still working well and feels that it is controlling her symptoms. I specifically asked about belching and she felt that this was actually improved. Paxton Rios MD [address], [place], [address], [facility] 08/09/2023 07:36:01 OBGyn Episode No OBEpisode recorded.
--- OUTSIDE RECORDS SUMMARY | 2024-12-02 13:15 | XMS_ITS | Continuity of Care Document ---
Author Organization [facility] Address [address] [place] [address] Care Team Providers Care Cv Tech Name Role Phone Abhijit Reeves DO Unavailable Unavailable Allergies, Adverse Reactions, Alerts Substance Reaction Status Criticality No Known Allergies Active No Inform ation Medications Medication Instructions Dosage Effective Dates (start - stop) Status Comments valsartan 320 mg-hydrochlorothi azide 25 mg tablet take 1 tablet by oral route every day 1.00 tablet - Active trazodone 150 mg tablet take 2 tablet by oral route every bedtime 300 MG - Active omeprazole 40 mg capsule,delayed release take 1 capsule by oral route every day before a meal 40 MG - Active Tirosint 112 mcg capsule take 1 capsule by oral route every day 112 MCG - Active latanoprost 0.005 % eye drops instill 1 drop by ophthalmic route every day into affected eye(s) in the evening 1.00 drop - Active gabapentin 300 mg capsule take 1 capsule by oral route 3 times every day 300 MG - Active dicyclomine 20 mg tablet take 1 tablet by oral route 3 times every day 20 MG - Active citalopram 40 mg tablet take 1 tablet by oral route every day 40 MG - Active atorvastatin 40 mg tablet take 1 tablet by oral route every day 40 MG - Active amlodipine 10 mg tablet take 1 tablet by oral route every day 10 MG - Active Narcan 4 mg/actuation nasal spray spray 0.1 milliliter by intranasal route in 1 nostril may repeat dose every 2-3 minutes as needed alternating nostrils with each dose 4 MG - No Longer Active Overmedication emergency only Procedures Procedure Date OFFICE/OUTPATIENT VISIT, EST Foll-up eval q3mo opiod tx OFFICE/OUTPATIENT VISIT, EST Foll-up eval q3mo opiod tx OFFICE/OUTPATIENT VISIT, EST DRUG TEST PRSMV CHEM ANLYZR OFFICE/OUTPATIENT VISIT, EST CONI Transforaminal (lumbar) CONI Transforaminal (lumbar) OFFICE/OUTPATIENT VISIT, EST DRUG TEST PRSMV CHEM ANLYZR CONI Transforaminal (lumbar) OFFICE/OUTPATIENT VISIT, EST OFFICE/OUTPATIENT VISIT, EST OFFICE/OUTPATIENT VISIT, EST OFFICE/OUTPATIENT VISIT, EST DRUG TEST PRSMV CHEM ANLYZR OFFICE/OUTPATIENT VISIT, EST CONI interlaminar lmbr/sac CONI interlaminar lmbr/sac CONI interlaminar lmbr/sac OFFICE/OUTPATIENT VISIT, EST OFFICE/OUTPATIENT VISIT, NEW DRUG TEST PRSMV CHEM ANLYZR Advance Directives Directive Yes / No Effective Date File Name No Information Encounters Encounter Description Practice Location Reason(s) For Visit Diagnoses Date Provider Providers Copied on Encounter [facility], [address], [place], [place], [id number] , [facility] No Information 0 Lala Solorzanoduc. [address], [address], [place], [address], [place]. tel:[phone] OFFICE/OUTPA TIENT VISIT, EST [facility], [address], [place], [place], [id number] , [facility] [place] low back pain (chief complaint) Low back painChronic pain syndromeRadiculopath y, lumbosacral regionSacroiliitisSp inal stenosis, lumbar region NOS Feb-0 6-202 0 Galo Lion. [address], [address], [place], [place], [address], [place]. tel:[phone] Referring Provider: [place], [address] . OFFICE/OUTPA TIENT VISIT, [facility], [address], [place], [place], [id number] , [place] [facility] [place] low back pain (chief complaint) Low back painChronic pain syndromeRadiculopath y, lumbosacral regionSacroiliitis Sep-2 9 Galo Lion. [address], [address], [place], [place], [address], [place]. tel:[phone] Referring Provider: [place], [address] . OFFICE/OUTPA TIENT VISIT, [facility], [address], [place], [place], [id number] , [place] [facility] [place] low back pain (chief complaint) Low back painChronic pain syndromeRadiculopath y, lumbosacral regionSacroiliitisOt her spondylosis, sacral and sacrococcygeal region Aug-0 9 Galo Lino. [address], [address], [place], [place], [address], [place]. tel:[phone] Referring Provider: [place], [address] . OFFICE/OUTPA TIENT VISIT, [facility], [address], [place], [place], [id number] , [place] [facility] [place] low back pain (chief complaint) Low back painBody mass index (BMI) 33.0-33.9, adultChronic pain syndromeRadiculopath y, lumbosacral regionOther spondylosis, sacral and sacrococcygeal regionSacroiliitis May- 9 [facility] [place]. [address], [address], [place], [place], [address], [place]. tel:[phone] Referring Provider: Vivi Parekh, [place], [address] . [facility], [address], [place], [place], [id number] , [facility] [place] Radiculopathy, lumbar regionLow back painRadiculopathy, lumbosacral regionSpinal stenosis, lumbar region May-0 -201 9 Reeves Thaiduc. [address], [address], [place], [address], [place]. tel:[phone] [facility], [address], [place], [place], [id number] , [facility] [place] Radiculopathy, lumbar regionLow back painRadiculopathy, lumbosacral regionSpinal stenosis, lumbar region Apr-1 7-201 9 Reeves Thaiduc. [address], [address], [place], [address], [place]. tel:[phone] OFFICE/OUTPA TIENT VISIT, EST [facility], [address], [place], [place], [id number] , [facility] [place] low back pain (chief complaint) Low back painSacroiliitisRadi culopathy, lumbosacral regionChronic pain syndromeSpinal stenosis, lumbar region NOS Apr-1 5-201 9 Galo Bhatin. [address], [address], [place], [place], [address], [place]. tel:[phone] Referring Provider: Vivi Parekh, [place], [address] . [facility], [address], [place], [place], [id number] , [facility] [place] Radiculopathy, lumbar regionLow back painRadiculopathy, lumbosacral regionSpinal stenosis, lumbar region Apr-0 4-201 9 Reeves Thaiduc. [address], [address], [place], [address], [place]. tel:[phone] OFFICE/OUTPA TIENT VISIT, EST [facility], [address], [place], [place], [id number] , [place] [facility] [place] low back pain (chief complaint) Body mass index (BMI) 33.0-33.9, adultLow back painChronic pain syndromeSpinal stenosis, lumbar region NOSRadiculopathy, lumbosacral region Jan- 9 Reeves Thaiduc. [address], [address], [place], [address], [place]. tel:[phone] Referring Provider: [place], [address] . OFFICE/OUTPA TIENT VISIT, EST [facility], [address], [place], [place], [id number] , [place] [facility] [place] low back pain (chief complaint) Lumbago with sciatica, unspecified sideLow back painSacroiliitisOthe r spondylosis, sacral and sacrococcygeal regionChronic pain syndrome 9 Galo Seymour. [address], [address], [place], [place], [address], [place]. tel:[phone] Referring Provider: [place]ak[place], [address] . OFFICE/OUTPA TIENT VISIT, EST [facility], [address], [place], [place], [id number] , [place] [facility] [place] low back pain (chief complaint) Low back painSacroiliitisOthe r spondylosis, sacral and sacrococcygeal regionLumbago with sciatica, unspecified sideChronic pain syndrome 8 Reeves Thaiduc. [address], [address], [place], [address], [place]. tel:[phone] Referring Provider: [place], [address] . OFFICE/OUTPA TIENT VISIT, EST [facility], [address], [place], [place], [id number] , [place] [facility] [place] low back pain (chief complaint) Low back painSacroiliitisOthe r spondylosis, sacral and sacrococcygeal regionLumbago with sciatica, unspecified sideChronic pain syndrome 8 Galo Bhatin. [address], [address], [place], [place], [address], [place]. tel:[phone] Referring Provider: Vivi Parekh, Aakash [place], [address] . OFFICE/OUTPA TIENT VISIT, [facility], [address], [place], [place], [id number] , [facility] [place] low back pain (chief complaint) Low back painLumbago with sciatica, unspecified sideSacroiliitisOthe r spondylosis, sacral and sacrococcygeal regionChronic pain syndromeBody mass index (BMI) 32.0-32.9, adult 8 Galo Seymour. [address], [address], [place], [place], [address], [place]. tel:[phone] Referring Provider: [place], [address] . [facility], [address], [place], [place], [id number] , [facility] [place] Low back painLumbago with sciatica, unspecified side 8 Reeves Thaiduc. [address], [address], [place], [address], [place]. tel:[phone] [facility], [address], [place], [place], [id number] , [facility] [place] Low back painLumbago with sciatica, unspecified side 8 Reeevs Thaiduc. [address], [place], [address], [place]. tel:[phone] [facility], [address], [place], [place], [id number] , [facility] [place] Low back painLumbago with sciatica, unspecified side 8 Reeves Thaiduc. [address], [place], [address], [place]. tel:[phone] OFFICE/OUTPA TIENT VISIT, [facility], [address], [place], [place], [id number] , [facility] Follow up chronic pain (chief complaint) low back pain (chief complaint) Body mass index (BMI) 32.0-32.9, adultLumbagoOther spondylosis, sacral and sacrococcygeal regionSacroiliitisCh ronic pain syndrome 8 Galo Seymour. [address], [address], [place], [place], [address], [place]. tel:[phone] OFFICE/OUTPA TIENT VISIT, [facility], [address], [place], [place], [id number] , [facility] low back pain (chief complaint) Hip Pain (chief complaint) Chronic pain syndromeLumbagoSacro iliitisOther spondylosis, sacral and sacrococcygeal regionOther spondylosis, lumbar region 8 Reeves Thaiduc. [address], [address], [place], [address], [place]. tel:[phone] Referring Provider: Vivi Parekh, [address] [place] [address], [address] . [facility], [address], [place], [place], [id number] , [facility] No Information 8 Reeves Thaiduc. [address], [address], [place], [address], [place]. tel:[phone] Family History Family Member Type Diagnosis Age At Onset Problem (finding) Myocardial infarction Payers Payer name Insurance type Covered constitution party ID Authoriza tion(s) [facility] Medicare R plcmnt PPO CI [id number] [facility] Medicaid Replacement CI [id number] Social History Type Description Quantity Date Captured Comments Alcohol Use Details Unknown Caffeine Use Details Unknown Tobacco Use Status No Information Smoking Status No Information Sex Female Chief Complaint And Reason For Visit No Information Reason For Referral Reason For Referral No Information Plan Of Treatment Date Type Action Status Goal Dietary management education , guidance, and counseling completed Goal Dietary management education , guidance, and counseling completed Goal Dietary management education , guidance, and counseling completed Referral Ordered: MRI L-SPINE W/O CONTRAST ordered Referral Ordered: MRI L-SPINE W/O CONTRAST Bilateral spine, lumbar ordered History Of Present Illness Encounter Date Complaint History Of Prese nt Illness low back pain Onset: gradual w ithout injury. Severity level is moderate. Duration: > 1 hour. The problem is fluctuating. It occurs persistently. Location of pain is lower back and gluteal area.There is no radiation of pain. The patient describes the pain as burning, numbness, sharp and tingling. Symptoms are aggravated by ascending stairs, changing positions, descending stairs, lifting, pushing, rolling over in bed, sitting, standing, walking and weather. Additional information: pain meds, massage, rest provide partial relief. low back pain Onset: gradual w ithout injury. Severity level is moderate. Duration: > 1 hour. The problem is fluctuating. It occurs persistently. Location of pain is lower back.There is no radiation of pain. The patient describes the pain as an ache. Symptoms are aggravated by daily activities. Additional information: pain meds, rest provide partial relief. low back pain Onset: gradual w ithout injury. Severity level is moderate. Duration: > 1 hour. The problem is fluctuating. It occurs persistently. Location of pain isLocation of pain is lower back. lower back.There is no radiation of pain. The patient describes the pain asThe patient describes the pain as burning discomforting and tingling., burning, discomforting and tingling. Symptoms are aggravated by Symptoms are aggravated by lifting and walking. lifting and walking. Additional information: pain meds, injections and rest provide partial relief. low back pain Onset: gradual w ithout injury. Severity level is mild-moderate. Duration: > 1 hour. The problem is stable. It occurs persistently. Location of pain is lower back.There is no radiation of pain. The patient describes the pain as an ache. Symptoms are aggravated by daily activities. Additional information: pain meds, injections provide partial relief. low back pain Onset: gradual w ithout injury. Severity level is mild-moderate. Duration: > 1 hour. The problem is stable. It occurs persistently. Location of pain is lower back.There is no radiation of pain. The patient describes the pain as an ache. Symptoms are aggravated by daily activities and rolling over in bed. Additional information: pain meds, injections provide partial relief. low back pain Severity level i s 7. The problem is fluctuating. It occurs persistently. Location of pain is lower back. Pain is radiated to the left calf, right calf, left foot, right foot, left thigh, right thigh and bilateral buttock.The patient describes the pain as burning. Symptoms are aggravated by changing positions, sitting and walking. Additional information: minimal relief with pain meds. low back pain Onset: gradual w ithout injury. Severity level is moderate-severe. Duration: > 1 hour. The problem is stable. It occurs persistently. Location of pain is lower back. Pain is radiated to the bottox.The patient describes the pain as an ache. Symptoms are aggravated by daily activities. Additional information: pain meds, injections, rest provide partial relief. low back pain Onset: gradual w ithout injury. Severity level is mild-moderate. Duration: > 1 hour. The problem is stable. It occurs persistently. Location of pain is lower back.The patient describes the pain as sharp, shooting, throbbing and tingling. Symptoms are aggravated by ascending stairs, lifting, rolling over in bed, walking and weather. Symptoms are relieved by exercise, massage, pain meds/drugs and stretching. Additional information: partial relief with the following therapies. low back pain Onset: gradual w ithout injury. Severity level is mild. Duration: > 1 hour. The problem is stable. It occurs persistently. Location of pain is lower back.There is no radiation of pain. The patient describes the pain as throbbing. Symptoms are aggravated by rolling over in bed, sitting and walking. Additional information: rest, pain meds, heat, ice and injs provide partial relief. low back pain Onset: gradual w ithout injury. Severity level is mild-moderate. Duration: > 1 hour. The problem is stable. It occurs persistently. Location of pain is lower back.There is no radiation of pain. The patient describes the pain as throbbing. Symptoms are aggravated by daily activities. Additional information: rest, pain meds and injs provide partial relief. low back pain Onset: gradual w ithout injury. Severity level is severe. Duration: > 1 hour. The problem is stable. It occurs persistently. Location of pain is lower back.There is no radiation of pain. The patient describes the pain as an ache and burning. Symptoms are aggravated by bending, daily activities, standing and walking. Additional information: pain meds and injections provide partial rleief. Follow up chronic pain Patient's worse pain is located low back. Currently, the patient is not working. She is not on disability. At this time, changes to medications are not necessary. The patient reports that She received controlled substances from another physician since his last office visit. Hip Pain Onset: gradual. Severity level is severe. Duration > 1 hour. The problem is worsening. It occurs constantly. Location of pain is bilateral anterior hip, lateral hip, posterior hip. The patient describes the pain as an ache, burning, discomforting, numbness, sharp and throbbing. Symptom is aggravated by active movement, climbing stairs, descending stairs, passive movement, prolonged standing and standing. She is experiencing joint pain. Pertinent negatives include fever. low back pain Onset: gradual w ithout injury. Severity level is moderate-severe. Duration: > 1 hour. The problem is worsening. It occurs persistently. Location of pain is lower back and gluteal area.The patient describes the pain as an ache, burning, shooting, stabbing and throbbing. Symptoms are aggravated by ascending stairs, changing positions, daily activities, descending stairs, standing, twisting and walking. Additional information: temp relief by: rest, heat, ice, injections, anti inflamm meds, and pain meds. 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 Patient is taking more than 72 hr supply of opiate and will be monitored with Urine drug screen and PDMP for high risk medication and further assessed for the need of continued opiate therapy. Opioid Analgesic REMS/Patient Counseling Guide was discussed and given to patient. Patient instructed to avoid taking alcohol, benzodiazepines, muscle relaxants, sleep medicines, or non-prescribed opioid while taking the opioid being prescribed. Patient understands risks of opiate therapy even with respiratory depression causing cardiovascular collapse.Patient reports adequate analgesia, improved activity levels, and no adverse effects on the current medication regimen. However, the patient's PDMP shows BZD and as a result, necessary opioid risk mitigation is implemented. Related to Chronic pain syndrome Dietary management e ducation, guidance, and counseling Related to Body mass index (BMI) 33.0-33.9, adult BZD Discussion: D/w pt that she cannot continue to take xanax. Pt notes she only uses rarely and states no problem stopping. PCP considering buspar. Patient was counseled on taking benzo/narcotic medications and told about risk of respiratory depression and increased risk of side effects while mixing the 2 medications. Also advised patient on black box warning and asked the patient to wean off of benzo. Related to Low back pain Dietary management e ducation, guidance, and counseling Related to Body mass index (BMI) 32.0-32.9, adult Giving encouragement to exercise Related to Body mass index (BMI) 32.0-32.9, adult Dietary management e ducation, guidance, and counseling Related to Body mass index (BMI) 32.0-32.9, adult Giving encouragement to exercise Related to Body mass index (BMI) 32.0-32.9, adult pt has no imaging available to review; states that prior Lumbar MRI was done at Dr Raamn's office last yr Related to Other spondylosis, lumbar region The patient was educ ated about chronic pain. The risks, benefits and side effects of treatment were discussed with the patient. The patient was advised to resume activity as tolerated. The patient verbalized an understanding of the plan. Related to Lumbago Assessments Type Assessment Date No Information Patient Care Teams Name Effective Dates (start - stop) Status Members No Information
--- OUTSIDE RECORDS SUMMARY | 2024-12-02 13:15 | XMS_ITS ---
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 Role Phone Nabila Marroquin MD Primary Care Provider Unavaila jaida Hector Rosa Unavailable [phone] Nabila Marroquin MD Unavailable Unavailable REASON FOR VISIT 2 months f/u Medications Medication SIG (Take, Route, Frequency, Duration) Notes Start Date End Date Status Cetirizine HCl Activ e HYDROcodone-Acetamino phen Active Halobetasol Propionate Active Flexeril Active oxyBUTYnin Active tiZANidine HCl 4 MG 1 tablet at bedtime as needed Orally Once a day for 60 days Active Atorvastatin Calcium 10 MG 1 tablet Orally Once a day Not-Taking traMADol HCl 50 MG 1-2 tablet as needed Orally up to 3 doses per day for severe pain, exempt for 30 days exempt 11/18/2024 Active Liothyronine Sodium 5 MCG 1 tablet on an empty stomach Orally Once a day Not-Taking Kloxxado 8 MG/0.1ML as directed Nasally as directed for 1 day [place] into 1 nostril for suspected opioid overdose. Repeat in alternate nostril if no response every 2 minutes until EMS arrives. May file if not covered on insurance plan. Not-Taking Levothyroxine Sodium 112 MCG 1 tablet in the morning on an empty stomach Orally Once a day Active Metoprolol Succinate ER 25 MG 1 tablet Orally Once a day Active tiZANidine HCl 2 MG 1-2 tablet at bedtime as needed Orally Once a day for 30 days Active diazePAM 10 MG 1 tablet as needed Orally 45 minutes prior to procedure for 1 days 07/30/2024 Not-Taking Gabapentin 300 MG 1 capsule Orally Once a day Not-Taking Dicyclomine HCl 20 MG 1 tablet Orally Three times a day Active traZODone HCl 150 MG 1 tablet at bedtime Orally Once a day Active Omeprazole 40 MG 1 capsule 30 minutes before morning meal Orally Once a day Active Losartan Potassium 50 MG 1 tablet Orally Once a day Active Gabapentin Active Desloratadine Active Xanax Active Rosuvastatin Calcium Active Vital Signs Blood pressure systolic 152 mm Hg 11/18/19 25 Blood pressure diastolic 77 mm Hg 025 Heart Rate 66 /min 11/18/2024 Height 60 in 11/18/2024 Weight 181 lbs 11/18/2024 BMI 35.35 kg/m2 11/18/2024 Height-cm 152.4 cm 11/18/2024 Weight-kg 82.1 kg 11/18/2024 Encounters Encounter Location Date Provider Diagnosis [facility] [address] [place] [address] [place] [address] 11/18/2024 Rosa Young Greater trochanteric bursitis of left hip M70.62 ; Left foot pain M79.672 ; 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 11/18/2024 Left foot pain (ICD-10 - M79.672) ASSESSMENT: Stable PLAN: I will refill medication and consider steroid injections if needed. 11/18/2024 assisted (current) use of opiate analgesic (ICD-10 - Z79.891) ASSESSMENT: Stable, I will continue to monitor PLAN: The patients pill count was correct today. A random drug screen will be performed in the future to ensure compliance. The [facility] Controlled Substance Database Report was reviewed. The [place] Controlled Substance Monitoring Program usually has a lag period of about 30 days. 11/18/2024 Knee pain, right (ICD-10 - M25.561) ASSESSMENT: Stable PLAN: I will refill medication and consider steroid injections if needed. 11/18/2024 Radiculopathy, lumbar region (ICD-10 - M54.16) ASSESSMENT: Stable PLAN: I will refill medication and consider lumbar epidural steroid injections if needed. 11/18/2024 Other PATIENT VERBALIZED UNDERSTANDING AND AGREED WITH PLAN ABOVE Plan Of Treatment Medication Medication Name Sig Start Date Stop Date Notes tiZANidine HCl 4 MG 1 tablet at bedtime as needed Orally Once a day for 60 days traMADol HCl 50 MG 1-2 tablet as needed Orally up to 3 doses per day for severe pain, exempt for 30 days 11/18/2024 exempt Treatment Notes Assessment Notes Greater trochanteric bursitis of left hi p ASSESSMENT: Stable PLAN: I will refill medication and consider steroid injections if needed. Left foot pain ASSESSMENT: Stable PLAN: I will refill medication and consider steroid injections if needed. 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 A random drug screen will be performed in the future to ensure compliance. The [facility] Controlled Substance Database Report was reviewed. The [place] Controlled Substance Monitoring Program usually has a lag period of about 30 days. Knee pain, right ASSESSMENT: Stable PLAN: I will refill medication and consider steroid injections if needed. Radiculopathy, lumbar region ASSESSMENT: Stable PLAN: I will refill medication and consider lumbar epidural steroid injections if needed. Other PATIENT VERBALIZED UNDERSTANDING AND AGREED WITH PLAN ABOVE Next Appt Details Follow Up: 2 Months, Reason: alexys toribio escripts sent Provider Name:Rosa scott, 01/13/2025 09:00:00 AM, [address], [address], [place], [address], Progress Notes * Nusrat HASTINGSDOB: [birth year] (79 yo F)Acc No.[id number]:11/18/2024 Progress Notes Patient:Nusrat HIRSCH Appointment Provider:?Julia Brar PA-C :1945???Age:79 Y???Sex:Female D ate:11/18/2024 Address:[address], [facility] Pcp:Nabila Marroquin MD Subjective: * Chief Complaints: * ???2 months f/u * HPI: ???History of Present Illness:? Patient presented on 11/18/2024 to [facility] for a chronic pain medication follow up appointment. ? No significant changes since the last office visit.?? LOW BACK PAIN Ache radiates down into both hips and BLE Aggravated with walking standing bending twisting Alleviated with stretching, rest, medication, heat Hip pain Ache, burning Aggravated with walking standing bending twisting Alleviated with rest, medication, heat Foot pain Ache, sharp Aggravated with walking standing bending twisting Alleviated with rest, medication, heat NSAIDs not indicated due to kidney disease. ? Without medications, pain is 8/10 and with medications, pain is 7/10. LMP: Menopause Denies receiving PAIN medication from other providers. Permission received from patient to release today's office note, copy of imaging, if requested, narcotic agreement and consent for treatment to [facility] located in the [facility] [place] . This is good for today's date of service only. ???Pill Count:?Pill Count:?Tramadol 50mg #150 QID (36) last filled on 10/05/24.? 10/20/2024 GABAPENTIN 400 MG CAPSULE 120.00 30 648 [id number] 07/31/2024 [id number] - Y R [id number] 9 03 10/05/2024 TRAMADOL HCL 50 MG TABLET 150.00 30 648 [id number] 09/25/2024 [id number] - N [id number] 9 03 09/20/2024 GABAPENTIN 400 MG CAPSULE 120.00 30 648 [id number] 07/31/2024 [id number] [facility] [address] [facility] [address] [id number] NABILA MARROQUIN MD [address] [facility] [address] [id number] ROSA YOUNG [facility] [address] [facility] [address] [id number] [facility] MD[facility]NA[facility]EMENT GROUP [address] [place], [place] [address] [place] [address]. ???Imaging Studies/Clinical Pathways:? 03/13/[address] IMPRESSION: Moderately large joint effusion and popliteal cyst. No acute osseous abnormality. Unremarkable knee arthroplasty. 12/12/21 xray L spine Grade 1 retrolisthesis of L1 on L2 and L2 on L3 which does not significantly change with flexion or extsion likely degnerative Multilevel degenerative dsic changes with severe degenerative disc changes at L1-2 L5-S1. * ROS:?General/Constitutional:?Chills?denies.?Fever?denies.?Ophthalmologic:?Blurry vision?denies.?ENT:?Decreased hearing?denies.?Respiratory:?Shortness of breath at rest?denies.?Cardiovascular:?Chest pain?denies.?Gastrointestinal:?Constipation?denies.?Diarrhea?denies.?Nausea?denies.?Vomiting?denies.?Genitourinary:?Bladder Incontinence?denies.?Skin:?Rash?denies.?Neurologic:?Balance difficulty?denies.?Psychiatric:?Anxiety?denies.?Depressed mood?denies.?Difficulty sleeping?denies.? * Medical History:? * Surgical History:?bladder ferris rgery cholecystectomy eye surgery hysterectomy thyroid surgery tonsillectomy tubal ligation shoulder arthroscopy carpal tunnel release (bilateral) left knee replacement right knee replacement ankle surgery wrist surgery * Hospitalization/Major Diagno stic Procedure:?No Hospitalization History. * Family History:?Sister(s): C ancer,Heart Attack.?Brother(s): None.?Father: None.?Mother: None.? Sister - cancer, heart attack. * Medications:?TakingtiZANidin e HCl 2 MG Tablet 1-2 tablet at bedtime as needed Orally Once a day Cetirizine HCl HYDROcodone-Acetaminophen Flexeril Halobetasol Propionate oxyBUTYnin Desloratadine Rosuvastatin Calcium Xanax Gabapentin Losartan Potassium 50 MG Tablet 1 tablet Orally Once a day traZODone HCl 150 MG Tablet 1 tablet at bedtime Orally Once a day Dicyclomine HCl 20 MG Tablet 1 tablet Orally Three times a day Omeprazole 40 MG Capsule Delayed Release 1 capsule 30 minutes before morning meal Orally Once a day Metoprolol Succinate ER 25 MG Tablet Extended Release 24 Hour 1 tablet Orally Once a day Levothyroxine Sodium 112 MCG Tablet 1 tablet in the morning on an empty stomach Orally Once a day tiZANidine HCl 2 MG Tablet 1-2 tablet at bedtime as needed Orally Once a day traMADol HCl 50 MG Tablet 1-2 tablet as needed Orally up to 3 doses per day for severe pain, exempt , Notes to Pharmacist: exemptTaking tiZANidine HCl 2 MG Tablet 1-2 tablet at bedtime as needed Orally Once a day Taking Cetirizine HCl Taking HYDROcodone-Acetaminophen Taking Flexeril Taking Halobetasol Propionate Taking oxyBUTYnin Taking Desloratadine Taking Rosuvastatin Calcium Taking Xanax Taking Gabapentin Taking Losartan Potassium 50 MG Tablet 1 tablet Orally Once a day Taking traZODone HCl 150 MG Tablet 1 tablet at bedtime Orally Once a day Taking Dicyclomine HCl 20 MG Tablet 1 tablet Orally Three times a day Taking Omeprazole 40 MG Capsule Delayed Release 1 capsule 30 minutes before morning meal Orally Once a day Taking Metoprolol Succinate ER 25 MG Tablet Extended Release 24 Hour 1 tablet Orally Once a day Taking Levothyroxine Sodium 112 MCG Tablet 1 tablet in the morning on an empty stomach Orally Once a day Taking tiZANidine HCl 2 MG Tablet 1-2 tablet at bedtime as needed Orally Once a day Taking traMADol HCl 50 MG Tablet 1-2 tablet as needed Orally up to 3 doses per day for severe pain, exempt , Notes to Pharmacist: exemptNot-TakingdiazePAM 10 MG Tablet 1 tablet as needed Orally 45 minutes prior to procedure Gabapentin 300 MG Capsule 1 capsule Orally Once a day Kloxxado 8 MG/0.1ML Liquid as directed Nasally as directed , Notes to Pharmacist: [place] into 1 nostril for suspected opioid overdose. Repeat in alternate nostril if no response every 2 minutes until EMS arrives. March file if not covered on insurance plan.Atorvastatin Calcium 10 MG Tablet 1 tablet Orally Once a day Liothyronine Sodium 5 MCG Tablet 1 tablet on an empty stomach Orally Once a day Medication List reviewed and reconciled with the patientNot-Taking diazePAM 10 MG Tablet 1 tablet as needed Orally 45 minutes prior to procedure Not-Taking Gabapentin 300 MG Capsule 1 capsule Orally Once a day Not-Taking Kloxxado 8 MG/0.1ML Liquid as directed Nasally as directed , Notes to Pharmacist: [place] into 1 nostril for suspected opioid overdose. Repeat in alternate nostril if no response every 2 minutes until EMS arrives. May file if not covered on insurance plan.Not-Taking Atorvastatin Calcium 10 MG Tablet 1 tablet Orally Once a day Not-Taking Liothyronine Sodium 5 MCG Tablet 1 tablet on an empty stomach Orally Once a day Medication List reviewed and reconciled with the patient * Allergies:?no[Allergies Veri fied] Objective: * Vitals:?Ht: 60 in, Wt:181lbs , BMI:35.35Index, BP:152/77mm Hg, HR:66/min, Weight Change: 5 lbs, Ht-cm: 152.4 cm, Wt-k.1 kg. * Examination: ???General Examination: ?GENERAL APPEARANCE:?well nourished , in no acute distress.?EYES:?Pupils equal and round.?EARS:?, hearing sufficient for conversation.?NOSE:?No external deformities, No nasal discharge seen.?RESPIRATORY:?normal respiratory rate and pattern with no distress.?STATION AND GAIT:?Antalgic Gait Observed.?PSYCH:?, alert, oriented, appropriate affect and demeanor, speech clear.?Ankle / Foot Left: ?PALPATION:?left ankle pain noted with inversion and eversion.?Knee / Cunha: ?KNEE:?right.?PALPATION:?tenderness on medial jointline.?CREPITUS:?moderate.? 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 Plan: * Treatment: 2.?Greater trochanteric burs itis of left hip? Notes: ASSESSMENT: Stable PLAN: I will refill medication and consider steroid injections if needed. ?? 3.?Left foot pain? Notes: ASSESSMENT: Stable PLAN: I will refill medication and consider steroid injections if needed. ?? 4.?assisted (current) use o f opiate analgesic? Notes: ASSESSMENT: Stable, I will continueto monitor PLAN: The patients pill count was correct today. A random drug screenwill be performed in the future to ensure compliance. The [facility] ControlledSubstance Database Report was reviewed. The [place] ControlledSubstance Monitoring Program usually has a lag period of about 30 days. ?? 5.?Knee pain, right? Notes: ASSESSMENT: Stable PLAN: I will refill medication and consider steroid injections if needed. ?? 6.?Others? Notes:PATIENTVERBALIZED UNDERSTANDING AND AGREED WITH PLAN ABOVE ?? * Procedure Codes:? * Follow Up:?2 Months (Reason: alexys toribio escripts sent) * Review Notes: Stewart Limon 2024-11-18 10:47:47* O PALEONTOLOGIST Electronically co-signed by Stewart Limon MD on 11/18/2024 at 10:47 AM MICRO PALEONTOLOGIST Sign off status: Completed true * Appointment Provider:?Rosa Young D.C, PA-C Date:?11/18/2024 Generated for Nereyda jones/Rama/Demonditting on:?12/02/2024 12:15 PM MICRO PALEONTOLOGIST History and Physical Notes * HPI (History of Present Illness) Category Sub-Category Detail Notes Pill Count Pill Count: Tramadol 50mg #1 50 QID (36) last filled on 10/05/24 Examination Category Sub-Category Detail Notes Knee / Cunha PALPATION: tenderness on me dial jointline KNEE: right CREPITUS: moderate Ankle / Foot Left PALPATION: left ankle walt n noted with inversion and eversion General Examination GENERAL APPEARANCE: well nou rished , in no acute distress EYES: Pupils equal and rou nd EARS: , hearing sufficient for conversation NOSE: No external deformit ies, No nasal discharge seen PSYCH: , alert, oriented, a ppropriate affect and demeanor, speech clear STATION AND GAIT: Antalgic Gait Observ ed RESPIRATORY: normal respiratory r ate and pattern with no distress
--- OUTSIDE RECORDS SUMMARY | 2024-12-02 13:15 | XMS_ITS | Data Portability ---
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 See CCA. [id number] Not available 01/30/2024 11:03:36 Plan of Treatment Reminders Order Date Submit Date Provider Last Modified By Organization Details Last Modified Time Details Appointments FOLLOW UP 20 2024 09:40A M Avinash Marroquin MD Not available Not available Not available Lab rapid SARS CoV 2 Ag, QL IA, respirato ry specimen 2023 024 [email or web address] 4 [place], [address] [facility], [place], [address], 11/09/2023 16:03:15 lipid panel, serum 2023 024 [facility] ([facility]), [address] [place] [address], [id number], 01/31/2024 03:46:15 CMP, serum or plasma 2023 024 MICHELLE [facility] ([facility]), [address] [place] [address], [id number], 01/31/2024 03:46:16 HbA1c (hemoglob in A1c), blood 2023 024 [facility] ([facility]), [address] [place] [address], [id number], 01/31/2024 03:46:17 TSH, serum or plasma 2023 024 [facility] ([facility]), [address] [place] [address], [id number], 01/31/2024 03:46:18 iron + total iron-bind ing capacity (TIBC), serum 2023 024 [facility] ([facility]), [address] [place] [address], [id number], 01/31/2024 03:46:17 CBC w/ auto diff 2023 024 [facility] ([facility]), [address] [place] [address], [id number], 01/31/2024 03:46:16 drug confirmat ion, urine 2023 024 MICHELLE Simpson, [address] [facility], [place], [address], 04/08/2024 14:51:20 TSH, serum or plasma 2023 024 [facility] ([facility]), [address] [place] [address], [id number], 05/08/2024 02:12:53 microalbu min/creat inine, mass ratio, urine 2023 024 [facility] ([facility]), [address] [place], [address], 05/16/2024 03:47:44 CMP, serum or plasma 2023 024 [facility] ([facility]), [address] [place] [address], [id number], 05/16/2024 03:47:44 CBC w/ auto diff 2023 024 [facility] ([facility]), [address] [place] [address], [id number], 05/16/2024 03:47:43 HbA1c (hemoglob in A1c), blood 2023 024 [facility] ([facility]), [address] [place] [address], [id number], 05/16/2024 03:47:44 lipid panel, serum 2023 024 [facility] ([facility]), [address] [place] [address], [id number], 05/16/2024 03:47:43 drug confirmat ion, urine 2023 [employer] Tatiana, [address] [facility], [place], [address], 07/31/2024 18:08:30 Referral None recorded. Procedures None recorded. Surgeries None recorded. Imaging None recorded. Medication Orders gabapenti n 400 mg capsule 2023 024 [facility]72140, [address] [facility], [place], [place], [id number], 11/09/2023 16:03:21 ceftriaxo ne 500 mg solution for injection 2023 024 [email or web address] Not available 01/30/2024 10:58:55 amoxicill in 875 mg-potass ium clavulana te 125 mg tablet [address] [facility]79431, [address] [place], [place], [id number], 01/30/2024 10:58:49 dicyclomi ne 20 mg tablet 2023 [facility] #81988, [address] [place], [place], [id number], 01/30/2024 11:10:49 rosuvasta tin 40 mg tablet 2023 [facility] #54938, [address] [place], [place], [id number], 01/30/2024 11:10:38 trazodone 150 mg tablet 2023 [facility] #29575, [address] [place], [place], [id number], 01/30/2024 11:09:47 omeprazol e 40 mg capsule,d elayed release [address] [facility]99429, [address] [place], [place], [id number], 01/31/2024 17:58:39 Xanax 0.5 mg tablet 2023 [facility] #96219, [address] [place], [place], [id number], 01/30/2024 11:10:54 gabapenti n 400 mg capsule 2023 [facility] #94189, [address] [place], [place], [id number], 01/30/2024 11:10:46 metoprolo l succinate ER 25 mg tablet,ex tended release 24 hr 2023 024 maximo [facility] #42800, [address] [place], [place], [id number], 07/31/2024 10:53:22 levothyro xine 112 mcg tablet 2023 024 [facility] #63890, [address] [place], [place], [id number], 01/30/2024 11:10:44 liothyron ine 5 mcg tablet 2023 024 [facility] #42376, [address] [place] [address], [id number], 01/30/2024 11:09:43 dicyclomi ne 20 mg tablet 2023 024 [facility] #06099, [address] [place], [place], [id number], 04/08/2024 15:02:13 rosuvasta tin 40 mg tablet 2023 024 [facility] #43368, [address] [place], [place], [id number], 04/08/2024 15:02:08 deslorata dine 5 mg tablet 2023 024 [facility] #99263, [address] [place], [place], [id number], 04/08/2024 15:02:12 trazodone 150 mg tablet 2023 024 [facility] #41899, [address] [place], [place], [id number], 04/08/2024 15:02:13 omeprazol e 40 mg capsule,d elayed release 2023 024 [email or web address] [facility] #82379, [address] [place], [place], [id number], 04/08/2024 15:52:36 Xanax 0.5 mg tablet 2023 024 [facility] #31960, [address] [place], [place], [id number], 04/08/2024 15:02:33 cetirizin e 10 mg tablet 2023 024 [facility] #32823, [address] [place], [place], [id number], 04/08/2024 15:02:14 gabapenti n 400 mg capsule 2023 024 [facility] #57867, [address] [place] [address], [id number], 04/08/2024 15:02:35 tramadol 50 mg tablet 2023 024 [facility] #02764, [address] [place], [place], [id number], 04/08/2024 14:55:49 metoprolo l succinate ER 50 mg tablet,ex tended release 24 hr 2023 024 [facility] #57017, [address] [place], [place], [id number], 04/08/2024 15:02:23 levothyro xine 112 mcg tablet 2023 024 [facility] #52519, [address] [place] [address], [id number], 04/08/2024 15:02:14 liothyron ine 5 mcg tablet 2023 024 [facility] #94023, [address] [place], [place], [id number], 04/08/2024 14:55:03 rosuvasta tin 40 mg tablet 2023 024 [facility] #57723, [address] [place], [place], [id number], 05/15/2024 10:57:31 omeprazol e 40 mg capsule,d elayed release 2023 024 [facility] #19982, [address] [place], [place], [id number], 05/15/2024 10:57:30 cetirizin e 10 mg tablet 2023 024 [facility] #93885, [address] [place], [place], [id number], 05/15/2024 10:57:30 gabapenti n 400 mg capsule 2023 024 [facility] #24675, [address] [place], [place], [id number], 05/15/2024 10:57:34 cyclobenz aprine 5 mg tablet 2023 024 [facility] #84766, [address] [place], [place], [id number], 05/15/2024 10:57:31 deslorata dine 5 mg tablet 2023 024 [facility] #48224, [address] [place], [place], [id number], 07/31/2024 11:09:23 trazodone 100 mg tablet 2023 024 [facility] #64628, [address] [place], [place], [id number], 07/31/2024 11:09:26 omeprazol e 40 mg capsule,d elayed release 2023 024 [facility] #80342, [address] [place], [place], [id number], 07/31/2024 11:09:25 Xanax 0.5 mg tablet 2023 024 [facility] #58908, [address] [place], [place], [id number], 07/31/2024 11:09:29 gabapenti n 400 mg capsule 2023 024 [facility] #15262, [address] [place], [place], [id number], 07/31/2024 11:09:30 levothyro xine 112 mcg tablet 2023 024 [facility] #71054, [address] [place], [place], [id number], 07/31/2024 11:09:23 liothyron ine 5 mcg tablet 2023 024 [facility] #22773, [address] [place], [place], [id number], 07/31/2024 11:09:25 Patient TargetsNo targets recorded. Patient Instructions Encounter Date Encounter Id Patient Instructions Last Modified By Organization Details Last Modified Time 01/30/2024 [id number] hypothyroidism: care instructions [id number] Not available 01/30/2024 11:09:32 04/08/2024 [id number] prescription/melba g reporting* MICHELLE Not available 04/08/2024 14:51:47 hypothyroidism: care instructions [email or web address] Not available 04/08/2024 14:50:21 Get labs after May 01 (1st week of May is OK). A1C. thyroid, CMP. Lipids. CBC [email or web address] Not available 04/08/2024 14:45:49 05/15/2024 [id number] back pain: care instructions [email or web address] Not available 05/15/2024 10:57:23 patient states she had labs done 1-2 weeks ago Not available 05/15/2024 10:55:28 Reason for Referral None Reported. Results Created Date Observation Date Name Description Value Unit Range Abnormal Flag Note LastModifiedBy Organization Detail LastModifiedTime 10/23/20 23 10/24/2023 LIPID PANEL cholesterol 119 mg/dL <200 Not Available [facility] ([facility] [employer]) [address] [place] [address] Dr Avitia, [place], [address], 10/24/2023 03:06:45 10/23/20 23 10/24/2023 LIPID PANEL triglyceride s 177 mg/dL <150 high Not Available [facility] ([facility] [employer]) [address] [place] [address] Dr Avitia, [place], [address], 10/24/2023 03:06:45 10/23/20 23 10/24/2023 LIPID PANEL HDL cholesterol 40 mg/dL >39 Not Available [facility] ([facility] [employer]) [address] [place] [address] Dr Avitia, [place], [address], 10/24/2023 03:06:45 10/23/20 23 10/24/2023 LIPID PANEL cholesterol / HDL ratio 2.98 ratio 0.00-4 .44 Not Available [facility] ([facility] [employer]) [address] [place] [address] Dr Avitia, [place], [address], 10/24/2023 03:06:45 10/23/20 23 10/24/2023 LIPID PANEL non-HDL cholesterol 79 mg/dL <130 Not Available [facility] ([facility]) [address] [facility] [address], [place], [address], 10/24/2023 03:06:45 10/23/20 23 10/24/2023 LIPID PANEL LDL cholesterol (calculation ) 44 mg/dL <130 LDL Smitha stero l Level s* Less than 100 mg/dL Optim al 100 to 129 mg/dL Near Optim al/ Above Optim al 130 to 159 mg/dL Borde rline High 160 to 189 mg/dL High 190 mg/dL and above Very High * Categ [place] as lizette berman d by the 2003 ATPII I guide lines Not Available [facility] ([facility]) [address] [facility] [address], [place], [address], 10/24/2023 03:06:45 10/23/20 23 10/24/2023 LIPID PANEL LDL/HDL ratio 1.1 ratio <3.3 ___ LDL Smitha stero l Patie nt Histo ry ___ Test Date: 10/23 LDL Resul ts: 44 Units : mg/dL % Olmos e: - ___ Not Available [facility] ([facility]) [address] [place] [address] Dr [address]ia, [place], [address], 10/24/2023 03:06:45 10/23/20 23 10/24/2023 CBC WITH PLATE LET AND DIFFE RENTI AL WBC 5.4 K/uL 3.8-11 .5 Not Available [facility] ([facility]) [address] [place] [address] Dr [address]itia, [place], [address], 10/24/2023 03:06:46 10/23/20 23 10/24/2023 CBC WITH PLATE LET AND DIFFE RENTI AL red blood cell count (RBC) 3.47 M/mm3 3.60-5 .30 low Not Available [facility] ([facility]) [address] [place] [address] Dr Avitia, [place], [address], 10/24/2023 03:06:46 10/23/20 23 10/24/2023 CBC WITH PLATE LET AND DIFFE RENTI AL hemoglobin (HGB) 10.4 gm/dL 11.5-1 5.5 low Not Available [facility] ([facility]) [address] [place] [address] Dr Avitia, [place], [address], 10/24/2023 03:06:46 10/23/20 23 10/24/2023 CBC WITH PLATE LET AND DIFFE RENTI AL hematocrit (HCT) 33.2 % 35.2-4 6.4 low Not Available [facility] ([facility]) [address] [place] [address] Dr Avitia, [place], [address], 10/24/2023 03:06:46 10/23/20 23 10/24/2023 CBC WITH PLATE LET AND DIFFE RENTI AL MCV 95.7 fL 79.0-9 9.0 Not Available [facility] ([facility]) [address] [place] [address] Dr Avitia, [place], [address], 10/24/2023 03:06:46 10/23/20 23 10/24/2023 CBC WITH PLATE LET AND DIFFE RENTI AL MCH 30.0 pg 26.9-3 5.0 Not Available [facility] ([facility]) [address] [place] [address] Dr Avitia, [place], [address], 10/24/2023 03:06:46 10/23/20 23 10/24/2023 CBC WITH PLATE LET AND DIFFE RENTI AL MCHC 31.3 g/dL 30.4-3 4.8 Not Available [facility] ([facility]) [address] [place] [address] Dr Avitia, [place], [address], 10/24/2023 03:06:46 10/23/20 23 10/24/2023 CBC WITH PLATE LET AND DIFFE RENTI AL RDW 46.0 fL 38.6-5 3.8 Not Available [facility] ([facility]) [address] [place] [address] Dr Avitia, [place], [address], 10/24/2023 03:06:46 10/23/20 23 10/24/2023 CBC WITH PLATE LET AND DIFFE RENTI AL platelet count 255 K/cum m 137-39 7 Not Available [facility] ([facility]) [address] [place] [address] Dr Avitia, [place], [address], 10/24/2023 03:06:46 10/23/20 23 10/24/2023 CBC WITH PLATE LET AND DIFFE RENTI AL neutrophils automated 58.3 % 41.0-7 7.0 Not Available [facility] ([facility]) [address] [place] [address] Dr Avitia, [place], [address], 10/24/2023 03:06:46 10/23/20 23 10/24/2023 CBC WITH PLATE LET AND DIFFE RENTI AL lymphocytes automated 29.0 % 14.0-4 8.0 Not Available [facility] ([facility]) [address] [place] [address] Dr Avitia, [place], [address], 10/24/2023 03:06:46 10/23/20 23 10/24/2023 CBC WITH PLATE LET AND DIFFE RENTI AL monocytes automated 8.6 % 4.0-13 .0 Not Available [facility] ([facility]) [address] [place] [address] Dr Avitia, [place], [address], 10/24/2023 03:06:46 10/23/20 23 10/24/2023 CBC WITH PLATE LET AND DIFFE RENTI AL eosinophils automated 2.8 % 0.0-8. 0 Not Available [facility] [address] [place] [address] Dr Avitia, [place], [address], 10/24/2023 03:06:46 10/23/20 23 10/24/2023 CBC WITH PLATE LET AND DIFFE RENTI AL basophils automated 0.9 % 0.0-1. 5 Not Available [facility] ([facility]) [address] [place] [address] Dr Avitia, [place], [address], 10/24/2023 03:06:46 10/23/20 23 10/24/2023 CBC WITH PLATE LET AND DIFFE RENTI AL immature granulocyte automated 0.4 % 0.0-1. 0 Not Available [facility] ([facility]) [address] [place] [address] Dr Avitia, [place], [address], 10/24/2023 03:06:46 10/23/20 23 10/24/2023 COMPR EHENS MICHAEL METAB OLIC PANEL (CMP) sodium 138 mEq/L 135-14 5 Not Available [facility] ([facility]) [address] [place] [address] Dr Avitia, [place], [address], 10/24/2023 03:06:46 10/23/20 23 10/24/2023 COMPR EHENS MICHAEL METAB OLIC PANEL (CMP) potassium 4.8 mEq/L 3.5-5. 3 Not Available [facility] ([facility]) [address] [place] [address] Dr Avitia, [place], [address], 10/24/2023 03:06:46 10/23/20 23 10/24/2023 COMPR EHENS MICHAEL METAB OLIC PANEL (CMP) chloride 104 mEq/L 97-108 Not Available [facility] ([facility]) [address] [place] [address] Dr Avitia, [place], [address], 10/24/2023 03:06:46 10/23/20 23 10/24/2023 COMPR EHENS MICHAEL METAB OLIC PANEL (CMP) CO2 27 mEq/L 22-32 Not Available [facility] ([facility]) [address] [place] [address] Dr Avitia, [place], [address], 10/24/2023 03:06:46 10/23/20 23 10/24/2023 COMPR EHENS MICHAEL METAB OLIC PANEL (CMP) glucose 104 mg/dL 65-99 high Not Available [facility] ([facility]) [address] [place] [address] Dr Avitia, [place], [address], 10/24/2023 03:06:46 10/23/20 23 10/24/2023 COMPR EHENS MICHAEL METAB OLIC PANEL (CMP) BUN 17 mg/dL 8-23 Not Available [facility] ([facility]) [address] [place] [address] Dr Avitia, [place], [address], 10/24/2023 03:06:46 10/23/20 23 10/24/2023 COMPR EHENS MICHAEL METAB OLIC PANEL (CMP) creatinine 1.07 mg/dL 0.50-1 .00 high Not Available [facility] ([facility]) [address] [place] [address] Dr Avitia, [place], [address], 10/24/2023 03:06:46 10/23/20 23 10/24/2023 COMPR EHENS MICHAEL METAB OLIC PANEL (CMP) calcium 9.5 mg/dL 8.6-10 .4 Not Available [facility] ([facility]) [address] [place] [address] Dr Avitia, [place], [address], 10/24/2023 03:06:46 10/23/20 23 10/24/2023 COMPR EHENS MICHAEL METAB OLIC PANEL (CMP) eGFR by creatinine 53 mL/mi n/1.7 3m2 >59 low Not Available [facility] ([facility]) [address] [place] [address] Dr Avitia, [place], [address], 10/24/2023 03:06:46 10/23/20 23 10/24/2023 COMPR EHENS MICHAEL METAB OLIC PANEL (CMP) protein 6.3 g/dL 6.0-8. 3 Not Available [facility] ([facility]) [address] [place] [address] Dr Avitia, [place], [address], 10/24/2023 03:06:46 10/23/20 23 10/24/2023 COMPR EHENS MICHAEL METAB OLIC PANEL (CMP) albumin 4.1 g/dL 3.5-5. 3 Not Available [facility] ([facility]) [address] [place] [address] Dr Avitia, [place], [address], 10/24/2023 03:06:46 10/23/20 23 10/24/2023 COMPR EHENS MICHAEL METAB OLIC PANEL (CMP) alkaline phosphatase 82 IU/L 35-121 Not Available [facility] ([facility]) [address] [place] [address] Dr Avitia, [place], [address], 10/24/2023 03:06:46 10/23/20 23 10/24/2023 COMPR EHENS MICHAEL METAB OLIC PANEL (CMP) ALT (SGPT) 8 IU/L <5-47 Not Available [facility]) [address] [place] [address] Dr Avitia, [place], [address], 10/24/2023 03:06:46 10/23/20 23 10/24/2023 COMPR EHENS MICHAEL METAB OLIC PANEL (CMP) AST (SGOT) 12 IU/L <5-40 Not Available [facility] ([facility]) [address] [place] [address] Dr Avitia, [place], [address], 10/24/2023 03:06:46 10/23/20 23 10/24/2023 COMPR EHENS MICHAEL METAB OLIC PANEL (CMP) bilirubin, total 0.2 mg/dL <0.2-1 .2 Not Available [facility] ([facility]) [address] [place] [address] Dr Avitia, [place], [address], 10/24/2023 03:06:46 10/23/20 23 10/24/2023 COMPR EHENS MICHAEL METAB OLIC PANEL (CMP) A/G ratio 1.9 mg/dL 1.1-2. 5 Not Available [facility]) [address] [place] [address] Dr Avitia, [place], [address], 10/24/2023 03:06:46 10/23/20 23 10/24/2023 PERCE NT SATUR ATION WITH IRON AND IBC iron 76 ug/dL 37-145 Not Available [facility] ([facility]) [address] [place] [address] Dr [address]itia, [place], [address], 10/24/2023 03:06:47 10/23/20 23 10/24/2023 PERCE NT SATUR ATION WITH IRON AND IBC iron binding cap 250 ug/dL 250-45 0 Not Available [facility] ([facility]) [address] [place] [address] Dr Avitia, [place], [address], 10/24/2023 03:06:47 10/23/20 23 10/24/2023 PERCE NT SATUR ATION WITH IRON AND IBC percent saturation 30 % 15-50 Not Available [facility] ([facility]) [address] [place] [address] Dr Avitia, [place], [address], 10/24/2023 03:06:47 10/23/20 23 10/24/2023 HEMOG LOBIN A1C hemoglobin A1C 6.6 % <5.7 high The follo wing HbA1c range s recom antonella d by the Ameri can Diabe josé Assoc iatio n (ADA) may be used as an aid in the diagn osis of diabe josé melli tus. HA1c Sugge sted Diagn osis >=6.5 % Diabe tic 5.7% - 6.4% Pre-D iabet ic <5.7% Non-D iabet ic Not Available [facility]) [address] [place] [address] Dr Avitia, [place], [address], 10/24/2023 03:06:47 10/23/20 23 10/24/2023 HEMOG LOBIN A1C estimated average glucose 143 mg/dL [place] ge Gluco se is calcu lated using the equat ion AG = (28.7 x HgbA1 c) - 46.7 based on the guide lines estab lishe d by the ADA. Not Available [facility]) [address] [place] [address] Dr [address]itia, [place], [address], 10/24/2023 03:06:47 10/23/20 23 10/24/2023 TSH REFLE X TO FT4 TSH reflex to FT4 1.15 mU/L 0.43-5 .25 Not Available [facility] ([facility]) [address] [place] [address] Dr Avitia, [place], [address], 10/24/2023 03:06:48 10/24/20 23 10/24/2023 drug confi rmati on, urine Amphetamine AMP negati ve Not Available [place] [address] [place], [address], 10/22/2023 21:14:33 10/24/20 23 10/24/2023 drug confi rmati on, urine Benzodiazepi ne BZO negati ve Not Available [place] [address] [place], [address], 10/22/2023 21:14:33 10/24/20 23 10/24/2023 drug confi rmati on, urine Cocaine MEERA negati ve Not Available [place] [address] [place] [address], [phone], 10/22/2023 21:14:33 10/24/20 23 10/24/2023 drug confi rmati on, urine Morphine MOR positi ve Not Available [place] [address] [place] [address], [phone], 10/22/2023 21:14:33 10/24/20 23 10/24/2023 drug confi rmati on, urine Oxycodone OXY negati ve Not Available [place] [address] [place] [address], [phone], 10/22/2023 21:14:33 10/24/20 23 10/24/2023 drug confi rmati on, urine Marijuana THC negati ve Not Available [place] [address] [place] [address], [phone], 10/22/2023 21:14:33 10/24/20 23 10/24/2023 drug confi rmati on, urine Consistent with Medication Prescribed: positi ve Not Available [place] [address] [place] [address], [address], 10/22/2023 21:14:33 10/24/20 23 10/24/2023 drug confi rmati on, urine Send for Confirmation : negati ve Not Available [place] [address] [facility], [place], [address], 10/22/2023 21:14:33 11/09/19 24 11/09/2023 rapid SARS CoV 2 Ag, QL IA, respi rator y speci men Results negati ve Not Available [place] [address] [facility], [place], [address], 11/09/2023 15:48:41 01/30/20 24 01/31/2024 LIPID PANEL cholesterol 130 mg/dL <200 Not Available [facility] ([facility]) [address] [place] [address]it[address], [place], [address], 01/31/2024 03:46:15 01/30/20 24 01/31/2024 LIPID PANEL triglyceride s 159 mg/dL <150 high Not Available [facility] ([facility]) [address] [place] [address] Avitia, [place], [address], 01/31/2024 03:46:15 01/30/20 24 01/31/2024 LIPID PANEL HDL cholesterol 45 mg/dL >39 Not Available [facility] ([facility]) [address] [place] [address] Avitia, [place], [address], 01/31/2024 03:46:15 01/30/20 24 01/31/2024 LIPID PANEL cholesterol / HDL ratio 2.89 ratio 0.00-4 .44 Not Available [facility] ([facility]) [address] [place] [address] Avitia, [place], [address], 01/31/2024 03:46:15 01/30/20 24 01/31/2024 LIPID PANEL non-HDL cholesterol 85 mg/dL <130 Not Available [facility] ([facility]) [address]it[address], [place], [address], 01/31/2024 03:46:15 01/30/20 24 01/31/2024 LIPID PANEL LDL cholesterol (calculation ) 53 mg/dL <130 LDL Smitha stero l Level s* Less than 100 mg/dL Optim al 100 to 129 mg/dL Near Optim al/ Above Optim al 130 to 159 mg/dL Borde rline High 160 to 189 mg/dL High 190 mg/dL and above Very High * Categ ories as recom antonella d by the 2003 ATPII I guide lines Not Available [facility] ([facility]) [address]it[address], [place], [address], 01/31/2024 03:46:15 01/30/2001/31/2024 LIPID PANEL LDL/HDL ratio 1.2 ratio <3.3 ___ LDL Smitha stero l Patie nt Histo ry ___ Test Date: 10/23 LDL Resul ts: 44 Units : mg/dL % Olmos e: - ----- ----- ----- ----- ----- ----- ----- ----- ----- ----- ----- ----- ----- ----- --- Test Date: 01/29 LDL Resul ts: 53 Units : mg/dL % Olmos e: +20% ___ Not Available [facility] ([facility]) [address] [place] [address] Dr Avitia, [place], [address], 01/31/2024 03:46:15 01/30/20 24 01/31/2024 CBC WITH PLATE LET AND DIFFE RENTI AL WBC 6.5 K/uL 3.8-11 .5 Not Available [facility] ([facility]) [address] [place] [address] Dr Avitia, [place], [address], 01/31/2024 03:46:16 01/30/20 24 01/31/2024 CBC WITH PLATE LET AND DIFFE RENTI AL red blood cell count (RBC) 3.56 M/mm3 3.60-5 .30 low Not Available [facility] ([facility]) [address] [place] [address] Dr Avitia, [place], [address], 01/31/2024 03:46:16 01/30/20 24 01/31/2024 CBC WITH PLATE LET AND DIFFE RENTI AL hemoglobin (HGB) 11.0 gm/dL 11.5-1 5.5 low Not Available [facility] ([facility]) [address] [place] [address] Dr Avitia, [place], [address], 01/31/2024 03:46:16 01/30/20 24 01/31/2024 CBC WITH PLATE LET AND DIFFE RENTI AL hematocrit (HCT) 33.7 % 35.2-4 6.4 low Not Available [facility] ([facility]) [address] [place] [address] Dr Avitia, [place], [address], 01/31/2024 03:46:16 01/30/20 24 01/31/2024 CBC WITH PLATE LET AND DIFFE RENTI AL MCV 94.7 fL 79.0-9 9.0 Not Available [facility] ([facility]) [address] [place] [address] Dr Avitia, [place], [address], 01/31/2024 03:46:16 01/30/20 24 01/31/2024 CBC WITH PLATE LET AND DIFFE RENTI AL MCH 30.9 pg 26.9-3 5.0 Not Available [facility] ([facility]) [address] [place] [address] Dr Avitia, [place], [address], 01/31/2024 03:46:16 01/30/20 24 01/31/2024 CBC WITH PLATE LET AND DIFFE RENTI AL MCHC 32.6 g/dL 30.4-3 4.8 Not Available [facility] ([facility]) [address] [place] [address] Dr Avitia, [place], [address], 01/31/2024 03:46:16 01/30/20 24 01/31/2024 CBC WITH PLATE LET AND DIFFE RENTI AL RDW 48.1 fL 38.6-5 3.8 Not Available [facility] ([facility]) [address] [place] [address] Dr Avitia, [place], [address], 01/31/2024 03:46:16 01/30/20 24 01/31/2024 CBC WITH PLATE LET AND DIFFE RENTI AL platelet count 227 K/cum m 137-39 7 Not Available [facility] ([facility]) [address] [place] [address] Dr Avitia, [place], [address], 01/31/2024 03:46:16 01/30/20 24 01/31/2024 CBC WITH PLATE LET AND DIFFE RENTI AL neutrophils automated 59.0 % 41.0-7 7.0 Not Available [facility] ([facility]) [address] [place] [address] Dr Avitia, [place], [address], 01/31/2024 03:46:16 01/30/20 24 01/31/2024 CBC WITH PLATE LET AND DIFFE RENTI AL lymphocytes automated 28.9 % 14.0-4 8.0 Not Available [facility] ([facility]) [address] [place] [address] Dr Avitia, [place], [address], 01/31/2024 03:46:16 01/30/20 24 01/31/2024 CBC WITH PLATE LET AND DIFFE RENTI AL monocytes automated 7.8 % 4.0-13 .0 Not Available [facility] [address] [place] [address] Dr Avitia, [place], [address], 01/31/2024 03:46:16 01/30/20 24 01/31/2024 CBC WITH PLATE LET AND DIFFE RENTI AL eosinophils automated 3.1 % 0.0-8. 0 Not Available [facility] [address] [place] [address] Dr Avitia, [place], [address], 01/31/2024 03:46:16 01/30/20 24 01/31/2024 CBC WITH PLATE LET AND DIFFE RENTI AL basophils automated 0.9 % 0.0-1. 5 Not Available [facility] ([facility]) [address] [place] [address] Dr Avitia, [place], [address], 01/31/2024 03:46:16 01/30/20 24 01/31/2024 CBC WITH PLATE LET AND DIFFE RENTI AL immature granulocyte automated 0.3 % 0.0-1. 0 Not Available [facility] ([facility]) [address] [place] [address] Dr Avitia, [place], [address], 01/31/2024 03:46:16 01/30/20 24 01/31/2024 COMPR EHENS MICHAEL METAB OLIC PANEL (CMP) sodium 136 mEq/L 135-14 5 Not Available [facility] ([facility]) [address] [place] [address] Dr Avitia, [place], [address], 01/31/2024 03:46:16 01/30/20 24 01/31/2024 COMPR EHENS MICHAEL METAB OLIC PANEL (CMP) potassium 4.5 mEq/L 3.5-5. 3 Not Available [facility] ([facility]) [address] [place] [address] Dr Avitia, [place], [address], 01/31/2024 03:46:16 01/30/20 24 01/31/2024 COMPR EHENS MICHAEL METAB OLIC PANEL (CMP) chloride 101 mEq/L 97-108 Not Available [facility] ([facility]) [address] [place] [address] Dr Avitia, [place], [address], 01/31/2024 03:46:16 01/30/20 24 01/31/2024 COMPR EHENS MICHAEL METAB OLIC PANEL (CMP) CO2 25 mEq/L 22-32 Not Available [facility] ([facility]) [address] [place] [address] Dr Avitia, [place], [address], 01/31/2024 03:46:16 01/30/20 24 01/31/2024 COMPR EHENS MICHAEL METAB OLIC PANEL (CMP) glucose 99 mg/dL 65-99 Not Available [facility] ([facility]) [address] [place] [address] Dr Avitia, [place], [address], 01/31/2024 03:46:16 01/30/20 24 01/31/2024 COMPR EHENS MICHAEL METAB OLIC PANEL (CMP) BUN 21 mg/dL 8-23 Not Available [facility] ([facility]) [address] [place] [address] Dr Avitia, [place], [address], 01/31/2024 03:46:16 01/30/20 24 01/31/2024 COMPR EHENS MICHAEL METAB OLIC PANEL (CMP) creatinine 1.15 mg/dL 0.50-1 .00 high Not Available [facility] ([facility]) [address] [place] [address] Dr Avitia, [place], [address], 01/31/2024 03:46:16 01/30/20 24 01/31/2024 COMPR EHENS MICHAEL METAB OLIC PANEL (CMP) calcium 9.9 mg/dL 8.6-10 .4 Not Available [facility] ([facility]) [address] [place] [address] Dr Avitia, [place], [address], 01/31/2024 03:46:16 01/30/20 24 01/31/2024 COMPR EHENS MICHAEL METAB OLIC PANEL (CMP) eGFR by creatinine 48 mL/mi n/1.7 3m2 >59 low Not Available [facility] ([facility]) [address] [place] [address] Dr Avitia, [place], [address], 01/31/2024 03:46:16 01/30/20 24 01/31/2024 COMPR EHENS MICHAEL METAB OLIC PANEL (CMP) protein 6.7 g/dL 6.0-8. 3 Not Available [facility] ([facility]) [address] [place] [address] Dr Avitia, [place], [address], 01/31/2024 03:46:16 01/30/20 24 01/31/2024 COMPR EHENS MICHAEL METAB OLIC PANEL (CMP) albumin 4.1 g/dL 3.5-5. 3 Not Available [facility] ([facility]) [address] [place] [address] Dr Avitia, [place], [address], 01/31/2024 03:46:16 01/30/20 24 01/31/2024 COMPR EHENS MICHAEL METAB OLIC PANEL (CMP) alkaline phosphatase 89 IU/L 35-121 Not Available [facility] ([facility]) [address] [place] [address] Dr Avitia, [place], [address], 01/31/2024 03:46:16 01/30/20 24 01/31/2024 COMPR EHENS MICHAEL METAB OLIC PANEL (CMP) ALT (SGPT) 21 IU/L <5-47 Not Available [facility] ([facility]) [address] [place] [address] Dr Avitia, [place], [address], 01/31/2024 03:46:16 01/30/20 24 01/31/2024 COMPR EHENS MICHAEL METAB OLIC PANEL (CMP) AST (SGOT) 19 IU/L <5-40 Not Available [facility] ([facility]) [address] [place] [address] Dr Avitia, [place], [address], 01/31/2024 03:46:16 01/30/20 24 01/31/2024 COMPR EHENS MICHAEL METAB OLIC PANEL (CMP) bilirubin, total <0.2 mg/dL <0.2-1 .2 Not Available [facility] ([facility]) [address] [place] [address] Dr Avitia, [place], [address], 01/31/2024 03:46:16 01/30/20 24 01/31/2024 COMPR EHENS MICHAEL METAB OLIC PANEL (CMP) A/G ratio 1.6 mg/dL 1.1-2. 5 Not Available [facility] ([facility]) [address] [place] [address] Dr Avitia, [place], [address], 01/31/2024 03:46:16 01/30/20 24 01/31/2024 PERCE NT SATUR ATION WITH IRON AND IBC iron 71 ug/dL 37-145 Not Available [facility] ([facility]) [address] [facility] [address]itia, [place], [address], 01/31/2024 03:46:17 01/30/20 24 01/31/2024 PERCE NT SATUR ATION WITH IRON AND IBC iron binding cap 285 ug/dL 250-45 0 Not Available [facility]) [address] [facility] [address] Avitia, [place], [address], 01/31/2024 03:46:17 01/30/20 24 01/31/2024 PERCE NT SATUR ATION WITH IRON AND IBC percent saturation 25 % 15-50 Not Available [facility]) [address] [place] [address] Dr Avitia, [place], [address], 01/31/2024 03:46:17 01/30/20 24 01/31/2024 HEMOG LOBIN A1C hemoglobin A1C 6.4 % <5.7 high The follo wing HbA1c range s recom antonella d by the Ameri can Diabe josé Assoc iatio n (ADA) may be used as an aid in the diagn osis of diabe josé melli tus. HA1c Sugge sted Diagn osis >=6.5 % Diabe tic 5.7% - 6.4% Pre-D iabet ic <5.7% Non-D iabet ic Not Available [facility] ([facility]) [address] [place] [address] Dr Avitia, [place], [address], 01/31/2024 03:46:17 01/30/20 24 01/31/2024 HEMOG LOBIN A1C estimated average glucose 137 mg/dL [place] ge Gluco se is calcu lated using the equat ion AG = (28.7 x HgbA1 c) - 46.7 based on the guide lines estab lishe d by the ADA. Not Available [facility] ([facility]) [address] [place] [address] Dr Avitia, [place], [address], 01/31/2024 03:46:17 01/30/20 24 01/31/2024 TSH REFLE X TO FT4 TSH reflex to FT4 0.70 mU/L 0.43-5 .25 Not Available [facility]) [address] [facility], [place], [address], 01/31/2024 03:46:17 04/08/20 24 04/08/2024 pres ripti on/dr abel acharya* Consistent positi ve Not Available [place] [address] [place], [address], 04/08/2024 14:30:42 04/08/20 24 04/08/2024 pres ripti on/dr abel acharya* Issues Found: none Not Available [facility] [address] [place], [address], 04/08/2024 14:30:42 04/08/20 24 04/08/2024 drug confi rmati on, urine Amphetamine AMP negati ve Not Available [place] [address] [place] [address], [address], 04/08/2024 14:30:39 04/08/20 24 04/08/2024 drug confi rmati on, urine Benzodiazepi ne BZO positi ve Not Available [place] [address] [place] [address], [address], 04/08/2024 14:30:39 04/08/20 24 04/08/2024 drug confi rmati on, urine Cocaine MEERA negati ve Not Available [place] [address] [place] [address], [phone], 04/08/2024 14:30:39 04/08/20 24 04/08/2024 drug confi rmati on, urine Morphine MOR negati ve Not Available [place] [address] [place] [address], [address], 04/08/2024 14:30:39 04/08/20 24 04/08/2024 drug confi rmati on, urine Oxycodone OXY negati ve Not Available [place] [address] [place] [address], [address], 04/08/2024 14:30:39 04/08/20 24 04/08/2024 drug confi rmati on, urine Marijuana THC negati ve Not Available [place] [address] [place] [address], [address], 04/08/2024 14:30:39 04/08/20 24 04/08/2024 drug confi rmati on, urine Consistent with Medication Prescribed: positi ve Not Available [address], [address], 04/08/2024 14:30:39 04/08/20 24 04/08/2024 drug confi rmati on, urine Send for Confirmation : negati ve Not Available [address], [address], 04/08/2024 14:30:39 05/07/20 24 05/08/2024 TSH REFLE X TO FT4 TSH reflex to FT4 1.16 mU/L 0.43-5 .25 Not Available [facility] ([facility]) [address], [place], [address], 05/08/2024 02:12:53 05/15/20 24 05/16/2024 LIPID PANEL cholesterol 130 mg/dL <200 Not Available [facility] ([facility]) [address], [place], [address], 05/16/2024 03:47:43 05/15/20 24 05/16/2024 LIPID PANEL triglyceride s 152 mg/dL <150 high Not Available [facility] ([facility]) [address] [facility] [address], [place], [address], 05/16/2024 03:47:43 05/15/20 24 05/16/2024 LIPID PANEL HDL cholesterol 47 mg/dL >39 Not Available [facility] ([facility]) [address] [address], [place], [address], 05/16/2024 03:47:43 05/15/20 24 05/16/2024 LIPID PANEL cholesterol / HDL ratio 2.77 ratio 0.00-4 .44 Not Available [facility] ([facility]) [address] [address], [place], [address], 05/16/2024 03:47:43 05/15/20 24 05/16/2024 LIPID PANEL non-HDL cholesterol 83 mg/dL <130 Not Available [facility] ([facility]) [address] [address], [place], [address], 05/16/2024 03:47:43 05/15/20 24 05/16/2024 LIPID PANEL LDL cholesterol (calculation ) 53 mg/dL <130 LDL Smitha stero l Level s* Less than 100 mg/dL Optim al 100 to 129 mg/dL Near Optim al/ Above Optim al 130 to 159 mg/dL Borde rline High 160 to 189 mg/dL High 190 mg/dL and above Very High * Categ ories as recom antonella d by the 2004 ATPII I guide lines Not Available [facility] ([facility]) [address] [place] [address] Dr [address]it[address], [place], [address], 05/16/2024 03:47:43 05/15/20 24 05/16/2024 LIPID PANEL LDL/HDL ratio 1.1 ratio <3.3 ___ LDL Smitha stero l Patie nt Histo ry ___ Test Date: 10/23 LDL Resul ts: 44 Units : mg/dL % Lomos e: - ----- ----- ----- ----- ----- ----- ----- ----- ----- ----- ----- ----- ----- ----- --- Test Date: 01/29 LDL Resul ts: 53 Units : mg/dL % Olmos e: +20% ----- ----- ----- ----- ----- ----- ----- ----- ----- ----- ----- ----- ----- ----- --- Test Date: 05/15 LDL Resul ts: 53 Units : mg/dL % Olmos e: 0% ___ Not Available [facility] ([facility]) [address], [place], [address], 05/16/2024 03:47:43 05/15/20 24 05/16/2024 CBC WITH PLATE LET AND DIFFE RENTI AL WBC 6.4 K/uL 3.8-11 .5 Not Available [facility] ([facility]) [address] [place] [address] Dr Avitia, [place], [address], 05/16/2024 03:47:43 05/15/20 24 05/16/2024 CBC WITH PLATE LET AND DIFFE RENTI AL red blood cell count (RBC) 3.54 M/mm3 3.60-5 .30 low Not Available [facility] ([facility]) [address] [place] [address] Dr [address]itia, [place], [address], 05/16/2024 03:47:43 05/15/20 24 05/16/2024 CBC WITH PLATE LET AND DIFFE RENTI AL hemoglobin (HGB) 10.9 gm/dL 11.5-1 5.5 low Not Available [facility] ([facility]) [address] [place] [address] Dr [address]itia, [place], [address], 05/16/2024 03:47:43 05/15/20 24 05/16/2024 CBC WITH PLATE LET AND DIFFE RENTI AL hematocrit (HCT) 34.5 % 35.2-4 6.4 low Not Available [facility] ([facility]) [address] [place] [address] Dr [address]itia, [place], [address], 05/16/2024 03:47:43 05/15/20 24 05/16/2024 CBC WITH PLATE LET AND DIFFE RENTI AL MCV 97.5 fL 79.0-9 9.0 Not Available [facility] ([facility]) [address] [place] [address] Dr [address]itia, [place], [address], 05/16/2024 03:47:43 05/15/20 24 05/16/2024 CBC WITH PLATE LET AND DIFFE RENTI AL MCH 30.8 pg 26.9-3 5.0 Not Available [facility] ([facility]) [address] [place] [address] Dr [address]itia, [place], [address], 05/16/2024 03:47:43 05/15/20 24 05/16/2024 CBC WITH PLATE LET AND DIFFE RENTI AL MCHC 31.6 g/dL 30.4-3 4.8 Not Available [facility] ([facility]) [address] [place] [address] Dr Avitia, [place], [address], 05/16/2024 03:47:43 05/15/20 24 05/16/2024 CBC WITH PLATE LET AND DIFFE RENTI AL RDW 47.7 fL 38.6-5 3.8 Not Available [facility] [address] [place] [address] Dr Avitia, [place], [address], 05/16/2024 03:47:43 05/15/20 24 05/16/2024 CBC WITH PLATE LET AND DIFFE RENTI AL platelet count 207 K/cum m 137-39 7 Not Available [facility] ([facility]) [address] [place] [address] Dr Avitia, [place], [address], 05/16/2024 03:47:43 05/15/20 24 05/16/2024 CBC WITH PLATE LET AND DIFFE RENTI AL neutrophils automated 56.6 % 41.0-7 7.0 Not Available [facility]) [address] [place] [address] Dr Avitia, [place], [address], 05/16/2024 03:47:43 05/15/20 24 05/16/2024 CBC WITH PLATE LET AND DIFFE RENTI AL lymphocytes automated 31.9 % 14.0-4 8.0 Not Available [facility]) [address] [place] [address] Dr [address]itia, [place], [address], 05/16/2024 03:47:43 05/15/20 24 05/16/2024 CBC WITH PLATE LET AND DIFFE RENTI AL monocytes automated 8.7 % 4.0-13 .0 Not Available [facility] ([facility]) [address] [place] [address] Dr [address]itia, [place], [address], 05/16/2024 03:47:43 05/15/20 24 05/16/2024 CBC WITH PLATE LET AND DIFFE RENTI AL eosinophils automated 1.7 % 0.0-8. 0 Not Available [facility] ([facility]) [address] [place] [address] Dr [address]itia, [place], [address], 05/16/2024 03:47:43 05/15/20 24 05/16/2024 CBC WITH PLATE LET AND DIFFE RENTI AL basophils automated 0.8 % 0.0-1. 5 Not Available [facility]) [address] [place] [address] Dr [address]itia, [place], [address], 05/16/2024 03:47:43 05/15/20 24 05/16/2024 CBC WITH PLATE LET AND DIFFE RENTI AL immature granulocyte automated 0.3 % 0.0-1. 0 Not Available [facility] ([facility]) [address] [place] [address] Dr [address]itia, [place], [address], 05/16/2024 03:47:43 05/15/20 24 05/16/2024 COMPR EHENS MICHAEL METAB OLIC PANEL (CMP) sodium 138 mmol/ L 135-14 5 Not Available [facility] ([facility]) [address] [place] [address] Dr Avitia, [place] [place], [address], 05/16/2024 03:47:43 05/15/20 24 05/16/2024 COMPR EHENS MICHAEL METAB OLIC PANEL (CMP) potassium 4.4 mmol/ L 3.5-5. 3 Not Available [facility] ([facility]) [address] [place] [address] Dr Avitia, [place], [address], 05/16/2024 03:47:43 05/15/20 24 05/16/2024 COMPR EHENS MICHAEL METAB OLIC PANEL (CMP) chloride 102 mmol/ L 97-108 Not Available [facility] ([facility]) [address] [place] [address] Dr Avitia, [place], [address], 05/16/2024 03:47:43 05/15/20 24 05/16/2024 COMPR EHENS MICHAEL METAB OLIC PANEL (CMP) CO2 25 mmol/ L 22-32 Not Available [facility] ([facility]) [address] [place] [address] Dr Avitia, [place], [address], 05/16/2024 03:47:43 05/15/20 24 05/16/2024 COMPR EHENS MICHAEL METAB OLIC PANEL (CMP) glucose 103 mg/dL 65-99 high Not Available [facility] ([facility]) [address] [place] [address] Dr Avitia, [place], [address], 05/16/2024 03:47:43 05/15/20 24 05/16/2024 COMPR EHENS MICHAEL METAB OLIC PANEL (CMP) BUN 25 mg/dL 8-23 high Not Available [facility] ([facility]) [address] [place] [address] Dr Avitia, [place], [address], 05/16/2024 03:47:43 05/15/20 24 05/16/2024 COMPR EHENS MICHAEL METAB OLIC PANEL (CMP) creatinine 1.30 mg/dL 0.50-1 .00 high Not Available [facility] ([facility]) [address] [place] [address] Dr Avitia, [place], [address], 05/16/2024 03:47:43 05/15/20 24 05/16/2024 COMPR EHENS MICHAEL METAB OLIC PANEL (CMP) calcium 9.6 mg/dL 8.6-10 .4 Not Available [facility] ([facility]) [facility] [address] Avitia, [place], [address], 05/16/2024 03:47:43 05/15/20 24 05/16/2024 COMPR EHENS MICHAEL METAB OLIC PANEL (CMP) eGFR by creatinine 42 mL/mi n/1.7 3m2 >59 low Not Available [facility] ([facility]) [address] [place] [address] Avitia, [place], [address], 05/16/2024 03:47:43 05/15/20 24 05/16/2024 COMPR EHENS MICHAEL METAB OLIC PANEL (CMP) protein 6.3 g/dL 6.0-8. 3 Not Available [facility] ([facility]) [address] [place] [address] Dr Avitia, [place], [address], 05/16/2024 03:47:43 05/15/20 24 05/16/2024 COMPR EHENS MICHAEL METAB OLIC PANEL (CMP) albumin 4.0 g/dL 3.5-5. 3 Not Available [facility] ([facility]) [address] [place] [address] Dr Avitia, [place], [address], 05/16/2024 03:47:43 05/15/20 24 05/16/2024 COMPR EHENS MICHAEL METAB OLIC PANEL (CMP) alkaline phosphatase 89 IU/L 35-121 Not Available [facility] ([facility]) [address] [place] [address] Dr Avitia, [place], [address], 05/16/2024 03:47:43 05/15/20 24 05/16/2024 COMPR EHENS MICHAEL METAB OLIC PANEL (CMP) ALT (SGPT) 12 IU/L <5-47 Not Available [facility] ([facility]) [address] [place] [address] Avitia, [place], [address], 05/16/2024 03:47:43 05/15/20 24 05/16/2024 COMPR EHENS MICHAEL METAB OLIC PANEL (CMP) AST (SGOT) 16 IU/L <5-40 Not Available [facility] ([facility]) [address] [place] [address] Dr Avitia, [place], [address], 05/16/2024 03:47:43 05/15/20 24 05/16/2024 COMPR EHENS MICHAEL METAB OLIC PANEL (CMP) bilirubin, total 0.2 mg/dL <0.2-1 .2 Not Available [facility] ([facility]) [address] [place] [address] Dr Avitia, [place], [address], 05/16/2024 03:47:43 05/15/20 24 05/16/2024 COMPR EHENS MICHAEL METAB OLIC PANEL (CMP) A/G ratio 1.7 mg/dL 1.1-2. 5 Not Available [facility] ([facility]) [address] [place] [address] Avitia, [place], [address], 05/16/2024 03:47:43 05/15/20 24 05/16/2024 MICRO ALBUM IN/CR EATIN INE, RANDO M URINE SAMPL E albumin/crea tinine ratio, urine 20 ug/mg 0-30 Not Available [facility] ([facility]) [address] [place] [address] Avitia, [place], [address], 05/16/2024 03:47:44 05/15/20 24 05/16/2024 MICRO ALBUM IN/CR EATIN INE, RANDO M URINE SAMPL E microalbumin , urine, random 0.7 mg/dL Not Available [facility] ([facility]) [address] [place] [address] Dr Avitia, [place], [address], 05/16/2024 03:47:44 05/15/20 24 05/16/2024 MICRO ALBUM IN/CR EATIN INE, RANDO M URINE SAMPL E creatinine, urine 35.6 mg/dL Not Available [facility] [address] [place] [address] Dr Avitia, [place], [address], 05/16/2024 03:47:44 05/15/20 24 05/16/2024 HEMOG LOBIN A1C hemoglobin A1C 6.6 % <5.7 high The follo wing HbA1c range s recom antonella d by the Ameri can Diabe josé Assoc iatio n (ADA) may be used as an aid in the diagn osis of diabe josé melli tus. HA1c Rodríguez carvajal Diagn osis >=6.5 % Diabe tic 5.7% - 6.4% Pre-D iabet ic <5.7% Non-D iabet ic Not Available [facility] ([facility]) [facility] Dr Avitia, [place], [address], 05/16/2024 03:47:44 05/15/20 24 05/16/2024 HEMOG LOBIN A1C estimated average glucose 143 mg/dL [place] ge Gluco se is calcu lated using the equat ion AG = (28.7 x HgbA1 c) - 46.7 based on the guide lines estab lishe d by the ADA. Not Available [facility] ([facility]) [address] [place] [address] Dr Avitia, [place], [address], 05/16/2024 03:47:44 07/31/20 24 07/31/2024 drug confi rmati on, urine Amphetamine AMP negati ve Not Available [place] [address] [place], [address], 07/31/2024 11:00:47 07/31/20 24 07/31/2024 drug confi rmati on, urine Benzodiazepi ne BZO positi ve Not Available [place] [address] [place], [address], 07/31/2024 11:00:47 07/31/20 24 07/31/2024 drug confi rmati on, urine Cocaine MEERA negati ve Not Available [address], [address], 07/31/2024 11:00:47 07/31/20 24 07/31/2024 drug confi rmati on, urine Morphine MOR negati ve Not Available [place], [address], 07/31/2024 11:00:47 07/31/20 24 07/31/2024 drug confi rmati on, urine Oxycodone OXY negati ve Not Available [place], [address], 07/31/2024 11:00:47 07/31/20 24 07/31/2024 drug confi rmati on, urine Marijuana THC negati ve Not Available [place], [address], 07/31/2024 11:00:47 07/31/20 24 07/31/2024 drug confi rmati on, urine Consistent with Medication Prescribed: positi ve Not Available [address], [address], 07/31/2024 11:00:47 07/31/20 24 07/31/2024 drug confi rmati on, urine Send for Confirmation : negati ve Not Available [address], [address], 07/31/2024 11:00:47 08/28/20 24 08/29/2024 LIPID PANEL cholesterol 141 mg/dL <200 Not Available [facility] ([facility]) [address] [facility] [address] Avitia, [place], [address], 08/29/2024 04:15:55 08/28/20 24 08/29/2024 LIPID PANEL triglyceride s 161 mg/dL <150 high Not Available [facility] ([facility]) [address] [facility] [address] Avitia, [place], [address], 08/29/2024 04:15:55 08/28/2008/29/2024 LIPID PANEL HDL cholesterol 45 mg/dL >39 Not Available [facility] ([facility]) [address] [facility] [address] Avitia, [place], [address], 08/29/2024 04:15:55 08/28/2008/29/2024 LIPID PANEL cholesterol / HDL ratio 3.13 ratio 0.00-4 .44 Not Available [facility] ([facility]) [address] [facility] [address] Avitia, [place], [address], 08/29/2024 04:15:55 08/28/2008/29/2024 LIPID PANEL non-HDL cholesterol 96 mg/dL <130 Not Available [facility] ([facility]) [facility] [address] Avitia, [place], [address], 08/29/2024 04:15:55 08/28/2008/29/2024 LIPID PANEL LDL cholesterol (calculation ) 64 mg/dL <130 LDL Smitha stero l Level s* Less than 100 mg/dL Optim al 100 to 129 mg/dL Near Optim al/ Above Optim al 130 to 159 mg/dL Borde rline High 160 to 189 mg/dL High 190 mg/dL and above Very High * Categ ories as recom antonella d by the 2004 ATPII I guide lines Not Available [facility] ([facility]) [facility] [address] Avitia, [place], [address], 08/29/2024 04:15:55 08/28/2008/29/2024 LIPID PANEL LDL/HDL ratio 1.4 ratio <3.3 ___ LDL Smitha stero l Patie nt Histo ry ___ Test Date: 01/29 LDL Resul ts: 53 Units : mg/dL % Olmos e: +20% ----- ----- ----- ----- ----- ----- ----- ----- ----- ----- ----- ----- ----- ----- --- Test Date: 05/15 LDL Resul ts: 53 Units : mg/dL % Olmos e: 0% ----- ----- ----- ----- ----- ----- ----- ----- ----- ----- ----- ----- ----- ----- --- Test Date: 08/28 LDL Resul ts: 64 Units : mg/dL % Olmos e: +20% ___ Not Available [facility] ([facility]) [address], [place], [address], 08/29/2024 04:15:55 08/28/2008/29/2024 CBC WITH PLATE LET AND DIFFE RENTI AL WBC 5.8 K/uL 3.8-11 .5 Not Available [facility] ([facility]) [address] [place] [address] Dr Avitia, [place], [address], 08/29/2024 04:15:55 08/28/2008/29/2024 CBC WITH PLATE LET AND DIFFE RENTI AL red blood cell count (RBC) 3.63 M/mm3 3.60-5 .30 Not Available [facility] ([facility]) [address] [place] [address] Dr Avitia, [place], [address], 08/29/2024 04:15:55 08/28/2008/29/2024 CBC WITH PLATE LET AND DIFFE RENTI AL hemoglobin (HGB) 10.9 gm/dL 11.5-1 5.5 low Not Available [facility] ([facility]) [address] [place] [address] Dr Avitia, [place], [address], 08/29/2024 04:15:55 08/28/20 24 08/29/2024 CBC WITH PLATE LET AND DIFFE RENTI AL hematocrit (HCT) 34.7 % 35.2-4 6.4 low Not Available [facility] ([facility]) [address] [place] [address] Dr Avitia, [place], [address], 08/29/2024 04:15:55 08/28/2008/29/2024 CBC WITH PLATE LET AND DIFFE RENTI AL MCV 95.6 fL 79.0-9 9.0 Not Available [facility] ([facility]) [address] [place] [address] Dr Avitia, [place], [address], 08/29/2024 04:15:55 10/24/20 24 08/29/2024 CBC WITH PLATE LET AND DIFFE RENTI AL MCH 30.0 pg 26.9-3 5.0 Not Available [facility] ([facility]) [address] [place] [address] Dr Avitia, [place], [address], 08/29/2024 04:15:55 08/28/2008/29/2024 CBC WITH PLATE LET AND DIFFE RENTI AL MCHC 31.4 g/dL 30.4-3 4.8 Not Available [facility] ([facility]) [address] [place] [address] Dr Avitia, [place], [address], 08/29/2024 04:15:55 08/28/2008/29/2024 CBC WITH PLATE LET AND DIFFE RENTI AL RDW 46.3 fL 38.6-5 3.8 Not Available [facility] ([facility]) [address] [place] [address] Dr Avitia, [place], [address], 08/29/2024 04:15:55 08/28/2008/29/2024 CBC WITH PLATE LET AND DIFFE RENTI AL platelet count 222 K/cum m 137-39 7 Not Available [facility] ([facility]) [address] [place] [address] Dr Avitia, [place], [address], 08/29/2024 04:15:55 08/28/2008/29/2024 CBC WITH PLATE LET AND DIFFE RENTI AL neutrophils automated 59.2 % 41.0-7 7.0 Not Available [facility] ([facility]) [address] [place] [address] Dr Avitia, [place], [address], 08/29/2024 04:15:55 08/28/2008/29/2024 CBC WITH PLATE LET AND DIFFE RENTI AL lymphocytes automated 28.7 % 14.0-4 8.0 Not Available [facility] ([facility]) [address] [place] [address] Dr Avitia, [place], [address], 08/29/2024 04:15:55 08/28/20 24 08/29/2024 CBC WITH PLATE LET AND DIFFE RENTI AL monocytes automated 8.7 % 4.0-13 .0 Not Available [facility] ([facility]) [address] [place] [address] Dr Avitia, [place], [address], 08/29/2024 04:15:55 08/28/20 24 08/29/2024 CBC WITH PLATE LET AND DIFFE RENTI AL eosinophils automated 2.2 % 0.0-8. 0 Not Available [facility] ([facility]) [address] [place] [address] Dr Avitia, [place], [address], 08/29/2024 04:15:55 08/28/20 24 08/29/2024 CBC WITH PLATE LET AND DIFFE RENTI AL basophils automated 0.9 % 0.0-1. 5 Not Available [facility] ([facility]) [address] [place] [address] Dr Avitia, [place], [address], 08/29/2024 04:15:55 08/28/2008/29/2024 CBC WITH PLATE LET AND DIFFE RENTI AL immature granulocyte automated 0.3 % 0.0-1. 0 Not Available [facility] [address] [place] [address] Dr Avitia, [place], [address], 08/29/2024 04:15:55 08/28/20 24 08/29/2024 COMPR EHENS MICHAEL METAB OLIC PANEL (CMP) sodium 141 mmol/ L 135-14 5 Not Available [facility] ([facility]) [address] [place] [address] Dr Avitia, [place], [address], 08/29/2024 04:15:56 08/28/20 24 08/29/2024 COMPR EHENS MICHAEL METAB OLIC PANEL (CMP) potassium 4.4 mmol/ L 3.5-5. 3 Not Available [facility] ([facility]) [address] [place] [address] Dr Avitia, [place], [address], 08/29/2024 04:15:56 08/28/2008/29/2024 COMPR EHENS MICHAEL METAB OLIC PANEL (CMP) chloride 103 mmol/ L 97-108 Not Available [facility] ([facility]) [address] [place] [address] Dr Avitia, [place], [address], 08/29/2024 04:15:56 08/28/2008/29/2024 COMPR EHENS MICHAEL METAB OLIC PANEL (CMP) CO2 27 mmol/ L 22-32 Not Available [facility] ([facility]) [address] [place] [address] Dr Avitia, [place], [address], 08/29/2024 04:15:56 08/28/2008/29/2024 COMPR EHENS MICHAEL METAB OLIC PANEL (CMP) glucose 106 mg/dL 65-99 high Not Available [facility] ([facility]) [address] [place] [address] Dr Avitia, [place], [address], 08/29/2024 04:15:56 08/28/20 24 08/29/2024 COMPR EHENS MICHAEL METAB OLIC PANEL (CMP) BUN 17 mg/dL 8-23 Not Available [facility] ([facility]) [address] [place] [address] Dr Avitia, [place], [address], 08/29/2024 04:15:56 08/28/2008/29/2024 COMPR EHENS MICHAEL METAB OLIC PANEL (CMP) creatinine 1.05 mg/dL 0.50-1 .00 high Not Available [facility] ([facility]) [address] [place] [address] Dr Avitia, [place], [address], 08/29/2024 04:15:56 08/28/20 24 08/29/2024 COMPR EHENS MICHAEL METAB OLIC PANEL (CMP) calcium 9.5 mg/dL 8.6-10 .4 Not Available [facility] ([facility]) [address] [place] [address] Dr Avitia, [place], [address], 08/29/2024 04:15:56 08/28/2008/29/2024 COMPR EHENS MICHAEL METAB OLIC PANEL (CMP) eGFR by creatinine 54 mL/mi n/1.7 3m2 >59 low Not Available [facility] ([facility]) [address] [place] [address] Dr Avitia, [place], [address], 08/29/2024 04:15:56 08/28/2008/29/2024 COMPR EHENS MICHAEL METAB OLIC PANEL (CMP) protein 6.5 g/dL 6.0-8. 3 Not Available [facility] ([facility]) [address] [place] [address] Dr Avitia, [place], [address], 08/29/2024 04:15:56 08/28/2008/29/2024 COMPR EHENS MICHAEL METAB OLIC PANEL (CMP) albumin 4.0 g/dL 3.5-5. 3 Not Available [facility] ([facility]) [address] [place] [address] Dr Avitia, [place], [address], 08/29/2024 04:15:56 08/28/20 24 08/29/2024 COMPR EHENS MICHAEL METAB OLIC PANEL (CMP) alkaline phosphatase 93 IU/L 35-121 Not Available [facility] ([facility]) [address] [place] [address] Dr Avitia, [place], [address], 08/29/2024 04:15:56 08/28/20 24 08/29/2024 COMPR EHENS MICHAEL METAB OLIC PANEL (CMP) ALT (SGPT) 13 IU/L <5-47 Not Available [facility] ([facility]) [facility] [address] Avitia, [place], [address], 08/29/2024 04:15:56 08/28/2008/29/2024 COMPR EHENS MICHAEL METAB OLIC PANEL (CMP) AST (SGOT) 15 IU/L <5-40 Not Available [facility]) [facility] [address] Avitia, [place], [address], 08/29/2024 04:15:56 08/28/2008/29/2024 COMPR EHENS MICHAEL METAB OLIC PANEL (CMP) bilirubin, total 0.3 mg/dL <0.2-1 .2 Not Available [facility]) [facility] [address] Avitia, [place], [address], 08/29/2024 04:15:56 08/28/20 24 08/29/2024 COMPR EHENS MICHAEL METAB OLIC PANEL (CMP) A/G ratio 1.6 1.1-2. 5 Not Available [facility]) [address] [place] [address] Dr Avitia, [place], [address], 08/29/2024 04:15:56 08/28/2008/29/2024 HEMOG LOBIN A1C hemoglobin A1C 6.6 % <5.7 high The follo wing HbA1c range s recom antonella d by the Ameri can Diabe josé Assoc iatio n (ADA) may be used as an aid in the diagn osis of diabe josé melli tus. HbA1c Sugge sted Diagn osis >=6.5 % Diabe tic 5.7% - 6.4% Pre-D iabet ic <5.7% Non-D iabet ic Not Available [facility]) [facility] [address] Avit[address], [place], [address], 08/29/2024 04:15:56 08/28/20 24 08/29/2024 HEMOG LOBIN A1C estimated average glucose (EAG) 143 mg/dL Estim ated [place] ge Gluco se (eAG) is calcu lated using the equat ion eAG = (28.7 x HbA1c ) - 46.7 based on the guide lines estab lishe d by the ADA. If the patie nt has certa in disea ses inclu ding kidne y disea se, sickl e cell anemi a, thala ssemi a, or is takin g medic ation s such as dapso ne, eryth ropoi etin, or iron, eAG shoul d not be evalu ated. Not Available [facility] ([facility]) [facility] [address], [place], [address], 08/29/2024 04:15:56 08/28/20 24 08/29/2024 TSH REFLE X TO FT4 TSH reflex to FT4 0.89 mU/L 0.43-5 .25 Not Available [facility] ([facility]) [facility] [address], [place], [address], 08/29/2024 04:15:57 10/15/20 23 US, abdom en, compl ete No observ ation record ed. [email or web address] Not Available 2022 17:46:50 03/14/20 24 03/13/2024 CT, knee, w/o contr ast No observ ation record ed. [email or web address] [facility] Room [address] [facility], [place], [address], 03/18/2024 12:09:41 09/24/2009/24/2024 MAMMO , scree marcos, digit al, bilat eral No observ ation record ed. [email or web address] [facility] [address] [facility], [place], [address], 09/29/2024 13:53:36 Result Notes None recorded. Problems Name Problem SNOMED Code Status Onset Date Resolution Date Notes Provider Name and Address Organization Details Recorded Time Seasonal allergic rhinitis 030423606 Active 2020 Not Available [employer] 4 03:42:01 Gastroesophag eal reflux disease 288273445 Active 2020 Not Available [employer] 4 03:42:01 Rheumatoid arthritis 60781273 Active 2020 Not Available [employer] 4 03:42:02 Iron deficiency anemia 30691826 Active 2020 Not Available [facility] 4 03:42:02 Hypothyroidis m 52927829 Active 2020 Not Available [employer] 4 03:42:01 Benign essential hypertension 3969347 Active 2020 Not Available [employer] 4 03:42:01 Chronic pain syndrome 843786639 Active 2020 Not Available [facility] 4 03:42:01 Fibromyalgia 795569773 Active 2020 Not Available [employer] 4 03:42:01 Chronic kidney disease stage 3 349042281 Active 2020 Not Available [employer] 4 03:42:01 Cardiac pacemaker in situ 674243457 Active 2020 Not Available [employer] 4 03:42:02 Arthritis 2738452 Active 2021 Not Available [employer] 4 03:42:01 Maintenance procedure for cardiac pacemaker system Active 2021 Not Available [facility] 4 03:42:01 Irritable bowel syndrome 30636245 Active 2021 Not Available [facility] 4 03:42:01 Chronic low back pain 026763717 Active 2021 Not Available [facility] 4 03:42:01 Insomnia 867761395 Active 2021 Not Available [facility] 4 03:42:01 Mixed hyperlipidemi a 826462227 Active 2021 Not Available [facility] 4 03:42:01 Anxiety 02514064 Active 2021 Not Available [facility] 4 03:42:02 Obstructive sleep apnea syndrome 33746841 Active 2021 Not Available [facility] 4 03:42:02 Notes:Some problems listed i n Documents: #[id number], #[id number], #[id number], #[id number], #[id number], #[id number], #[id number], #[id number], #[id number], #[id number] could not be added to this patient's chart. Please review these documents and add these problems to the patient's chart manually as needed. Problem Notes None recorded. Procedures Surgical History Date Name Laterality Status Provider Name and Address Organization Details Recorded Time 07/31/20 24 1003F: LEVEL OF ACTIVITY ASSESSED completed [facility] 07/31/2024 10:49:46 05/15/20 24 1003F: LEVEL OF ACTIVITY ASSESSED completed [facility] 05/15/2024 10:27:00 10/08/20 23 1090F: PRESENCE OR ABSENCE OF URINARY INCONTINENCE ASSESSED (TRISTAN) completed Casandra Hebert LPN [facility] 10/08/2023 09:23:13 04/20/20 23 1090F: PRESENCE OR ABSENCE OF URINARY INCONTINENCE ASSESSED (TRISTAN) completed [facility] 04/19/2023 14:54:54 04/20/20 23 1101F: PT SCREEN FALL RISK; NO FALL PAST YR; 1 FALL PST YR NO INJRY completed [facility] 04/19/2023 14:54:54 04/20/20 23 1220F: PATIENT SCREENED FOR DEPRESSION (ANIYA) completed [facility] 04/19/2023 14:54:54 01/05/20 22 1126F: PAIN SEVERITY QUANTIFIED; NO PAIN PRESENT completed [facility] 01/04/2022 16:48:05 01/05/20 22 1159F: MEDICATION LIST DOCUMENTED IN MEDICAL RECORD (COA) completed [facility] 01/04/2022 16:48:05 01/05/20 22 1160F: REV OF ALL MEDS BY PRESCRIBING PRACTITIONER [facility] 01/04/2022 16:48:05 01/05/20 22 1999F: BLOOD PRESSURE, MEASURED completed [facility] 01/04/2022 16:48:05 01/05/202000F: WEIGHT RECORDED completed [facility] 01/04/2022 16:48:05 01/05/20 22 2009F: VITAL SIGNS RECORDED (T, P, R, & BP) (CAP)1 completed [facility] 01/04/2022 16:48:05 01/05/20 22 3008F: BODY MASS INDEX (BMI), DOCUMENTED (PV) [facility] 01/04/2022 16:48:05 11/02/20 21 1003F: LEVEL OF ACTIVITY ASSESSED completed [facility] 11/02/2021 11:44:44 11/02/20 21 1125F: PAIN SEVERITY QUANTIFIED; PAIN PRESENT completed [facility] 11/02/2021 11:44:44 11/02/20 21 1159F: MEDICATION LIST DOCUMENTED IN MEDICAL RECORD (COA) completed [facility] 11/02/2021 11:44:44 11/02/20 21 1160F: REV OF ALL MEDS BY PRESCRIBING PRACTITIONER completed [facility] 11/02/2021 11:44:44 11/02/201999F: BLOOD PRESSURE, MEASURED completed [facility] 11/02/2021 11:44:44 11/02/202000F: WEIGHT RECORDED completed [facility] 11/02/2021 11:44:44 11/02/202002F: AUSCULTATION OF THE HEART PERFORMED completed [facility] 11/02/2021 11:44:44 11/02/202009F: VITAL SIGNS RECORDED (T, P, R, & BP) (CAP)1 completed [facility] 11/02/2021 11:44:44 11/02/20 3008F: BODY MASS INDEX (BMI), DOCUMENTED (PV) completed [facility] 11/02/2021 11:44:44 11/16/19 Colonoscopy completed Damaris [facility] 06/21/2022 09:33:38 Carpal tunnel surgery completed [facility] 11/02/2021 11:46:26 Cataract Surgery completed [facility] 11/02/2021 11:46:43 procedure on gallbladder completed [facility] 11/02/2021 11:46:59 Joint Replacement completed [facility] 11/02/2021 11:47:15 Imaging Results Imaging Date Name Status LastModified by Organiz ation Details LastModified Time 10/15/2023 US, abdomen, complete completed Information not available 10/16/2023 17:46:50 03/13/2024 CT, knee, w/o contrast completed [address] [facility] [address] [place], [address], 03/18/2024 12:09:41 09/24/2024 MAMMO, screening, digital, bilateral completed [facility] [address] [place], [address], 09/29/2024 13:53:36 Procedure Notes None recorded. Medical Equipment None Reported. Allergies No known drug allergies Medications Name Sig Start Date Stop Date Status Note LastModified by Organization Details LastModified Time telmisartan 40 mg-hydrochl orothiazide 12.5 mg tablet Take 1 tablet every day by oral route. 12/02 completed Not Available Not Available Not Available amoxicillin 500 mg capsule TAKE 1 CAPSULE BY MOUTH THREE TIMES DAILY AFTER MEALS 07/21 completed Not Available Not Available Not Available atorvastati n 40 mg tablet TAKE 1 TABLET BY MOUTH EVERY DAY. 03/20 completed Not Available Not Available Not Available tizanidine 2 mg tablet TAKE 1 TO 2 TABLETS BY MOUTH DAILY AT BEDTIME NEEDED active Not Available Not Available No t Available cetirizine 10 mg tablet TAKE 1 TABLET BY MOUTH DAILY active Not Available Not Available No t Available azithromyci n 250 mg tablet TAKE 2 TABLETS (500 MG) BY ORAL ROUTE ONCE DAILY FOR 1 DAY THEN 1 TABLET (250 MG) BY ORAL ROUTE ONCE DAILY FOR 4 DAYS 09/18 completed Not Available Not Available Not Available ibuprofen 800 mg tablet TAKE 1 TABLET BY MOUTH EVERY 8 HOURS FOR 5 DAYS 05/19 completed Not Available Not Available Not Available tizanidine 4 mg tablet TAKE 1 TABLET BY MOUTH DAILY AT BEDTIME NEEDED active Not Available Not Available No t Available benzonatate 200 mg capsule TAKE 1 CAPSULE BY MOUTH EVERY 8 HOURS NEEDED FOR COUGH 05/25 completed Not Available Not Available Not Available metoprolol succinate ER 50 mg tablet,exte nded release 24 hr TAKE 1 TABLET BY MOUTH EVERY DAY active Not Available Not Available No t Available hydrocodone 5 mg-acetamin ophen 325 mg tablet TAKE 1 TABLET BY MOUTH THREE TIMES DAILY NEEDED 07/31 completed Not Available Not Available Not Available meloxicam 15 mg tablet TAKE 1 TABLET BY MOUTH EVERY DAY 06/22 completed Not Available Not Available Not Available phenazopyri dine 200 mg tablet TAKE 1 TABLET BY MOUTH THREE TIMES DAILY FOR 2 DAYS active Not Available Not Available No t Available gabapentin 400 mg capsule TAKE 1 CAPSULE BY MOUTH FOUR TIMES DAILY active Not Available Not Available No t Available simethicone 125 mg capsule Take 1 capsule twice a day by oral route with meals. 01/29 completed Not Available Not Available Not Available Accu-Chek Softclix Lancets USE TO TEST BLOOD SUGAR ONCE DAILY active Not Available Not Available No t Available sulfamethox azole 800 mg-trimetho prim 160 mg tablet TAKE 1 TABLET BY MOUTH TWICE DAILY AFTER MEALS 10/23 completed Not Available Not Available Not Available hydrocodone 10 mg-acetamin ophen 325 mg tablet TAKE 1/2 TABLET BY MOUTH THREE TIMES DAILY NEEDED FOR NON ACUTE PAIN 05/25 completed Not Available Not Available Not Available omeprazole 40 mg capsule,del ayed release TAKE 1 CAPSULE BY MOUTH EVERY DAY active Not Available Not Available No t Available liothyronin e 5 mcg tablet TAKE 1 TABLET BY MOUTH EVERY DAY active Not Available Not Available No t Available tramadol 50 mg tablet TAKE 1-2 TABLETS BY MOUTH UP TO THREE TIMES DAILY FOR SEVERE PAIN FOR 30 DAYS active Not Available Not Available No t Available amoxicillin 500 mg tablet TAKE 4 TABLET BY MOUTH AN HOUR BEFORE DENTAL PROCEDURE 05/25 completed Not Available Not Available Not Available prednisone 10 mg tablets in a dose pack Take 1 dose pk by oral route as directed. 01/03 completed Not Available Not Available Not Available oxycodone-a cetaminophe n 5 mg-325 mg tablet TAKE 1 TABLET BY MOUTH EVERY 6 HOURS FOR 3 DAYS NEEDED FOR PAIN 07/03 completed Not Available Not Available Not Available alprazolam 0.5 mg tablet TAKE 1 TABLET BY MOUTH IN THE EVENING NEEDED active Not Available Not Available No t Available ceftriaxone 1 gram solution for injection 1 gram IM now 01/04 completed Not Available Not Available Not Available trazodone 100 mg tablet TAKE 2 TABLETS BY MOUTH AT BEDTIME active Not Available Not Available No t Available dicyclomine 20 mg tablet TAKE 1 TO 2 TABLET BY MOUTH 15 TO 30 MINUTES PRIOR TO MAIN MEAL NEEDED 2024 active Not Available Not Available Not Avai lable amlodipine 10 mg tablet Take 1 tablet every day by oral route. 12/02 completed Not Available Not Available Not Available benzonatate 100 mg capsule TAKE 1 CAPSULE BY MOUTH THREE TIMES DAILY FOR 10 DAYS 09/18 completed Not Available Not Available Not Available desloratadi ne 5 mg tablet TAKE 1 TABLET BY MOUTH EVERY DAY active Not Available Not Available No t Available cephalexin 500 mg capsule TAKE 1 CAPSULE BY MOUTH TWICE DAILY FOR 7 DAYS 03/13 completed Not Available Not Available Not Available pantoprazol e 40 mg tablet,corrina yed release TAKE 1 TABLET BY MOUTH EVERY DAY 01/29 completed Not Available Not Available Not Available erythromyci n 5 mg/gram (0.5 %) eye ointment APPLY 1 CM RIBBON INTO THE LOWER CONJUNCTI GEOFFREY SAC(S) IN THE AFFECTED EYE(S) BY OPHTHALMI C ROUTE 3 TIMES PER DAY FOR 7 DAYS 05/15 completed Not Available Not Available Not Available trazodone 150 mg tablet TAKE 1 TABLET BY MOUTH EVERY DAY AT BEDTIME active Not Available Not Available No t Available halobetasol propionate 0.05 % topical ointment APPLY TOPICALLY TO THE AFFECTED AREA 2 TIMES A WEEK EVERY NIGHT AT BEDTIME active Not Available Not Available No t Available gabapentin 300 mg capsule TAKE 2 CAPSULES BY MOUTH EVERY MORNING AND EVERY EVENING 11/09 completed Not Available Not Available Not Available ceftriaxone 500 mg solution for injection 500 mg IM now 01/29 completed Not Available Not Available Not Available diclofenac sodium 50 mg tablet,corrina yed release TAKE 1 TABLET BY MOUTH TWICE DAILY AFTER A MEAL 05/15 completed Not Available Not Available Not Available metoprolol succinate ER 25 mg tablet,exte nded release 24 hr TAKE 1 TABLET BY MOUTH EVERY DAY 07/31 completed Not Available Not Available Not Available clobetasol 0.05 % topical ointment APPLY TO AFFECTED AREA EVERY NIGHT AT BEDTIME FOR 3 MONTHS THEN DECREASE TO TWICE A WEEK active Not Available Not Available No t Available diazepam 10 mg tablet active Not Available Not Available No t Available estradiol 0.01% (0.1 mg/gram) vaginal cream active Not Available Not Available Not Available methylpredn isolone 4 mg tablets in a dose pack FOLLOW PACKAGE DIRECTION S 05/25 completed Not Available Not Available Not Available albuterol sulfate HFA 90 mcg/actuati on aerosol inhaler INHALE ONE PUFF BY MOUTH TWICE DAILY active Not Available Not Available No t Available losartan 50 mg-hydrochl orothiazide 12.5 mg tablet TAKE 1 TABLET BY MOUTH EVERY DAY 07/21 completed Not Available Not Available Not Available ketorolac 60 mg/2 mL intramuscul ar solution 60 mg IM now 04/20 completed Not Available Not Available Not Available oxybutynin chloride 5 mg tablet active Not Available Not Available No t Available betamethaso ne dipropionat e 0.05 % topical ointment APPLY THIN LAYER TOPICALLY TO THE AFFECTED AREA ONCE DAILY NEEDED 11/22 completed Not Available Not Available Not Available cefdinir 300 mg capsule TAKE 1 CAPSULE BY MOUTH EVERY 12 HOURS FOR 10 DAYS DIRECTED 05/19 completed Not Available Not Available Not Available fluticasone propionate 50 mcg/actuati on nasal spray,suspe nsion SHAKE LIQUID AND USE 1 SPRAY IN EACH NOSTRIL TWICE DAILY FOR 14 DAYS 05/15 completed Not Available Not Available Not Available loratadine 10 mg tablet TAKE 1 TABLET BY MOUTH EVERY DAY FOR 14 DAYS 11/22 completed Not Available Not Available Not Available omeprazole ER 40 mg capsule,ext ended release Take 1 capsule every day by oral route. 12/09 completed Not Available Not Available Not Available diazepam 5 mg tablet TAKE 1 TO 2 TABLETS BY MOUTH 45 MINUTES BEFORE PROCEDURE FOR 1 DAY NEEDED 11/22 completed Not Available Not Available Not Available levothyroxi ne 112 mcg tablet TAKE 1 TABLET BY MOUTH EVERY DAY BEFORE A MEAL active Not Available Not Available No t Available amoxicillin 875 mg-potassiu m clavulanate 125 mg tablet TAKE 1 TABLET BY MOUTH TWICE DAILY 01/29 completed Not Available Not Available Not Available cyclobenzap rine 5 mg tablet TAKE 1 TABLET BY MOUTH THREE TIMES DAILY NEEDED active Not Available Not Available No t Available desloratadi ne 5 mg disintegrat ing tablet active Not Available Not Available N ot Available rosuvastati n 40 mg tablet TAKE 1 TABLET BY MOUTH EVERY DAY active Not Available Not Available No t Available metoprolol tartrate 25 mg tablet TAKE 1 TABLET BY MOUTH EVERY DAY 05/25 completed Not Available Not Available Not Available nitrofurant oin monohydrate /macrocryst als 100 mg capsule TAKE 1 CAPSULE BY MOUTH TWICE DAILY FOR 7 DAYS 07/31 completed Not Available Not Available Not Available chlorhexidi ne gluconate 0.12 % mouthwash SWISH 15 ML IN THE MOUTH OR THROAT IF NEEDED FOR WOUND CARE FOR UP TO 10 DAYS 01/29 completed Not Available Not Available Not Available losartan 100 mg-hydrochl orothiazide 12.5 mg tablet TAKE 1 TABLET BY MOUTH EVERY DAY active Not Available Not Available No t Available levothyroxi ne 1 tablet po Qam 12/09 completed Not Available Not Available Not Available hydrocodone 5 mg-acetamin ophen 300 mg tablet Take 1 tablet twice a day by oral route as needed. 12/09 completed Not Available Not Available Not Available tramadol ER 100 mg tablet,exte nded release 24 hr TAKE 1 TABLET BY MOUTH EVERY DAY 04/11 completed Not Available Not Available Not Available Mucinex DM 60 mg-1,200 mg tablet,exte nded release 12 hr 1 tablet twice daily as needed for cough 05/25 completed Not Available Not Available Not Available diclofenac 1 % topical gel APPLY 2 GRAMS TO THE AFFECTED AREA BY TOPICAL ROUTE FOUR TIMES DAILY 05/15 completed Not Available Not Available Not Available Accu-Chek Fatuma Plus test strips USE TO TEST BLOOD SUGAR ONCE DAILY active Not Available Not Available No t Available Flonase Allergy Relief 12/09 completed Not Available Not Available Not Available naloxone 4 mg/actuatio n nasal spray 06/21 completed Not Available Not Available Not Available 24 Hour Nasal Allergy 55 mcg spray aerosol USE 2 SPRAYS IN EACH NOSTRIL EVERY DAY active Not Available Not Available No t Available rosuvastati n 10 mg sprinkle capsule active Not Available Not Available Not Available Astepro Allergy 205.5 mcg (0.15 %) nasal spray Purvis 1 spray twice a day by intranasa l route. 2022 active Not Available Not Available Not Avai lable Vitals Date Recorded Body height Body mass index (BMI) Body weight Respiratory rate Heart rate Body temperature Oxygen saturation Oxygen saturation in Arterial blood by Pulse oximetry Systolic blood pressure Diastolic blood pressure Provider Name and Address Organization Details Last Updated DateTime 4 144.78 cm 35.8 kg/m2 21051.9 g 16 /min 86 /min 99 [degF] 96 % 96 % 138 mm[Hg] 76 mm[Hg] Damaris WALLER [facility] 4 15:46:51 Date Recorded Body height Body mass index (BMI) Body weight Heart rate Respiratory rate Oxygen saturation Oxygen saturation in Arterial blood by Pulse oximetry Body temperature Systolic blood pressure Diastolic blood pressure Systolic blood pressure Diastolic blood pressure Provider Name and Address Organization Details Last Updated DateTime 4 144.78 cm 36.6 kg/m2 19675.1 1 g 73 /min 18 /min 99 % 99 % 97.7 [degF] 181 mm[Hg] 90 mm[Hg] 168 mm[Hg] 86 mm[Hg] Emory ana Sol [facility] 4 10:57:31 Date Recorded Body height Body mass index (BMI) Body weight Body temperature Respiratory rate Heart rate Oxygen saturation Oxygen saturation in Arterial blood by Pulse oximetry Systolic blood pressure Diastolic blood pressure Provider Name and Address Organization Details Last Updated DateTime 4 144.78 cm 37 kg/m2 76647.3 g 98.3 [degF] 18 /min 80 /min 95 % 95 % 165 mm[Hg] 85 mm[Hg] Emory ana Sol [facility] 4 14:29:02 Date Recorded Body height Heart rate Respiratory rate Body mass index (BMI) Body weight Oxygen saturation Oxygen saturation in Arterial blood by Pulse oximetry Systolic blood pressure Diastolic blood pressure Provider Name and Address Organization Details Last Updated DateTime 4 144.78 cm 74 /min 16 /min 38.5 kg/m2 31405.4 4 g 98 % 98 % 144 mm[Hg] 60 mm[Hg] [facility] 4 10:43:27 Date Recorded Body height Body mass index (BMI) Body weight Heart rate Respiratory rate Oxygen saturation Oxygen saturation in Arterial blood by Pulse oximetry Systolic blood pressure Diastolic blood pressure Provider Name and Address Organization Details Last Updated DateTime 4 144.78 cm 37.9 kg/m2 50566.6 6 g 80 /min 16 /min 98 % 98 % 148 mm[Hg] 68 mm[Hg] [facility] 4 10:59:47 Date Recorded Body height Provider Name an d Address Organization Details Last Updated DateTime 08/28/2024 144.78 cm Alesia Arora [facility] 08/28/2024 10:15:28 Social History Question Answer Notes LastModified by Organizat ion Details LastModified Time Tobacco Smoking Status Former Smoker daniel mejía [facility] 11/02/2021 11:50:15 Do You Have An Advance Directive? No Information not available 06/21/2022 What Is Your Level Of Alcohol Consumption? None Information not available 03/13/2023 Are You Blind Or Do You Have Difficulty Seeing? No [email or web address] Information not available 11/09/2023 Is Blood Transfusion Acceptable In An Emergency? Yes [email or web address] Information not available 11/09/2023 What Is Your Level Of Caffeine Consumption? Moderate Information not available 06/21/2022 What Is Your Code Status? Full Code [email or web address] Information not available 11/09/2023 Are You Deaf Or Do You Have Serious Difficulty Hearing? No [email or web address] Information not available 11/09/2023 What Was The Date Of Your Most Recent Tobacco Screening? 07/31/2024 [email or web address] Information not available 07/31/2024 What Is Your Relationship Status? Single Information not available 06/21/2022 Do You Use Your Seat Belt Or Car Seat Routinely? Yes [email or web address] Information not available 11/09/2023 At What Age Did You Start Smoking Tobacco? 12 Information not available 06/21/2022 How Much Tobacco Do You Smoke? No [email or web address] Information not available 07/31/2024 Do You Use Any Illicit Or Recreational Drugs? No [email or web address] Information not available 11/09/2023 How Many Years Have You Smoked Tobacco? 20 Information not available 06/21/2022 Do You Or Have You Ever Used Any Other Forms Of Tobacco Or Nicotine? No [email or web address] Information not available 11/09/2023 Sex: Female Functional Status Question Answer Note LastModified by Organizat ion Details LastModified Time Do you have difficulty walking or climbing stairs? No [email or web address] Information not available 11/09/2023 Do you have transportation difficulties? No [email or web address] Information not available 11/09/2023 Are you able to walk? YESASSIST [email or web address] Information not available 11/09/2023 Do you have difficulty doing errands alone? No [email or web address] Information not available 11/09/2023 Are you able to care for yourself? Yes [email or web address] Information not available 11/09/2023 Do you have difficulty dressing or bathing? No [email or web address] Information not available 11/09/2023 Mental Status Question Answer Note LastModified by Organization D etails LastModified Time Do you have difficulty concentrating, remembering or making decisions? No [email or web address] Information no t available 11/09/2023 Family History Relationship Description Onset Age of this Age Resolved Age Notes LastModified by Organization Details LastModified Time Father No current problems or disability [email or web address] Not available 07/31 10:11:28 Father Arthritis ebachand Not availabl e 06/21/2022 09:26:09 Father Hypercholest erolemia ebachand Not available 2021 09:26:09 Father Hypertensive disorder ebachand Not available 2021 09:26:09 Mother No current problems or disability [email or web address] Not available 07/31 10:11:28 Mother Depressive disorder ebachand Not available 2021 09:26:09 Mother Hypertensive disorder ebachand Not available 2021 09:26:09 Mother Arthritis ebachand Not availabl e 06/21/2022 09:26:09 Mother Hypercholest erolemia ebachand Not available 2021 09:26:09 Maternal Grandmother Cerebrovascu lar accident ebachand Not available 09:26:09 Maternal Grandfather Cerebrovascu lar accident ebachand Not available 09:26:09 Brother Hypercholest erolemia ebachand Not available 2021 09:26:09 Brother Arthritis ebachand Not availab le 06/21/2022 09:26:09 Brother Hypertensive disorder ebachand Not available 2021 09:26:09 Sister Depressive disorder ebachand Not available 2021 09:26:09 Sister Asthma ebachand Not available 0 06/21/2022 09:26:09 Sister Hypertensive disorder ebachand Not available 2021 09:26:09 Sister Hypercholest erolemia ebachand Not available 2021 09:26:09 Sister Arthritis ebachand Not availabl e 06/21/2022 09:26:09 Medical History Condition Response Anxiety Disorder Y Diabetes Y Muscle, Joint, or Bone Problems Y Arthritis Y Thyroid Problems Y Depression Y Anemia Y Bladder or Kidney Problems Y Reflux/GERD Y High Cholesterol Y Fibromyalgia Y Hypertension Y Kidney Disease Y Gynecological History Statement/Question Response STIs/STDs N If Post Menopausal, Age at Menopause 47 Age at Menarche 12 Age at First Child 15 Date of LMP 04/05/1996 Sexually Active? Y N Obstetrics History GPAL:G 3 P 3 0 0 3 Type Value Full Term 3 Living 3 Total 3 Immunizations Vaccine Type Date Status Note Provider Nam e and Address Organization Details Recorded Time Influenza, high-dose, trivalent, PF 06/14/2021 completed Not Available [facility] 2023 03:42:02 COVID-19, mRNA, LNP-S, PF, 100 mcg/0.5mL dose or 50 mcg/0.25mL dose 01/14/2021 completed Not Available [facility] 4 03:42:02 COVID-19, mRNA, LNP-S, PF, 100 mcg/0.5mL dose or 50 mcg/0.25mL dose 02/14/2021 completed Not Available [facility] 4 03:42:02 COVID-19, mRNA, LNP-S, PF, 100 mcg/0.5mL dose or 50 mcg/0.25mL dose 08/25/2021 completed Not Available [facility] 4 03:42:02 Influenza, high-dose, quadrivalent, PF 07/13/2022 completed Not Available [facility] 4 03:42:02 COVID-19, mRNA, LNP-S, bivalent, PF, 30 mcg/0.3 mL dose 07/14/2022 completed Not Available [facility] 4 03:42:02 Influenza, adjuvanted, quadrivalent, PF 08/23/2023 completed Not Available [facility] 4 03:42:02 COVID-19, mRNA, LNP-S, PF, sandra-sucrose, 30 mcg/0.3 mL 08/23/2023 completed Not Available [facility] 2023 03:42:02 RSV, recombinant, protein subunit RSVpreF, adjuvant reconstituted, 0.5 mL, PF 07/08/2024 completed CHRISTIN Umana - [facility] 07/31/2024 10:45:38 Influenza, high-dose, trivalent, PF 07/08/2024 completed February CHRISTIN Guthrie [facility] 07/31/2024 10:45:38 Past Encounters Encounter ID Performer Location Encounter Start Date Encounter Closed Date Diagnosis/Indication Diagnosis SNOMED-CT Code Diagnosis ICD10 Code Diagnosis Note [id number] PAT VEGA [address] [place] [address] [place] [address] 11/02/2021 11:11:50 11/02/2021 12:10:49 Body mass index 30+ - obesity 650511333 Z68.36 Chronic pain syndrome 37 8599613 G89.4 Fibromyalgia 101173639 M 79.7 Requesting prior pain management consult notes. Patient reports she is currently taking Hydrocodon e 5mg- acetaminop hen 300 mg tabs for her chronic pain. Patient requests medication refills. Will refer to pain management . She should notify the office of any new or worsening symptoms. Benign ess ential hypertension 5380454 I10 Well controlled on current medication s. Lab work as below. Mixed hyperlipidemia 267 492482 E78.2 Hypothyroidism 36949577 E03.9 Iron defic iency anemia 81871088 D50.9 Cardiac pa ayaz in situ 559202737 Z95.0 Patient requests referral to cardiology . Will update lab work at this time and request prior cardiology consult notes. Continue current medication s. Chronic ki dney disease stage 3 [id number] N18.30 [id number] MD Tatiana Harrison [address] [facility] [place] [address] 12/02/2021 09:22:35 12/02/2021 10:01:57 Benign essential hypertension 3427436 I10 Well controlled on current medication s. Lab work as below. Chronic ki dney disease stage 3 378136362 N18.30 Fibromyalgia 075951555 M 79.7 Requesting prior pain management consult notes. Patient reports she is currently taking Hydrocodon e 5mg- acetaminop hen 300 mg tabs for her chronic pain. Patient requests medication refills. Will refer to pain management . She should notify the office of any new or worsening symptoms. Chronic pain syndrome 37 6829889 G89.4 Body mass index 30+ - obesity 946272595 Z68.35 Allergic rhinitis 603262 04 J30.9 [id number] [address] [address] 12/16/2021 10:09:36 12/16/2021 10:45:23 Body mass index 30+ - obesity 359672533 Z68.35 Cough 41907759 R05.9 Acute uppe r respiratory infection 30548405 J06.9 Patient presented with symptoms of upper respirator y infection. Advised to drink plenty of fluids and get plenty of rest. Patient should avoid over-exert ion and reduce exposure to irritants such as smoke, cold, dry air, and dust. Treatment currently involves symptomati c relief. Patient may take acetaminop hen as directed to reduce fever and body aches. Antihistam ine and decongesta nt usage was discussed and recommenda tions made. Patient understood these instructio ns and will follow up in the office for any persistent or worsening symptoms. Seasonal a llergic rhinitis 019275983 J30.2 [id number] Avinash Marroquin MD [address] [address] 01/03/2022 11:46:57 01/03/2022 12:30:05 Body mass index 30+ - obesity 188555642 Z68.36 Acute sinusitis 56372445 J01.90 Persistent cough 4570180 02 R05.3 Chronic pain syndrome 37 8010019 G89.4 exempt. 1 month refill authorized per Dr. Marroquin [id number] Avinash Marroquin MD [address] [address] 01/04/2022 16:37:56 01/04/2022 17:04:23 Benign essential hypertension 0330169 I10 Well controlled on current medication s. Lab work as below. Chronic ki dney disease stage 3 240822497 N18.30 Fibromyalgia 786517919 M 79.7 Requesting prior pain management consult notes. Patient reports she is currently taking Hydrocodon e 5mg- acetaminop hen 300 mg tabs for her chronic pain. Patient requests medication refills. Will refer to pain management . She should notify the office of any new or worsening symptoms. Chronic pain syndrome 37 3108291 G89.4 exempt. 1 month refill authorized per Dr. Marroquin Body mass index 30+ - obesity 865633234 Z68.36 Allergic rhinitis 205308 04 J30.9 Hypothyroidism 24580387 E03.9 Insomnia 356341136 G47.0 0 Irritable bowel syndrome 78605761 K58.9 Patient not currently seeing GI [id number] Avinash Marroquin MD [address] [address] 02/03/2022 10:35:42 02/03/2022 11:10:55 Chronic pain syndrome 062847630 G89.4 exempt. Long-term drug therapy 321656164 Z79.899 Anxiety 14083593 F41.9 Body mass index 30+ - obesity 367362909 Z68.35 Mixed hyperlipidemia 267 300470 E78.2 Iron defic iency anemia 11798810 D50.9 [id number] Joy Bhatia NP [address] [address] 02/20/2022 09:21:12 02/20/2022 10:10:41 Impaired fasting glycemia 222262351 R73.01 [id number] Avinash Marroquin MD [address] [address] 04/21/2022 10:47:30 04/21/2022 11:20:57 Fibromyalgia 259569332 M79.7 Requesting prior pain management consult notes. Patient reports she is currently taking Hydrocodon e 5mg- acetaminop hen 300 mg tabs for her chronic pain. Patient requests medication refills. Will refer to pain management . She should notify the office of any new or worsening symptoms. Chronic pain syndrome 37 4475102 G89.4 exempt. Body mass index 30+ - obesity 712070058 Z68.35 [id number] NAKUL AVILA [address] [address] 05/25/2022 09:00:01 05/25/2022 10:29:21 Vaginitis 54960740 N76.0 Per patient several years ago she began having issues with vaginal irritation . She states she was seen by a [employer] and they took biopsies and gave her medication . She is unable to tell me results of this or the meds that were given, we are requesting records. Pelvic exam and tests as below performed today. She is in a current flare. will test as below and likely send to [employer] [facility] next step. Body mass index 30+ - obesity 117724778 Z68.35 [id number] Avinash Marroquin MD [address] [facility] [place] [address] 06/21/2022 09:19:39 06/21/2022 09:47:19 Chronic pain syndrome 489024413 G89.4 exempt. Long-term drug therapy 367693342 Z79.899 Anxiety 37028810 F41.9 Body mass index 30+ - obesity 445943549 Z68.35 Mixed hyperlipidemia 267 077611 E78.2 Insomnia 494222561 G47.0 0 Hypothyroidism 20240698 E03.9 Acute uppe r respiratory infection 86250516 J06.9 [id number] Avinash Marroquin MD [address] [address] 07/21/2022 11:48:35 07/21/2022 12:24:46 Body mass index 30+ - obesity 041610024 Z68.36 Rheumatoid arthritis 698 34795 M06.9 Dysfunctio n of bilateral eustachian tubes 6131409314 178771 H69.93 [id number] Avinash Marroquin MD [address] [place] [address] 08/07/2022 11:55:38 08/07/2022 13:58:55 Body mass index 30+ - obesity 331720016 Z68.36 Obstructiv e sleep apnea syndrome 08779906 G47.33 Chronic pain syndrome 37 0499797 G89.4 exempt. Chronic low back pain 27 0908575 M54.50 [id number] Avinash Marroquin MD [address] [place] [address] 09/14/2022 10:08:16 09/14/2022 11:00:41 Body mass index 30+ - obesity 610627742 Z68.35 Arthritis 9264994 M19.90 Multiple joint pain 3567 8005 M25.50 [id number] MD Daryn Harrisonst [address] [facility] [place] [address] 11/22/2022 10:52:26 11/22/2022 12:53:46 Chronic pain syndrome 628085688 G89.4 exempt. Long-term drug therapy 238853125 Z79.899 Anxiety 99204177 F41.9 Body mass index 30+ - obesity 709472058 Z68.35 Mixed hyperlipidemia 267 479031 E78.2 Insomnia 323301356 G47.0 0 Hypothyroidism 99553669 E03.9 Gastroesop hageal reflux disease 125036278 K21.9 Irritable bowel syndrome 34085982 K58.9 Benign ess ential hypertension 8489019 I10 [id number] MD Daryn Harrison[address] [place] [address] 03/13/2023 09:36:13 03/13/2023 11:16:56 Body mass index 30+ - obesity 879713576 Z68.35 Chronic pain syndrome 37 7016338 G89.4 exempt. Long-term drug therapy 301537403 Z79.899 Mixed hyperlipidemia 267 137503 E78.2 Anxiety 50324842 F41.9 Insomnia 235877010 G47.0 0 Hypothyroidism 11372593 E03.9 Gastroesop hageal reflux disease 804097247 K21.9 Irritable bowel syndrome 37825945 K58.9 Benign ess ential hypertension 0033297 I10 Fatigue 71185172 R53.83 [id number] MD Tatiana Harrison [address] [place], [place] [address] [place] [address] 04/11/2023 12:13:05 04/11/2023 12:33:27 Body mass index 30+ - obesity 919957507 Z68.35 Arthritis 2078941 M19.90 Chronic pain syndrome 37 9547752 G89.4 exempt. Irritable bowel syndrome 83704195 K58.9 Flatulence symptom 55792 8004 R14.3 [id number] MD Tatiana Harrison [address] [place], [place] [address] [place] [address] 04/20/2023 10:54:53 04/20/2023 11:57:08 Adult health examination 853512274 Z00.01 Screening for malignant neoplasm of colon 568229292 Z12.11 completed 2020 Screening for malignant neoplasm of breast 899648387 Z12.31 Screening for osteoporosis 192345940 M89.9 Benign ess ential hypertension 2610223 I10 Mixed hyperlipidemia 267 444454 E78.2 Chronic ki dney disease stage 3 460284897 N18.30 Anxiety 82028811 F41.9 Arthritis 8988705 M19.90 Chronic low back pain 27 1598287 M54.50 Chronic pain syndrome 37 9381342 G89.4 exempt. 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 Discussed use of cool compress and tylenol as needed for discomfort . She was advised to monitor and notify the office of any new or worsening symptoms such as swelling around the eye, increasing pain, vision change, or fever. Patient and family member expressed understand ing and agreement. [id number] MD Tatiana Harrison [address] [facility] [place] [address] 05/30/2023 15:09:36 05/30/2023 16:05:54 Body mass index 30+ - obesity 914771089 Z68.35 Dizziness 104880144 R42 sports drinks daily [id number] Avinash Marroquin MD [address] [place] [address] 06/19/2023 11:05:55 06/19/2023 11:38:50 Body mass index 30+ - obesity 551418283 Z68.36 Chronic pain syndrome 37 9042122 G89.4 exempt. Long-term drug therapy 324607184 Z79.899 Mixed hyperlipidemia 267 018492 E78.2 Anxiety 81070486 F41.9 Insomnia 720243486 G47.0 0 Hypothyroidism 83285337 E03.9 Gastroesop hageal reflux disease 382013091 K21.9 Irritable bowel syndrome 82001576 K58.9 Benign ess ential hypertension 4856847 I10 Iron defic iency anemia 02284426 D50.9 Rheumatoid arthritis 698 41335 M06.9 Hyperglycemia 87661681 R 73.9 [id number] Avinash Marroquin MD [address] [address] 07/03/2023 10:15:46 07/03/2023 10:35:56 Body mass index 30+ - obesity 012565502 Z68.36 Spasmodic torticollis 74 661613 G24.3 [id number] PRAKASH MARCELO APRN [address] [address] 07/25/2023 09:12:34 07/25/2023 09:56:09 Body mass index 30+ - obesity 088692285 Z68.34 Seasonal a llergic rhinitis 549145231 J30.2 Acute sinusitis 31708166 J01.90 [id number] Avinash Marroquin MD [address] [place] [address] 09/18/2023 09:25:30 09/18/2023 10:07:13 Body mass index 30+ - obesity 771579679 Z68.36 Chronic pain syndrome 37 7163477 G89.4 exempt. Bursitis o f right shoulder 9634166234 57363 M75.51 Spasmodic torticollis 74 894138 G24.3 [id number] MD Daryn Harrison[address] [address] 10/08/2023 10:08:56 10/08/2023 10:56:06 Dysuria 44030669 R30.0 Pyuria 8091009 R82.81 Swollen abdomen 05657939 R19.00 [id number] Avinash Marroquin MD [address] [address] 10/23/2023 11:20:54 10/23/2023 11:53:49 Chronic pain syndrome 257767857 G89.4 exempt. Mixed hyperlipidemia 267 735871 E78.2 Anxiety 58951594 F41.9 UDS needed Insomnia 222770326 G47.0 0 Hypothyroidism 86767240 E03.9 Gastroesop hageal reflux disease 724589604 K21.9 Irritable bowel syndrome 56343601 K58.9 Benign ess ential hypertension 1261552 I10 Iron defic iency anemia 24192426 D50.9 Rheumatoid arthritis 698 76409 M06.9 Hyperglycemia 19400886 R 73.9 Body mass index 30+ - obesity 687021705 Z68.36 [id number] Avinash Marroquin MD [address] [address] 11/09/2023 15:14:18 11/09/2023 16:06:56 Chronic pain syndrome 926787419 G89.4 exempt.Francia boyle wishes to discuss Gabapentin dose. Provider and patient had discussed tapering down dose. Patient states she did not. Body mass index 30+ - obesity 287495595 Z68.35 Productive cough 5450827 5 R05.9 community- acquired pneumonia [id number] Avinash Marroquin MD [address] [address] 01/30/2024 10:33:25 01/30/2024 11:22:07 Anxiety 09114751 F41.9 UDS needed Hypothyroidism 91689874 E03.9 Iron defic iency anemia 85645452 D50.9 Obstructiv e sleep apnea syndrome 18919221 G47.33 Mixed hyperlipidemia 267 512304 E78.2 Gastroesop hageal reflux disease 883026048 K21.9 Irritable bowel syndrome 11520541 K58.9 Chronic pain syndrome 37 9599447 G89.4 exempt.Pat ient wishes to discuss Gabapentin dose. Provider and patient had discussed tapering down dose. Patient states she did not. Benign ess ential hypertension 8969757 I10 Insomnia 281826924 G47.0 0 Hyperglycemia 59625247 R 73.9 [id number] Avinash Marroquin MD [address] [address] 04/08/2024 14:24:23 04/08/2024 14:54:20 Anxiety 74230712 F41.9 UDS needed Hypothyroidism 78034839 E03.9 Mixed hyperlipidemia 267 305067 E78.2 Benign ess ential hypertension 8537849 I10 Insomnia 850318435 G47.0 0 Body mass index 30+ - obesity 719790537 Z68.37 Long-term drug therapy 800760993 Z79.899 Seasonal a llergic rhinitis 657653072 J30.2 Allergic rhinitis 521190 04 J30.9 Irritable bowel syndrome 85388072 K58.9 Chronic pain syndrome 37 3864964 G89.4 exempt.Pat ient wishes to discuss Gabapentin dose. Provider and patient had discussed tapering down dose. Patient states she did not. Gastroesop hageal reflux disease 274658565 K21.9 [id number] Avinash Marroquin MD [address] [address] 05/15/2024 10:21:44 05/15/2024 11:02:05 Mixed hyperlipidemia 178627770 E78.2 Insomnia 444999882 G47.0 0 Low back pain 195793816 M54.50 Chronic pain syndrome 37 5530803 G89.4 exempt.Pat ient wishes to discuss Gabapentin dose. Provider and patient had discussed tapering down dose. Patient states she did not. Gastroesop hageal reflux disease 454482330 K21.9 Seasonal a llergic rhinitis 773655086 J30.2 Spasmodic torticollis 74 393007 G24.3 Body mass index 30+ - obesity 967458718 Z68.38 Chronic ki dney disease stage 3 255145643 N18.30 Benign ess ential hypertension 9392747 I10 Hyperglycemia 90302483 R 73.9 [id number] Avinash Marroquin MD [address] [address] 07/31/2024 10:11:26 07/31/2024 11:12:01 Anxiety 93412935 F41.9 UDS needed Mixed hyperlipidemia 267 887878 E78.2 Chronic low back pain 27 3888439 M54.50 Gastroesop hageal reflux disease 802146458 K21.9 Seasonal a llergic rhinitis 789412157 J30.2 Chronic pain syndrome 37 3886421 G89.4 exempt.Pat ient wishes to discuss Gabapentin dose. Provider and patient had discussed tapering down dose. Patient states she did not. Hypothyroidism 78797316 E03.9 Insomnia 963018516 G47.0 0 Allergic rhinitis 776798 04 J30.9 Body mass index 30+ - obesity 169804588 Z68.37 Long-term drug therapy 125746930 Z79.899 Health Concerns Section Related Observation LastModified by Organization Detai ls LastModified Time None Recorded Concern Status LastModified by Organization Details LastModified Time None Recorded Advance Directives Directive N: Payers Encounter Date Sequence Insurance Name Policy Number Policy Mayorga Covered Member ID Mayorga Member ID Guarantor Name 11/09/2023 1 [facility] [place] (MEDICARE REPLACEMENT HMO) TNDSNP Nusrat Zepeda [id number] Nusrat Zepeda 01/30/2024 1 [facility] [place]ARE RE[place]ACEMENT HMO[place] Nusrat Zepeda [id number] Nusrat Zepeda 01/30/2024 2 [place] [id number] Nusrat Zepeda [id number] Nusrat Zepeda 04/08/2024 1 [facility] [place]MEDICARE REPLACEMENT HMO[place]DSNP Nusrat Zepeda [id number] Nusrat Zepeda 04/08/2024 2 [place] [id number] Nusrat Zepeda [id number] Nusrat Zepeda 05/15/2024 1 [facility] [place]ARE REPLACEMENT HMO[place] TNDSNP Nusrat Gomezdonado [id number] Nusrat Zepeda 05/15/2024 2 [place] [id number] Nusrat Zepeda [id number] Nusrat Zepeda 07/31/2024 1 [facility] [place]MEDICARE REPLACEMENT HMO) [place]DS[place] Nusrat Zepeda [id number] Nusrat Zepeda 07/31/2024 2 [place] [id number] Nusrat Zepeda [id number] Nusrat Zepeda Notes Date Note Type Note Provider Name and Address Organization Details Recorded Time 024 text/ht ml Chronic Pain Follow-upReported bypatient.Analgesia:taking pain medication Pain Severity:average pain: ; worst pain: ; difference in pain level: ADL Improvements:physically functioning; able to maintain relationships; mood unaffected; overall function improved Adverse Reactions:no nausea; no vomiting; no itching; no mental cloudiness; no sweating; no fatigue; no drowsiness; no sexual dysfunctionGeneralized Anxiety DisorderReported bypatient.Onset/Timing:years Severity:moderate Context:life stressors Modifying Factors:psychotropic medication Associated Symptoms:difficulty concentrating;difficulty controlling worry;excess anxiety;increased heart rate;shortness of breath;fatigue;high irritability;headaches;restlessness;s leep disturbancesHyperlipidemiaReported bypatient.Type of hyperlipidemia:combined Duration:chronic Control:usually poorly controlled Current Therapy:currently taking: (atorvastatin 40mg) Compliance:compliant;noncompliant with diet;does not exercise Risk Factors:hypertension;obesityHypertens ion IM/FMReported bypatient.Quality:here for check-up Duration:HTN present for years Onset/Timing:better Context:none Alleviating Factors:medication Aggravating Factors:worse with activity Self Care:not under emotional stress;sedentary Associated Symptoms:no shortness of breath; no palpitations; no headaches; no loss of vision; no chest pain;fatigueHypothyroidReported bypatient.Reason for Visit:general check-up; TSH check/labs Duration:>12 months Associated Symptoms:no weakness; no fatigue; no goiter; no mass detected; no chest pain; no palpitations;fatigue Treatment:current dose: 112 mcg (and Liothyronine 5mcg); taking medication as directedJoint & Soft Tissue PainReported bypatient.Location:left; right; joint pain; muscle aches Quality:aching;throbbing Timing:frequent; constant Severity:pain level 8/10;worst pain 10/10 Duration:years Context:arthritis and fibromyalgia Alleviating Factors:rest Aggravating Factors:twisting;bending/squatting;pu shing/pulling;ROM;weightbearing;cold weather Associated Symptoms:weakness;numbness;tingling;i nstability;radiation down legReflux/GERDReported bypatient.Symptomsheartburn Quality:burning;pressure Severity:improving Duration:present 1-4 years Onset/Timing:still present Context:non-smoker; no drug/alcohol abuse;related to any meal;related to spicy foods Alleviating Factors:medication; proton pump inhibitors; non-spicy foods; antacids Aggravating Factors:worsened by food Associated Symptoms:heartburnSleep ProblemsReported bypatient.Hand Dominance:right General Sleep:snoring;sleep apnea;witnessed apnea;insomnia: difficulty falling asleep;insomnia: awakening in the middle of the night;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;unrefreshing sleep;excessive sleepiness during the day (daytime somnolence) Onset/Timing:chronic; initially started years ago (>15 years) Severity:moderate;limits daily activities;difficulty getting going in the morning Quality:loud snoring Pain disturbing sleep:improved with current treatment; Currently wears CPAP Orthopnea:using 2extra pillows or sleeping upright (orthopnea) Prescribed sleep medications:current medication is helping CPAP:uses CPAP every night Associated Symptoms:sleep problems for years, sleep problems are staying the same and the patient has problems both getting to sleep and staying asleep;hypertension;history of sleep disorder Patient presents for CDM and med refillsLast labs 10/23/23Patient ambulates with a cane today Avinash Marroquin MD [address] [place] [address], [place], [address] , [place] [facility] 01/30/2024 11:11:07 024 text/ht ml Chronic Pain Follow-upReported bypatient.Analgesia:taking pain medication Pain Severity:average pain: ; worst pain: ; difference in pain level: ADL Improvements:physically functioning; able to maintain relationships; mood unaffected; overall function improved Adverse Reactions:no nausea; no vomiting; no itching; no mental cloudiness; no sweating; no fatigue; no drowsiness; no sexual dysfunctionGeneralized Anxiety DisorderReported bypatient.Onset/Timing:years Severity:moderate Context:life stressors Modifying Factors:psychotropic medication Associated Symptoms:no dizziness; no trembling; no twitching; no exaggerated startle response;difficulty concentrating;difficulty controlling worry;excess anxiety;increased heart rate;shortness of breath;fatigue;high irritability;headaches;restlessness;s leep disturbancesHyperlipidemiaReported bypatient.Type of hyperlipidemia:combined Duration:chronic Control:usually poorly controlled Current Therapy:currently taking: (atorvastatin 40mg) Compliance:compliant;noncompliant with diet;does not exercise Complications:no coronary artery disease Risk Factors:hypertension;obesityHypertens ion IM/FMReported bypatient.Quality:here for check-up Duration:HTN present for years Onset/Timing:better Context:none Alleviating Factors:medication Aggravating Factors:worse with activity Self Care:not under emotional stress;sedentary Associated Symptoms:no shortness of breath; no palpitations; no headaches; no loss of vision; no chest pain;fatigueHypothyroidReported bypatient.Reason for Visit:general check-up; TSH check/labs Duration:>12 months Associated Symptoms:no weakness; no lightheadedness; no fatigue; no cold intolerance; no pain; no dry/coarse skin; no goiter; no mass detected; no chest pain; no palpitations;fatigue Treatment:current dose: 112 mcg (and Liothyronine 5mcg); taking medication as directedJoint & Soft Tissue PainReported bypatient.Location:left; right; joint pain; muscle aches Quality:aching;throbbing Timing:frequent; constant Severity:pain level 8/10;worst pain 10/10 Duration:years Context:arthritis and fibromyalgia Alleviating Factors:rest Aggravating Factors:twisting;bending/squatting;pu shing/pulling;ROM;weightbearing;cold weather Associated Symptoms:weakness;numbness;tingling;i nstability;radiation down legReflux/GERDReported bypatient.Symptomsheartburn Quality:burning;pressure Severity:improving Duration:present 1-4 years Onset/Timing:still present Context:non-smoker; no drug/alcohol abuse;related to any meal;related to spicy foods Alleviating Factors:medication; proton pump inhibitors; non-spicy foods; antacids Aggravating Factors:worsened by food Associated Symptoms:heartburnSleep ProblemsReported bypatient.Hand Dominance:right General Sleep:snoring;sleep apnea;witnessed apnea;insomnia: difficulty falling asleep;insomnia: awakening in the middle of the night;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;unrefreshing sleep;excessive sleepiness during the day (daytime somnolence) Onset/Timing:chronic; initially started years ago (>15 years) Severity:moderate;limits daily activities;difficulty getting going in the morning Quality:loud snoring Pain disturbing sleep:improved with current treatment; Currently wears CPAP Orthopnea:using 2extra pillows or sleeping upright (orthopnea) Prescribed sleep medications:current medication is helping CPAP:uses CPAP every night Associated Symptoms:sleep problems for years, sleep problems are staying the same and the patient has problems both getting to sleep and staying asleep;hypertension;history of sleep disorder Patient presents for CDM and med refillsLast labs 01/30/24Patient ambulates with a cane today Avinash Marroquin MD [address] [place] [address], [phone] , [facility] 04/08/2024 14:51:55 024 text/ht ml Chronic Pain Follow-upReported bypatient.Analgesia:taking pain medication Pain Severity:average pain: ; worst pain: ; difference in pain level: ADL Improvements:physically functioning; able to maintain relationships; mood unaffected; overall function improved Adverse Reactions:no nausea; no vomiting; no itching; no mental cloudiness; no sweating; no fatigue; no drowsiness; no sexual dysfunctionGeneralized Anxiety DisorderReported bypatient.Onset/Timing:years Severity:moderate Context:life stressors Modifying Factors:psychotropic medication Associated Symptoms:no difficulty concentrating; no difficulty controlling worry; no difficulty swallowing; no anxiety; no sweating; no hot flashes; no chest pain; no increased heart rate; no shortness of breath; no nausea; no diarrhea; no fatigue; no irritability; no muscle tension; no dizziness; no muscle aches; no trembling; no twitching; no exaggerated startle response; no headaches; no restlessness; no sleep disturbancesHyperlipidemiaReported bypatient.Type of hyperlipidemia:combined Duration:chronic Control:usually poorly controlled Current Therapy:currently taking: (atorvastatin 40mg) Compliance:compliant;noncompliant with diet;does not exercise Complications:no coronary artery disease Risk Factors:hypertension;obesityHypertens ion IM/FMReported bypatient.Quality:here for check-up Duration:HTN present for years Onset/Timing:better Context:none Alleviating Factors:medication Aggravating Factors:worse with activity Self Care:not under emotional stress;sedentary Associated Symptoms:no shortness of breath; no palpitations; no headaches; no loss of vision; no chest pain;fatigueHypothyroidReported bypatient.Reason for Visit:general check-up; TSH check/labs Duration:>12 months Associated Symptoms:no weakness; no lightheadedness; no fatigue; no cold intolerance; no pain; no dry/coarse skin; no goiter; no mass detected; no chest pain; no palpitations;fatigue Treatment:current dose: 112 mcg (and Liothyronine 5mcg); taking medication as directedJoint & Soft Tissue PainReported bypatient.Location:left; right; joint pain; muscle aches Quality:aching;throbbing Timing:frequent; constant Severity:pain level 8/10;worst pain 10/10 Duration:years Context:arthritis and fibromyalgia Alleviating Factors:rest Aggravating Factors:twisting;bending/squatting;pu shing/pulling;ROM;weightbearing;cold weather Associated Symptoms:weakness;numbness;tingling;i nstability;radiation down legReflux/GERDReported bypatient.Symptomsheartburn Quality:burning;pressure Severity:improving Duration:present 1-4 years Onset/Timing:still present Context:non-smoker; no drug/alcohol abuse;related to any meal;related to spicy foods Alleviating Factors:medication; proton pump inhibitors; non-spicy foods; antacids Aggravating Factors:worsened by food Associated Symptoms:heartburnSleep ProblemsReported bypatient.Hand Dominance:right General Sleep:snoring;sleep apnea;witnessed apnea;insomnia: difficulty falling asleep;insomnia: awakening in the middle of the night;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;unrefreshing sleep;excessive sleepiness during the day (daytime somnolence) Onset/Timing:chronic; initially started years ago (>15 years) Severity:moderate;limits daily activities;difficulty getting going in the morning Quality:loud snoring Pain disturbing sleep:improved with current treatment; Currently wears CPAP Orthopnea:using 2extra pillows or sleeping upright (orthopnea) Prescribed sleep medications:current medication is helping CPAP:uses CPAP every night Associated Symptoms:sleep problems for years, sleep problems are staying the same and the patient has problems both getting to sleep and staying asleep;hypertension;history of sleep disorder Patient presents for CDM and med refillsLast labs 01/30/24Patient ambulates with a cane today Avinash Marroquin MD [address] [place] [address], [place], [phone] [facility] 05/15/2024 11:00:53 024 text/ ml Chronic Pain Follow-upReported bypatient.Analgesia:taking pain medication Pain Severity:average pain: ; worst pain: ; difference in pain level: ADL Improvements:physically functioning; able to maintain relationships; mood unaffected; overall function improved Adverse Reactions:no nausea; no vomiting; no itching; no mental cloudiness; no sweating; no fatigue; no drowsiness; no sexual dysfunctionGeneralized Anxiety DisorderReported bypatient.Onset/Timing:years Severity:moderate Context:life stressors Modifying Factors:psychotropic medication Associated Symptoms:no difficulty concentrating; no difficulty controlling worry; no difficulty swallowing; no anxiety; no sweating; no hot flashes; no chest pain; no increased heart rate; no shortness of breath; no nausea; no diarrhea; no fatigue; no irritability; no muscle tension; no dizziness; no muscle aches; no trembling; no twitching; no exaggerated startle response; no headaches; no restlessness; no sleep disturbancesHyperlipidemiaReported bypatient.Type of hyperlipidemia:combined Duration:chronic Control:usually poorly controlled Current Therapy:currently taking: (atorvastatin 40mg) Compliance:compliant;noncompliant with diet;does not exercise Complications:no coronary artery disease Risk Factors:hypertension;obesityHypertens ion IM/FMReported bypatient.Quality:here for check-up Duration:HTN present for years Onset/Timing:better Context:none Alleviating Factors:medication Aggravating Factors:worse with activity Self Care:not under emotional stress;sedentary Associated Symptoms:no shortness of breath; no palpitations; no headaches; no loss of vision; no chest pain;fatigueHypothyroidReported bypatient.Reason for Visit:general check-up; TSH check/labs Duration:>12 months Associated Symptoms:no weakness; no lightheadedness; no fatigue; no cold intolerance; no pain; no dry/coarse skin; no goiter; no mass detected; no chest pain; no palpitations;fatigue Treatment:current dose: 112 mcg (and Liothyronine 5mcg); taking medication as directedJoint & Soft Tissue PainReported bypatient.Location:left; right; joint pain; muscle aches Quality:aching;throbbing Timing:frequent; constant Severity:pain level 8/10;worst pain 10/10 Duration:years Context:arthritis and fibromyalgia Alleviating Factors:rest Aggravating Factors:twisting;bending/squatting;pu shing/pulling;ROM;weightbearing;cold weather Associated Symptoms:weakness;numbness;tingling;i nstability;radiation down legReflux/GERDReported bypatient.Symptomsheartburn Quality:burning;pressure Severity:improving Duration:present 1-4 years Onset/Timing:still present Context:non-smoker; no drug/alcohol abuse;related to any meal;related to spicy foods Alleviating Factors:medication; proton pump inhibitors; non-spicy foods; antacids Aggravating Factors:worsened by food Associated Symptoms:heartburnSleep ProblemsReported bypatient.Hand Dominance:right General Sleep:snoring;sleep apnea;witnessed apnea;insomnia: difficulty falling asleep;insomnia: awakening in the middle of the night;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;unrefreshing sleep;excessive sleepiness during the day (daytime somnolence) Onset/Timing:chronic; initially started years ago (>15 years) Severity:moderate;limits daily activities;difficulty getting going in the morning Quality:loud snoring Pain disturbing sleep:improved with current treatment; Currently wears CPAP Orthopnea:using 2extra pillows or sleeping upright (orthopnea) Prescribed sleep medications:current medication is helping CPAP:uses CPAP every night Associated Symptoms:sleep problems for years, sleep problems are staying the same and the patient has problems both getting to sleep and staying asleep;hypertension;history of sleep disorder Patient presents for CDM and med refillsLast labs 05/15/24Patient ambulates with a cane today Avinash Marroquin MD [address] [place] [address], [facility] [place], [phone] , [facility] 07/31/2024 11:10:46 OBGyn Episode No OBEpisode recorded.
--- OUTSIDE RECORDS SUMMARY | 2024-12-02 13:15 | XMS_ITS | Clinical Summary ---
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 Role Phone Unavailable Primary Care Provider Unavailabl e Family History Medical History Relation Comments Heart disease Father Hypertension Mother Stroke Mother Cancer Sibling sister Relation Status Comments Father Mother Sibling Social History Tobacco Use Types Packs/Day Years Used Date Smoking Tobacco: Former Comments:Smoking History Inf o:Every day Alcohol Use Standard Drinks/Week Comments Yes 0 (1 standard drink = 0.6 oz pure alcohol) Alcoholic Drinks/day: Occasional social drink Comments Unknown Sex and Gender Information Value Date Recorded Sex Assigned at Not on file Legal Sex Female 5:09 PM EST Gender Identity Not on file Sexual Orientation Not on file Plan of Treatment Health Maintenance Due Date Last Done Comments Pneumococcal Vaccine: 65+ Ye ars (1 of 1 - PCV) 2009 Influenza Vaccine (#1) 2024 08/05/2013 Hepatitis B Vaccine Aged Out No longe r eligible based on patient's age to complete this topic
--- OUTSIDE RECORDS SUMMARY | 2024-12-02 13:15 | XMS_ITS | Patient Health Record ---
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 Name Role Phone Avinash Marroquin MD Primary Care Provider UnavailDeclan Quinteros Unavailable [phone] Avinash Marroquin MD Unavailable Unavailable Lizz Anaya Unavailable [phone] Stewart Martell Unavailable [phone] Queenie Villegas Unavailable [phone] Mj Sutherland Unavailable [phone] Allergies No Known Allergies Results Component Value Reference Range Notes PMG - High Risk Panel Reviewed date:09/30/2024 11:56:18 AM Interpretation: Performing Lab:, [address] [place], [address] Notes/Report: PMG UDS Screening Reviewed date:09/25/2024 08:44:19 AM Interpretation: Performing Lab:, [address] [place], [address] Notes/Report: PMG UDS Screening Reviewed date:04/03/2024 12:57:46 PM Interpretation: Performing Lab:, [address] [place], [address] Notes/Report: Reason For Referral Reason 24 LESI Referral Organization [facility] [facility] [facility] [place] Referring Provider First Name Stewart Referring Provider Last Name Jasbir Referring Provider Speciality Pain Medic ine Referred Organization [facility] [place] [facility] [place] Referred Provider Stewart Martell Referred Address [address] [place],[address],[place] Referred Provider Specialty Pain Medicin e Referral Priority Routine Medications Medication SIG (Take, Route, Frequency, Duration) Notes Start Date End Date Status Cetirizine HCl Activ e Dicyclomine HCl 20 MG 1 tablet Orally Three times a day Active tiZANidine HCl 4 MG 1 tablet at bedtime as needed Orally Once a day for 60 days Active traZODone HCl 150 MG 1 tablet at bedtime Orally Once a day Active Atorvastatin Calcium 10 MG 1 tablet Orally Once a day Not-Taking traMADol HCl 50 MG 1-2 tablet as needed Orally up to 3 doses per day for severe pain, exempt for 30 days exempt 11/18/2024 Active HYDROcodone-Acetamino phen Active Omeprazole 40 MG 1 capsule 30 minutes before morning meal Orally Once a day Active Liothyronine Sodium 5 MCG 1 tablet on an empty stomach Orally Once a day Not-Taking Halobetasol Propionate Active Levothyroxine Sodium 112 MCG 1 tablet in the morning on an empty stomach Orally Once a day Active Flexeril Active Metoprolol Succinate ER 25 MG 1 tablet Orally Once a day Active Desloratadine Active oxyBUTYnin Active tiZANidine HCl 2 MG 1-2 tablet at bedtime as needed Orally Once a day for 30 days Active Xanax Active Rosuvastatin Calcium Active diazePAM 10 MG 1 tablet as needed Orally 45 minutes prior to procedure for 1 days 07/30/2024 Not-Taking Losartan Potassium 50 MG 1 tablet Orally Once a day Active Kloxxado 8 MG/0.1ML as directed Nasally as directed for 1 day [place] into 1 nostril for suspected opioid overdose. Repeat in alternate nostril if no response every 2 minutes until EMS arrives. May file if not covered on insurance plan. Not-Taking Gabapentin Active Gabapentin 300 MG 1 capsule Orally Once a day Not-Taking Social History Tobacco Use: Social History Observation Description Date Details (start date - stop date) Former Smoker NA - NA Tobacco Use/Smoking Question Answer Notes Are you a former smoker Alcohol Screen (Audit-C) Question Answer Notes Did you have a drink containing alcohol in the p ast year? 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 She is symptomatic. Problem Lumbar radiculopathy (644709088) Radiculopathy, lumbar region (M54.16) Active confirmed Problem [id number] skilled nursing (current) use of opiate analgesic (Z79.891) Active confirmed Problem [id number] Presence of right artificial knee joint (Z96.651) Active confirmed Problem Osteoarthritis of knee (306957403) Primary osteoarthritis of left knee (M17.12) Active confirmed Problem Arthralgia of the pelvic region and thigh (937377376) Hip pain, right (M25.551) Active confirmed Problem Osteoarthritis of knee (735226303) Primary osteoarthritis of right knee (M17.11) Active confirmed Problem Arthralgia of the pelvic region and thigh (489051735) Hip pain, left (M25.552) Active confirmed Problem [id number] Arthrofibrosis of knee joint, right (M24.661) Active confirmed Vital Signs Heart Rate 66 /min 11/18/2024 Height-cm 152.4 cm 11/18/2024 Blood pressure diastolic 77 mm Hg 11/18/2024 Weight-kg 82.1 kg 11/18/2024 Height 60 in 11/18/2024 Blood pressure systolic 152 mm Hg 11/18/2024 Weight 181 lbs 11/18/2024 BMI 35.35 kg/m2 11/18/2024 Procedures Procedure Date Ordered Date Performed Result Body Sit e Lumbar CONI 07/30/2024 70% relief Encounters Encounter Location Date Provider Diagnosis P[facility] - [facility] [address] [place] [address] 11/18/2024 Declan Young Greater trochanteric bursitis of left hip M70.62 ; Left foot pain M79.672 ; [employer] (current) use of opiate analgesic Z79.891 ; Knee pain, right M25.561 and Radiculopathy, lumbar region M54.16 [facility] - [facility] [place] [address] 09/23/2024 Declan Young Greater trochanteric bursitis of left hip M70.62 ; Left foot pain M79.672 ; [employer] (current) use of opiate analgesic Z79.891 ; Knee pain, right M25.561 and Radiculopathy, lumbar region M54.16 [facility] - [facility] [place] [address] [place] [address] 07/30/2024 Declan [place] Greater trochanteric bursitis of left hip M70.62 ; Left foot pain M79.672 ; skilled nursing (current) use of opiate analgesic Z79.891 ; Knee pain, right M25.561 and Radiculopathy, lumbar region M54.16 PN1 - [facility] [place] [address] [place] [address] 05/29/2024 Declan Young Greater trochanteric bursitis of left hip M70.62 ; Left foot pain M79.672 ; skilled nursing (current) use of opiate analgesic Z79.891 ; Knee pain, right M25.561 and Radiculopathy, lumbar region M54.16 PN1 - [facility] [place] [address] [place] [address] 02/05/2024 Lizz [place] Greater trochanteric bursitis of left hip M70.62 ; Left foot pain M79.672 ; Knee pain, right M25.561 ; [employer] (current) use of opiate analgesic Z79.891 and Radiculopathy, lumbar region M54.16 PN1 - [facility] [place] [address] [place] [address] 04/01/2024 Declan [place] Greater trochanteric bursitis of left hip M70.62 ; Left foot pain M79.672 ; skilled nursing (current) use of opiate analgesic Z79.891 ; Knee pain, right M25.561 and Radiculopathy, lumbar region M54.16 [facility] - [facility] [address] [place] [address] 04/08/2024 Queenie Villegas Right knee pain M25.561 ; Pain due to internal orthopedic prosthetic devices, implants and grafts, initial encounter T84.84XA ; Presence of right artificial knee joint Z96.651 and Arthrofibrosis of knee joint, right M24.661 P[facility]11 - [facility] [place] [address] 09/04/2024 Stewartdior Martell Radiculopathy, lumbar region M54.16 PNM11 - [facility] [place] [address] 12/06/2023 Stewart Martell Left foot pain M79.672 [facility] - [facility] [address] [place], [place] [address] 06/05/2024 Mj [place] Right knee pain M25.561 ; Pain due to internal orthopedic prosthetic devices, implants and grafts, initial encounter T84.84XA ; Presence of right artificial knee joint Z96.651 and Arthrofibrosis of knee joint, right M24.661 [facility] - [facility] [place] [address] [place] [address] 08/12/2024 Mj [place] Lower extremity pain M79.606 ; Pain due to internal orthopedic prosthetic devices, implants and grafts, initial encounter T84.84XA ; Right knee pain M25.561 ; Presence of right artificial knee joint Z96.651 and Arthrofibrosis of knee joint, right M24.661 B[facility]24 - [address] [address] 05/23/2024 Mj [place] Arthrofibrosis of knee joint, right M24.661 [facility] - [facility] [place] [address] [address] [place] [address] 07/17/2024 Mj [place] Lower extremity pain M79.606 ; Pain due to internal orthopedic prosthetic devices, implants and grafts, initial encounter T84.84XA ; Right knee pain M25.561 ; Presence of right artificial knee joint Z96.651 and Arthrofibrosis of knee joint, right M24.661 PNM11 - [facility] [place] [address] [place] [address] 04/01/2024 Declan Young [employer] (current) use of opiate analgesic Z79.891 PNM11 - [facility] [place] [address] [place] [address] 09/23/2024 Declan Young skilled nursing (current) use of opiate analgesic Z79.891 PNM11 - [facility] [place] [address] [place] [address] 10/01/2024 Declan Young Radiculopathy, lumbar region M54.16 PNM[facility] - [facility] [place] [address] [place] [address] 09/25/2024 Declan Young Radiculopathy, lumbar region M54.16 PNM11 - [facility] [place] [address] [place] [address] 05/13/2024 Declan Young G11 - [facility] [place] [address] [address] [place] [address] 04/28/2024 Mj Sutherland [facility] - [facility] [place] [address] [place] [address] 04/14/2024 Mj Suther[place] Assessments Encounter Date Diagnosis (ICD Code) Assessment Notes Treatment Notes Treatment Clinical Notes 11/18/2024 Greater trochanteric bursitis of left hip (ICD-10 - M70.62) ASSESSMENT: Stable PLAN: I will refill medication and consider steroid injections if needed. 10/01/2024 Radiculopathy, lumbar region (ICD-10 - M54.16) 09/25/2024 Radiculopathy, lumbar region (ICD-10 - M54.16) 09/23/2024 [employer] (current) use of opiate analgesic (ICD-10 - Z79.891) 09/23/2024 Greater trochanteric bursitis of left hip (ICD-10 - M70.62) ASSESSMENT: Unchanged, I will continue to monitor PLAN: I will continue with the medication schedule as prescribed. I will consider steroid injections if clinically indicated in the future. My goal is to increase the patient's function, decrease their pain and minimize the amount of opioid therapy. 09/04/2024 Radiculopathy, lumbar region (ICD-10 - M54.16) 08/12/2024 Lower extremity pain (ICD-10 - M79.606) 07/30/2024 Greater trochanteric bursitis of left hip (ICD-10 - M70.62) ASSESSMENT: Stable PLAN: I will consider steroid injections if needed. 07/17/2024 Lower extremity pain (ICD-10 - M79.606) 07/17/2024 Pain due to internal orthopedic prosthetic devices, implants and grafts, initial encounter (ICD-10 - T84.84XA) Recommend Right lower Shana ultrasound follow-up after 06/05/2024 Right knee pain (ICD-10 - M25.561) 06/05/2024 Pain due to internal orthopedic prosthetic devices, implants and grafts, initial encounter (ICD-10 - T84.84XA) Recommend Activity as tolerated follow-up as needed 05/29/2024 Greater trochanteric bursitis of left hip (ICD-10 - M70.62) ASSESSMENT: Unchanged, I will continue to monitor PLAN: I will continue with the medication schedule as prescribed. I will consider injections if clinically indicated in the future. My goal is to increase the patients function, decrease their pain and minimize the amount of opioid therapy. 05/23/2024 Arthrofibrosis of knee joint, right (ICD-10 - M24.661) 04/08/2024 Right knee pain (ICD-10 - M25.561) 04/08/2024 Pain due to internal orthopedic prosthetic devices, implants and grafts, initial encounter (ICD-10 - T84.84XA) Recommend right knee synovasure assay and manipulation under anesthesia. 04/01/2024 [employer] (current) use of opiate analgesic (ICD-10 - Z79.891) 04/01/2024 Greater trochanteric bursitis of left hip (ICD-10 - M70.62) ASSESSMENT: Stable, I will continue to monitor monthly PLAN: I will continue with the current medication regimen and consider injections such as MBB/RFA or epidural steroid injections if needed in the future. 02/05/2024 Greater trochanteric bursitis of left hip (ICD-10 - M70.62) stable consider repeat GTBI, refill medication today 12/06/2023 Left foot pain (ICD-10 - M79.672) patient request to change back to tramadol due to constipation from hydrocodone 07/30/2024 Left foot pain (ICD-10 - M79.672) ASSESSMENT: Stable PLAN: I will consider steroid injections if needed. 07/17/2024 Right knee pain (ICD-10 - M25.561) 02/05/2024 Left foot pain (ICD-10 - M79.672) stable injeciton helpful 08/12/2024 Pain due to internal orthopedic prosthetic devices, implants and grafts, initial encounter (ICD-10 - T84.84XA) Recommend Activity as tolerated follow-up as needed 04/01/2024 Left foot pain (ICD-10 - M79.672) ASSESSMENT: Stable, I will continue to monitor monthly PLAN: I will continue with the current medication regimen and consider injections such as MBB/RFA or epidural steroid injections if needed in the future. Will consider IASI if needed. 04/08/2024 Presence of right artificial knee joint (ICD-10 - Z96.651) 09/23/2024 Left foot pain (ICD-10 - M79.672) ASSESSMENT: Unchanged, I will continue to monitor PLAN: I will continue with the medication schedule as prescribed. I will consider IASI if clinically indicated in the future. 06/05/2024 Presence of right artificial knee joint (ICD-10 - Z96.651) 05/29/2024 Left foot pain (ICD-10 - M79.672) ASSESSMENT: Unchanged, I will continue to monitor PLAN: I will continue with the medication schedule as prescribed. I will consider IASI if clinically indicated in the future. My goal is to increase the patients function, decrease their pain and minimize the amount of opioid therapy. 11/18/2024 Left foot pain (ICD-10 - M79.672) ASSESSMENT: Stable PLAN: I will refill medication and consider steroid injections if needed. 02/05/2024 Knee pain, right (ICD-10 - M25.561) unstable CT ordered 07/17/2024 Presence of right artificial knee joint (ICD-10 - Z96.651) 04/01/2024 [employer] (current) use of opiate analgesic (ICD-10 - Z79.891) ASSESSMENT: Stable, I will continue to monitor PLAN: The patients pill count was correct today. She was counseled to inshure she puts them back into the correct bottle. A random drug screen will be performed in the future to ensure compliance. The State Controlled Substance Database Report was reviewed. The [place] Controlled Substance Monitoring Program usually has a lag period of about 30 days. A Random urine drug screen was performed today. 06/05/2024 Arthrofibrosis of knee joint, right (ICD-10 - M24.661) 04/08/2024 Arthrofibrosis of knee joint, right (ICD-10 - M24.661) 05/29/2024 [employer] (current) use of opiate analgesic (ICD-10 - Z79.891) ASSESSMENT: Stable, I will continue to monitor PLAN: The patients pill count was correct today. A random drug screen will be performed in the future to ensure compliance. The State Controlled Substance Database Report was reviewed. The [place] Controlled Substance Monitoring Program usually has a lag period of about 30 days. 07/30/2024 [employer] (current) use of opiate analgesic (ICD-10 - Z79.891) ASSESSMENT: Stable PLAN: The patients pill count was correct today. A random drug screen will be performed in the future to ensure compliance. The State Controlled Substance Database Report was reviewed. The [place] Controlled Substance Monitoring Program usually has a lag period of about 30 days. 08/12/2024 Right knee pain (ICD-10 - M25.561) 09/23/2024 [employer] (current) use of opiate analgesic (ICD-10 - Z79.891) ASSESSMENT: Unchanged, I will continue to monitor PLAN: The patients pill count was correct today. A random drug screen will be performed in the future to ensure compliance. The State Controlled Substance Database Report was reviewed. The [place] Controlled Substance Monitoring Program usually has a lag period of about 30 days. A Random urine drug screen was performed today. 11/18/2024 [employer] (current) use of opiate analgesic (ICD-10 - Z79.891) ASSESSMENT: Stable, I will continue to monitor PLAN: The patients pill count was correct today. A random drug screen will be performed in the future to ensure compliance. The State Controlled Substance Database Report was reviewed. The [place] Controlled Substance Monitoring Program usually has a lag period of about 30 days. 07/17/2024 Arthrofibrosis of knee joint, right (ICD-10 - M24.661) 07/30/2024 Knee pain, right (ICD-10 - M25.561) ASSESSMENT: Stable PLAN: I will consider Gelsyn vs steroid injections if needed. 08/12/2024 Presence of right artificial knee joint (ICD-10 - Z96.651) 09/23/2024 Knee pain, right (ICD-10 - M25.561) ASSESSMENT: Unchanged, I will continue to monitor PLAN: I will continue with the medication schedule as prescribed. I will consider gelsyn or IASI if clinically indicated in the future. 11/18/2024 Knee pain, right (ICD-10 - M25.561) ASSESSMENT: Stable PLAN: I will refill medication and consider steroid injections if needed. 05/29/2024 Knee pain, right (ICD-10 - M25.561) ASSESSMENT: Unchanged, I will continue to monitor PLAN: I will continue with the medication schedule as prescribed. I will consider IASI if clinically indicated in the future. My goal is to increase the patients function, decrease their pain and minimize the amount of opioid therapy. 04/01/2024 Knee pain, right (ICD-10 - M25.561) ASSESSMENT: Stable, I will continue to monitor monthly PLAN: I will continue with the current medication regimen and consider injections such as MBB/RFA or epidural steroid injections if needed in the future. Reviewed patients Knee CT in detail and answered all questions/concerns . 02/05/2024 [employer] (current) use of opiate analgesic (ICD-10 - Z79.891) controlled Opioid Therapy: indicated Discussed the importantance and expectations of bringing medication/bottle to every office visit to ensure compliance with state guidelines and narcotic agreement Random drug screen in future to ensure compliance. State Controlled Substance Database reviewed. UDS appropriate 02/05/2024 Radiculopathy, lumbar region (ICD-10 - M54.16) uncontrolled continue tramadol 05/29/2024 Radiculopathy, lumbar region (ICD-10 - M54.16) ASSESSMENT: Unchanged, I will continue to monitor PLAN: I will continue with the medication schedule as prescribed. I will consider CONI if clinically indicated in the future. My goal is to increase the patients function, decrease their pain and minimize the amount of opioid therapy. 04/01/2024 Radiculopathy, lumbar region (ICD-10 - M54.16) ASSESSMENT: Stable, I will continue to monitor monthly PLAN: I will continue with the current medication regimen and consider injections such as MBB/RFA or epidural steroid injections if needed in the future. 07/30/2024 Radiculopathy, lumbar region (ICD-10 - M54.16) ASSESSMENT: Unstable PLAN: Pt reports her LBP has worsened and she would like another lumbar CONI for pain. Pt reports she had great relief of over 80% from last CONI and it improved her ability to perform ADLs. I will order a lumbar epidural steroid injection for NOV. 08/12/2024 Arthrofibrosis of knee joint, right (ICD-10 - M24.661) 09/23/2024 Radiculopathy, lumbar region (ICD-10 - M54.16) ASSESSMENT: Improved, I will continue to monitor PLAN: Pt reports she had 70% relief from recent CONI and it helped her do her ADLs. I will continue with the medication as prescribed and decrease to 150 tabs of tramadol. I will consider repeat CONI if clinically indicated in the future. My goal is to increase the patient's function, decrease their pain and minimize the amount of opioid therapy. 11/18/2024 Radiculopathy, lumbar region (ICD-10 - M54.16) ASSESSMENT: Stable PLAN: I will refill medication and consider lumbar epidural steroid injections if needed. 12/06/2023 Other I personally performed the services described in this note, as scribed by Denilson Manrique CMA in my presence, and the note is both complete and accurate. I, Denilson Manrique CMA am working as a scribe for and in the presence of Dr. Martell. 04/01/2024 Other PATIENT VERBALIZED UNDERSTANDING AND AGREED WITH PLAN ABOVE 05/29/2024 Other PATIENT VERBALIZED UNDERSTANDING AND AGREED WITH PLAN ABOVE 07/30/2024 Other PATIENT VERBALIZED UNDERSTANDING AND AGREED WITH PLAN ABOVE 09/23/2024 Other PATIENT VERBALIZED UNDERSTANDING AND AGREED WITH PLAN ABOVE 11/18/2024 Other PATIENT VERBALIZED UNDERSTANDING AND AGREED WITH PLAN ABOVE Plan Of Treatment Pending Test Test Name Order Date CT Knee wo Contrast RIGHT (1252) 024 Lumbar CONI 07/30/2024 Lumbar CONI 08/14/2022 Medium Joint Injection - Left 11/07/2023 Xray Wrist, complete, Min 3 V LEFT ([facility]) 01/23/2022 Xray Wrist, complete Min 3 V Bilateral ( [facility]) 03/10/2022 Xray Knee 1-2 V Bilateral ([facility]) 03/24 XR Hip 2V RIGHT 12/08/2021 MR Lumbar Spine wo Contrast 12/22/2021 XR Lumbar Spine 4V With Flexion Extensio n 12/08/2021 XR Hip 2V Left 12/08/2021 PNM Lumbar CONI 03/22/2022 PNM Lumbar CONI 02/15/2022 Next Appt Details Provider Name:Declan Say scott, 01/13/2025 09:00:00 AM, [address] [place], [place], [address], Insurance Providers Payer Name Payer Address Payer Phone Subscriber Number Group Number Insured Name Patient Relationship to Insured Coverage Start Date Coverage End Date [facility] MEDICARE DUAL (HMO-POS, SNP) [address] [place] [address] [id number] Nusrat Mcdonough Self - patient is the insured [facility] MEDICA[employer] [address] [facility] [address] [place] [address] [id number] Nusrat Mcdonough Self - patient is the insured Medications Administered Medication Instructions Date of Administration Dosage Notes DEPO-Medrol 08/31/2022 80 mg DEPO-Medrol 12/06/2023 80 mg Omnipaque 08/31/2022 240 mg Triamcinolone Acetonide 11/22/2022 40 mg Medical (General) History Medical History History ICD Code Anxiety fibromyalgia high blood pressure high cholesterol GERD rheumatoid arthritis chronic sleep disorder thyroid disorder IBS Other:: High Blood Pressure, Rheumatoid Arthritis,Sleep Apnea/CPAP,Thyroid Disorder undefined Surgical History Surgery Date(Month/Year) bladder surgery cholecystectomy eye surgery hysterectomy thyroid surgery tonsillectomy tubal ligation shoulder arthroscopy carpal tunnel release (bilateral) left knee replacement right knee replacement ankle surgery wrist surgery Hospitalization History Reason Date(Month/Year)
--- OUTSIDE RECORDS SUMMARY | 2024-12-02 13:15 | XMS_ITS | Data Portability ---
Author Organization [place] - [facility] - [facility], [facility] Address [address] [facility] [address] [place] [address] Care Team Providers Care Fluoroscope Operator Name Role Phone NABILA GILLILAND Referring Provider NABILA GILLILAND Primary Care Provider [phone] Assessment No assessment recorded. Plan of Treatment Reminders Order Date Submit Date Provider Last Modified By Organization Details Last Modified Time Details Appointments *Follow-u p 15 2024 10:45A M Aminah Schuster MD Not available Not available Not available Lab None recorded. Referral None recorded. Procedures dobutamin e stress echocardi ogram (PROC) 2021 [email or web address] Not available 05/30/2022 09:24:45 Surgeries None recorded. Imaging US, echocardi ogram, transthor acic, complete, w/ color flow 2021 [facility] (Central Scheduling), [address] [facility], [place], [address], 06/05/2022 14:42:21 electroca rdiogram 2021 [email or web address] In-Office Order, Internal Use Only DO Not Attach Compendium DO Not Attach Compendium, Do Not Delete/merge, [id number] 05/24/2022 12:34:11 Medication Orders losartan 100 mg-hydroc hlorothia zide 12.5 mg tablet 2021 022 [id number], [address], [place], [id number], 05/23/2022 13:07:57 losartan 100 mg-hydroc hlorothia zide 12.5 mg tablet 2023 024 [facility] #[id number], [address], [place], [phone], 07/29/2024 13:04:53 metoprolo l succinate ER 50 mg tablet,ex tended release 24 hr 2023 024 [facility] #[id number], [address], [place], [id number], 07/29/2024 13:04:52 rosuvasta tin 40 mg tablet 2023 024 [facility] #[id number], [address], [place], [id number], 07/29/2024 13:04:51 Patient TargetsNo targets recorded. Patient Instructions Encounter Date Encounter Id Patient Instructions Last Modified By Organization Details Last Modified Time 05/23/2022 [id number] 77-year-old fema le with essential hypertension hyperlipidemia and a dual-chamber pacemaker with normal function. Complain of chest pain. Order dobutamine stress echo and echo. Follow-up noninvasive results follow-up in 6 months. Not available 05/23/2022 13:07:42 11/24/2022 [id number] 77-year-old fema le with essential hypertension hyperlipidemia and a dual-chamber pacemaker with normal function. follow-up in 6 months. Not available 11/24/2022 10:22:17 05/24/2023 [id number] 78-year-old fema le with essential hypertension hyperlipidemia and a dual-chamber pacemaker with normal function. follow-up in 6 months. Not available 05/24/2023 14:28:17 11/23/2023 [id number] 78-year-old fema le with essential hypertension hyperlipidemia and a dual-chamber pacemaker with normal function. follow-up in 6 months. Not available 11/24/2023 14:57:30 07/29/2024 [id number] 79-year-old fema le with essential hypertension hyperlipidemia and a dual-chamber pacemaker with normal function. follow-up in 6 months. Not available 07/29/2024 13:04:59 Reason for Referral None Reported. Results Created Date Observation Date Name Description Value Unit Range Abnormal Flag Note LastModifiedBy Organization Detail LastModifiedTime 05/23/20 22 elect ramya wright am No observ ation record ed. [email or web address] In-Office Order Internal Use Only DO Not Attach Compendium DO Not Attach Compendium, Do Not Delete/merge, [id number] 05/23/2022 13:08:07 06/05/20 22 06/05/2022 US, echoc ardio gram, trans thora cic, compl ete, w/ color flow [facility] [place] Cecile t: VICKI BOBO NUSRAT L : [birth year] Sex: Female Locati on: TNG CNI Orderi ng Physic peter: AMINAH PATTON MD Non-In vasive Cardio logy Access ion Exam Date/T vanessa [id number] 06/05/20 22 08:10 CDT Reason for Exam Chest pain, unspec ified Report *[facility]* Non-In vasive Echo Lab [address] [place] [address] Phone: [phone] Fax: [phone] ------ ------ ------ ------ ------ ------ ------ ------ ------ ------ ------ - Merari Huber t: Vicki munguiacharlene, Height : 59 in / Nusrat L 149.9 cm : 1944 Weight : 165.7 lb / Study 2021 75.3 kg Date: Age: 77 BP: Study Routin e Status : Gender : F BMI/BS A: 33.5 kg/m^2 Patien t Outpat ient / 1.7 m^2 Status : Patrice jones Physic peter: Aminah Patton *Ramiro jones Physic peter: * Aminah Patton *Sonog rapher : * Helena Campos ------ ------ ------ ------ ------ ------ ------ ------ ------ ------ ------ - Indica tions: Chest Pain, unspec ified. ------ ------ ------ ------ ------ ------ ------ ------ ------ ------ ------ - Conclu sions Summar y: 1. Left ventri paul: The cavity size is normal . Wall thickn ess is modera tely increa sed. There is concen tric hypert rophy. Systol ic functi on is normal . The estima john ejecti on fracti on is 60-65% . Wall motion is normal ; there are no region al wall motion abnorm alitie s. 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 2. Left atrium : The atrium is mildly dilate d. ------ ------ ------ ------ ------ ------ ------ ------ ------ ------ ------ - Study data: Transt horaci c echoca rdiogr am. Proced ure: Transt horaci c echoca rdiogr aphy was perfor med. Image qualit y was good. Comple te 2D, comple te spectr al Dopple r, and color Dopple r. Non-In vasive Cardio logy Report Patien t status : Outpat ient. Study status : Routin e Rhythm : Normal sinus rhythm . ------ ------ ------ ------ ------ ------ ------ ------ ------ ------ ------ - Findin gs Left ventri paul: The cavity size is normal . Wall thickn ess is modera tely increa sed. There is concen tric hypert rophy. Systol ic functi on is normal . The estima john ejecti on fracti on is 60-65% . Wall motion is normal ; there are no region al wall motion abnorm alitie s. 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 Right ventri paul: The cavity size is normal . Systol ic functi on is normal . Left atrium : The atrium is mildly dilate d. Right atrium : The atrium is normal in size. Mitral valve: The valve is struct urally normal . There is no eviden ce of stenos is. There is no regurg itatio n. The valve area by pressu re half-t vanessa is 3.3 cm^2. The valve area index by pressu re half-t vanessa is 1.95 cm^2/m ^2. Aortic valve: The valve is struct urally normal . The valve is trilea flet. There is no eviden ce of stenos is. There is no regurg itatio n. The ratio of LVOT to aortic valve peak veloci ty is 0.62. Tricus pid valve: The valve is struct urally normal . There is no eviden ce of stenos is. There is no regurg itatio n. Pulmon ic valve: The valve is struct urally normal . There is no eviden ce of stenos is. There is no regurg itatio n. Aorta: Aortic root: The aortic root is not dilate d. Perica rdium: There is no perica rdial effusi on. Pulmon lisandra arteri es: The main pulmon lisandra artery is normal -sized . System ic veins: Inferi or vena cava: The vessel is normal in size. ------ ------ ------ ------ ------ ------ ------ ------ ------ ------ ------ - Measur ements Left ventri paul Value Ref Aortic valve Value Ref LEIF, LAX 4.6 cm 3.8 - 5.2 Peak v, S 1.01 m/sec ---- ESD, LAX 2.9 cm 2.2 - 3.5 LVOT/A V, Vpeak ratio 0.62 ---- ESD/bs a, LAX 1.7 cm/m^2 1.3 - 2.1 FS, LAX 37 % 27 - 45 Mitral valve Value Ref PW, ED (H) 1.2 cm 0.6 - 0.9 Peak E 0.64 m/sec ---- IVS/PW , ED 1.2 ------ --- Peak A 0.97 m/sec ---- EF 67 % 54 - 74 PHT 66 ms ---- Qs 4.5 L/min ------ --- Peak E/A ratio 0.65 ---- EF, SMM Teich. 67 % >=55 MVA, PHT 3.3 cm^2 ---- LVOT Value Ref Pulmon ic valve Value Ref Peak luis alberto, S 0.63 m/sec ------ --- Peak v, S 0.92 m/sec ---- Mean luis alberto, S 0.92 m/sec ---- Ventri cular septum Value Ref IVS, ED (H) 1.4 cm 0.6 - 0.9 Aortic root Value Ref IVS, ES 1.4 cm ------ --- Root diam, ED MM 3.13 cm ---- Legend : Mean values are shown as u=mean value or mean value +/- offset . (L) and (H) jersey values outsid e specif ied refere nce range. Prepar ed and electr onical ly signed by Non-In vasive Cardio logy Report Aminah Patton 2021 12:29 Final Signed by: AMINAH PATTON MD Signed (Elect dav saunders): 2021 07:48 am CDT [email or web address] [facility] (Radiology) [address] [place] [address] [address] [address], [place], [address], 11/23/2022 09:22:22 06/07/20 22 06/06/2022 [facility] t: NUSRAT GARZA : [birth year] Sex: Female Locati on: TNG CNI Patrice jones Physic peter: AMINAH PATTON MD Non-In vasive Cardio logy Access ion Exam Date/T vanessa [id number] 06/06/20 10:03 CDT Reason for Exam Chest pain, unspec ified Report *[facility]* Non-In vasive Echo Lab [address] [place] [address] Phone: [phone] Fax: [phone] ------ ------ ------ ------ ------ ------ ------ ------ ------ ------ ------ - [facility] Cecile [facility]: Vicki bobo, Height : 0.6 in / Nusrat Graham 1.5 cm : 1944 Weight : 165.7 lb / Study 2021 75.3 kg Date: Age: 77 BP: 190 / 90 Study Routin e Status : Gender : F BMI/BS A: 33.5 kg/m^2 Patien t Outpat ient / 1.7 m^2 Status : Patrice jones Physic peter: Aminah Patton *Ramiro jones Physic peter: * Aminah Patton *Sonog rapher : * Angela Villegas D ------ ------ ------ ------ ------ ------ ------ ------ ------ ------ ------ - Indica tions: Conges tive Heart Failur e. ------ ------ ------ ------ ------ ------ ------ ------ ------ ------ ------ - Conclu sions Summar y: 1. Impres sions: Normal study after pharma cologi c stress . 2. Stress ECG conclu sions: The stress ECG is normal . Pacema ker in situ but Sinus Tach occurr ed with Dobuta mine. Impres sions: 1. Normal study after pharma cologi c stress . 2. Good Augmen tation with Dobuta mine. ------ ------ ------ ------ ------ ------ ------ ------ ------ ------ ------ - Non-In vasive Cardio logy Report Study data: Consen t: The risks, benefi ts, and altern atives to the proced ure were explai jayna to the patien t and inform ed consen t was obtain ed. Proced ure: Initia l setup: Intrav enous access was confir med. Surfac e ECG leads and manual cuff blood pressu re measur ements were monito red. A basel ne ECG was record ed. Dobuta mine stress test. Dobuta mine was admini stered at an initia l rate of 10 mcg/kg /min; the rate was advanc ed to a final rate of 40 mcg/kg /min by increm ents of 10 mcg/kg /min. The infusi on was termin ated after achiev ing the target heart rate. Stress echoca rdiogr am. Images were captur ed at [facility], low dose, peak dose, and recove ry. Patien t status : Outpat ient. Study status : Routin e Study comple tion: There were no compli cation s. ------ ------ ------ ------ ------ ------ ------ ------ ------ ------ ------ - Findin gs Stress result s: Avelino l heart rate during stress was 105 bpm (74% of avelino l predic john heart rate). The avelino l predic john heart rate was 142 bpm.Th e target heart rate was 121 bpm. e target heart rate was not achiev ed. The heart rate respon se to stress is normal . There is a normal restin g blood pressu re with an approp riate respon se to stress . Stress ECG: The stress ECG is normal . ------ ------ ------ ------ ------ ------ ------ ------ ------ ------ ------ - Baseli ne: LV size is normal . LV global systol ic functi on is normal . Normal wall motion ; no LV region al wall motion abnorm alitie s. Low dose: LV size is unchan ged from the prior stage. LV global systol ic functi on is normal . No eviden ce for new LV region al wall motion abnorm alitie s. Peak stress : LV size is normal and unchan ged from the prior stage. LV global systol ic functi on is normal . No eviden ce for new LV region al wall motion abnorm alitie s. Stress echo result s: Left ventri cular ejecti on fracti on was normal at rest and with stress . There is no diagno stic eviden ce for stress -induc ed ischem ia. Prepar ed and electr onical ly signed by Aminah Patton 2021 10:27 Final Signed by: AMINAH PATTON MD Signed (Elect dav Signat ure): 2021 07:55 am CDT brittany [facility] (Radiology) [address] [facility] [address] [address], [place], [address], 06/07/2022 11:31:59 Result Notes None recorded. Problems Name Problem SNOMED Code Status Onset Date Resolution Date Notes Provider Name and Address Organization Details Recorded Time Essential hypertension 30588612 Active Aminah Schuster MD [address], [place], [address], [facility] 2 15:03:24 Hyperlipidemia 27335335 Active Aminah Schuster MD [address], [place], [address], [facility] 2 15:03:33 Sick sinus syndrome 85657441 Active Aminah Schuster MD [address], [place], [address], [facility] 2 15:03:42 Cardiac pacemaker in situ 156342042 Active Aminah Schuster MD [address], [place], [address], [facility] 2 15:03:51 Notes:09/01/2020 [place] dual -chamber pacemaker implant [facility] 06/05/2022 echo LV size normal moderate LVH LVEF 65% grade 1 diastolic dysfunction mild left atrial dilation 06/06/2022 dobutamine stress echo normal augmentation improvement in ejection fraction no evidence of stress-induced ischemia Problem Notes None recorded. Procedures Surgical History None recorded. Imaging Results Imaging Date Name Status LastModified by Organization Details LastModified Time 05/23/2022 electrocardiogram completed [email or web address] In-Offi ce Order Internal Use Only DO Not Attach Compendium DO Not Attach Compendium, Do Not Delete/merge, [id number] 05/23/2022 13:08:07 06/05/2022 US, echocardiogram, transthoracic, complete, w/ color flow completed [email or web address] [facility] (Radiology) [address] [facility] [address] [address], [place], [address], 11/23/2022 09:22:22 06/06/2022 stress echocardiogram completed [facility] (Radiology) [address] [facility] [address], [place], [address], 06/07/2022 11:31:59 Procedure Notes None recorded. Medical Equipment None Reported. Allergies No known drug allergies Medications Name Sig Start Date Stop Date Status Note LastModified by Organization Details LastModified Time amoxicillin 500 mg capsule TAKE 1 CAPSULE BY MOUTH THREE TIMES DAILY AFTER MEALS 11/24 completed Not Available Not Available Not Available atorvastati n 40 mg tablet TAKE 1 TABLET BY MOUTH EVERY DAY 05/24 completed Not Available Not Available Not Available tizanidine 2 mg tablet TAKE 1 TO 2 TABLETS BY MOUTH DAILY AT BEDTIME NEEDED active Not Available Not Available No t Available cetirizine 10 mg tablet TAKE 1 TABLET BY MOUTH DAILY 07/29 completed Not Available Not Available Not Available azithromyci n 250 mg tablet 11/23 completed Not Available Not Available Not Available ibuprofen 800 mg tablet TAKE 1 TABLET BY MOUTH EVERY 8 HOURS FOR 5 DAYS 11/24 completed Not Available Not Available Not Available benzonatate 200 mg capsule TAKE 1 CAPSULE BY MOUTH EVERY 8 HOURS NEEDED FOR COUGH 11/24 completed Not Available Not Available Not Available metoprolol succinate ER 50 mg tablet,exte nded release 24 hr Take 1 tablet every day by oral route. 2023 active Not Available Not Available Not Avai lable hydrocodone 5 mg-acetamin ophen 325 mg tablet TAKE 1 TABLET BY MOUTH EVERY 6 HOURS NEEDED 07/29 completed Not Available Not Available Not Available phenazopyri dine 200 mg tablet TAKE 1 TABLET BY MOUTH THREE TIMES DAILY FOR 2 DAYS 07/29 completed Not Available Not Available Not Available gabapentin 400 mg capsule TAKE 1 CAPSULE BY MOUTH FOUR TIMES DAILY 07/29 completed Not Available Not Available Not Available sulfamethox azole 800 mg-trimetho prim 160 mg tablet TAKE 1 TABLET BY MOUTH TWICE DAILY AFTER MEALS 11/23 completed Not Available Not Available Not Available [...] BY MOUTH AN HOUR BEFORE DENTAL PROCEDURE 05/24 completed Not Available Not Available Not Available prednisone 10 mg tablets in a dose pack FOLLOW PACKAGE DIRECTION S 11/24 completed Not Available Not Available Not Available oxycodone-a cetaminophe n 5 mg-325 mg tablet TAKE 1 TABLET BY MOUTH EVERY 6 HOURS FOR 3 DAYS NEEDED FOR PAIN 05/24 completed Not Available Not Available Not Available alprazolam 0.5 mg tablet TAKE 1 TABLET BY MOUTH IN THE EVENING NEEDED active Not Available Not Available No t Available trazodone 100 mg tablet TAKE 2 TABLETS BY MOUTH AT BEDTIME active Not Available Not Available No t Available dicyclomine 20 mg tablet TAKE 1-2 TABLETS BY MOUTH 15-30 MINUTES PRIOR TO MAIN MEAL NEEDED 07/29 completed Not Available Not Available Not Available amlodipine 10 mg tablet Take 1 tablet every day by oral route as directed. 05/23 completed Not Available Not Available Not Available benzonatate 100 mg capsule TAKE 1 CAPSULE BY MOUTH THREE TIMES DAILY FOR 10 DAYS 11/23 completed Not Available Not Available Not Available desloratadi ne 5 mg tablet TAKE 1 TABLET BY MOUTH EVERY DAY active Not Available Not Available No t Available cephalexin 500 mg capsule TAKE 1 CAPSULE BY MOUTH TWICE DAILY FOR 7 DAYS 05/24 completed Not Available Not Available Not Available pantoprazol e 40 mg tablet,corrina yed release TAKE 1 TABLET BY MOUTH EVERY DAY 07/29 completed Not Available Not Available Not Available erythromyci n 5 mg/gram (0.5 %) eye ointment 05/24 completed Not Available Not Available Not Available trazodone 150 mg tablet TAKE 1 TABLET BY MOUTH EVERY DAY AT BEDTIME active Not Available Not Available No t Available halobetasol propionate 0.05 % topical ointment APPLY TOPICALLY TO THE AFFECTED AREA 2 TIMES A WEEK AT BEDTIME 07/29 completed Not Available Not Available Not Available gabapentin 300 mg capsule TAKE 2 CAPSULES BY MOUTH EVERY MORNING AND EVERY EVENING 11/23 completed Not Available Not Available Not Available diclofenac sodium 50 mg tablet,corrina yed release TAKE 1 TABLET BY MOUTH TWICE DAILY AFTER A MEAL 11/24 completed Not Available Not Available Not Available metoprolol succinate ER 25 mg tablet,exte nded release 24 hr TAKE 1 TABLET BY MOUTH EVERY DAY 07/29 completed Not Available Not Available Not Available clobetasol 0.05 % topical ointment APPLY TO AFFECTED AREA EVERY NIGHT AT BEDTIME FOR 3 MONTHS THEN DECREASE TO TWICE A WEEK 07/29 completed Not Available Not Available Not Available diazepam 10 mg tablet TAKE 1 TABLET BY MOUTH 45 MINUTES BEFORE PROCEDURE FOR 1 DAY NEEDED active Not Available Not Available No t Available cefuroxime axetil 500 mg tablet 11/23 completed Not Available Not Available Not Available estradiol 0.01% (0.1 mg/gram) vaginal cream 07/29 completed Not Available Not Available Not Available methylpredn isolone 4 mg tablets in a dose pack FOLLOW PACKAGE DIRECTION S 11/24 completed Not Available Not Available Not Available albuterol sulfate HFA 90 mcg/actuati on aerosol inhaler INHALE ONE PUFF BY MOUTH TWICE DAILY active Not Available Not Available No t Available losartan 50 mg-hydrochl orothiazide 12.5 mg tablet TAKE 1 TABLET BY MOUTH EVERY DAY 05/23 completed Not Available Not Available Not Available oxybutynin chloride 5 mg tablet active Not Available Not Available No t Available cefdinir 300 mg capsule TAKE 1 CAPSULE BY MOUTH EVERY 12 HOURS FOR 10 DAYS DIRECTED 11/24 completed Not Available Not Available Not Available fluticasone propionate 50 mcg/actuati on nasal spray,suspe nsion SHAKE LIQUID AND USE 1 SPRAY IN EACH NOSTRIL TWICE DAILY FOR 14 DAYS 07/29 completed Not Available Not Available Not Available diazepam 5 mg tablet TAKE 1 TO 2 TABLETS BY MOUTH 45 MINUTES BEFORE PROCEDURE FOR 1 DAY NEEDED 11/24 completed Not Available Not Available Not Available levothyroxi ne 112 mcg tablet TAKE 1 TABLET BY MOUTH EVERY DAY BEFORE A MEAL active Not Available Not Available No t Available amoxicillin 875 mg-potassiu m clavulanate 125 mg tablet TAKE 1 TABLET BY MOUTH TWICE DAILY 11/23 completed Not Available Not Available Not Available cyclobenzap rine 5 mg tablet TAKE 1 TABLET BY MOUTH THREE TIMES DAILY NEEDED active Not Available Not Available No t Available rosuvastati n 40 mg tablet Take 1 tablet every day by oral route. 2023 active Not Available Not Available Not Avai lable nitrofurant oin monohydrate /macrocryst als 100 mg capsule TAKE 1 CAPSULE BY MOUTH TWICE DAILY FOR 7 DAYS 07/29 completed Not Available Not Available Not Available chlorhexidi ne gluconate 0.12 % mouthwash SWISH 15 ML IN THE MOUTH OR THROAT IF NEEDED FOR WOUND CARE FOR UP TO 10 DAYS 07/29 completed Not Available Not Available Not Available losartan 100 mg-hydrochl orothiazide 12.5 mg tablet TAKE 1 TABLET BY MOUTH EVERY DAY 2023 active Not Available Not Available Not Avai lable tramadol ER 100 mg tablet,exte nded release 24 hr TAKE 1 TABLET BY MOUTH EVERY DAY 11/24 completed Not Available Not Available Not Available diclofenac 1 % topical gel APPLY 2 GRAMS TO THE AFFECTED AREA BY TOPICAL ROUTE FOUR TIMES DAILY 07/29 completed Not Available Not Available Not Available naloxone 4 mg/actuatio n nasal spray CALL 911. SPR CONTENTS OF ONE SPRAYER (0.1ML) INTO ONE NOSTRIL. REPEAT IN 2-3 MIN IF SYMPTOMS OF OPIOID EMERGENCY PERSIST, ALTERNATE NOSTRILS 11/24 completed Not Available Not Available Not Available 24 Hour Nasal Allergy 55 mcg spray aerosol USE 2 SPRAYS IN EACH NOSTRIL EVERY DAY 11/24 completed Not Available Not Available Not Available Vitals Date Recorded Body height Provider Name an d Address Organization Details Last Updated DateTime 05/23/2022 149.86 cm Alyssa Davies RN [facility] 05/23/2022 12:40:05 Date Recorded Body weight Provider Name an d Address Organization Details Last Updated DateTime 05/23/2022 76693.93 g Alyssa Davies RN [facility] 05/23/2022 12:40:10 Date Recorded Body mass index (BMI) Provider Name and Address Organization Details Last Updated DateTime 05/23/2022 33.7 kg/m2 ODIN Ellison [facility] 05/23/2022 12:40:12 Date Recorded Heart rate Provider Name an d Address Organization Details Last Updated DateTime 05/23/2022 60 /min Alyssa Davies RN [facility] 05/23/2022 12:40:28 Date Recorded Oxygen saturation Oxygen saturation in Arterial blood by Pulse oximetry Provider Name and Address Organization Details Last Updated DateTime 05/23/2022 96 % 96 % Alyssa Davies RN [facility] 05/23/2022 12:40:32 Date Recorded Body height Provider Name an d Address Organization Details Last Updated DateTime 11/24/2022 149.86 cm Ashley Lozano RN [facility] 11/24/2022 09:56:27 Date Recorded Body height Provider Name an d Address Organization Details Last Updated DateTime 05/24/2023 149.86 cm Cassandra Quiroz RN [facility] 05/24/2023 14:09:50 Date Recorded Body mass index (BMI) Body weight Provider Name and Address Organization Details Last Updated DateTime 05/24/2023 33.5 kg/m2 03897.33 g Cassandra Quiroz RN [facility] 05/24/2023 14:09:54 Date Recorded Heart rate Provider Name an d Address Organization Details Last Updated DateTime 05/24/2023 61 /min Cassandra Quiroz RN [facility] 05/24/2023 14:14:13 Date Recorded Oxygen saturation Oxygen saturation in Arterial blood by Pulse oximetry Provider Name and Address Organization Details Last Updated DateTime 05/24/2023 96 % 96 % Cassandra Quiroz RN [facility] 05/24/2023 14:14:14 Date Recorded Body height Provider Name an d Address Organization Details Last Updated DateTime 11/23/2023 149.86 cm Jocelynn Cavanaugh [facility] 11/23/2023 10:04:33 Date Recorded Body mass index (BMI) Body weight Provider Name and Address Organization Details Last Updated DateTime 11/23/2023 33.3 kg/m2 62793.74 g Jocelynn Cavanaugh [facility] 11/23/2023 10:04:45 Date Recorded Heart rate Provider Name an d Address Organization Details Last Updated DateTime 11/23/2023 62 /min Jocelynn Cavanaugh [facility] 11/23/2023 10:09:00 Date Recorded Oxygen saturation Oxygen saturation in Arterial blood by Pulse oximetry Provider Name and Address Organization Details Last Updated DateTime 11/23/2023 98 % 98 % Jocelynn Cavanaugh CMA [facility] 11/23/2023 10:10:08 Date Recorded Body height Provider Name an d Address Organization Details Last Updated DateTime 07/29/2024 149.86 cm Mica Gooden RN [facility] 07/29/2024 12:37:25 Date Recorded Body mass index (BMI) Body weight Provider Name and Address Organization Details Last Updated DateTime 07/29/2024 35.6 kg/m2 97171.69 g Mica Gooden RN [facility] 07/29/2024 12:37:40 Date Recorded Heart rate Provider Name an d Address Organization Details Last Updated DateTime 07/29/2024 74 /min Mica Gooden RN [facility] 07/29/2024 12:38:23 Date Recorded Oxygen saturation Oxygen saturation in Arterial blood by Pulse oximetry Provider Name and Address Organization Details Last Updated DateTime 07/29/2024 92 % 92 % Mica Gooden RN [facility] 07/29/2024 12:38:37 Date Recorded Systolic blood pressure Diastolic blood pressure Provider Name and Address Organization Details Last Updated DateTime 05/23/2022 128 mm[Hg] 56 mm[Hg] Alyssa Davies RN [facility] 05/23/2022 12:42:40 Date Recorded Systolic blood pressure Diastolic blood pressure Provider Name and Address Organization Details Last Updated DateTime 05/24/2023 136 mm[Hg] 62 mm[Hg] Cassandra Quiroz RN [facility] 05/24/2023 14:14:11 Date Recorded Systolic blood pressure Diastolic blood pressure Provider Name and Address Organization Details Last Updated DateTime 11/23/2023 138 mm[Hg] 68 mm[Hg] Jocelynn Cavanaugh CMA [facility] 11/23/2023 10:10:14 Date Recorded Systolic blood pressure Diastolic blood pressure Provider Name and Address Organization Details Last Updated DateTime 07/29/2024 132 mm[Hg] 82 mm[Hg] Mica Gooden RN [facility] 07/29/2024 12:38:14 Social History Question Answer Notes LastModified by Organizat ion Details LastModified Time Tobacco Smoking Status Former Smoker Alyssa Davies RN [facility], [place] - [facility] 11/21/2021 14:28:44 What Was The Date Of Your Most Recent Tobacco Screening? 07/29/2024 Information not available 07/29/2024 Do You Or Have You Ever Used Any Other Forms Of Tobacco Or Nicotine? No Information not available 07/29/2024 Sex: Unknown Functional Status None recorded. Mental Status None recorded. Family History Nothing Reported. Medical History No medical history recorded. Gynecological HistoryNo gynecological history recorded. Obstetrics History GPAL:G 0 P 0 0 0 0 Past Encounters Encounter ID Performer Location Encounter Start Date Encounter Closed Date Diagnosis/Indication Diagnosis SNOMED-CT Code Diagnosis ICD10 Code Diagnosis Note [id number] Aminah Schuster MD [facility] [address] [facility] [address] [place] [address] 11/21/2021 13:56:55 11/21/2021 16:19:00 Cardiac pacemaker in situ 961496008 Z95.0 11/21/2021 device interrogat ion reprogramm ing personally performed by myself in clinic. [employer] dual-chamb er pacemaker implanted 09/01/2020 . Battery greater than 10 years. P wave 1.5 impedance 400 threshold less than 0.7 R wave 10 impedance 580 threshold is less than 1 programmed DDDR lower rate 68 paced 86% no A. fib Sick sinus syndrome 3608 3008 I49.5 Hyperlipidemia 88825509 E78.5 Essential hypertension 69792799 I10 [id number] Aminah Schuster MD [facility] [address] [facility] [address] [place] [id number] 05/23/2022 12:16:03 05/23/2022 15:14:21 Cardiac pacemaker in situ 813670085 Z95.0 05/23/2022 device interrogat ion reprogramm ing personally performed by myself in clinic. [employer] dual-chamb er pacemaker implanted 09/01/2020 . Battery greater than 9 years. P wave 1.7 impedance 390 threshold less than 0.7 R wave 9.6 impedance 580 threshold is less than 1 programmed DDDR lower rate 68 paced 86% no A. fib Sick sinus syndrome 3608 3008 I49.5 Hyperlipidemia 81737398 E78.5 Essential hypertension 92256175 I10 Chest pain 57327073 R07. 9 [id number] Aminah Schuster MD [facility] [address] [facility] [address] [place] [address] 11/24/2022 09:48:01 11/24/2022 10:18:03 Cardiac pacemaker in situ 000081800 Z95.0 11/24/2022 device interrogat ion reprogramm ing personally performed by myself in clinic. [employer] dual-chamb er pacemaker implanted 09/01/2020 . Battery greater than 7.8 years. P wave 1.7 impedance 390 threshold less than 0.7 R wave 9.6 impedance 580 threshold is less than 1 programmed DDDR lower rate 68 paced 86% no A. fib Sick sinus syndrome 3608 3008 I49.5 Hyperlipidemia 01974232 E78.5 Essential hypertension 54836694 I10 [id number] Aminah Schuster MD [facility] [address] [facility] [address] [place] [address] 05/24/2023 13:57:55 05/25/2023 12:51:01 Cardiac pacemaker in situ 477625212 Z95.0 05/24/2023 device interrogat ion reprogramm ing personally performed by myself in clinic. [employer] dual-chamb er pacemaker implanted 09/01/2020 . Battery greater than 7.2 years. P wave 1.7 impedance 390 threshold less than 0.7 R wave 9.6 impedance 580 threshold is less than 1 programmed DDDR lower rate 68 paced 86% no A. fib Sick sinus syndrome 3608 3008 I49.5 Hyperlipidemia 68645016 E78.5 Essential hypertension 40913879 I10 [id number] Paxton Rios MD [facility] [address] [facility] [address] [place] [id number] 06/04/2023 14:28:03 06/04/2023 18:52:38 [id number] Paxton Rios MD [facility] 647 [facility] [address] [address] [place] [address] 08/07/2023 14:19:48 08/11/2023 12:24:33 [id number] Aminah Schuster MD [facility] [address] [facility] [address] [place] [address] 11/23/2023 09:54:33 11/26/2023 06:45:50 Cardiac pacemaker in situ 867918491 Z95.0 11/23/2023 device interrogat ion reprogramm ing personally performed by myself in clinic. [employer] dual-chamb er pacemaker implanted 09/01/2020 . Battery greater than 7.2 years. P wave 1.7 impedance 390 threshold less than 0.7 R wave 9.6 impedance 580 threshold is less than 1 programmed DDDR lower rate 68 paced 86% no A. fib Sick sinus syndrome 3608 3008 I49.5 Hyperlipidemia 33829675 E78.5 Essential hypertension 28587781 I10 [id number] Aminah Schuster MD [facility] [address] [facility] [address] [place] [address] 07/29/2024 12:27:36 07/29/2024 13:05:29 Cardiac pacemaker in situ 562270949 Z95.0 07/29/2024 device interrogat ion reprogramm ing personally performed by myself in clinic. [employer] dual-chamb er pacemaker implanted 09/01/2020 . Battery greater than 6 years. P wave 1.7 impedance 390 threshold less than 0.7 R wave 9.6 impedance 580 threshold is less than 1 programmed DDDR lower rate 68 paced 86% no A. fib Sick sinus syndrome 3608 3008 I49.5 Hyperlipidemia 55479162 E78.5 Essential hypertension 84550905 I10 Health Concerns Section Related Observation LastModified by Organization Detai ls LastModified Time None Recorded Concern Status LastModified by Organization Details LastModified Time None Recorded Advance Directives Directive None Recorded Payers Encounter Date Sequence Insurance Name Policy Number Policy Mayorga Covered Member ID Mayorga Member ID Guarantor Name 05/23/2022 1 [facility] TNDS[employer] Nusrat Zepeda [id number] Nusrat Zepeda 11/24/2022 1 [facility] TNDSNP Nusrat Zepeda [id number] Nusrat Zepeda 05/24/2023 1 [facility] [place] (MEDICARE REPLACEMENT HMO) TNDSNP Nusrat Zepeda [id number] Nusrat Zepeda 11/23/2023 1 [facility] [place] (MEDICARE REPLACEMENT HMO) TNDSNP Nusrat Zepeda [id number] Nusrat Zepeda 07/29/2024 1 [facility] [place] (MEDICARE REPLACEMENT HMO) TNDSNP Nusrat Zepeda [id number] Nusrat Zepeda Notes Date Note Type Note Provider Name and Address Organization Details Recorded Time 05/23/20 22 text/ht ml Essential hypertensionHyperlipidemiaSick sinus syndrome? A lina dual-chamber cxhnemrtt36/28/2020 [employer] [facility]amber [facility] recently moved to [facility] referred for follow-up. Patient has hypertension hyperlipidemia dual-chamber pacemaker implant 09/01/2020. Complaining of substernal chest discomfort not necessarily exertional in nature. Last had a stress test greater than 4 years ago in [place].Currently on losartan 100 mg/HCTZ 12.5 daily metoprolol ER 25 mg daily is not on amlodipine. Aminah Schuster MD [address], [place], [address], [facility] 05/23/2022 13:08:23 11/24/19 23 text/ht ml Essential hypertensionHyperlipidemiaSick sinus syndrome? A lina dual-chamber vvlqpfozx05/28/2020 [place] dual-chamber pacemaker [facility]/05/2022 echo LV size normal moderate LVH LVEF 65% grade 1 diastolic dysfunction mild left atrial dilation06/06/2022 dobutamine stress echo normal augmentation improvement in ejection fraction no evidence of stress-induced -ovzt-bew female recently moved to [facility] referred for follow-up. Patient has hypertension hyperlipidemia dual-chamber pacemaker implant 09/01/2020. Complaining of substernal chest discomfort not necessarily exertional in nature. Last had a stress test greater than 4 years ago in [place].Currently on losartan 100 mg/HCTZ 12.5 daily metoprolol ER 25 mg daily is not on amlodipine.11/2022 no recent complaints noninvasive studies reviewed with patient and daughter Aminah Schuster MD [address] [place], [address], [facility] 11/24/2022 10:22:31 05/24/20 23 text/ht ml Essential hypertensionHyperlipidemiaSick sinus syndrome? A lina dual-chamber bngitgyrh16/28/2020 [place] dual-chamber pacemaker implant [facility]/05/2022 echo LV size normal moderate LVH LVEF 65% grade 1 diastolic dysfunction mild left atrial dilation06/06/2022 dobutamine stress echo normal augmentation improvement in ejection fraction no evidence of stress-induced -zsgh-mmq female recently moved to [facility] referred for follow-up. Patient has hypertension hyperlipidemia dual-chamber pacemaker implant 09/01/2020. Complaining of substernal chest discomfort not necessarily exertional in nature. Last had a stress test greater than 4 years ago in [place].Currently on losartan 100 mg/HCTZ 12.5 daily metoprolol ER 25 mg daily is not on amlodipine.11/2022 no recent complaints noninvasive studies reviewed with patient and daughter Aminah Schuster MD [address] [place], [address], [facility] 05/24/2023 14:28:29 11/23/19 24 text/ht ml Essential hypertensionHyperlipidemiaSick sinus syndrome? A lina dual-chamber vdpbrytxa96/28/2020 [place] dual-chamber pacemaker implant [facility]06/05/2022 echo LV size normal moderate LVH LVEF 65% grade 1 diastolic dysfunction mild left atrial dilation06/06/2022 dobutamine stress echo normal augmentation improvement in ejection fraction no evidence of stress-induced [id number]-zrsx-dnn female recently moved to [facility] referred for follow-up. Patient has hypertension hyperlipidemia dual-chamber pacemaker implant 09/01/2020. Complaining of substernal chest discomfort not necessarily exertional in nature. Last had a stress test greater than 4 years ago in [place].Currently on losartan 100 mg/HCTZ 12.5 daily metoprolol ER 25 mg daily is not on amlodipine.11/2022 no recent complaints noninvasive studies reviewed with patient and daughter11/2023 overall feeling well no recent complaints is here with her daughter Aminah Schuster MD [address] [place], [address], [facility] 11/24/2023 14:58:46 07/29/20 24 text/ht ml Essential hypertensionHyperlipidemiaSick sinus syndrome? A lina dual-chamber njtyzhtdv30/28/2020 [place] dual-chamber pacemaker implant [facility]06/05/2022 echo LV size normal moderate LVH LVEF 65% grade 1 diastolic dysfunction mild left atrial dilation06/06/2022 dobutamine stress echo normal augmentation improvement in ejection fraction no evidence of stress-induced oevbtofz96-essu-jdf female recently moved to [facility] referred for follow-up. Patient has hypertension hyperlipidemia dual-chamber pacemaker implant 09/01/2020. Complaining of substernal chest discomfort not necessarily exertional in nature. Last had a stress test greater than 4 years ago in [place].Currently on losartan 100 mg/HCTZ 12.5 daily metoprolol ER 25 mg daily is not on amlodipine.11/2022 no recent complaints noninvasive studies reviewed with patient and daughter11/2023 overall feeling well no recent complaints is here with her daughter07/2024 remains stable Aminah Schuster MD [address], [place], [address], [facility] 07/29/2024 13:05:13 OBGyn Episode No OBEpisode recorded.
--- OUTSIDE RECORDS SUMMARY | 2024-12-02 13:16 | XMS_ITS | Clinical Summary ---
Author Organization [facility] Address [address] [place] [address] Care Team Providers Care Statistics Professor Name Role Phone Unavailable Primary Care Provider [...] times per day PRN for 30 days [id number] HFA aerosol inhaler 2 times per day [...] Date Bradycardia 12/19/2023 Sick sinus syndrome (CMS/HCC) ([facility]) 12/19/2023 Gastroesophageal reflux disease 09/12/2023 Hyperlipidemia 09/12/2023 Hypertension 09/12/2023 Hypothyroidism 09/12/2023 Bronchitis 07/18/2023 Irritable bowel syndrome 12/08/2021 Iron deficiency anemia 11/01/2021 Cardiac pacemaker in situ 08/31/2020 Overview (12/19/2023): SJM [employer]urity dual chamber pacemaker implanted by Dr. Ramos at [facility]. MRI safe Diabetes mellitus 03/27/2018 Anxiety 10/22/2017 Obstructive sleep apnea syndrome 07/22/2017 Depressive disorder 07/11/2017 Osteoarthritis 05/27/2017 Stage 3 chronic kidney disease (CMS/HCC) ([facility]) 0 04/12/2017 Overview (12/19/2023): 01-29-2017 visit labs reviewed, creatinine level higher than previous labsLast documented by [facility] 01-29-2017 Osteoarthrosis involving mul tiple sites but not designated as generalized 03/27/2017 Anemia 04/16/2013 Anemia 04/16/2013 Overview (12/19/2023): 10-16-2016 visit iron indices wnl, increase iron supplement to tid,Last documented by ANDERSON HARTMAN [facility] Benign essential hypertension 04/16/2013 Overview (12/19/2023): 02-09-2017 visit controlled, continue current medsLast documented by ANDERSON HARTMAN [facility] 02-09-2017 Rheumatoid arthritis 04/16/2013 Primary fibromyalgia syndrome 04/16/2013 Overview (12/19/2023): 11-27-2016 visit resolvedLast documented by ANDERSON HARTMAN [facility] 11-27-2016 Last documented by ANDERSON HARTMAN [facility] 01-08-2017 Type 2 diabetes mellitus wit hout complication ([facility]) ([facility]) 04/16/2013 Resolved Problems Problem Noted Date Diagnosed [...] Mass Index - - Plan of Treatment Health Maintenance Due Date Last Done Comments Dental X-Ray: Bitewings 1945 Dental X-Ray: Full Mouth 1944 Scaling and Root Planing 1944 Dental Oral Exam 12/08/2023 06/06/2023 Periodontal Maintenance 06/12/2024 03/11/20 24, 11/01/2023, 07/13/2023 Dental CBCT 06/06/2026 06/06/2023 Dental X-Ray: Panoramic 06/08/2026 06/07/2023 Meningococcal B Vaccine Aged Out No l onger eligible based on patient's age to complete this topic Procedures Procedure Name Priority Date/Time Associated Diagnosis Comments PERIO MAINTENANCE Routine 03/11/2024 9:30 AM CDT 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
--- OUTSIDE RECORDS SUMMARY | 2024-12-02 13:16 | XMS_ITS | Data Portability ---
Author Organization [place] - [facility], OBGYN Address [address] [place] [address] Assessment No assessment recorded. Plan of Treatment Reminders Order Date Submit Date Provider Last Modified By Organization Details Last Modified Time Details Appointments None record ed. Lab None record ed. Referral None record ed. Procedures None record ed. Surgeries None record ed. Imaging None record ed. Medication Orders None record ed. Patient TargetsNo targets recorded. Patient InstructionsNo instructions recorded. Reason for Referral None Reported. 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 Active 2012 Not Available [facility] 4 10:33:19 Gastroesophag eal reflux disease 954098028 Active 2012 Not Available [facility] 4 10:33:19 Hyperlipidemi a 01545026 Active 2012 Not Available [facility] 4 10:33:19 Essential hypertension 62135552 Active 2012 Not Available [facility] 4 10:33:19 Hypothyroidis m 98122008 Active 2012 Not Available [facility] 4 10:33:19 Rheumatoid arthritis 87041125 Active 2012 Not Available [facility] 4 10:33:19 Problem Notes None recorded. Medical Equipment None Reported. Allergies Allergen ID Allergen Name Allergen Category Reaction Reaction Severity Criticality Documentation Date Start Date Code Code System Note Provider Name and Address Organization Details Recorded Time 483432 Dilaudid medicatio n Not available Not available Not available 06/25/2022 61024 3 RxNorm Not Available [facility] 2 04:15:25 Medications Name Sig Start Date Stop Date Status Note LastModified by Organization Details LastModified Time latanopro st 0.005 % eye drops INSTILL 1 DROP INTO AFFECTED EYE(S) BY OPHTHALM IC ROUTE ONCE DAILY INTHE EVENING 2016 active Not Available Not Available Not Avai lable atorvasta tin 40 mg tablet Take 1 tablet every day by oral route. 2016 active Not Available Not Available Not Avai lable metformin 500 mg tablet TAKE 1 TABLET BY ORAL ROUTE 2 TIMES EVERY DAY WITH MORNING AND EVENING MEALS 09/22 completed Not Available Not Available Not Available Colace 100 mg capsule TAKE 1 CAPSULE BY ORAL ROUTE EVERY DAY 06/05 completed Not Available Not Available Not Available citalopra m 40 mg tablet Take 1 tablet every day by oral route. 2016 active Not Available Not Available Not Avai lable trazodone 50 mg tablet TAKE 1 TABLET BY ORAL ROUTE ONCE AFTER MEALS 2013 active STOP DATE: 20140215 Not Available Not Available Not Available alprazola m 1 mg tablet TAKE 1 TABLET BY MOUTH THREE TIMES DAILY active lrf 01/26/14 #30/2... ...pt didnt worm picker rx shreaded nsma 07/08/14 Not Available Not Available Not Available Vicodin 5 mg-500 mg tablet TAKE 1 TABLET BY ORAL ROUTE EVERY 4 - 6 HOURS NEEDED FOR PAIN 2012 active Not Available Not Available Not Avai lable hydrocodo ne 5 mg-acetam inophen 325 mg tablet Take 1 tablet every 6 hours by oral route as needed for 30 days. active Not Available Not Available No t Available Analpram- HC 2.5 %-1 % rectal cream APPLY BY TOPICAL ROUTE 3 TIMES EVERY DAY A THIN LAYER TO THE AFFECTED AREA(S) 2013 active Not Available Not Available Not Avai lable amlodipin e 5 mg tablet TAKE 1 TABLET BY ORAL ROUTE EVERY DAY 01/01 completed Not Available Not Available Not Available omeprazol e 40 mg capsule,d elayed release Take 1 capsule every day by oral route. 2016 active Not Available Not Available Not Avai lable tramadol 50 mg tablet TAKE 1 TABLET BY ORAL ROUTE EVERY 6 HOURS NEEDED 09/27 completed Not Available Not Available Not Available spironola ctone 25 mg tablet TAKE ONE TABLET BY MOUTH EVERY DAY active Not Available Not Available No t Available Celebrex 200 mg capsule TAKE 1 CAPSULE BY ORAL ROUTE 2 TIMES EVERY DAY NEEDED 10/30 completed Not Available Not Available Not Available lancets DIRECTED 01/12 completed Not Available Not Available Not Available citalopra m 20 mg tablet TAKE ONE TABLET BY MOUTH EVERY DAY active lrf 01/01/14 #30/2 Not Available Not Available Not Available Silvadene 1 % topical cream APPLY BY TOPICAL ROUTE 2 TIMES EVERY DAY A 1/16 INCH (1.5 MM) THICK LAYER TO ENTIRE BURN AREA 09/22 completed Not Available Not Available Not Available dicyclomi ne 20 mg tablet Take 1 tablet 4 times a day by oral route. 2016 active Not Available Not Available Not Avai lable amlodipin e 10 mg tablet Take 1 tablet every day by oral route. 2016 active Not Available Not Available Not Avai lable gemfibroz il 600 mg tablet TAKE 1 TABLET BY ORAL ROUTE 2 TIMES EVERY DAY 30 MINUTES BEFORE MORNING AND EVENING MEAL 09/22 completed Not Available Not Available Not Available ferrous sulfate 325 mg (65 mg iron) tablet TAKE 1 TABLET BY ORAL ROUTE 3 TIMES EVERY DAY 2013 active Not Available Not Available Not Avai lable gabapenti n 300 mg capsule Take 1 capsule 3 times a day by oral route. 2016 active Not Available Not Available Not Avai lable omeprazol e 20 mg capsule,d elayed release TAKE 1 CAPSULE BY ORAL ROUTE EVERY DAY BEFORE A MEAL 11/07 completed Not Available Not Available Not Available Ambien 5 mg tablet TAKE 1 (5MG) BY ORAL ROUTE EVERY DAY AT BEDTIME 01/01 completed Not Available Not Available Not Available metoclopr amide 10 mg tablet TAKE 1 PO 1-2 TIMES A DAY WITH MEALS NEEDED 2012 active Not Available Not Available Not Avai lable Bactrim DS 800 mg-160 mg tablet TAKE 1 TABLET BY ORAL ROUTE EVERY 12 HOURS 09/22 completed Not Available Not Available Not Available Pen Needle 31 gauge x 5/16 DIRECTED 2013 active Not Available Not Available Not Avai lable Naida Vaginal Orthopedic Mechanic kit DIABETIC TESTING SUPPLIES , USE DIRECTED 11/06 completed Not Available Not Available Not Available Mena Fog spray TEST STRIPS, DIRECTED 2012 active Not Available Not Available Not Avai lable levothyro xine 2016 active Not Available Not Available Not Avai lable Test Strip DIRECTED 2013 active Not Available Not Available Not Avai lable valsartan 320 mg-hydroc hlorothia zide 25 mg tablet TAKE ONE TABLET BY MOUTH EVERY DAY active Not Available Not Available No t Available ProAir HFA 90 mcg/actua tion aerosol inhaler Inhale 2 puffs every 4 hours by inhalati on route. 2016 active Not Available Not Available Not Avai lable Januvia 100 mg tablet take 1 tablet by oral route every day 2013 active Not Available Not Available Not Avai lable Tirosint 112 mcg capsule take 1 capsule by oral route every day 2013 active Not Available Not Available Not Avai lable tramadol ER 150 mg capsule 24h,exten ded release(2 5-75) Take 1 capsule every day by oral route. 2016 active Not Available Not Available Not Avai lable Vitals Date Recorded Body mass index (BMI) Body mass index (BMI) Body mass index (BMI) Body mass index (BMI) Body mass index (BMI) Provider Name and Address Organization Details Last Updated DateTime 06/25/2022 23.8 kg/m2 23.8 kg/m2 23.8 kg/m2 23.8 kg/m2 23.8 kg/m2 Not Available [facility] 06/25/2022 04:13:48 Date Recorded Body height Body height Body height Body height Body height Oxygen saturation Oxygen saturation in Arterial blood by Pulse oximetry Oxygen saturation Oxygen saturation in Arterial blood by Pulse oximetry Systolic blood pressure Diastolic blood pressure Systolic blood pressure Diastolic blood pressure Systolic blood pressure Diastolic blood pressure Systolic blood pressure Diastolic blood pressure Provider Name and Address Organization Details Last Updated DateTime 08/21/202 2 180.34 cm 180.34 cm 180.34 cm 180.34 cm 180.34 cm 98 % 98 % 96 % 96 % 152 mm[Hg] 65 mm[Hg] 153 mm[Hg] 48 mm[Hg] 126 mm[Hg] 56 mm[Hg] 153 mm[Hg] 57 mm[Hg] Not Available [facility] 2 04:13:50 Date Recorded Heart rate Heart rate Heart rate Heart rate Respiratory rate Body temperature Body temperature Body weight Provider Name and Address Organization Details Last Updated DateTime 2 59 /min 61 /min 65 /min 51 /min 17 /min 98.1 [degF] 97.7 [degF] 69993.3 g Not Available [facility] 2 04:13:51 Date Recorded Body weight Body weight Body weight Body weight Provider Name and Address Organization Details Last Updated DateTime 06/25/2022 55532.3 g 00288.3 g 86642.3 g 47816.3 g Not Available [facility] 06/25/2022 04:13:52 Date Recorded Systolic blood pressure Diastolic blood pressure Provider Name and Address Organization Details Last Updated DateTime 06/25/2022 108 mm[Hg] 62 mm[Hg] Not Available [facility] 0 06/25/2022 04:13:49 Social History None recorded. Functional Status None recorded. Mental Status None recorded. Family History Nothing Reported Notes:Ms. Zepeda's mother is : CVA. Ms. Zepeda's father is : [place]. Ms. Zepeda has 1 brother who is : leukemia. Medical History No medical history recorded. Gynecological HistoryNo gynecological history recorded. Obstetrics History GPAL:G 0 P 0 0 0 0 Past Encounters Encounter ID Performer Location Encounter Start Date Encounter Closed Date Diagnosis/Indication Diagnosis SNOMED-CT Code Diagnosis ICD10 Code Diagnosis Note [id number] E[facility] [address] [place] [address] [place] [id number] 0 06/07/2009 00:00:00 [id number] [facility] [address] [place] [address] [place] [id number] 0 04/17/2013 00:00:00 [id number] ENT [address] [place] [address] [place] [id number] 0 05/07/2013 00:00:00 [id number] ENT [address] [place], [place] [address], [place] [id number] 0 09/08/2013 00:00:00 [id number] YSABEL Nava [facility] [place], [place] [id number] 09/22/2013 00:00:00 [id number] YSABEL Nava [facility] [place], [place] [id number] 0 10/30/2013 00:00:00 [id number] YSABEL Nava [facility] [place], [place] [id number] 0 11/07/2013 00:00:00 [id number] YSABEL [place] [facility] [place] [id number] 12/01/2013 00:00:00 [id number] YSABEL [place] [facility] [place] [id number] 01/01/2014 00:00:00 [id number] _MICHELLE_M IGRATION_ DEFAULT_1 _1 , 01/22/2017 00:00:00 01/22/2017 10:04:48 [id number] _ATHENA_M IGRATION_ DEFAULT_1 _1 , 01/23/2017 00:00:00 01/25/2017 11:43:19 [id number] _ATHENA_M IGRATION_ DEFAULT_1 _1 , 02/05/2017 00:00:00 02/05/2017 10:46:44 [id number] _ATHENA_M IGRATION_ DEFAULT_1 _1 , 02/14/2017 00:00:00 02/14/2017 10:03:31 [id number] _ATHENA_M IGRATION_ DEFAULT_1 _1 , 03/02/2017 00:00:00 03/07/2017 15:28:27 Health Concerns Section Related Observation LastModified by Organization Detai ls LastModified Time None Recorded Concern Status LastModified by Organization Details LastModified Time None Recorded Advance Directives Directive None Recorded Payers None recorded. Notes Date Note Type Note Provider Name [...] 12 hrs. Prior Imaging:MRI Previous Surgerynone Previous Injections:CONI; helped a little; helped temporarily Previous PT:none Previous dog day care attendant:did not help Not Available [facility] 01/22/2017 10:04:48 02/05/2017 text/html L-spine OrthoReported bypatient.Location: bilateral Quality:aching; dull; constant Severity:moderate; pain level 5/10 Duration:continuous since onset Timing:cannot identify Context:cannot identify Alleviating Factors:narcotics Aggravating Factors:sitting; standing; walking; bending/squatting; exercise Associated Symptoms:no weakness; no numbness; no tingling; no radiation down leg Previous Surgery:none Prior Imaging:no recent studies Previous Injections:helped significantly Previous PT:none Not Available [facility] 02/05/2017 10:46:44 02/14/2017 text/html Pain Management L-spineReported [...] 12 hrs. Prior Imaging:MRI Previous Surgerynone Previous Injections:CONI; helped a little; helped temporarily Previous PT:none Previous dog day care attendant:did not help Not Available [facility] 02/14/2017 10:03:31 OBGyn Episode No OBEpisode recorded.
--- OUTSIDE RECORDS SUMMARY | 2024-12-02 13:16 | XMS_ITS ---
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 Name Role Phone Avinash Marroquin MD Primary Care Provider Unavaila Declan Madrigal Unavailable [phone] Avinash Marroquin MD Unavailable Unavailable REASON FOR VISIT Scripted error Medications Medication SIG (Take, Route, Fr equency, Duration) Notes Start Date End Date Status traMADol HCl 50 MG 1-2 tablet as needed Orally up to 3 doses per day for severe pain, exempt for 30 days exempt 09/25/2024 Active Encounters Encounter Location Date Provider Diagnosis [facility] [address] [place] [address] 09/25/2024 Declan Young Radiculopathy, lumbar region M54.16 Assessments Encounter Date Diagnosis (ICD Code) Assessment Notes Treatment Notes Treatment Clinical Notes 09/25/2024 Radiculopathy, lumbar region (ICD-10 - M54.16) Plan Of Treatment Medication Medication Name Sig Start Date Stop Date Notes traMADol HCl 50 MG 1-2 tablet as needed Orally up to 3 doses per day for severe pain, exempt for 30 days 09/25/2024 exempt Next Appt Details Provider Name:Declan scott, 01/13/2025 09:00:00 AM, [address], [place], [address], Progress Notes * Nusrat HASTINGSDOB: [birth year] (79 yo F)Acc No.[id number]:09/25/2024 Patient:?Nusrat HASTINGS :1945???Age:79 Y???Sex:Female Address:[address] [place] [address] [address], [place] [address] * Refills? Refill traMADol HCl Tablet, 50 MG, Orally, 150 tablets, 1-2 tablet as needed, up to 3 doses per day for severe pain, exempt, 30 days, Refills=0 * true * Date:? 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
== END 2024-12-02 13:00 | disposition home or self-care (01) ==
PROVIDERS: Emergency Provider Emergency Medicine
DX: M06.9 Rheumatoid arthritis, unspecified (principal); M25.532 Pain in left wrist
CPT/HCPCS: 73110; 73130; 99283

== ENCOUNTER → 2024-12-02 10:28 | Outpatient (BNV) | payer MEDICARE, SELFPAY | PROVIDERS: Visit Provider Radiology Diagnostic Radiology | DX: M11.232 Other chondrocalcinosis, left wrist (principal); R22.32 Localized swelling, mass and lump, left upper limb | CPT/HCPCS: 73110; 73130 ==